=== PATIENT | male | born 1995 | race Caucasian/White ===

== ENCOUNTER 2021-03-24 17:14 | Inpatient (IN) | payer OTHER, SELFPAY ==
[2021-03-24 17:38] VITALS: PULSE 62; RESP 17; TEMP 36.8; O2SAT 95
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
--- NOTE | 2021-03-24 18:56 | PC.NURSE ---
PT declined flu vaccine at this time.
[2021-03-24 20:25] VITALS: BP 125/87; PULSE 109; TEMP 36.7; O2SAT 94
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
[2021-03-24] MEDS: Gabapentin 300 MG CAPSULE PO (22:31)
[2021-03-24] MEDS: hydrOXYzine HCL 50 MG TABLET 100 MG PO (22:31)
[2021-03-25 08:45] VITALS: BP 155/72; PULSE 87; RESP 16; TEMP 36.8; O2SAT 98
[2021-03-25] MEDS: Multivitamin TABLET 1 TAB PO (08:53)
[2021-03-25] MEDS: hydrOXYzine HCL 50 MG TABLET 100 MG PO ×3 (08:53→21:51)
[2021-03-25] MEDS: Gabapentin 300 MG CAPSULE PO ×2 (08:53→21:51)
[2021-03-25] MEDS: Sertraline HCL 100 MG TABLET 200 MG PO (08:53)
[2021-03-25] MEDS: ARIPiprazole 10 MG TABLET PO (13:01)
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
[2021-03-25 18:00] VITALS: BP 147/58; PULSE 77; RESP 18; TEMP 36.3; O2SAT 94
[2021-03-26 06:00] VITALS: TEMP 36.7
[2021-03-26] MEDS: hydrOXYzine HCL 50 MG TABLET 100 MG PO (08:35)
[2021-03-26] MEDS: Multivitamin TABLET 1 TAB PO (08:35)
[2021-03-26] MEDS: ARIPiprazole 10 MG TABLET PO (08:36)
[2021-03-26] MEDS: Sertraline HCL 100 MG TABLET 200 MG PO (08:36)
[2021-03-26] MEDS: Gabapentin 300 MG CAPSULE PO (08:37)
--- NOTE | 2021-03-26 10:55 | P.PNPSI_ITS ---
Subjective Subjective Date of Service: 03/27/21 Reason For Visit: Major depression Subjective Notes: Conditional Voluntary Interim History: Pt mostly in bed. He reports doing well. Although affect constricted. He reports he does not want to go back to as it was very toxic. Pt denies SI/HI. he also denies VH/AH. He reports sleeping well. He was encouraged to attend groups and be more visible in the unit. Somewhat disheveled. Mental Status Exam Mental Status Exam Narrative: obese, casually dressed, disheveled. no PMA/PMR. cooperative with interview. thoughts somewhat loose, spontaneously circumstantial. no delusions or paranoia evident. affect full range, flexible, normo-intense, non-labile. mood depressed and anxious. no AVH, denies SI/SIBI/HI, yet then when discharge is broached he reports feeling unsafe in a vague way due to his emotional agony. Diagnostics Vital Signs (24Hr): Vital Signs - 24 hr 03/26/21 21:18 Temperature 98.4 F Pulse Rate 72 Blood Pressure 172/81 H Pulse Oximetry 97 Medications Medications Current Medications Al Hydroxide/Mg Hydroxide (Magnesium Hydrox/Alum Hydrox 30 Ml Oral.Susp) 30 ml PO Q6H PRN PRN Reason: reflux Aripiprazole (Aripiprazole 10 Mg Tablet) 10 mg PO DAILY [facility] Last Admin: 03/27/21 09:12 Dose: 10 mg Documented by: Gabapentin (Gabapentin 300 Mg Capsule) 300 mg PO QID PRN PRN Reason: anxiety Last Admin: 03/25/21 21:51 Dose: 300 mg Documented by: Gabapentin (Gabapentin 300 Mg Capsule) 300 mg PO DAILY [facility] Last Admin: 03/27/21 09:12 Dose: 300 mg Documented by: Hydroxyzine HCl (Hydroxyzine Hcl 50 Mg Tablet) 100 mg PO BID PRN PRN Reason: Anxiety Last Admin: 03/25/21 21:51 Dose: 100 mg Documented by: Hydroxyzine HCl (Hydroxyzine Hcl 50 Mg Tablet) 100 mg PO BEDTIME PRN PRN Reason: insomnia Last Admin: 03/24/21 22:31 Dose: 100 mg Documented by: Hydroxyzine HCl (Hydroxyzine Hcl 50 Mg Tablet) 100 mg PO DAILY [facility] Last Admin: 03/27/21 09:12 Dose: 100 mg Documented by: Multivitamins/Vitamin C (Multivitamin Tablet) 1 tab PO DAILY [facility] Last Admin: 03/27/21 09:12 Dose: 1 tab Documented by: Omeprazole (Omeprazole 20 Mg Capsule.Dr) 20 mg PO DAILY@0630 [facility] Sertraline HCl (Sertraline Hcl 100 Mg Tablet) 200 mg PO DAILY [facility] Last Admin: 03/27/21 09:12 Dose: 200 mg Documented by: Allergies Allergies Allergy/AdvReac Type Severity Reaction Status Date / Time No Known Allergies Allergy Verified 03/24/21 17:28 Assessment & Plan Assessment & Plan (1) Depressive disorder: Status: Acute Code(s): F32.9 - Major depressive disorder, single episode, unspecified (2) Anxiety disorder: Status: Acute Code(s): F41.9 - Anxiety disorder, unspecified Assessment and Plan: DC guanfacine and vyvanse per pt request. start abilify 10 mg daily for mood, anxiety. pt does not appear to meet hospital criteria for LOC; discharge as soon as aftercare can be arranged. Greater than 50% of the session was spent on counseling and/or coordination of care Reason for contiued inpatient stay Substantial Risk for: inability to function
[2021-03-26 21:18] VITALS: BP 172/81; PULSE 72; TEMP 36.9; O2SAT 97
[2021-03-27 06:00] VITALS: BP 129/77; PULSE 72; RESP 20; TEMP 36.7; O2SAT 96
[2021-03-27] MEDS: Sertraline HCL 100 MG TABLET 200 MG PO (09:12)
[2021-03-27] MEDS: ARIPiprazole 10 MG TABLET PO (09:12)
[2021-03-27] MEDS: Gabapentin 300 MG CAPSULE PO ×2 (09:12→21:23)
[2021-03-27] MEDS: hydrOXYzine HCL 50 MG TABLET 100 MG PO ×2 (09:12→21:24)
[2021-03-27] MEDS: Multivitamin TABLET 1 TAB PO (09:12)
--- NOTE | 2021-03-27 19:05 | HO.PSYCHPN ---
Subjective Subjective Date of Service: 03/27/21 Reason For Visit: Major depression Interim History: Calm, cooperative, somewhat shy today. Reports sx of GERD. Maalox/Prilosec ordered which pt was in agreement with. Pt is guarded, observant in milieu and somewhat isolative. He denies other concerns, med SE, reports he is sleeping, eating and is feeling safe on the unit. Medication Compliance: Yes Review of Systems Acute medical concerns: No Medical Review of Systems: unchanged Review of Systems Reports behavioral changes Psychiatric: Reports anxiety, Reports behavioral changes, Reports depression and Reports paranoia Mental Status Exam Mental Status Exam Patient Appearance: Appropriate Patient Orientation: Person, Place and Situation Level of Consciousness: Alert Patient Behavior: Guarded, Talkative, Suspicious and Poor Eye Contact Mood Description: Constricted Affect Description: Constricted Patient Cognition Impaired: No Ability to Follow Directions: Good Speech Pattern: Spontaneous Speech Memory Description: Episodic Impaired Hallucinations: None Delusions: Paranoid Ideation Perceptual Disturbances: Depersonalization Thought Process: Distracted and Rumination Thought Content: positive for [place], positive for Circumstantial and positive for Suicidal Ideation (denies today) Depressive Symptoms: Increased Anxiety Judgement: Fair Diagnostics Vital Signs (24Hr): Vital Signs - 24 hr 03/26/21 21:18 03/27/21 06:00 Temperature 98.4 F 98.1 F Pulse Rate 72 72 Respiratory Rate 20 Blood Pressure 172/81 H 129/77 Pulse Oximetry 97 96 Medications Medications Current Medications Al Hydroxide/Mg Hydroxide (Magnesium Hydrox/Alum Hydrox 30 Ml Oral.Susp) 30 ml PO Q6H PRN PRN Reason: reflux Aripiprazole (Aripiprazole 10 Mg Tablet) 10 mg PO DAILY COUNTS [facility]CLUDE 234 BEDS AT THE [facility] Last Admin: 03/27/21 09:12 Dose: 10 mg Documented by: Gabapentin (Gabapentin 300 Mg Capsule) 300 mg PO QID PRN PRN Reason: anxiety Last Admin: 03/25/21 21:51 Dose: 300 mg Documented by: Gabapentin (Gabapentin 300 Mg Capsule) 300 mg PO DAILY COUNTS INCLUDE 234 BEDS AT THE [facility] Last Admin: 03/27/21 09:12 Dose: 300 mg Documented by: Hydroxyzine HCl (Hydroxyzine Hcl 50 Mg Tablet) 100 mg PO BID PRN PRN Reason: Anxiety Last Admin: 03/25/21 21:51 Dose: 100 mg Documented by: Hydroxyzine HCl (Hydroxyzine Hcl 50 Mg Tablet) 100 mg PO BEDTIME PRN PRN Reason: insomnia Last Admin: 03/24/21 22:31 Dose: 100 mg Documented by: Hydroxyzine HCl (Hydroxyzine Hcl 50 Mg Tablet) 100 mg PO DAILY COUNTS INCLUDE 234 BEDS AT THE [facility] Last Admin: 03/27/21 09:12 Dose: 100 mg Documented by: Multivitamins/Vitamin C (Multivitamin Tablet) 1 tab PO DAILY COUNTS INCLUDE 234 BEDS AT THE [facility] Last Admin: 03/27/21 09:12 Dose: 1 tab Documented by: Omeprazole (Omeprazole 20 Mg Capsule.Dr) 20 mg PO DAILY@0630 COUNTS INCLUDE 234 BEDS AT THE [facility] Sertraline HCl (Sertraline Hcl 100 Mg Tablet) 200 mg PO DAILY COUNTS INCLUDE 234 BEDS AT THE [facility] Last Admin: 03/27/21 09:12 Dose: 200 mg Documented by: Allergies Allergies Allergy/AdvReac Type Severity Reaction Status Date / Time No Known Allergies Allergy Verified 03/24/21 17:28 Assessment & Plan Assessment & Plan (1) Depressive disorder: Status: Acute Code(s): F32.9 - Major depressive disorder, single episode, unspecified (2) Anxiety disorder: Status: Acute Code(s): F41.9 - Anxiety disorder, unspecified Assessment and Plan: DC guanfacine and vyvanse per pt request. start abilify 10 mg daily for mood, anxiety. pt does not appear to meet hospital criteria for LOC; discharge as soon as aftercare can be arranged. 03/27/21: Continue plan of care Prilosec 20 mg daily Maalox prn for sx of GERD, Acid reflux Greater than 50% of the session was spent on counseling and/or coordination of care Patient educated on: medication risk/benefits and therapeutic strategies Informed Consent: further education needed Reason for contiued inpatient stay Substantial Risk for: harm to self, inability to function and rapid decompensation
[2021-03-27 21:48] VITALS: BP 139/80; PULSE 87; RESP 18; TEMP 36.3; O2SAT 96
[2021-03-28 06:00] VITALS: BP 134/87; PULSE 57; RESP 20; TEMP 36.8; O2SAT 96
[2021-03-28] MEDS: ARIPiprazole 10 MG TABLET PO (08:25)
[2021-03-28] MEDS: Sertraline HCL 100 MG TABLET 200 MG PO (08:25)
[2021-03-28] MEDS: Multivitamin TABLET 1 TAB PO (08:25)
[2021-03-28] MEDS: Omeprazole 20 MG CAPSULE.DR PO (08:25)
[2021-03-28] MEDS: Gabapentin 300 MG CAPSULE PO (08:25)
[2021-03-28] MEDS: hydrOXYzine HCL 50 MG TABLET 100 MG PO (08:25)
--- NOTE | 2021-03-28 10:42 | HO.PSYCHPN ---
Subjective Subjective Date of Service: 03/28/21 Reason For Visit: Major depression Interim History: Flavio is isolative in his room today. He denies concerns, med side effects. Team reports he appears to be more available in the evening when he will interact with peers and particpate in activities. Sleep at night is intact Team reports no behavioral issues. Medication Compliance: Yes Side effects from medications: No Attending Groups: Yes Review of Systems Medical Review of Systems: unchanged Review of Systems Reports behavioral changes Psychiatric: Reports anxiety, Reports behavioral changes, Reports depression and Reports paranoia Mental Status Exam Mental Status Exam Patient Appearance: Appropriate Patient Orientation: Person, Place and Situation Level of Consciousness: Alert Patient Behavior: Guarded, Talkative, Suspicious and Poor Eye Contact Mood Description: Constricted Affect Description: Constricted Patient Cognition Impaired: No Ability to Follow Directions: Good Speech Pattern: Spontaneous Speech Memory Description: Episodic Impaired Hallucinations: None Delusions: Paranoid Ideation Perceptual Disturbances: Depersonalization Thought Process: Distracted and Rumination Thought Content: positive for [place], positive for Circumstantial and positive for Suicidal Ideation (denies today) Depressive Symptoms: Increased Anxiety Judgement: Fair Diagnostics Vital Signs (24Hr): Vital Signs - 24 hr 03/27/21 21:48 03/28/21 06:00 Temperature 97.3 F 98.2 F Pulse Rate 87 57 Respiratory Rate 18 20 Blood Pressure 139/80 134/87 Pulse Oximetry 96 96 Medications Medications Current Medications Al Hydroxide/Mg Hydroxide (Magnesium Hydrox/Alum Hydrox 30 Ml Oral.Susp) 30 ml PO Q6H PRN PRN Reason: reflux Aripiprazole (Aripiprazole 10 Mg Tablet) 10 mg PO DAILY NGUYEN Last Admin: 03/28/21 08:25 Dose: 10 mg Documented by: Gabapentin (Gabapentin 300 Mg Capsule) 300 mg PO QID PRN PRN Reason: anxiety Last Admin: 03/27/21 21:23 Dose: 300 mg Documented by: Gabapentin (Gabapentin 300 Mg Capsule) 300 mg PO DAILY NGU[facility]EN Last Admin: 03/28/21 08:25 Dose: 300 mg Documented by: Hydroxyzine HCl (Hydroxyzine Hcl 50 Mg Tablet) 100 mg PO BID PRN PRN Reason: Anxiety Last Admin: 03/25/21 21:51 Dose: 100 mg Documented by: Hydroxyzine HCl (Hydroxyzine Hcl 50 Mg Tablet) 100 mg PO BEDTIME PRN PRN Reason: insomnia Last Admin: 03/27/21 21:24 Dose: 100 mg Documented by: Hydroxyzine HCl (Hydroxyzine Hcl 50 Mg Tablet) 100 mg PO DAILY [facility] Last Admin: 03/28/21 08:25 Dose: 100 mg Documented by: Multivitamins/Vitamin C (Multivitamin Tablet) 1 tab PO DAILY [facility] Last Admin: 03/28/21 08:25 Dose: 1 tab Documented by: Omeprazole (Omeprazole 20 Mg Capsule.Dr) 20 mg PO DAILY@0630 [facility] Last Admin: 03/28/21 08:25 Dose: 20 mg Documented by: Sertraline HCl (Sertraline Hcl 100 Mg Tablet) 200 mg PO DAILY [facility] Last Admin: 03/28/21 08:25 Dose: 200 mg Documented by: Allergies Allergies Allergy/AdvReac Type Severity Reaction Status Date / Time No Known Allergies Allergy Verified 03/24/21 17:28 Assessment & Plan Assessment & Plan (1) Depressive disorder: Status: Acute Code(s): F32.9 - Major depressive disorder, single episode, unspecified (2) Anxiety disorder: Status: Acute Code(s): F41.9 - Anxiety disorder, unspecified Assessment and Plan: DC guanfacine and vyvanse per pt request. start abilify 10 mg daily for mood, anxiety. pt does not appear to meet hospital criteria for LOC; discharge as soon as aftercare can be arranged. 03/27/21: Continue plan of care Prilosec 20 mg daily Maalox prn for sx of GERD, Acid reflux 03/28/21: Coverage-Continue plan of care. Greater than 50% of the session was spent on counseling and/or coordination of care Informed Consent: further education needed Reason for contiued inpatient stay Substantial Risk for: harm to self, inability to function and rapid decompensation
[2021-03-28 20:26] VITALS: BP 173/85; PULSE 104; TEMP 37; O2SAT 97
[2021-03-28] MEDS: Ibuprofen 400 MG TABLET PO (20:40)
--- NOTE | 2021-03-29 | ECG_ITS ---
Test Reason : obesity Blood Pressure : / mmHG Vent. Rate : 109 BPM Atrial Rate : 109 BPM P-R Int : 146 ms QRS Dur : 086 ms QT Int : 332 ms P-R-T Axes : 058 -32 038 degrees QTc Int : 447 ms Sinus tachycardia with occasional Premature ventricular complexes and Fusion complexes Left axis deviation Nonspecific ST abnormality Abnormal ECG No previous ECGs available Referred By: Sugar Draper Electronically Signed By:MIKAYLA ANDRADE MD
[2021-03-29] MEDS: hydrOXYzine HCL 50 MG TABLET 100 MG PO ×2 (00:04→08:35)
[2021-03-29] MEDS: Gabapentin 300 MG CAPSULE PO ×2 (00:04→08:35)
[2021-03-29] MEDS: Multivitamin TABLET 1 TAB PO (08:35)
[2021-03-29] MEDS: Sertraline HCL 100 MG TABLET 200 MG PO (08:35)
[2021-03-29] MEDS: ARIPiprazole 10 MG TABLET PO (08:35)
--- NOTE | 2021-03-29 10:49 | P.CONIM_ITS ---
History of Present Illness Data of Consult Service Date: 03/29/21 Requesting physician: Sugar Draper Primary Care Provider: Unknown Physician HPI Reason for consult: New patient 25 year old man admitted to for psychiatric care. His blood pressure is noted to be elevated as high as 173/85. He h His BP is noted to be elevated Review of Systems Review of Systems: Denies any recent fever chills or decrease in appetite respiratory denies any shortness of breath coverage production cardiovascular denies chest pain gastrointestinal denies any dysphagia abdominal pain nausea vomiting or diarrhea genitourinary denies any dysuria frequency or hematuria musculoskeletal denies any joint pain or swelling neuropsych denies any weakness or seizures all other systems reviewed are negative [facility] Medical History (Updated 03/29/21 @ 17:11 by Zuleika Pendleton NP) Anxiety disorder Depressive disorder GERD (gastroesophageal reflux disease) Pertinent family history: lung and brain cancer, denies cardiac disease Surgical History (Updated 03/29/21 @ 17:10 by Zuleika Pendleton NP) H/O heart surgery H/O wrist surgery Social History Household Members: Other Household Members Other:: care home Housing: Other Housing Other:: care home Do you presently have visiting nurse or other home services: No Patient Tobacco Use Status: Former Tobacco user Quit Date: 1 year ago Tobacco use type: Cigarette Smoked in Last 30 Days: No Patient Interested in Nicotine Replacement: No Patient Given Instructions on How to Stop Smoking: No Use of substances other than those prescribed or required for medical reasons: No Currently Displaying Signs/Symptoms of Drug Intoxication Withdrawal: No Have you been hit, kicked, punched, or otherwise hurt by someone within the past year? If so, by whom?: No Do you feel safe in your current relationship?: No Current Relationship Is there a partner from a previous relationship who is making you feel unsafe now?: No Are you made to feel afraid or neglected: No Spiritual Healthcare Practices: n/a Mandaeism Healthcare Practices: n/a Cultural Healthcare Practices: n/a Advance Directives: No Advance Directives Information Provided: No Do you have thoughts of harming others: None Do you have a plan to hurt others: No Plan Recently lost weight without trying: No Eating poorly because of decreased appetite: No Nutrition Risks: No Nutritional Risk Poor oral hygiene: No service: No Sexual orientation: Don't Know Meds Allergies Allergy/AdvReac Type Severity Reaction Status Date / Time No Known Allergies Allergy Verified 03/24/21 17:28 Active Medications: Current Medications Al Hydroxide/Mg Hydroxide (Magnesium Hydrox/Alum Hydrox 30 Ml Oral.Susp) 30 ml PO Q6H PRN PRN Reason: reflux Aripiprazole (Aripiprazole 10 Mg Tablet) 10 mg PO DAILY [facility] Last Admin: 03/29/21 08:35 Dose: 10 mg Documented by: Gabapentin (Gabapentin 300 Mg Capsule) 300 mg PO QID PRN PRN Reason: anxiety Last Admin: 03/29/21 00:04 Dose: 300 mg Documented by: Gabapentin (Gabapentin 300 Mg Capsule) 300 mg PO DAILY [facility] Last Admin: 03/29/21 08:35 Dose: 300 mg Documented by: Hydroxyzine HCl (Hydroxyzine Hcl 50 Mg Tablet) 100 mg PO BID PRN PRN Reason: Anxiety Last Admin: 03/25/21 21:51 Dose: 100 mg Documented by: Hydroxyzine HCl (Hydroxyzine Hcl 50 Mg Tablet) 100 mg PO BEDTIME PRN PRN Reason: insomnia Last Admin: 03/29/21 00:04 Dose: 100 mg Documented by: Hydroxyzine HCl (Hydroxyzine Hcl 50 Mg Tablet) 100 mg PO DAILY [facility] Last Admin: 03/29/21 08:35 Dose: 100 mg Documented by: Ibuprofen (Ibuprofen 400 Mg Tablet) 400 mg PO Q6H PRN PRN Reason: pain Last Admin: 03/28/21 20:40 Dose: 400 mg Documented by: Multivitamins/Vitamin C (Multivitamin Tablet) 1 tab PO DAILY [facility] Last Admin: 03/29/21 08:35 Dose: 1 tab Documented by: Omeprazole (Omeprazole 20 Mg Capsule.) 20 mg PO DAILY@0630 [facility] Last Admin: 03/29/21 10:28 Dose: Not Given Documented by: Sertraline HCl (Sertraline Hcl 100 Mg Tablet) 200 mg PO DAILY [facility] Last Admin: 03/29/21 08:35 Dose: 200 mg Documented by: Home Medications Medication Instructions Recorded Confirmed Last Taken Type gabapentin 300 mg capsule 300 mg PO DAILY 03/24/21 03/24/21 Unknown History gabapentin 300 mg capsule 300 mg PO QID PRN 03/24/21 03/24/21 Unknown History guanfacine 2 mg tablet 2 mg PO BID 03/24/21 03/24/21 Unknown History hydroxyzine HCl 100 mg tablet 100 mg PO BEDTIME PRN 03/24/21 03/24/21 Unknown History hydroxyzine HCl 100 mg tablet 100 mg PO BID PRN 03/24/21 03/24/21 Unknown History hydroxyzine HCl 100 mg tablet 100 mg PO DAILY 03/24/21 03/24/21 Unknown History lisdexamfetamine 40 mg capsule 40 mg PO DAILY 03/24/21 03/24/21 Unknown History (Vyvanse) multivitamin (Daily Multi-Vitamin) 1 tab 03/24/21 Unknown History sertraline 100 mg tablet 200 mg PO DAILY 03/24/21 03/24/21 Unknown History Physical Exam Vital Signs and Narrative: Vital Signs: Last Vital Signs Temp 98.6 F 03/28/21 20:26 Pulse 104 H 03/28/21 20:26 Resp 20 03/28/21 06:00 BP 173/85 H 03/28/21 20:26 Pulse Ox 97 03/28/21 20:26 Appearing in no acute distress head is normocephalic atraumatic eyes pupils are PERRLA sclera is anicteric mouth throat mucous membranes are intact and moist neck is supple no lymphadenopathy, no JVD noted lung sounds are clear to auscultation heart regular rate rhythm, clear S1, S2 positive bowel sounds, abdomen is soft, nontender neuro patient is alert x3, no focal deficits Assessment and Plan (1) GERD (gastroesophageal reflux disease): Status: Inactive (2) Anxiety disorder: Status: Inactive (3) Depressive disorder: Status: Inactive 25 year old man admitted to [facility] for psychiatric care. GERD continue PPI Elevated blood pressure readings no hx of HTN may be related to anxiety Has been up and down, monitor and consider adding antihypertensive agent if blood pressure remains elevated May consider lisinopril 5 mg daily, check BMP prior for renal function Follow and trend Mental health Management as per psychiatric team Obesity. Discussed the importance of weight management as this may be contributing to worsening of other comorbidities Patient interested in weight management consultation Nursing staff to get patient information about weight management clinic at [facility] Attending Dr. Contreras
[2021-03-29 11:42] VITALS: BP 129/79; PULSE 119; TEMP 36.3
--- NOTE | 2021-03-29 16:36 | P.PNPSI_ITS ---
Subjective Subjective Date of Service: 03/29/21 Reason For Visit: Major depression Interim History: Team report pt is telling them depression is 9/10. He is more engaged in the milieu later in the day. Today he is well engaged in discussion. He reports that the causes of his depression are poor health, obesity and not knowing where to begin to take improved care of himself. Discussed diagnostics, nutrition consult, (hospitalist consult is pending for admit from another facility) and pt agrees as he has discussed this earlier with his primary nurse. These interventions appear to motivate him and he expresses interest in participation. Medication Compliance: Yes Side effects from medications: No Attending Groups: Yes Review of Systems Acute medical concerns: No Medical Review of Systems: unchanged Review of Systems Psychiatric: Reports abnormal sleep pattern, Reports anxiety, Reports change in appetite, Reports depression, Reports difficulty concentrating, Reports hopelessness, Reports irritability, Reports anhedonia and Reports suicidal ideation Mental Status Exam Mental Status Exam Patient Appearance: Appropriate Patient Orientation: Person, Place and Situation Level of Consciousness: Alert Patient Behavior: Appropriate, Talkative, Cooperative, Anxious, Fatigued and Good Eye Contact Mood Description: Depressed and Anxious Affect Description: Flat Patient Cognition Impaired: No Ability to Follow Directions: Good Speech Pattern: Appropriate and Spontaneous Speech Memory Description: Intact Hallucinations: None Delusions: Not Present and Paranoid Ideation Perceptual Disturbances: Depersonalization and Derealization Thought Process: Rumination and Goal Oriented Thought Content: positive for [place], positive for Circumstantial, positive for Goal Oriented and positive for Suicidal Ideation (denies today) Depressive Symptoms: Increased Anxiety Judgement: Fair Diagnostics Vital Signs (24Hr): Vital Signs - 24 hr 03/28/21 20:26 03/29/21 11:42 Temperature 98.6 F 97.4 F Pulse Rate 104 H 119 H Blood Pressure 173/85 H 129/79 Pulse Oximetry 97 Medications Medications Current Medications Al Hydroxide/Mg Hydroxide (Magnesium Hydrox/Alum Hydrox 30 Ml Oral.Susp) 30 ml PO Q6H PRN PRN Reason: reflux Aripiprazole (Aripiprazole 10 Mg Tablet) 10 mg PO DAILY [facility] Last Admin: 03/29/21 08:35 Dose: 10 mg Documented by: Gabapentin (Gabapentin 300 Mg Capsule) 300 mg PO QID PRN PRN Reason: anxiety Last Admin: 03/29/21 00:04 Dose: 300 mg Documented by: Gabapentin (Gabapentin 300 Mg Capsule) 300 mg PO DAILY [facility] Last Admin: 03/29/21 08:35 Dose: 300 mg Documented by: Hydroxyzine HCl (Hydroxyzine Hcl 50 Mg Tablet) 100 mg PO BID PRN PRN Reason: Anxiety Last Admin: 03/25/21 21:51 Dose: 100 mg Documented by: Hydroxyzine HCl (Hydroxyzine Hcl 50 Mg Tablet) 100 mg PO BEDTIME PRN PRN Reason: insomnia Last Admin: 03/29/21 00:04 Dose: 100 mg Documented by: Hydroxyzine HCl (Hydroxyzine Hcl 50 Mg Tablet) 100 mg PO DAILY [facility] Last Admin: 03/29/21 08:35 Dose: 100 mg Documented by: Ibuprofen (Ibuprofen 400 Mg Tablet) 400 mg PO Q6H PRN PRN Reason: pain Last Admin: 03/28/21 20:40 Dose: 400 mg Documented by: Multivitamins/Vitamin C (Multivitamin Tablet) 1 tab PO DAILY [facility] Last Admin: 03/29/21 08:35 Dose: 1 tab Documented by: Omeprazole (Omeprazole 20 Mg Capsule.) 20 mg PO DAILY@0630 [facility] Last Admin: 03/29/21 10:28 Dose: Not Given Documented by: Sertraline HCl (Sertraline Hcl 100 Mg Tablet) 200 mg PO DAILY [facility] Last Admin: 03/29/21 08:35 Dose: 200 mg Documented by: Allergies Allergies Allergy/AdvReac Type Severity Reaction Status Date / Time No Known Allergies Allergy Verified 03/24/21 17:28 Assessment & Plan Assessment & Plan (1) GERD (gastroesophageal reflux disease): Status: Acute Code(s): K21.9 - Gastro-esophageal reflux disease without esophagitis (2) Anxiety disorder: Status: Acute Code(s): F41.9 - Anxiety disorder, unspecified (3) Depressive disorder: Status: Acute Code(s): F32.9 - Major depressive disorder, single episode, unspecified Assessment and Plan: 25 year old man admitted to for psychiatric care. GERD continue PPI Elevated blood pressure readings no hx of HTN may be related to anxiety Follow and trend Mental health Management as per psychiatric team Greater than 50% of the session was spent on counseling and/or coordination of care Patient educated on: therapeutic strategies Informed Consent: understands and further education needed Reason for contiued inpatient stay Substantial Risk for: harm to self, inability to function and rapid decompensation
[2021-03-29 18:00] VITALS: BP 142/85; PULSE 98; RESP 20; TEMP 36.8; O2SAT 97
[2021-03-30] MEDS: hydrOXYzine HCL 50 MG TABLET 100 MG PO ×2 (04:40→08:21)
[2021-03-30] MEDS: Magnesium Hydrox/Alum Hydrox 30 ML ORAL.SUSP PO (04:40)
[2021-03-30 06:00] VITALS: BP 144/76; PULSE 90; RESP 20; TEMP 36.7; O2SAT 97
[2021-03-30 07:21] LABS: Basophils Absolute Auto 0.1 X10*3/uL (0.0-0.2); Basophils Percent Auto 0.7 % (0-2); Eosinophils Absolute Auto 0.2 X10*3/uL (0.0-0.4); Eosinophils Percent Auto 1.8 % (0-4); Hematocrit 47.9 % (42-52); Hemoglobin 16.3 g/dl (14.0-18.0); Imm Gran Abs Auto 0.23 X10*3/uL (0.00-0.03); Imm Gran Pct Auto 1.7 % (0.0-0.4); Lymphocytes Absolute Auto 4.2 X10*3/uL (1.2-4.9); MANUAL DIFF FLAG SCAN; Mean Corpuscular Hemoglobin 28.7 pg (27.0-33.0); Mean Corpuscular Volume 84.5 fL (80-98); Mean Platelet Volume 9.1 fL (9.4-12.4); Monocytes Absolute Auto 1.6 X10*3/uL (0.1-1.2); Neutrophils Absolute Auto 7.2 X10*3/uL (2.0-8.3); Neutrophils Percent Auto 52.8 % (45-73); Platelet Count 300 X10*3/uL (160-400); Red Blood Count 5.67 X10*6/uL (4.60-5.80); Red Cell Distribution Width 13.2 % (11.0-16.0); SCAN SMEAR FLAG 1; White Blood Count 13.5 X10*3/uL (4.8-10.8)
[2021-03-30 07:40] LABS: Alanine Aminotransferase 47 U/L (0-40); Albumin Level 4.6 g/dL (3.5-5.0); Alkaline Phosphatase 90 U/L (39-117); Anion Gap 14 (12-20); Aspartate Amino Transferase 21 U/L (5-37); Bilirubin Total 0.5 mg/dL (0.0-1.0); Blood Urea Nitrogen 16 mg/dL (9-16); Calcium 9.4 mg/dL (8.4-10.2); Carbon Dioxide 26 mmol/L (22-29); Chloride 104 mmol/L (96-108); Cholesterol 174 mg/dL; Estimated Glomerular Filt Rate > 60; Glucose Random 106 mg/dL (60-115); HDL Cholesterol 35 mg/dL; LDL Cholesterol Calculated 104 mg/dl; Potassium 4.6 mmol/L (3.3-5.1); Sodium 139 mmol/L (135-145); Total Protein 7.4 g/dL (6.5-8.0); Triglycerides 176 mg/dL
[2021-03-30] MEDS: Omeprazole 20 MG CAPSULE.DR PO (07:42)
[2021-03-30 08:01] LABS: Thyroid Stimulating Hormone 1.54 uIU/mL (0.32-4.0); Vitamin D 25-OH Total 24.1 ng/mL (>30)
[2021-03-30] MEDS: Gabapentin 300 MG CAPSULE PO (08:20)
[2021-03-30 08:21] LABS: SLIDE REVIEW VERIFIED
[2021-03-30] MEDS: Multivitamin TABLET 1 TAB PO (08:21)
[2021-03-30] MEDS: Sertraline HCL 100 MG TABLET 200 MG PO (08:21)
[2021-03-30] MEDS: ARIPiprazole 10 MG TABLET PO (08:24)
[2021-03-30 08:26] LABS: Estimated Average Glucose 108 mg/dL; Hemoglobin A1c % 5.4 %
[2021-03-30 08:48] LABS: Folate 15.7 ng/mL (> or = 4.0); Vitamin B12 444 pg/mL (200-900)
[2021-03-30] MEDS: Amphetamine Mixed Salts 10 MG TABLET 5 MG PO ×2 (11:36→13:59)
--- NOTE | 2021-03-30 14:10 | PC.NURSE ---
PT was sitting in his room, stated that he feels sad about being discharged, states that he doesn't feel safe, he states he is afraid of himself and of other people. PT states he is hoping to get his own apartment. PT states he feels safe on the unit. PT has kill me written across his knuckles, when asked about it pt states he was feeling silly . PT encouraged to attend group, as this RN was leaving his room the sign for the shower was noted to be in his room, pt states the sign made him sad so he took it.
--- NOTE | 2021-03-30 15:17 | P.PNPSI_ITS ---
Subjective Subjective Date of Service: 03/30/21 Reason For Visit: Major depression Interim History: pt presents as tangential, but also fairly relatable. c/o depressed and anxious mood, difficulty concentrating. agrees to give adderall a try. will start with 10 mg qam and 10 mg at 1:30 pm. per report from nursing staff later in the day, pt was behaving oddly, apparently responding slowly, being very reluctant to come out of his room, making oblique references to someone's having been mean to him. the plan was to discharge him tomorrow but he expressed ambiguity about feeling safe and engaged in some property destruction on the unit out of anger (ripped a sign off the wall). Mental Status Exam Mental Status Exam Narrative: obese, casually dressed, disheveled. no PMA/PMR. cooperative with interview. thoughts tangential. no delusions or paranoia evident. affect full range, flexible, normo-intense, non-labile. mood depressed and anxious. no SI/HI/AVH expressed. Diagnostics Vital Signs (24Hr): Vital Signs - 24 hr 03/29/21 18:00 03/30/21 06:00 Temperature 98.2 F 98.0 F Pulse Rate 98 90 Respiratory Rate 20 20 Blood Pressure 142/85 H 144/76 H Pulse Oximetry 97 97 Labs Results: 03/30/21 07:07 03/30/21 07:07 Labs: Laboratory Results - last 48 hr 03/30/21 03/30/21 03/30/21 07:07 07:07 07:07 WBC 13.5 H RBC 5.67 Hgb 16.3 Hct 47.9 MCV 84.5 MCH 28.7 MCHC 34.0 RDW 13.2 Plt Count 300 MPV 9.1 L Immature Gran % (Auto) 1.7 H Neut % (Auto) 52.8 Lymph % (Auto) 31.0 [place] % (Auto) 12.0 H Eos % (Auto) 1.8 Baso % (Auto) 0.7 Lymph # (Auto) 4.2 [place] # (Auto) 1.6 H Eos # (Auto) 0.2 Baso # (Auto) 0.1 Abs Immat Gran (auto) 0.23 H Absolute Neuts (auto) 7.2 Absolute Nucleated RBC 0.000 Nucleated RBC % (auto) 0.0 Smear Tech's Comments VERIFIED Sodium 139 Potassium 4.6 Chloride 104 Carbon Dioxide 26 Anion Gap 14 BUN 16 Creatinine 0.96 Estim Creat Clear Calc TNP Estimated GFR > 60 Random Glucose 106 Estimat Average Glucose 108 Hemoglobin A1c % 5.4 Calcium 9.4 Total Bilirubin 0.5 AST 21 ALT 47 H Alkaline Phosphatase 90 Total Protein 7.4 Albumin 4.6 Triglycerides 176 Cholesterol 174 LDL Cholesterol, Calc 104 HDL Cholesterol 35 Vitamin B12 25-OH Vitamin D Total 24.1 Folate TSH 1.54 03/30/21 07:07 WBC RBC Hgb Hct MCV MCH MCHC RDW Plt Count MPV Immature Gran % (Auto) Neut % (Auto) Lymph % (Auto) [place] % (Auto) Eos % (Auto) Baso % (Auto) Lymph # (Auto) [place] # (Auto) Eos # (Auto) Baso # (Auto) Abs Immat Gran (auto) Absolute Neuts (auto) Absolute Nucleated RBC Nucleated RBC % (auto) Smear Tech's Comments Sodium Potassium Chloride Carbon Dioxide Anion Gap BUN Creatinine Estim Creat Clear Calc Estimated GFR Random Glucose Estimat Average Glucose Hemoglobin A1c % Calcium Total Bilirubin AST ALT Alkaline Phosphatase Total Protein Albumin Triglycerides Cholesterol LDL Cholesterol, Calc HDL Cholesterol Vitamin B12 444 25-OH Vitamin D Total Folate 15.7 TSH Medications Medications Current Medications Al Hydroxide/Mg Hydroxide (Magnesium Hydrox/Alum Hydrox 30 Ml Oral.Susp) 30 ml PO Q6H PRN PRN Reason: reflux Last Admin: 03/30/21 04:40 Dose: 30 ml Documented by: Amphetamine/Dextroamphetamine (Amphetamine Mixed Salts 10 Mg Tablet) 5 mg PO BID@0630,1330 [facility] Last Admin: 03/30/21 13:59 Dose: 5 mg Documented by: Aripiprazole (Aripiprazole 10 Mg Tablet) 10 mg PO DAILY [facility] Last Admin: 03/30/21 08:24 Dose: 10 mg Documented by: Gabapentin (Gabapentin 300 Mg Capsule) 300 mg PO QID PRN PRN Reason: anxiety Last Admin: 03/29/21 00:04 Dose: 300 mg Documented by: Gabapentin (Gabapentin 300 Mg Capsule) 300 mg PO DAILY [facility] Last Admin: 03/30/21 08:20 Dose: 300 mg Documented by: Hydroxyzine HCl (Hydroxyzine Hcl 50 Mg Tablet) 100 mg PO BID PRN PRN Reason: Anxiety Last Admin: 03/30/21 04:40 Dose: 100 mg Documented by: Hydroxyzine HCl (Hydroxyzine Hcl 50 Mg Tablet) 100 mg PO BEDTIME PRN PRN Reason: insomnia Last Admin: 03/29/21 00:04 Dose: 100 mg Documented by: Hydroxyzine HCl (Hydroxyzine Hcl 50 Mg Tablet) 100 mg PO DAILY [facility] Last Admin: 03/30/21 08:21 Dose: 100 mg Documented by: Ibuprofen (Ibuprofen 400 Mg Tablet) 400 mg PO Q6H PRN PRN Reason: pain Last Admin: 03/28/21 20:40 Dose: 400 mg Documented by: Multivitamins/Vitamin C (Multivitamin Tablet) 1 tab PO DAILY [facility] Last Admin: 03/30/21 08:21 Dose: 1 tab Documented by: Omeprazole (Omeprazole 20 Mg Capsule.Dr) 20 mg PO DAILY@0630 [facility] Last Admin: 03/30/21 07:42 Dose: 20 mg Documented by: Sertraline HCl (Sertraline Hcl 100 Mg Tablet) 200 mg PO DAILY [facility] Last Admin: 03/30/21 08:21 Dose: 200 mg Documented by: Allergies Allergies Allergy/AdvReac Type Severity Reaction Status Date / Time No Known Allergies Allergy Verified 03/24/21 17:28 Assessment & Plan Assessment & Plan (1) GERD (gastroesophageal reflux disease): Status: Inactive Code(s): K21.9 - Gastro-esophageal reflux disease without esophagitis (2) Anxiety disorder: Status: Inactive Code(s): F41.9 - Anxiety disorder, unspecified (3) Depressive disorder: Status: Inactive Code(s): F32.9 - Major depressive disorder, single episode, unspecified Assessment and Plan: DCed guanfacine and vyvanse per pt request. started abilify 10 mg daily for mood, anxiety. started adderall 10 BID 03/30/21 for ADHD Sx. pt was noted to be having behavior unusual for him later in the day. will hold for observation and to assure tolerability of adderall prior to discharge. Greater than 50% of the session was spent on counseling and/or coordination of care Reason for contiued inpatient stay Substantial Risk for: harm to self, inability to function and rapid decompensation
--- NOTE | 2021-03-30 15:42 | MHC.CLN ---
RE: CONSULT AWAITING HT AND WT TO FURTHER ASSESS NUTRITION STATUS PT APPEARS OBESE FOR HT PER ADMISSION ASSESSMENT REGULAR DIET APPROPRIATE
[2021-03-30 20:33] VITALS: PULSE 111; RESP 20; TEMP 36.7; O2SAT 94
[2021-03-31] MEDS: hydrOXYzine HCL 50 MG TABLET 100 MG PO ×3 (01:22→16:59)
[2021-03-31] MEDS: Gabapentin 300 MG CAPSULE PO ×2 (02:40→09:49)
[2021-03-31 06:00] VITALS: BP 159/99; PULSE 110; RESP 20; TEMP 36.8; O2SAT 94
[2021-03-31] MEDS: Omeprazole 20 MG CAPSULE.DR PO (07:47)
[2021-03-31] MEDS: Amphetamine Mixed Salts 10 MG TABLET 5 MG PO (07:48)
[2021-03-31] MEDS: ARIPiprazole 10 MG TABLET PO ×2 (08:08→12:18)
[2021-03-31] MEDS: Multivitamin TABLET 1 TAB PO (09:45)
[2021-03-31] MEDS: Sertraline HCL 100 MG TABLET 200 MG PO (09:45)
--- NOTE | 2021-03-31 12:22 | MHC.CLN ---
NUTRITION CONSULT CONSULT FOR WEIGHT LOSS STRATEGIES PER PATIENT INTEREST. PATIENT APPEARS OBESE, GREATER THAN OBESITY CLASS I. STATED THAT HAS BEEN INCREASING VEGETABLE INTAKE. STATED THAT EATS THREE MEALS PER DAY AND DOES NOT SNACK. DRINKS WATER, COFFEE, AND CRANBERRY DRINK. DISCUSSED HIGH FAT CONTENT OF SOME SNACKS AND HIGH SUGAR CONTENT OF SOME DRINKS. ADVISED TO WALK/MOVE WHEN ABLE, CONTINUE GOOD INTAKE OF VEGETABLES, MONITOR INTAKE OF SNACKS AND SUGARY DRINKS. DID NOT ANSWER WHERE HE GETS MEALS/WHO PREPARES MEALS. RECEPTIVE AND ACTIVE IN DISCUSSION.
[2021-03-31] MEDS: Amphetamine Mixed Salts 10 MG TABLET PO (14:08)
--- NOTE | 2021-03-31 14:13 | P.PNPSI_ITS ---
Subjective Subjective Date of Service: 03/31/21 Reason For Visit: Major depression Interim History: pt with increased latency of response. when asked about what is happening in his head during this time, he describes having thoughts, thinking about plans, things he wants to do, ways he plans to make money, projects he would like to do. he believes it is a symptom of ADHD. MD suggests that is possible but it seems more severe than most people with ADHD struggle with and it may be a thought disorder, or psychosis. we discuss increasing the abilifty, and he agrees to increase to 20 mg daily and then asks to increase to 30 mg daily. he has been on the medication in the past but cannot recall what dose he was on. stimulants also discussed; the intention was to start at 10 mg BID, so dosing increased to that figure as of today. states he did have difficulty sleeping but does not believe it had anything to do with starting stimulants yesterday. he asks about when MD thinks he will be discharged, and MD informs him the plan is to observe him a bit longer on the increased dose of abilify and stimulant. per staff, sad, depressed, anxious. angry in the morning yesterday, not feeling important. delayed responses to staff questions. got nervous about potentially being discharged, pulled shower sign out of the wall in frustration. was up until 0430 this morning. Mental Status Exam Mental Status Exam Narrative: obese, casually dressed, disheveled. no PMA/PMR. cooperative with interview. thoughts tangential, somewhat disorganized. no delusions or paranoia evident. affect constricted, normo-intense, non-labile. mood depressed and anxious. no SI/HI/AVH expressed. Diagnostics Vital Signs (24Hr): Vital Signs - 24 hr 03/30/21 20:33 03/31/21 06:00 Temperature 98.1 F 98.2 F Pulse Rate 111 H 110 H Respiratory Rate 20 20 Blood Pressure 159/99 H Pulse Oximetry 94 94 Labs Results: 03/30/21 07:07 03/30/21 07:07 Labs: Laboratory Results - last 48 hr 03/30/21 03/30/21 03/30/21 07:07 07:07 07:07 WBC 13.5 H RBC 5.67 Hgb 16.3 Hct 47.9 MCV 84.5 MCH 28.7 MCHC 34.0 RDW 13.2 Plt Count 300 MPV 9.1 L Immature Gran % (Auto) 1.7 H Neut % (Auto) 52.8 Lymph % (Auto) 31.0 [place] % (Auto) 12.0 H Eos % (Auto) 1.8 Baso % (Auto) 0.7 Lymph # (Auto) 4.2 [place] # (Auto) 1.6 H Eos # (Auto) 0.2 Baso # (Auto) 0.1 Abs Immat Gran (auto) 0.23 H Absolute Neuts (auto) 7.2 Absolute Nucleated RBC 0.000 Nucleated RBC % (auto) 0.0 Smear Tech's Comments VERIFIED Sodium 139 Potassium 4.6 Chloride 104 Carbon Dioxide 26 Anion Gap 14 BUN 16 Creatinine 0.96 Estim Creat Clear Calc TNP Estimated GFR > 60 Random Glucose 106 Estimat Average Glucose 108 Hemoglobin A1c % 5.4 Calcium 9.4 Total Bilirubin 0.5 AST 21 ALT 47 H Alkaline Phosphatase 90 Total Protein 7.4 Albumin 4.6 Triglycerides 176 Cholesterol 174 LDL Cholesterol, Calc 104 HDL Cholesterol 35 Vitamin B12 25-OH Vitamin D Total 24.1 Folate TSH 1.54 03/30/21 07:07 WBC RBC Hgb Hct MCV MCH MCHC RDW Plt Count MPV Immature Gran % (Auto) Neut % (Auto) Lymph % (Auto) [place] % (Auto) Eos % (Auto) Baso % (Auto) Lymph # (Auto) [place] # (Auto) Eos # (Auto) Baso # (Auto) Abs Immat Gran (auto) Absolute Neuts (auto) Absolute Nucleated RBC Nucleated RBC % (auto) Smear Tech's Comments Sodium Potassium Chloride Carbon Dioxide Anion Gap BUN Creatinine Estim Creat Clear Calc Estimated GFR Random Glucose Estimat Average Glucose Hemoglobin A1c % Calcium Total Bilirubin AST ALT Alkaline Phosphatase Total Protein Albumin Triglycerides Cholesterol LDL Cholesterol, Calc HDL Cholesterol Vitamin B12 444 25-OH Vitamin D Total Folate 15.7 TSH Medications Medications Current Medications Al Hydroxide/Mg Hydroxide (Magnesium Hydrox/Alum Hydrox 30 Ml Oral.Susp) 30 ml PO Q6H PRN PRN Reason: reflux Last Admin: 03/30/21 04:40 Dose: 30 ml Documented by: Amphetamine/Dextroamphetamine (Amphetamine Mixed Salts 20 Mg Tablet) 20 mg PO DAILY@1130 [facility] Aripiprazole (Aripiprazole 30 Mg Tablet) 30 mg PO DAILY [facility] Gabapentin (Gabapentin 300 Mg Capsule) 300 mg PO QID PRN PRN Reason: anxiety Last Admin: 03/31/21 02:40 Dose: 300 mg Documented by: Gabapentin (Gabapentin 300 Mg Capsule) 300 mg PO DAILY [facility] Last Admin: 03/31/21 08:08 Dose: 300 mg Documented by: Hydroxyzine HCl (Hydroxyzine Hcl 50 Mg Tablet) 100 mg PO BID PRN PRN Reason: Anxiety Last Admin: 03/30/21 04:40 Dose: 100 mg Documented by: Hydroxyzine HCl (Hydroxyzine Hcl 50 Mg Tablet) 100 mg PO BEDTIME PRN PRN Reason: insomnia Last Admin: 03/31/21 01:22 Dose: 100 mg Documented by: Hydroxyzine HCl (Hydroxyzine Hcl 50 Mg Tablet) 100 mg PO DAILY [facility] Last Admin: 03/31/21 08:07 Dose: 100 mg Documented by: Ibuprofen (Ibuprofen 400 Mg Tablet) 400 mg PO Q6H PRN PRN Reason: pain Last Admin: 03/28/21 20:40 Dose: 400 mg Documented by: Multivitamins/Vitamin C (Multivitamin Tablet) 1 tab PO DAILY [facility] Last Admin: 03/31/21 08:08 Dose: 1 tab Documented by: Omeprazole (Omeprazole 20 Mg Capsule.Dr) 20 mg PO DAILY@0630 [facility] Last Admin: 03/31/21 07:47 Dose: 20 mg Documented by: Sertraline HCl (Sertraline Hcl 100 Mg Tablet) 200 mg PO DAILY [facility] Last Admin: 03/31/21 08:08 Dose: 200 mg Documented by: Allergies Allergies Allergy/AdvReac Type Severity Reaction Status Date / Time No Known Allergies Allergy Verified 03/24/21 17:28 Assessment & Plan Assessment & Plan (1) GERD (gastroesophageal reflux disease): Status: Inactive Code(s): K21.9 - Gastro-esophageal reflux disease without esophagitis (2) Anxiety disorder: Status: Inactive Code(s): F41.9 - Anxiety disorder, unspecified (3) Depressive disorder: Status: Inactive Code(s): F32.9 - Major depressive disorder, single episode, unspecified Assessment and Plan: DCed guanfacine and vyvanse per pt request. started abilify 10 mg daily for mood, anxiety; increased to 20 mg daily as of 03/31 with plan to move to 30 mg daily as of 10/14. started adderall 5 BID 03/30/21 for ADHD Sx; dosing increased to 10 BID starting 03/31. will hold for observation and to assure tolerability of adderall and increased dosing of abilify prior to discharge. Greater than 50% of the session was spent on counseling and/or coordination of care Reason for contiued inpatient stay Substantial Risk for: harm to self, inability to function and rapid decompe nsation
[2021-03-31 18:00] VITALS: BP 134/98; PULSE 98; TEMP 36.3; O2SAT 97
[2021-04-01] MEDS: Magnesium Hydrox/Alum Hydrox 30 ML ORAL.SUSP PO ×2 (02:21→23:00)
--- NOTE | 2021-04-01 04:14 | PC.NURSE ---
At 0315 patient requested to take a shower. At 0330 nurse and MHA saw water beginning to pool on the shower room hallway. Asked patient if he had blocked the drain, no response. Patient was asked to turn off the water and exit the shower. Patient complied. Patient had placed a towel on the drain and purposely blocked the water from draining, thus flooding the shower-room. Patient stated I'm bored .
[2021-04-01] MEDS: Omeprazole 20 MG CAPSULE.DR PO (05:06)
[2021-04-01] MEDS: hydrOXYzine HCL 50 MG TABLET 100 MG PO ×2 (05:06→16:56)
[2021-04-01 06:00] VITALS: BP 141/76; PULSE 80; RESP 16; TEMP 36.7; O2SAT 98
--- NOTE | 2021-04-01 08:40 | PC.NURSE ---
Patient refused AM medication stating he did not need artificial meds to help him feel better, I rather be depressed . Patient c/o abdominal pain I think its a blockage . I have Aspergers I try not to pretend I am something I'm not . My pain went away now. It was in my knees, lower quads, a / but now it went away . Patient presents with paper towels in his ears stating he was trying to block out sound.
--- NOTE | 2021-04-01 14:00 | P.PNPSI_ITS ---
Subjective Subjective Date of Service: 04/01/21 Reason For Visit: Major depression Interim History: pt seen with [facility]. pt presents as more disorganized and tangential than yesterday. agreeable to stop the stimulants as his mental status has clearly worsened after starting them and further after increasing the dose. no complaints of side effects of abilify. somatically preoccupied, c/o throat pain, worried he has lyme Dz, believes he can feel a spirochete under the skin in his periorbital area, asking for xray to locate the lyme disease in his neck region. pt agrees to have hospitalist examine his throat and to be prescribed lozenges PRN sore throat. per staff, anxious and depressed. isolative in the morning and visible in the milieu in the afternoon. played chess with peer. pulled on electrical sign but was able to be redirected. c/o bugs crawling in his throat. during crafts time painted himself, his arms, to look like a football player. stopped up the shower drain with his towel. refused morning medications today. Mental Status Exam Mental Status Exam Narrative: obese, casually dressed, disheveled. no PMA/PMR. cooperative with interview. thoughts tangential, disorganized, somatically preoccupied. seems delusional regarding his state of infection. affect constricted, normo-intense, non-labile. mood depressed and anxious. no SI/HI/AVH expressed. Diagnostics Vital Signs (24Hr): Vital Signs - 24 hr 03/31/21 18:00 04/01/21 06:00 Temperature 97.4 F 98.0 F Pulse Rate 98 80 Respiratory Rate 16 Blood Pressure 134/98 H 141/76 H Pulse Oximetry 97 98 Labs Results: 03/30/21 07:07 03/30/21 07:07 Medications Medications Current Medications Al Hydroxide/Mg Hydroxide (Magnesium Hydrox/Alum Hydrox 30 Ml Oral.Susp) 30 ml PO Q6H PRN PRN Reason: reflux Last Admin: 04/01/21 02:21 Dose: 30 ml Documented by: Aripiprazole (Aripiprazole 30 Mg Tablet) 30 mg PO DAILY [facility] Last Admin: 04/01/21 11:59 Dose: Not Given Documented by: Benzocaine (Throat Lozenge, Medicated Lozenge) 1 lozenge MUCOUS MEM Q1H PRN PRN Reason: Sore Throat Gabapentin (Gabapentin 300 Mg Capsule) 300 mg PO QID PRN PRN Reason: anxiety Last Admin: 03/31/21 02:40 Dose: 300 mg Documented by: Gabapentin (Gabapentin 300 Mg Capsule) 300 mg PO DAILY [facility] Last Admin: 04/01/21 11:58 Dose: Not Given Documented by: Hydroxyzine HCl (Hydroxyzine Hcl 50 Mg Tablet) 100 mg PO BID PRN PRN Reason: Anxiety Last Admin: 03/31/21 16:59 Dose: 100 mg Documented by: Hydroxyzine HCl (Hydroxyzine Hcl 50 Mg Tablet) 100 mg PO BEDTIME PRN PRN Reason: insomnia Last Admin: 04/01/21 05:06 Dose: 100 mg Documented by: Hydroxyzine HCl (Hydroxyzine Hcl 50 Mg Tablet) 100 mg PO DAILY [facility] Last Admin: 04/01/21 11:58 Dose: Not Given Documented by: Ibuprofen (Ibuprofen 400 Mg Tablet) 400 mg PO Q6H PRN PRN Reason: pain Last Admin: 03/28/21 20:40 Dose: 400 mg Documented by: Multivitamins/Vitamin C (Multivitamin Tablet) 1 tab PO DAILY [facility] Last Admin: 04/01/21 11:59 Dose: Not Given Documented by: Omeprazole (Omeprazole 20 Mg Capsule.Dr) 20 mg PO DAILY@0630 [facility] Last Admin: 04/01/21 05:06 Dose: 20 mg Documented by: Sertraline HCl (Sertraline Hcl 100 Mg Tablet) 200 mg PO DAILY [facility] Last Admin: 04/01/21 11:59 Dose: Not Given Documented by: Allergies Allergies Allergy/AdvReac Type Severity Reaction Status Date / Time No Known Allergies Allergy Verified 03/24/21 17:28 Assessment & Plan Assessment & Plan (1) GERD (gastroesophageal reflux disease): Status: Inactive Code(s): K21.9 - Gastro-esophageal reflux disease without esophagitis (2) Anxiety disorder: Status: Inactive Code(s): F41.9 - Anxiety disorder, unspecified (3) Depressive disorder: Status: Inactive Code(s): F32.9 - Major depressive disorder, single episode, unspecified Assessment and Plan: DCed guanfacine and vyvanse per pt request. started abilify 10 mg daily for mood, anxiety; increased to 20 mg daily as of 10/13 with plan to move to 30 mg daily as of 04/01. started adderall 5 BID 03/30/21 for ADHD Sx; dosing increased to 10 BID starting 03/31. DCed 04/01 due to worsened psychotic Sx since the addition of stimulant. will hold for observation and to assure tolerability of increased dosing of abilify prior to discharge. Greater than 50% of the session was spent on counseling and/or coordination of care Reason for contiued inpatient stay Substantial Risk for: inability to function and rapid decompensation
[2021-04-01] MEDS: Gabapentin 300 MG CAPSULE PO ×2 (16:48→22:19)
--- NOTE | 2021-04-01 16:56 | PC.NURSE ---
Patient c/o chest discomfort, BP 144/100, P89. Administered Gabapentin 300mg PRN, Atarax 100mg PRN with pending effects. Continue to monitor BP. Patient observed to run up and down hallway x1.
--- NOTE | 2021-04-01 17:26 | PC.NURSE ---
Patient putting things in toliet, paper bag, cards, socks in addition to large BM.
--- NOTE | 2021-04-01 17:34 | PC.NURSE ---
Patient placed on 5 minute checks for unpredictability, impulsive behavior. .
[2021-04-01 18:00] VITALS: BP 146/96; PULSE 95; RESP 16; TEMP 36.6; O2SAT 98
[2021-04-01] MEDS: Throat Lozenge, Medicated LOZENGE 1 LOZENGE MUCOUS MEM (22:19)
[2021-04-02] MEDS: hydrOXYzine HCL 50 MG TABLET 100 MG PO ×3 (00:46→11:50)
[2021-04-02 05:32] VITALS: BP 142/86; PULSE 99; RESP 18; TEMP 36.7; O2SAT 96
[2021-04-02] MEDS: Omeprazole 20 MG CAPSULE.DR PO (05:44)
--- NOTE | 2021-04-02 06:05 | PC.NURSE ---
PT having increased impulsivety, appears to be responding to internal stimuli, PT vomited x1, T 98, BP 142/86, P 99, O2 97, PT had no complaints said That happens all the time. Meaning throwing up randomly. PT on 5 minute checks trying to pull signs off the wall, took mattress off bed, laughing to self, attempting to exit. PT did not sleep at all this shift.PT signed a 3 day this am at 5:55. PT showered, at one point PT was sitting on floor in shower, redirected to sit on bench. PT also has playing cards on floor of room. Nurse will continue to monitor.
[2021-04-02] MEDS: Sertraline HCL 100 MG TABLET 200 MG PO (09:54)
[2021-04-02] MEDS: ARIPiprazole 30 MG TABLET PO (09:54)
[2021-04-02] MEDS: Gabapentin 300 MG CAPSULE PO ×2 (09:55→11:50)
[2021-04-02] MEDS: Multivitamin TABLET 1 TAB PO (09:55)
[2021-04-02] MEDS: OLANZapine 5 MG TABLET PO (12:04)
[2021-04-02] MEDS: OLANZapine 10 MG TABLET 20 MG PO ×2 (12:51→20:35)
--- NOTE | 2021-04-02 16:14 | HO.PSYCHPN ---
Subjective Subjective Date of Service: 04/02/21 Reason For Visit: Major depression Interim History: pt c/o the voices being irritating. he likes being alone but cannot feel alone in his room due to the voices. he states his mood is good. but moments later c/o severe psychic pain. torment. denies SI/HI/VH. endorses AH of stack stuff which he declines to describe. talking about [employer] and [employer]. pt had received olanzapine earlier in the day for agitation. MD informed pt he would Rx the same medication at bedtime to help with his thoughts and to help him sleep. pt requesting ativan for anxiety/agitation, MD agrees to Rx. per staff, numerous bizarre and destructive behaviors in the past 24H. up all night (no sleep since stimulant trial started - stimulants now DCed). Mental Status Exam Mental Status Exam Narrative: obese, casually dressed, disheveled. no PMA/PMR. cooperative with interview. thoughts tangential, disorganized. affect constricted, normo-intense, non-labile. mood described as good, then pt states he is experiencing a lot of psychic pain. torment. no SI/HI/VH. endorsing AH of stack stuff. Diagnostics Vital Signs (24Hr): Vital Signs - 24 hr 04/01/21 18:00 04/02/21 05:32 Temperature 97.9 F 98.0 F Pulse Rate 95 99 Respiratory Rate 16 18 Blood Pressure 146/96 H 142/86 H Pulse Oximetry 98 96 Labs Results: 03/30/21 07:07 03/30/21 07:07 Medications Medications Current Medications Al Hydroxide/Mg Hydroxide (Magnesium Hydrox/Alum Hydrox 30 Ml Oral.Susp) 30 ml PO Q6H PRN PRN Reason: reflux Last Admin: 04/01/21 23:00 Dose: 30 ml Documented by: Benzocaine (Throat Lozenge, Medicated Lozenge) 1 lozenge MUCOUS MEM Q1H PRN PRN Reason: Sore Throat Last Admin: 04/01/21 22:19 Dose: 1 lozenge Documented by: Gabapentin (Gabapentin 300 Mg Capsule) 300 mg PO QID PRN PRN Reason: anxiety Last Admin: 04/01/21 22:19 Dose: 300 mg Documented by: Gabapentin (Gabapentin 300 Mg Capsule) 300 mg PO DAILY [facility] Last Admin: 04/02/21 11:50 Dose: 300 mg Documented by: Hydroxyzine HCl (Hydroxyzine Hcl 50 Mg Tablet) 100 mg PO BID PRN PRN Reason: Anxiety Last Admin: 04/01/21 16:56 Dose: 100 mg Documented by: Hydroxyzine HCl (Hydroxyzine Hcl 50 Mg Tablet) 100 mg PO BEDTIME PRN PRN Reason: insomnia Last Admin: 04/02/21 00:46 Dose: 100 mg Documented by: Hydroxyzine HCl (Hydroxyzine Hcl 50 Mg Tablet) 100 mg PO DAILY [facility] Last Admin: 04/02/21 11:50 Dose: 100 mg Documented by: Ibuprofen (Ibuprofen 400 Mg Tablet) 400 mg PO Q6H PRN PRN Reason: pain Last Admin: 03/28/21 20:40 Dose: 400 mg Documented by: Lorazepam (Lorazepam 1 Mg Tablet) 1 mg PO Q4H PRN PRN Reason: severe anxiety Multivitamins/Vitamin C (Multivitamin Tablet) 1 tab PO DAILY [facility] Last Admin: 04/02/21 09:55 Dose: 1 tab Documented by: Olanzapine (Olanzapine 10 Mg Tablet) 20 mg PO BEDTIME [facility] Omeprazole (Omeprazole 20 Mg Capsule.Dr) 20 mg PO DAILY@0630 [facility] Last Admin: 04/02/21 05:44 Dose: 20 mg Documented by: Sertraline HCl (Sertraline Hcl 100 Mg Tablet) 200 mg PO DAILY [facility] Last Admin: 04/02/21 09:54 Dose: 200 mg Documented by: Allergies Allergies Allergy/AdvReac Type Severity Reaction Status Date / Time No Known Allergies Allergy Verified 03/24/21 17:28 Assessment & Plan Assessment & Plan (1) GERD (gastroesophageal reflux disease): Status: Inactive Code(s): K21.9 - Gastro-esophageal reflux disease without esophagitis (2) Anxiety disorder: Status: Inactive Code(s): F41.9 - Anxiety disorder, unspecified (3) Depressive disorder: Status: Inactive Code(s): F32.9 - Major depressive disorder, single episode, unspecified Assessment and Plan: DCed guanfacine and vyvanse per pt request. started abilify 10 mg daily for mood, anxiety; increased to 20 mg daily as of 03/31, 30 mg daily as of 04/01. DCed 04/02 in favor of zyprexa as pt has rapidly become quite disorganized and insomniac. started adderall 5 BID 03/30/21 for ADHD Sx; dosing increased to 10 BID starting 03/31. DCed 04/01 due to worsened psychotic Sx since the addition of stimulant. dispo - pending resolution of apparently iatrogenic psychosis. Greater than 50% of the session was spent on counseling and/or coordination of care Reason for contiued inpatient stay Substantial Risk for: inability to function and rapid decompensation
[2021-04-02 18:00] VITALS: BP 165/90
[2021-04-02] MEDS: Magnesium Hydrox/Alum Hydrox 30 ML ORAL.SUSP PO (20:39)
[2021-04-03 06:00] VITALS: BP 175/86; PULSE 97; RESP 16; TEMP 36.7; O2SAT 97
[2021-04-03] MEDS: hydrOXYzine HCL 50 MG TABLET 100 MG PO ×4 (06:47→22:30)
[2021-04-03] MEDS: LORazepam 1 MG TABLET PO ×3 (06:47→20:02)
[2021-04-03] MEDS: Gabapentin 300 MG CAPSULE PO ×4 (06:47→18:12)
[2021-04-03] MEDS: Throat Lozenge, Medicated LOZENGE 1 LOZENGE MUCOUS MEM ×6 (08:22→21:31)
[2021-04-03] MEDS: Omeprazole 20 MG CAPSULE.DR PO (08:50)
[2021-04-03] MEDS: OLANZapine 10 MG TABLET PO (08:50)
[2021-04-03] MEDS: Multivitamin TABLET 1 TAB PO (08:50)
[2021-04-03] MEDS: Sertraline HCL 100 MG TABLET 200 MG PO (08:50)
[2021-04-03] MEDS: Magnesium Hydrox/Alum Hydrox 30 ML ORAL.SUSP PO ×2 (12:59→20:02)
[2021-04-03] MEDS: OLANZapine 5 MG TABLET PO ×2 (13:00→22:30)
--- NOTE | 2021-04-03 17:03 | HO.PSYCHPN ---
Subjective Subjective Date of Service: 04/05/21 Reason For Visit: Major depression Interim History: Patient seen and discussed with team. Patient evaluated this morning and upon interview presents as internally preoccupied and disorganized. Says I would like to have a musical instrument and read about Eve Frecatarino. Says Also im just what happened at the last place i was at? Says his mood is better now but i'm angry at myself for the way amngo been in the past. Says he misses his family and friends. He is quite tangential during interview, jumping from topic to topic, states I really like celtic history and paganism and that I have a special relationship with the [facility]. Asks, Is it possible to get a prescription for ritalin, cause i have adhd. Endorses AH but says the voices are pretty awesome and denies command hallucinations but says I'd rather not hear voices at all. Has been asking for olanzapine as a PRN and took 10 mg this morning, however now says I dont really like it that much. Says sleep has been great, per staff submarine warfare officer, last night was the first night he had slept for consecutive hours. He is malodorous and has not been attending to self care on the unit, however says That?s all been great when asked if he is showering. Reports he wants to buy math text books from [employer] and wants to solve some math problems today. Denies paranoia. Denies SI/SIB/HI upon inquiry. Says he feels safe.? In the milieu, patient has reportedly engaged in property destructio and room is unkempt/ disheveled, difficult to redirect. Mental Status Exam Mental Status Exam Narrative: obese, casually dressed, disheveled, malodorous, arms crossed, poor eye contact.? no PMA/PMR.? cooperative with interview.? thoughts tangential, disorganized. ? affect constricted, normo-intense, non-labile.? mood described as better, but then states he is angry, affect is constricted, incongruent.? no SI/HI/VH.? endorsing AH but says the voices are positive in content. Diagnostics Vital Signs (24Hr): Vital Signs - 24 hr 04/02/21 18:00 04/03/21 06:00 Temperature 98.1 F Pulse Rate 97 Respiratory Rate 16 Blood Pressure 165/90 H 175/86 H Pulse Oximetry 97 Labs Results: 03/30/21 07:07 03/30/21 07:07 Medications Medications Current Medications Al Hydroxide/Mg Hydroxide (Magnesium Hydrox/Alum Hydrox 30 Ml Oral.Susp) 30 ml PO Q6H PRN PRN Reason: reflux Last Admin: 04/03/21 12:59 Dose: 30 ml Documented by: Benzocaine (Throat Lozenge, Medicated Lozenge) 1 lozenge MUCOUS MEM Q1H PRN PRN Reason: Sore Throat Last Admin: 04/03/21 14:52 Dose: 1 lozenge Documented by: Gabapentin (Gabapentin 300 Mg Capsule) 300 mg PO QID PRN PRN Reason: anxiety Last Admin: 04/03/21 14:55 Dose: 300 mg Documented by: Gabapentin (Gabapentin 300 Mg Capsule) 300 mg PO DAILY [facility] Last Admin: 04/03/21 08:51 Dose: 300 mg Documented by: Hydroxyzine HCl (Hydroxyzine Hcl 50 Mg Tablet) 100 mg PO BID PRN PRN Reason: Anxiety Last Admin: 04/03/21 13:00 Dose: 100 mg Documented by: Hydroxyzine HCl (Hydroxyzine Hcl 50 Mg Tablet) 100 mg PO BEDTIME PRN PRN Reason: insomnia Last Admin: 04/02/21 00:46 Dose: 100 mg Documented by: Hydroxyzine HCl (Hydroxyzine Hcl 50 Mg Tablet) 100 mg PO DAILY [facility] Last Admin: 04/03/21 08:51 Dose: 100 mg Documented by: Ibuprofen (Ibuprofen 400 Mg Tablet) 400 mg PO Q6H PRN PRN Reason: pain Last Admin: 03/28/21 20:40 Dose: 400 mg Documented by: Lorazepam (Lorazepam 1 Mg Tablet) 1 mg PO Q4H PRN PRN Reason: severe anxiety Last Admin: 04/03/21 14:55 Dose: 1 mg Documented by: Multivitamins/Vitamin C (Multivitamin Tablet) 1 tab PO DAILY [facility] Last Admin: 04/03/21 08:50 Dose: 1 tab Documented by: Olanzapine (Olanzapine 10 Mg Tablet) 20 mg PO BEDTIME [facility] Last Admin: 04/02/21 20:35 Dose: 20 mg Documented by: Olanzapine (Olanzapine 10 Mg Tablet) 10 mg PO DAILY [facility] Olanzapine (Olanzapine 5 Mg Tablet) 5 mg PO Q8H PRN PRN Reason: agitation, psychosis Omeprazole (Omeprazole 20 Mg Capsule.) 20 mg PO DAILY@0630 [facility] Last Admin: 04/03/21 08:50 Dose: 20 mg Documented by: Sertraline HCl (Sertraline Hcl 100 Mg Tablet) 200 mg PO DAILY [facility] Last Admin: 04/03/21 08:50 Dose: 200 mg Documented by: Allergies Allergies Allergy/AdvReac Type Severity Reaction Status Date / Time No Known Allergies Allergy Verified 03/24/21 17:28 Assessment & Plan Assessment & Plan (1) Schizoaffective disorder, bipolar type: Status: Acute Code(s): F25.0 - Schizoaffective disorder, bipolar type Assessment and Plan: DCed guanfacine and vyvanse per pt request. started abilify 10 mg daily for mood, anxiety; increased to 20 mg daily as of 03/31, 30 mg daily as of 04/01. DCed 04/02 in favor of zyprexa as pt has rapidly become quite disorganized and insomniac. started adderall 5 BID 03/30/21 for ADHD Sx; dosing increased to 10 BID starting 03/31. DCed 04/01 due to worsened psychotic Sx since the addition of stimulant. dispo - pending resolution of apparently iatrogenic psychosis. Weekend coverage: Pt has been requesting PRN olanzapine and per staff submarine warfare officer, this has been helping with sleep and disorganized behavior, will schedule 10 mg QAM in addition to bedtime dose of 20 mg QHS to total 30 mg QD. Has PRN dose of 5 mg Q8H as needed for psychosis, agitation. Greater than 50% of the session was spent on counseling and/or coordination of care Reason for contiued inpatient stay Substantial Risk for: inability to function, rapid decompensation and med/psych decompensation
[2021-04-03 18:00] VITALS: BP 157/85; PULSE 113; RESP 18; TEMP 36.1; O2SAT 98
[2021-04-03] MEDS: OLANZapine 10 MG TABLET 20 MG PO (20:02)
[2021-04-04] MEDS: OLANZapine 5 MG TABLET PO ×2 (06:53→15:29)
[2021-04-04] MEDS: Throat Lozenge, Medicated LOZENGE 1 LOZENGE MUCOUS MEM ×5 (06:53→20:33)
[2021-04-04] MEDS: Omeprazole 20 MG CAPSULE.DR PO (06:53)
[2021-04-04 08:15] VITALS: BP 172/119; PULSE 71; RESP 16; TEMP 36.7; O2SAT 97
[2021-04-04] MEDS: Sertraline HCL 100 MG TABLET 200 MG PO (08:37)
[2021-04-04] MEDS: Multivitamin TABLET 1 TAB PO (08:38)
[2021-04-04] MEDS: OLANZapine 10 MG TABLET PO (08:38)
[2021-04-04] MEDS: Gabapentin 300 MG CAPSULE PO ×3 (09:15→20:33)
[2021-04-04] MEDS: hydrOXYzine HCL 50 MG TABLET 100 MG PO ×3 (09:15→20:32)
[2021-04-04] MEDS: LORazepam 1 MG TABLET PO ×3 (12:04→22:35)
--- NOTE | 2021-04-04 14:44 | P.PNPSI_ITS ---
Subjective Subjective Date of Service: 04/04/21 Reason For Visit: Major depression Interim History: Patient seen and discussed with team. Patient evaluated this morning and upon interview he reports he has been feeling amazing and the only problems in life are my relationship with family. Says things are going awesome, I want to continue to build good habits. Has ordered multiple textbooks from [employer], ordered one by Eve Love, the [employer], and five math textbooks. Wants to study with peer on the milieu. Says his meds are pretty good, but complains of nausea. Asks for nicotine gum but then says honestly, I probably dont need it. Continues to perseverate on pre vious hospitalization at [facility], says there was a human rights officer who he does not like, he's despicable, pt says he wants to try to find his name online or file a complaint, I just dont like the leanna. Also says Dr. Womack is so fucking stupid, referring to Dr. Palmer. Says he has himself studied well over 8,000 hours on my own and did an IQ test, scored a 142 for verbal and 137 for Jyoti's Progression, also says he took mensa test in adolescence and scored a 127. He then asks T/W if I know a psychiatrist named Addis Bonniekasey and says he had a previous relationship with her, that she asked him to live with her and he wants to get an apartment to see her more. In the milieu, patient is safe and somewhat more visible, per staff report he continues to put non-flushable items in his toilet and his room is unkempt. Appears internally preoccupied, unreliable historian. Denies SI/SIB/HI upon inquiry. Denies irritability or assaultive ideation. Says he feels safe. Mental Status Exam Mental Status Exam Narrative: obese, casually dressed, disheveled, malodorous, arms crossed, poor eye contact.? no PMA/PMR.? cooperative with interview.? thoughts tangential, disorganized. ? affect constricted, normo-intense, non-labile.? mood described as amazing, affect is constricted, incongruent.? no SI/HI/VH.? endorsing AH but says the voices are positive in content. Diagnostics Vital Signs (24Hr): Vital Signs - 24 hr 04/03/21 18:00 04/04/21 08:15 Temperature 97.0 F 98.0 F Pulse Rate 113 H 71 Respiratory Rate 18 16 Blood Pressure 157/85 H 172/119 H Pulse Oximetry 98 97 Labs Results: 03/30/21 07:07 03/30/21 07:07 Medications Medications Current Medications Al Hydroxide/Mg Hydroxide (Magnesium Hydrox/Alum Hydrox 30 Ml Oral.Susp) 30 ml PO Q6H PRN PRN Reason: reflux Last Admin: 04/03/21 20:02 Dose: 30 ml Documented by: Benzocaine (Throat Lozenge, Medicated Lozenge) 1 lozenge MUCOUS MEM Q1H PRN PRN Reason: Sore Throat Last Admin: 04/04/21 14:06 Dose: 1 lozenge Documented by: Calcium Carbonate (Calcium Carbonate 500 Mg Tablet) 500 mg PO TID PRN PRN Reason: indigestion Gabapentin (Gabapentin 300 Mg Capsule) 300 mg PO QID PRN PRN Reason: anxiety Last Admin: 04/04/21 14:06 Dose: 300 mg Documented by: Gabapentin (Gabapentin 300 Mg Capsule) 300 mg PO DAILY REPLACED BY [facility] Last Admin: 04/04/21 09:15 Dose: 300 mg Documented by: Hydroxyzine HCl (Hydroxyzine Hcl 50 Mg Tablet) 100 mg PO BID PRN PRN Reason: Anxiety Last Admin: 04/04/21 12:06 Dose: 100 mg Documented by: Hydroxyzine HCl (Hydroxyzine Hcl 50 Mg Tablet) 100 mg PO BEDTIME PRN PRN Reason: insomnia Last Admin: 04/03/21 22:30 Dose: 100 mg Documented by: Hydroxyzine HCl (Hydroxyzine Hcl 50 Mg Tablet) 100 mg PO DAILY REPLACED BY [facility] Last Admin: 04/04/21 09:15 Dose: 100 mg Documented by: Ibuprofen (Ibuprofen 400 Mg Tablet) 400 mg PO Q6H PRN PRN Reason: pain Last Admin: 03/28/21 20:40 Dose: 400 mg Documented by: Lorazepam (Lorazepam 1 Mg Tablet) 1 mg PO Q4H PRN PRN Reason: severe anxiety Last Admin: 04/04/21 12:04 Dose: 1 mg Documented by: Multivitamins/Vitamin C (Multivitamin Tablet) 1 tab PO DAILY REPLACED BY [facility] Last Admin: 04/04/21 08:38 Dose: 1 tab Documented by: Olanzapine (Olanzapine 10 Mg Tablet) 20 mg PO BEDTIME REPLACED BY [facility] Last Admin: 04/03/21 20:02 Dose: 20 mg Documented by: Olanzapine (Olanzapine 10 Mg Tablet) 10 mg PO DAILY REPLACED BY [facility] Last Admin: 04/04/21 08:38 Dose: 10 mg Documented by: Olanzapine (Olanzapine 5 Mg Tablet) 5 mg PO Q8H PRN PRN Reason: agitation, psychosis Last Admin: 04/04/21 06:53 Dose: 5 mg Documented by: Omeprazole (Omeprazole 20 Mg Capsule.) 20 mg PO DAILY@0630 REPLACED BY [facility] Last Admin: 04/04/21 06:53 Dose: 20 mg Documented by: Sertraline HCl (Sertraline Hcl 100 Mg Tablet) 200 mg PO DAILY REPLACED BY [facility] Last Admin: 04/04/21 08:37 Dose: 200 mg Documented by: Allergies Allergies Allergy/AdvReac Type Severity Reaction Status Date / Time No Known Allergies Allergy Verified 03/24/21 17:28 Assessment & Plan Assessment & Plan (1) Schizoaffective disorder, bipolar type: Status: Acute Code(s): F25.0 - Schizoaffective disorder, bipolar type Assessment and Plan: DCed guanfacine and vyvanse per pt request. started abilify 10 mg daily for mood, anxiety; increased to 20 mg daily as of 03/31, 30 mg daily as of 04/01. DCed 04/02 in favor of zyprexa as pt has rapidly become quite disorganized and insomniac. started adderall 5 BID 03/30/21 for ADHD Sx; dosing increased to 10 BID starting 03/31. DCed 04/01 due to worsened psychotic Sx since the addition of stimulant. dispo - pending resolution of apparently iatrogenic psychosis. Weekend coverage: Pt has been requesting PRN olanzapine and per balance staff staker, this has been helping with sleep and disorganized behavior, will schedule 10 mg QAM in addition to bedtime dose of 20 mg QHS to total 30 mg QD. Has PRN dose of 5 mg Q8H as needed for psychosis, agitation. No further med changes. Pt continues to present with grandiose delusions and appears internally preoccupied. Somewhat less disorganized in thought content on olanzapine, sleep is improved. Staff report he is somewhat less provocative. Appears to have features of borderline personality disorder. Greater than 50% of the session was spent on counseling and/or coordination of care Reason for contiued inpatient stay Substantial Risk for: inability to function, rapid decompensation and med/psych decompensation
[2021-04-04 20:27] VITALS: BP 142/93; PULSE 100; RESP 18; TEMP 36.6; O2SAT 97
[2021-04-04] MEDS: OLANZapine 10 MG TABLET 20 MG PO (20:29)
[2021-04-05] MEDS: Throat Lozenge, Medicated LOZENGE 1 LOZENGE MUCOUS MEM ×4 (00:39→22:06)
[2021-04-05] MEDS: OLANZapine 5 MG TABLET PO ×2 (00:39→16:20)
[2021-04-05] MEDS: hydrOXYzine HCL 50 MG TABLET 100 MG PO ×4 (02:32→20:07)
[2021-04-05] MEDS: Gabapentin 300 MG CAPSULE PO ×4 (02:32→21:11)
[2021-04-05] MEDS: Magnesium Hydrox/Alum Hydrox 30 ML ORAL.SUSP PO ×3 (02:34→21:11)
[2021-04-05] MEDS: Omeprazole 20 MG CAPSULE.DR PO (05:28)
[2021-04-05] MEDS: Multivitamin TABLET 1 TAB PO (08:26)
[2021-04-05] MEDS: OLANZapine 10 MG TABLET PO (08:26)
[2021-04-05] MEDS: Sertraline HCL 100 MG TABLET 200 MG PO (08:27)
--- NOTE | 2021-04-05 12:29 | HO.PSYCHPN ---
Subjective Subjective Date of Service: 04/05/21 Reason For Visit: Major depression Interim History: pt found sleeping in his room, snoring loudly. MD did not awaken pt, feeling his need for sleep was greater than any benefit he might get from discussion with MD. per staff, pt has submitted a 3-day notice which matures 04/07. remained non-sensical, bizarre, paranoid over weekend. eating well, denies anxiety. endorses depression. slept only 2 hours last evening and none overnight. taking all PRNs, med-compliant. Mental Status Exam Mental Status Exam Narrative: sleeping soundly in bed, snoring loudly. Diagnostics Vital Signs (24Hr): Vital Signs - 24 hr 04/04/21 20:27 Temperature 97.8 F Pulse Rate 100 Respiratory Rate 18 Blood Pressure 142/93 H Pulse Oximetry 97 Labs Results: 03/30/21 07:07 03/30/21 07:07 Medications Medications Current Medications Al Hydroxide/Mg Hydroxide (Magnesium Hydrox/Alum Hydrox 30 Ml Oral.Susp) 30 ml PO Q6H PRN PRN Reason: reflux Last Admin: 04/05/21 02:34 Dose: 30 ml Documented by: Benzocaine (Throat Lozenge, Medicated Lozenge) 1 lozenge MUCOUS MEM Q1H PRN PRN Reason: Sore Throat Last Admin: 04/05/21 08:26 Dose: 1 lozenge Documented by: Calcium Carbonate (Calcium Carbonate 500 Mg Tablet) 500 mg PO TID PRN PRN Reason: indigestion Gabapentin (Gabapentin 300 Mg Capsule) 300 mg PO QID PRN PRN Reason: anxiety Last Admin: 04/05/21 08:26 Dose: 300 mg Documented by: Gabapentin (Gabapentin 300 Mg Capsule) 300 mg PO DAILY [facility] Last Admin: 04/05/21 08:26 Dose: 300 mg Documented by: Hydroxyzine HCl (Hydroxyzine Hcl 50 Mg Tablet) 100 mg PO BID PRN PRN Reason: Anxiety Last Admin: 04/05/21 02:32 Dose: 100 mg Documented by: Hydroxyzine HCl (Hydroxyzine Hcl 50 Mg Tablet) 100 mg PO BEDTIME PRN PRN Reason: insomnia Last Admin: 04/04/21 20:32 Dose: 100 mg Documented by: Hydroxyzine HCl (Hydroxyzine Hcl 50 Mg Tablet) 100 mg PO DAILY [facility] Last Admin: 04/05/21 08:26 Dose: 100 mg Documented by: Ibuprofen (Ibuprofen 400 Mg Tablet) 400 mg PO Q6H PRN PRN Reason: pain Last Admin: 03/28/21 20:40 Dose: 400 mg Documented by: Lorazepam (Lorazepam 1 Mg Tablet) 1 mg PO Q4H PRN PRN Reason: severe anxiety Last Admin: 04/04/21 22:35 Dose: 1 mg Documented by: Multivitamins/Vitamin C (Multivitamin Tablet) 1 tab PO DAILY [facility] Last Admin: 04/05/21 08:26 Dose: 1 tab Documented by: Olanzapine (Olanzapine 5 Mg Tablet) 5 mg PO Q8H PRN PRN Reason: agitation, psychosis Last Admin: 04/05/21 00:39 Dose: 5 mg Documented by: Olanzapine (Olanzapine Odt 10 Mg Tab.Rapdis) 30 mg TRANSLINGU BEDTIME [facility] Sertraline HCl (Sertraline Hcl 100 Mg Tablet) 200 mg PO DAILY [facility] Last Admin: 04/05/21 08:27 Dose: 200 mg Documented by: Allergies Allergies Allergy/AdvReac Type Severity Reaction Status Date / Time No Known Allergies Allergy Verified 03/24/21 17:28 Assessment & Plan Assessment & Plan (1) Schizoaffective disorder, bipolar type: Status: Acute Code(s): F25.0 - Schizoaffective disorder, bipolar type Assessment and Plan: DCed guanfacine and vyvanse per pt request. started abilify 10 mg daily for mood, anxiety; increased to 20 mg daily as of 03/31, 30 mg daily as of 04/01. DCed 04/02 in favor of zyprexa as pt has rapidly become quite disorganized and insomniac. zyprexa increased to 30 mg at bedtime by 04/05. will add ativan 2 mg at bedtime as well to encourage sleep. started adderall 5 BID 03/30/21 for ADHD Sx; dosing increased to 10 BID starting 03/31. DCed 04/01 due to worsened psychotic Sx since the addition of stimulant. dispo - pending resolution of apparently iatrogenic psychosis. Greater than 50% of the session was spent on counseling and/or coordination of care Reason for contiued inpatient stay Substantial Risk for: inability to function
[2021-04-05] MEDS: Ibuprofen 400 MG TABLET PO (16:21)
[2021-04-05 18:00] VITALS: BP 131/70; PULSE 93; RESP 18; TEMP 36.8; O2SAT 97
[2021-04-05] MEDS: OLANZapine ODT 10 MG TAB.RAPDIS 30 MG TRANSLINGU (20:07)
[2021-04-05] MEDS: LORazepam 1 MG TABLET 2 MG PO (20:07)
[2021-04-06] MEDS: hydrOXYzine HCL 50 MG TABLET 100 MG PO ×4 (05:45→21:26)
[2021-04-06 06:00] VITALS: RESP 18
[2021-04-06] MEDS: Multivitamin TABLET 1 TAB PO (08:26)
[2021-04-06] MEDS: Sertraline HCL 100 MG TABLET 200 MG PO (08:26)
[2021-04-06] MEDS: LORazepam 1 MG TABLET PO ×3 (08:27→22:12)
[2021-04-06] MEDS: Gabapentin 300 MG CAPSULE PO ×4 (08:27→17:08)
[2021-04-06 08:40] VITALS: BP 160/102; PULSE 97; RESP 20
[2021-04-06] MEDS: Throat Lozenge, Medicated LOZENGE 1 LOZENGE MUCOUS MEM ×2 (09:24→13:14)
[2021-04-06] MEDS: OLANZapine 5 MG TABLET PO ×2 (09:25→17:08)
[2021-04-06] MEDS: Ibuprofen 400 MG TABLET PO (09:25)
--- NOTE | 2021-04-06 14:05 | HO.PSYCHPN ---
Subjective Subjective Date of Service: 04/06/21 Reason For Visit: Major depression Interim History: pt reports he is feeling somewhat better and slept fairly well last night. he states he would like to go to the [employer] for about a month and write about 500 pages. requests HS dosing of zyprexa be increased to 40 mg after being told it is meant to help organize his thoughts. he asked for stimulants and MD declined, citing his recent worsening of mental status after initiation of stimulants. MD suggests he consider retracting his 3-day notice, as it is MD's opinion he could benefit from continued stay after tomorrow. he agrees. per staff, social, took a nap yesterday 10:30 am to 1:30 pm. low anxiety, low depression. tearful 2/2 family issues. good appetite. denied SI. stated, i'm homicidal toward some people. many PRNs, including 300 mg of hydroxyzine. Mental Status Exam Mental Status Exam Narrative: obese, casually dressed, disheveled. no PMA/PMR. cooperative with interview. thoughts tangential, disorganized, although more organized than when see last monday. affect constricted, normo-intense, non-labile. no SI/HI/AVH expressed. Diagnostics Vital Signs (24Hr): Vital Signs - 24 hr 04/05/21 18:00 04/06/21 06:00 04/06/21 08:40 Temperature 98.2 F Pulse Rate 93 97 Respiratory Rate 18 18 20 Blood Pressure 131/70 160/102 H Pulse Oximetry 97 Labs Results: 03/30/21 07:07 03/30/21 07:07 Medications Medications Current Medications Al Hydroxide/Mg Hydroxide (Magnesium Hydrox/Alum Hydrox 30 Ml Oral.Susp) 30 ml PO Q6H PRN PRN Reason: reflux Last Admin: 04/05/21 21:11 Dose: 30 ml Documented by: Benzocaine (Throat Lozenge, Medicated Lozenge) 1 lozenge MUCOUS MEM Q1H PRN PRN Reason: Sore Throat Last Admin: 04/06/21 13:14 Dose: 1 lozenge Documented by: Calcium Carbonate (Calcium Carbonate 500 Mg Tablet) 500 mg PO TID PRN PRN Reason: indigestion Last Admin: 04/06/21 05:45 Dose: 500 mg Documented by: Gabapentin (Gabapentin 300 Mg Capsule) 300 mg PO QID PRN PRN Reason: anxiety Last Admin: 04/06/21 13:14 Dose: 300 mg Documented by: Gabapentin (Gabapentin 300 Mg Capsule) 300 mg PO DAILY [facility] Last Admin: 04/06/21 08:27 Dose: 300 mg Documented by: Hydroxyzine HCl (Hydroxyzine Hcl 50 Mg Tablet) 100 mg PO BID PRN PRN Reason: Anxiety Last Admin: 04/06/21 05:45 Dose: 100 mg Documented by: Hydroxyzine HCl (Hydroxyzine Hcl 50 Mg Tablet) 100 mg PO BEDTIME PRN PRN Reason: insomnia Last Admin: 04/05/21 20:07 Dose: 100 mg Documented by: Hydroxyzine HCl (Hydroxyzine Hcl 50 Mg Tablet) 100 mg PO DAILY [facility] Last Admin: 04/06/21 08:27 Dose: 100 mg Documented by: Ibuprofen (Ibuprofen 400 Mg Tablet) 400 mg PO Q6H PRN PRN Reason: pain Last Admin: 04/06/21 09:25 Dose: 400 mg Documented by: Lorazepam (Lorazepam 1 Mg Tablet) 1 mg PO Q4H PRN PRN Reason: severe anxiety Last Admin: 04/06/21 13:14 Dose: 1 mg Documented by: Lorazepam (Lorazepam 1 Mg Tablet) 2 mg PO BEDTIME [facility] Last Admin: 04/05/21 20:07 Dose: 2 mg Documented by: Multivitamins/Vitamin C (Multivitamin Tablet) 1 tab PO DAILY [facility] Last Admin: 04/06/21 08:26 Dose: 1 tab Documented by: Olanzapine (Olanzapine 5 Mg Tablet) 5 mg PO Q8H PRN PRN Reason: agitation, psychosis Last Admin: 04/06/21 09:25 Dose: 5 mg Documented by: Olanzapine (Olanzapine Odt 10 Mg Tab.Rapdis) 40 mg TRANSLINGU BEDTIME [facility] Sertraline HCl (Sertraline Hcl 100 Mg Tablet) 200 mg PO DAILY [facility] Last Admin: 04/06/21 08:26 Dose: 200 mg Documented by: Allergies Allergies Allergy/AdvReac Type Severity Reaction Status Date / Time No Known Allergies Allergy Verified 03/24/21 17:28 Assessment & Plan Assessment & Plan (1) Schizoaffective disorder, bipolar type: Status: Acute Code(s): F25.0 - Schizoaffective disorder, bipolar type Assessment and Plan: DCed guanfacine and vyvanse per pt request. started abilify 10 mg daily for mood, anxiety; increased to 20 mg daily as of 03/31, 30 mg daily as of 04/01. DCed 04/02 in favor of zyprexa as pt has rapidly become quite disorganized and insomniac. zyprexa increased to 30 mg at bedtime by 04/05. added ativan 2 mg at bedtime 04/02 as well to encourage sleep. zyprexa increased to 40 mg daily as of 04/06 per pt request. started adderall 5 BID 03/30/21 for ADHD Sx; dosing increased to 10 BID starting 03/31. DCed 04/01 due to worsened psychotic Sx since the addition of stimulant. dispo - pending resolution of apparently iatrogenic psychosis. I spent minutes with the patient and/or on the patient floor today, greater than?50% of which was spent counseling/coordinating care. Reason for contiued inpatient stay Substantial Risk for: harm to self, harm to others, inability to function and rapid decompensation
[2021-04-06] MEDS: Magnesium Hydrox/Alum Hydrox 30 ML ORAL.SUSP PO (17:07)
[2021-04-06] MEDS: OLANZapine ODT 10 MG TAB.RAPDIS 40 MG TRANSLINGU (21:26)
[2021-04-06] MEDS: LORazepam 1 MG TABLET 2 MG PO (21:26)
[2021-04-07] MEDS: Multivitamin TABLET 1 TAB PO (08:21)
[2021-04-07] MEDS: hydrOXYzine HCL 50 MG TABLET 100 MG PO ×5 (08:21→20:55)
[2021-04-07] MEDS: Gabapentin 300 MG CAPSULE PO ×2 (08:21→18:53)
[2021-04-07] MEDS: Sertraline HCL 100 MG TABLET 200 MG PO (08:22)
[2021-04-07 08:37] VITALS: BP 170/96; PULSE 80; TEMP 36.5; O2SAT 99
[2021-04-07] MEDS: Magnesium Hydrox/Alum Hydrox 30 ML ORAL.SUSP PO (10:46)
[2021-04-07] MEDS: Bismuth Subsalicylate 262 MG TABLET 524 MG PO (13:37)
--- NOTE | 2021-04-07 14:14 | HO.PSYCHPN ---
Subjective Subjective Date of Service: 04/07/21 Reason For Visit: Major depression Interim History: MD suggests pt may have bipolar diathesis and that a mood stabilizer may be indicated. pt states he does not agree and declines further discussion on the topic. reports he slept well last night. asks MD if he attended [facility] for psychiatric training. generally disorganized and tangential, offering his opinions on topics and asking for MD's opinions or advice. interested in weight loss. per staff, anx/dep/sad. communicating with the birds and squirrels. informed staff at one point he would like to slash someone. self-dialoguing. eating well, slept from 1130 pm on. has had 3 mg ativan in the past 24H. Mental Status Exam Mental Status Exam Narrative: obese, casually dressed, disheveled. no PMA/PMR. cooperative with interview. thoughts tangential, disorganized, although more organized than when see last monday. affect constricted, normo-intense, non-labile. no SI/HI/AVH expressed. Diagnostics Vital Signs (24Hr): Vital Signs - 24 hr 04/07/21 08:37 Temperature 97.7 F Pulse Rate 80 Blood Pressure 170/96 H Pulse Oximetry 99 Labs Results: 03/30/21 07:07 03/30/21 07:07 Medications Medications Current Medications Al Hydroxide/Mg Hydroxide (Magnesium Hydrox/Alum Hydrox 30 Ml Oral.Susp) 30 ml PO Q6H PRN PRN Reason: reflux Last Admin: 04/07/21 10:46 Dose: 30 ml Documented by: Benzocaine (Throat Lozenge, Medicated Lozenge) 1 lozenge MUCOUS MEM Q1H PRN PRN Reason: Sore Throat Last Admin: 04/06/21 13:14 Dose: 1 lozenge Documented by: Bismuth Subsalicylate (Bismuth Subsalicylate 262 Mg Tablet) 524 mg PO QID PRN PRN Reason: Dyspepsia Last Admin: 04/07/21 13:37 Dose: 524 mg Documented by: Calcium Carbonate (Calcium Carbonate 500 Mg Tablet) 500 mg PO TID PRN PRN Reason: indigestion Last Admin: 04/06/21 05:45 Dose: 500 mg Documented by: Gabapentin (Gabapentin 300 Mg Capsule) 300 mg PO QID PRN PRN Reason: anxiety Last Admin: 04/06/21 17:08 Dose: 300 mg Documented by: Gabapentin (Gabapentin 300 Mg Capsule) 300 mg PO DAILY [facility] Last Admin: 04/07/21 08:21 Dose: 300 mg Documented by: Hydroxyzine HCl (Hydroxyzine Hcl 50 Mg Tablet) 100 mg PO BID PRN PRN Reason: Anxiety Last Admin: 04/07/21 13:35 Dose: 100 mg Documented by: Hydroxyzine HCl (Hydroxyzine Hcl 50 Mg Tablet) 100 mg PO BEDTIME PRN PRN Reason: insomnia Last Admin: 04/06/21 21:26 Dose: 100 mg Documented by: Hydroxyzine HCl (Hydroxyzine Hcl 50 Mg Tablet) 100 mg PO DAILY [facility] Last Admin: 04/07/21 08:21 Dose: 100 mg Documented by: Ibuprofen (Ibuprofen 400 Mg Tablet) 400 mg PO Q6H PRN PRN Reason: pain Last Admin: 04/06/21 09:25 Dose: 400 mg Documented by: Lorazepam (Lorazepam 1 Mg Tablet) 2 mg PO BEDTIME [facility] Last Admin: 04/06/21 21:26 Dose: 2 mg Documented by: Multivitamins/Vitamin C (Multivitamin Tablet) 1 tab PO DAILY [facility] Last Admin: 04/07/21 08:21 Dose: 1 tab Documented by: Olanzapine (Olanzapine 5 Mg Tablet) 5 mg PO Q8H PRN PRN Reason: agitation, psychosis Last Admin: 04/06/21 17:08 Dose: 5 mg Documented by: Olanzapine (Olanzapine Odt 10 Mg Tab.Rapdis) 40 mg TRANSLINGU BEDTIME [facility] Last Admin: 04/06/21 21:26 Dose: 40 mg Documented by: Sertraline HCl (Sertraline Hcl 100 Mg Tablet) 200 mg PO DAILY [facility] Last Admin: 04/07/21 08:22 Dose: 200 mg Documented by: Allergies Allergies Allergy/AdvReac Type Severity Reaction Status Date / Time No Known Allergies Allergy Verified 03/24/21 17:28 Assessment & Plan Assessment & Plan (1) Schizoaffective disorder, bipolar type: Status: Acute Code(s): F25.0 - Schizoaffective disorder, bipolar type Assessment and Plan: DCed guanfacine and vyvanse per pt request. started abilify 10 mg daily for mood, anxiety; increased to 20 mg daily as of 03/31, 30 mg daily as of 04/01. DCed 04/02 in favor of zyprexa as pt has rapidly become quite disorganized and insomniac. zyprexa increased to 30 mg at bedtime by 04/05. added ativan 2 mg at bedtime 04/02 as well to encourage sleep. zyprexa increased to 40 mg daily as of 04/06 per pt request. started adderall 5 BID 03/30/21 for ADHD Sx; dosing increased to 10 BID starting 03/31. DCed 04/01 due to worsened psychotic Sx since the addition of stimulant. dispo - pending resolution of apparently iatrogenic psychosis. I spent minutes with the patient and/or on the patient floor today, greater than?50% of which was spent counseling/coordinating care. Reason for contiued inpatient stay Substantial Risk for: inability to function and rapid decompensation
[2021-04-07] MEDS: Ibuprofen 400 MG TABLET PO (14:34)
[2021-04-07] MEDS: OLANZapine ODT 10 MG TAB.RAPDIS 40 MG TRANSLINGU (20:55)
[2021-04-07] MEDS: LORazepam 1 MG TABLET 2 MG PO (20:56)
[2021-04-07 20:58] VITALS: BP 170/90; PULSE 77; TEMP 36.9; O2SAT 96
[2021-04-08] MEDS: Gabapentin 300 MG CAPSULE PO ×3 (02:13→18:07)
[2021-04-08] MEDS: OLANZapine 5 MG TABLET PO (02:13)
[2021-04-08] MEDS: Ibuprofen 400 MG TABLET PO (02:19)
[2021-04-08 06:28] VITALS: BP 177/82; PULSE 77; O2SAT 98
[2021-04-08] MEDS: Sertraline HCL 100 MG TABLET 200 MG PO (09:23)
[2021-04-08] MEDS: Multivitamin TABLET 1 TAB PO (09:23)
[2021-04-08] MEDS: Bismuth Subsalicylate 262 MG TABLET 524 MG PO (09:23)
[2021-04-08] MEDS: hydrOXYzine HCL 50 MG TABLET 100 MG PO ×2 (09:24→18:06)
[2021-04-08] MEDS: Throat Lozenge, Medicated LOZENGE 1 LOZENGE MUCOUS MEM (09:44)
[2021-04-08 11:33] VITALS: BP 177/82; PULSE 77; O2SAT 98
--- NOTE | 2021-04-08 14:21 | P.PNPSI_ITS ---
Subjective Subjective Date of Service: 04/08/21 Reason For Visit: Major depression Interim History: pt remains disorganized but engageable. agrees to trial of lithium after having slept only a couple of hours last night. tangential. asking for PT referral to work on lower back soreness. per staff, brief verbal altercation with peer. 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 painted face and arms from crafts. slept 12-1 and 4:15-5:30. Mental Status Exam Mental Status Exam Narrative: obese, casually dressed, disheveled. no PMA/PMR. cooperative with interview. thoughts tangential, disorganized, although more organized than when seen last week. affect constricted, normo-intense, non-labile. no SI/HI/AVH expressed. Diagnostics Vital Signs (24Hr): Vital Signs - 24 hr 04/07/21 20:58 04/08/21 06:28 04/08/21 11:33 Temperature 98.4 F Pulse Rate 77 77 77 Blood Pressure 170/90 H 177/82 H 177/82 H Pulse Oximetry 96 98 98 Labs Results: 03/30/21 07:07 03/30/21 07:07 Medications Medications Current Medications Acetaminophen (Acetaminophen 325 Mg Tablet) 975 mg PO Q6H PRN PRN Reason: pain/fever Al Hydroxide/Mg Hydroxide (Magnesium Hydrox/Alum Hydrox 30 Ml Oral.Susp) 30 ml PO Q6H PRN PRN Reason: reflux Last Admin: 04/07/21 10:46 Dose: 30 ml Documented by: Benzocaine (Throat Lozenge, Medicated Lozenge) 1 lozenge MUCOUS MEM Q1H PRN PRN Reason: Sore Throat Last Admin: 04/08/21 09:44 Dose: 1 lozenge Documented by: Bismuth Subsalicylate (Bismuth Subsalicylate 262 Mg Tablet) 524 mg PO QID PRN PRN Reason: Dyspepsia Last Admin: 04/08/21 09:23 Dose: 524 mg Documented by: Calcium Carbonate (Calcium Carbonate 500 Mg Tablet) 500 mg PO TID PRN PRN Reason: indigestion Last Admin: 04/06/21 05:45 Dose: 500 mg Documented by: Gabapentin (Gabapentin 300 Mg Capsule) 300 mg PO QID PRN PRN Reason: anxiety Last Admin: 04/08/21 02:13 Dose: 300 mg Documented by: Gabapentin (Gabapentin 300 Mg Capsule) 300 mg PO DAILY [facility] Last Admin: 04/08/21 09:23 Dose: 300 mg Documented by: Hydroxyzine HCl (Hydroxyzine Hcl 50 Mg Tablet) 100 mg PO BID PRN PRN Reason: Anxiety Last Admin: 04/07/21 18:53 Dose: 100 mg Documented by: Hydroxyzine HCl (Hydroxyzine Hcl 50 Mg Tablet) 100 mg PO BEDTIME PRN PRN Reason: insomnia Last Admin: 04/07/21 20:55 Dose: 100 mg Documented by: Hydroxyzine HCl (Hydroxyzine Hcl 50 Mg Tablet) 100 mg PO DAILY [facility] Last Admin: 04/08/21 09:24 Dose: 100 mg Documented by: [place] Carbonate ([place] Carbonate Er 300 Mg Tablet.Er) 600 mg PO BID NGUYEN Lorazepam (Lorazepam 1 Mg Tablet) 2 mg PO BEDTIME NGUYEN Last Admin: 04/07/21 20:56 Dose: 2 mg Documented by: Multivitamins/Vitamin C (Multivitamin Tablet) 1 tab PO DAILY [facility] Last Admin: 04/08/21 09:23 Dose: 1 tab Documented by: Olanzapine (Olanzapine 5 Mg Tablet) 5 mg PO Q8H PRN PRN Reason: agitation, psychosis Last Admin: 04/08/21 02:13 Dose: 5 mg Documented by: Olanzapine (Olanzapine Odt 10 Mg Tab.Rapdis) 40 mg TRANSLINGU BEDTIME [facility] Last Admin: 04/07/21 20:55 Dose: 40 mg Documented by: Sertraline HCl (Sertraline Hcl 100 Mg Tablet) 200 mg PO DAILY [facility] Last Admin: 04/08/21 09:23 Dose: 200 mg Documented by: Allergies Allergies Allergy/AdvReac Type Severity Reaction Status Date / Time No Known Allergies Allergy Verified 03/24/21 17:28 Assessment & Plan Assessment & Plan (1) Schizoaffective disorder, bipolar type: Status: Acute Code(s): F25.0 - Schizoaffective disorder, bipolar type Assessment and Plan: DCed guanfacine and vyvanse per pt request. started abilify 10 mg daily for mood, anxiety; increased to 20 mg daily as of 03/31, 30 mg daily as of 04/01. DCed 04/02 in favor of zyprexa as pt has rapidly become quite disorganized and insomniac. zyprexa increased to 30 mg at bedtime by 04/05. added ativan 2 mg at bedtime 04/02 as well to encourage sleep. zyprexa increased to 40 mg daily as of 04/06 per pt request. started adderall 5 BID 03/30/21 for ADHD Sx; dosing increased to 10 BID starting 03/31. DCed 04/01 due to worsened psychotic Sx since the addition of stimulant. lithium 600 BID started 04/08 in the event this pt is experiencing a gildardo. dispo - pending resolution of apparently iatrogenic psychosis. I spent minutes with the patient and/or on the patient floor today, greater than?50% of which was spent counseling/coordinating care. Reason for contiued inpatient stay Substantial Risk for: inability to function and rapid decompensation
[2021-04-08 18:00] VITALS: BP 154/72; PULSE 115; RESP 18; TEMP 36.8; O2SAT 95
[2021-04-08] MEDS: Magnesium Hydrox/Alum Hydrox 30 ML ORAL.SUSP PO (18:06)
[2021-04-08] MEDS: LORazepam 1 MG TABLET 2 MG PO (20:55)
[2021-04-08] MEDS: Lithium Carbonate ER 300 MG TABLET.ER 600 MG PO (20:56)
[2021-04-08] MEDS: OLANZapine ODT 10 MG TAB.RAPDIS 40 MG TRANSLINGU (20:56)
[2021-04-09] MEDS: Magnesium Hydrox/Alum Hydrox 30 ML ORAL.SUSP PO ×2 (01:53→11:05)
[2021-04-09] MEDS: hydrOXYzine HCL 50 MG TABLET 100 MG PO ×3 (01:54→20:18)
[2021-04-09] MEDS: OLANZapine 5 MG TABLET PO (01:54)
[2021-04-09] MEDS: Gabapentin 300 MG CAPSULE PO ×3 (04:24→20:17)
[2021-04-09 09:29] VITALS: BP 150/72; PULSE 110; RESP 17; TEMP 36.7; O2SAT 98
[2021-04-09] MEDS: Lithium Carbonate ER 300 MG TABLET.ER 600 MG PO ×2 (09:32→20:18)
[2021-04-09] MEDS: Multivitamin TABLET 1 TAB PO (09:32)
[2021-04-09] MEDS: Throat Lozenge, Medicated LOZENGE 1 LOZENGE MUCOUS MEM (11:05)
--- NOTE | 2021-04-09 13:16 | HO.PSYCHPN ---
Subjective Subjective Date of Service: 04/09/21 Reason For Visit: Major depression Interim History: Pt reports that he is doing fine. Pt reports feeling very anxious during the day and prn meds not as helpful. Noted he has olanzapine prn but at night taking 40mg. Discussed adding haldol 5mg po prn as suspect anxiety may be triggered by psychotic symptoms. Pt pacing in halls, social with select peers. He reports passive SI but denies no plan or intent. No HI. Denies VH/AH but appears internally preoccupied. Medication Compliance: Yes Review of Systems Review of Systems Denies any recent fever chills or decrease in appetite respiratory denies any shortness of breath coverage production cardiovascular denies chest pain gastrointestinal denies any dysphagia abdominal pain nausea vomiting or diarrhea genitourinary denies any dysuria frequency or hematuria musculoskeletal denies any joint pain or swelling neuropsych denies any weakness or seizures all other systems reviewed are negative Reports behavioral changes Psychiatric: Reports abnormal sleep pattern, Reports anxiety, Reports behavioral changes, Reports change in appetite, Reports depression, Reports difficulty concentrating, Reports hopelessness, Reports irritability, Reports anhedonia, Reports paranoia and Reports suicidal ideation Mental Status Exam Mental Status Exam Narrative: obese, casually dressed, disheveled. no PMA/PMR. cooperative with interview. thoughts tangential, disorganized, although more organized than when seen last week. affect constricted, normo-intense, non-labile. no SI/HI/AVH expressed. Diagnostics Vital Signs (24Hr): Vital Signs - 24 hr 04/08/21 18:00 04/09/21 09:29 Temperature 98.3 F 98.0 F Pulse Rate 115 H 110 H Respiratory Rate 18 17 Blood Pressure 154/72 H 150/72 H Pulse Oximetry 95 98 Labs Results: 03/30/21 07:07 03/30/21 07:07 Medications Medications Current Medications Acetaminophen (Acetaminophen 325 Mg Tablet) 975 mg PO Q6H PRN PRN Reason: pain/fever Al Hydroxide/Mg Hydroxide (Magnesium Hydrox/Alum Hydrox 30 Ml Oral.Susp) 30 ml PO Q6H PRN PRN Reason: reflux Last Admin: 04/09/21 11:05 Dose: 30 ml Documented by: Benzocaine (Throat Lozenge, Medicated Lozenge) 1 lozenge MUCOUS MEM Q1H PRN PRN Reason: Sore Throat Last Admin: 04/09/21 11:05 Dose: 1 lozenge Documented by: Bismuth Subsalicylate (Bismuth Subsalicylate 262 Mg Tablet) 524 mg PO QID PRN PRN Reason: Dyspepsia Last Admin: 04/08/21 09:23 Dose: 524 mg Documented by: Calcium Carbonate (Calcium Carbonate 500 Mg Tablet) 500 mg PO TID PRN PRN Reason: indigestion Last Admin: 04/06/21 05:45 Dose: 500 mg Documented by: Gabapentin (Gabapentin 300 Mg Capsule) 300 mg PO QID PRN PRN Reason: anxiety Last Admin: 04/09/21 04:24 Dose: 300 mg Documented by: Gabapentin (Gabapentin 300 Mg Capsule) 300 mg PO DAILY [facility] Last Admin: 04/09/21 09:32 Dose: 300 mg Documented by: Hydroxyzine HCl (Hydroxyzine Hcl 50 Mg Tablet) 100 mg PO BID PRN PRN Reason: Anxiety Last Admin: 04/08/21 18:06 Dose: 100 mg Documented by: Hydroxyzine HCl (Hydroxyzine Hcl 50 Mg Tablet) 100 mg PO BEDTIME PRN PRN Reason: insomnia Last Admin: 04/09/21 01:54 Dose: 100 mg Documented by: Hydroxyzine HCl (Hydroxyzine Hcl 50 Mg Tablet) 100 mg PO DAILY [facility] Last Admin: 04/09/21 09:32 Dose: 100 mg Documented by: [place] Carbonate ([place] Carbonate Er 300 Mg Tablet.Er) 600 mg PO BID [facility] Last Admin: 04/09/21 09:32 Dose: 600 mg Documented by: Lorazepam (Lorazepam 1 Mg Tablet) 2 mg PO BEDTIME [facility] Last Admin: 04/08/21 20:55 Dose: 2 mg Documented by: Multivitamins/Vitamin C (Multivitamin Tablet) 1 tab PO DAILY [facility] Last Admin: 04/09/21 09:32 Dose: 1 tab Documented by: Olanzapine (Olanzapine Odt 10 Mg Tab.Rapdis) 40 mg TRANSLINGU BEDTIME [facility] Last Admin: 04/08/21 20:56 Dose: 40 mg Documented by: Sertraline HCl (Sertraline Hcl 100 Mg Tablet) 200 mg PO DAILY [facility] Last Admin: 04/08/21 09:23 Dose: 200 mg Documented by: Allergies Allergies Allergy/AdvReac Type Severity Reaction Status Date / Time No Known Allergies Allergy Verified 03/24/21 17:28 Assessment & Plan Assessment & Plan (1) Schizoaffective disorder, bipolar type: Status: Acute Code(s): F25.0 - Schizoaffective disorder, bipolar type Assessment and Plan: DCed guanfacine and vyvanse per pt request. started abilify 10 mg daily for mood, anxiety; increased to 20 mg daily as of 03/31, 30 mg daily as of 04/01. DCed 04/02 in favor of zyprexa as pt has rapidly become quite disorganized and insomniac. zyprexa increased to 30 mg at bedtime by 04/05. added ativan 2 mg at bedtime 04/02 as well to encourage sleep. zyprexa increased to 40 mg daily as of 04/06 per pt request. started adderall 5 BID 03/30/21 for ADHD Sx; dosing increased to 10 BID starting 03/31. DCed 04/01 due to worsened psychotic Sx since the addition of stimulant. lithium 600 BID started 04/08 in the event this pt is experiencing a gildardo. dispo - pending resolution of apparently iatrogenic psychosis. 04/09/21- haldol prn added, pt reports moderate degree of anxiety that appears related to underlying psychosis, continue all other medications. I spent minutes with the patient and/or on the patient floor today, greater than?50% of which was spent counseling/coordinating care. Reason for contiued inpatient stay Substantial Risk for: inability to function
[2021-04-09 17:11] VITALS: BMI 61.4
[2021-04-09] MEDS: LORazepam 1 MG TABLET 2 MG PO (20:17)
[2021-04-09] MEDS: OLANZapine ODT 10 MG TAB.RAPDIS 40 MG TRANSLINGU (20:17)
[2021-04-09 20:20] VITALS: BP 126/94; PULSE 93; TEMP 36.8; O2SAT 97
[2021-04-10] MEDS: Magnesium Hydrox/Alum Hydrox 30 ML ORAL.SUSP PO ×2 (03:55→14:04)
[2021-04-10] MEDS: Gabapentin 300 MG CAPSULE PO ×4 (03:55→17:23)
[2021-04-10] MEDS: hydrOXYzine HCL 50 MG TABLET 100 MG PO ×4 (03:55→17:23)
[2021-04-10] MEDS: Throat Lozenge, Medicated LOZENGE 1 LOZENGE MUCOUS MEM ×3 (04:27→17:22)
[2021-04-10 06:00] VITALS: BP 153/77; PULSE 98; RESP 20; TEMP 36.3; O2SAT 98
[2021-04-10] MEDS: Acetaminophen 325 MG TABLET 975 MG PO (08:23)
[2021-04-10] MEDS: Multivitamin TABLET 1 TAB PO (08:24)
[2021-04-10] MEDS: Lithium Carbonate ER 300 MG TABLET.ER 600 MG PO ×2 (08:24→21:27)
--- NOTE | 2021-04-10 14:30 | HO.PSYCHPN ---
Subjective Subjective Date of Service: 04/10/21 Reason For Visit: Major depression Interim History: Patient seen and DW team. He reported to RN that he wants to eat [employer] blocks. They would help clean him out. He is complaining of anxiety. Pt pacing in halls, social with select peers. He reports no SI. No HI. Denies VH/AH but appears internally preoccupied. Review of Systems Review of Systems Denies any recent fever chills or decrease in appetite respiratory denies any shortness of breath coverage production cardiovascular denies chest pain gastrointestinal denies any dysphagia abdominal pain nausea vomiting or diarrhea genitourinary denies any dysuria frequency or hematuria musculoskeletal denies any joint pain or swelling neuropsych denies any weakness or seizures all other systems reviewed are negative Reports behavioral changes Psychiatric: Reports abnormal sleep pattern, Reports anxiety, Reports behavioral changes, Reports change in appetite, Reports depression, Reports difficulty concentrating, Reports hopelessness, Reports irritability, Reports anhedonia, Reports paranoia and Reports suicidal ideation Mental Status Exam Mental Status Exam Narrative: obese, casually dressed, disheveled. no PMA/PMR. cooperative with interview. thoughts tangential, disorganized, although more organized than when seen last week. affect constricted, normo-intense, non-labile. no SI/HI/AVH expressed. Patient Appearance: Appropriate Patient Orientation: Person, Place and Situation Level of Consciousness: Alert Patient Behavior: Appropriate, Talkative, Cooperative, Anxious, Fatigued and Good Eye Contact Mood Description: Depressed and Anxious Affect Description: Flat Patient Cognition Impaired: No Ability to Follow Directions: Good Speech Pattern: Appropriate and Spontaneous Speech Memory Description: Intact Diagnostics Vital Signs (24Hr): Vital Signs - 24 hr 04/10/21 06:00 04/10/21 21:29 Temperature 97.4 F 98.9 F Pulse Rate 98 100 Respiratory Rate 20 Blood Pressure 153/77 H 134/83 Pulse Oximetry 98 95 Body Mass Index 61.4 Labs Results: 03/30/21 07:07 03/30/21 07:07 Medications Medications Current Medications Acetaminophen (Acetaminophen 325 Mg Tablet) 975 mg PO Q6H PRN PRN Reason: pain/fever Last Admin: 04/10/21 08:23 Dose: 975 mg Documented by: Al Hydroxide/Mg Hydroxide (Magnesium Hydrox/Alum Hydrox 30 Ml Oral.Susp) 30 ml PO Q6H PRN PRN Reason: reflux Last Admin: 04/10/21 14:04 Dose: 30 ml Documented by: Benzocaine (Throat Lozenge, Medicated Lozenge) 1 lozenge MUCOUS MEM Q1H PRN PRN Reason: Sore Throat Last Admin: 04/10/21 17:22 Dose: 1 lozenge Documented by: Bismuth Subsalicylate (Bismuth Subsalicylate 262 Mg Tablet) 524 mg PO QID PRN PRN Reason: Dyspepsia Last Admin: 04/08/21 09:23 Dose: 524 mg Documented by: Calcium Carbonate (Calcium Carbonate 500 Mg Tablet) 500 mg PO TID PRN PRN Reason: indigestion Last Admin: 04/06/21 05:45 Dose: 500 mg Documented by: Gabapentin (Gabapentin 300 Mg Capsule) 300 mg PO QID PRN PRN Reason: anxiety Last Admin: 04/10/21 17:23 Dose: 300 mg Documented by: Gabapentin (Gabapentin 300 Mg Capsule) 300 mg PO DAILY [facility]GUYEN Last Admin: 04/10/21 08:24 Dose: 300 mg Documented by: Haloperidol (Haloperidol 5 Mg Tablet) 5 mg PO Q6H PRN PRN Reason: agitation/psychosis/anxiety Hydroxyzine HCl (Hydroxyzine Hcl 50 Mg Tablet) 100 mg PO BID PRN PRN Reason: Anxiety Last Admin: 04/10/21 17:23 Dose: 100 mg Documented by: Hydroxyzine HCl (Hydroxyzine Hcl 50 Mg Tablet) 100 mg PO BEDTIME PRN PRN Reason: insomnia Last Admin: 04/10/21 03:55 Dose: 100 mg Documented by: Hydroxyzine HCl (Hydroxyzine Hcl 50 Mg Tablet) 100 mg PO DAILY [facility]GU[facility]EN Last Admin: 04/10/21 08:24 Dose: 100 mg Documented by: [place] Carbonate ([place] Carbonate Er 300 Mg Tablet.Er) 600 mg PO BID NGUYEN Last Admin: 04/10/21 21:27 Dose: 600 mg Documented by: Multivitamins/Vitamin C (Multivitamin Tablet) 1 tab PO DAILY [facility] Last Admin: 04/10/21 08:24 Dose: 1 tab Documented by: Olanzapine (Olanzapine Odt 10 Mg Tab.Rapdis) 40 mg TRANSLINGU BEDTIME NGUYEN Last Admin: 04/10/21 21:27 Dose: 40 mg Documented by: Sertraline HCl (Sertraline Hcl 100 Mg Tablet) 200 mg PO DAILY [facility] Last Admin: 04/08/21 09:23 Dose: 200 mg Documented by: Allergies Allergies Allergy/AdvReac Type Severity Reaction Status Date / Time No Known Allergies Allergy Verified 03/24/21 17:28 Assessment & Plan Assessment & Plan (1) Schizoaffective disorder, bipolar type: Status: Acute Code(s): F25.0 - Schizoaffective disorder, bipolar type Assessment and Plan: started abilify 10 mg daily for mood, anxiety; increased to 20 mg daily as of 03/31, 30 mg daily as of 04/01. DCed 04/02 in favor of zyprexa as pt has rapidly become quite disorganized and insomniac. zyprexa increased to 30 mg at bedtime by 04/05. added ativan 2 mg at bedtime 04/02 as well to encourage sleep. zyprexa increased to 40 mg daily as of 04/06 per pt request. started adderall 5 BID 03/30/21 for ADHD Sx; dosing increased to 10 BID starting 03/31. DCed 04/01 due to worsened psychotic Sx since the addition of stimulant. lithium 600 BID started 04/08 in the event this pt is experiencing a gildardo. dispo - pending resolution of apparently iatrogenic psychosis. 04/09/21- haldol prn added, pt reports moderate degree of anxiety that appears related to underlying psychosis, continue all other medications. I spent minutes with the patient and/or on the patient floor today, greater than?50% of which was spent counseling/coordinating care. Reason for contiued inpatient stay Substantial Risk for: inability to function
[2021-04-10] MEDS: OLANZapine ODT 10 MG TAB.RAPDIS 40 MG TRANSLINGU (21:27)
[2021-04-10 21:29] VITALS: BP 134/83; PULSE 100; TEMP 37.2; O2SAT 95
[2021-04-11] MEDS: hydrOXYzine HCL 50 MG TABLET 100 MG PO ×3 (00:26→20:24)
[2021-04-11 06:00] VITALS: BP 155/101; PULSE 78; RESP 20; TEMP 36.3; O2SAT 97
[2021-04-11] MEDS: Acetaminophen 325 MG TABLET 975 MG PO (08:06)
[2021-04-11] MEDS: Gabapentin 300 MG CAPSULE PO ×2 (08:06→20:24)
[2021-04-11] MEDS: Lithium Carbonate ER 300 MG TABLET.ER 600 MG PO ×2 (08:06→20:20)
[2021-04-11] MEDS: Multivitamin TABLET 1 TAB PO (08:07)
[2021-04-11 20:14] VITALS: BP 158/82; PULSE 85; RESP 20; TEMP 36.1; O2SAT 98
[2021-04-11] MEDS: OLANZapine ODT 10 MG TAB.RAPDIS 40 MG TRANSLINGU (20:20)
--- NOTE | 2021-04-11 21:24 | P.PNPSI_ITS ---
Subjective Subjective Date of Service: 04/11/21 Reason For Visit: Major depression Interim History: Patient seen and DW team. Patient continues to be oddly related. He loses train of his thoughts and answers randomly. He appears anxious.Pt pacing in halls, social with select peers. He reports no SI. No HI. Denies VH/AH but appears internally preoccupied. Review of Systems Reports behavioral changes Psychiatric: Reports abnormal sleep pattern, Reports anxiety, Reports behavioral changes, Reports change in appetite, Reports depression, Reports difficulty concentrating, Reports hopelessness, Reports irritability, Reports anhedonia, Reports paranoia and Reports suicidal ideation Mental Status Exam Mental Status Exam Narrative: obese, casually dressed, disheveled. no PMA/PMR. cooperative with interview. thoughts tangential, disorganized, although more organized than when seen last week. affect constricted, normo-intense, non-labile. no SI/HI/AVH expressed. Patient Appearance: Appropriate Patient Orientation: Person, Place and Situation Level of Consciousness: Alert Patient Behavior: Appropriate, Talkative, Cooperative, Anxious, Fatigued and Good Eye Contact Mood Description: Depressed and Anxious Affect Description: Flat Patient Cognition Impaired: No Ability to Follow Directions: Good Speech Pattern: Appropriate and Spontaneous Speech Memory Description: Intact Diagnostics Vital Signs (24Hr): Vital Signs - 24 hr 04/10/21 21:29 04/11/21 06:00 04/11/21 20:14 Temperature 98.9 F 97.4 F 96.9 F Pulse Rate 100 78 85 Respiratory Rate 20 20 Blood Pressure 134/83 155/101 H 158/82 H Pulse Oximetry 95 97 98 Body Mass Index 61.4 Labs Results: 03/30/21 07:07 03/30/21 07:07 Medications Medications Current Medications Acetaminophen (Acetaminophen 325 Mg Tablet) 975 mg PO Q6H PRN PRN Reason: pain/fever Last Admin: 04/11/21 08:06 Dose: 975 mg Documented by: [place] Hydroxide/Mg Hydroxide (Magnesium Hydrox/Alum Hydrox 30 Ml Oral.Susp) 30 ml PO Q6H PRN PRN Reason: reflux Last Admin: 04/10/21 14:04 Dose: 30 ml Documented by: Benzocaine (Throat Lozenge, Medicated Lozenge) 1 lozenge MUCOUS MEM Q1H PRN PRN Reason: Sore Throat Last Admin: 04/10/21 17:22 Dose: 1 lozenge Documented by: [place]ism[place] Subsalicylate ([place]ism[place] Subsalicylate 262 Mg Tablet) 524 mg PO QID PRN PRN Reason: Dyspepsia Last Admin: 04/08/21 09:23 Dose: 524 mg Documented by: [place] Carbonate ([place]cium Carbonate 500 Mg Tablet) 500 mg PO TID PRN PRN Reason: indigestion Last Admin: 04/06/21 05:45 Dose: 500 mg Documented by: Gabapentin (Gabapentin 300 Mg Capsule) 300 mg PO QID PRN PRN Reason: anxiety Last Admin: 04/11/21 20:24 Dose: 300 mg Documented by: Gabapentin (Gabapentin 300 Mg Capsule) 300 mg PO DAILY [facility] Last Admin: 04/11/21 08:06 Dose: 300 mg Documented by: Haloperidol (Haloperidol 5 Mg Tablet) 5 mg PO Q6H PRN PRN Reason: agitation/psychosis/anxiety Hydroxyzine HCl (Hydroxyzine Hcl 50 Mg Tablet) 100 mg PO BID PRN PRN Reason: Anxiety Last Admin: 04/10/21 17:23 Dose: 100 mg Documented by: Hydroxyzine HCl (Hydroxyzine Hcl 50 Mg Tablet) 100 mg PO BEDTIME PRN PRN Reason: insomnia Last Admin: 04/11/21 20:24 Dose: 100 mg Documented by: Hydroxyzine HCl (Hydroxyzine Hcl 50 Mg Tablet) 100 mg PO DAILY [facility] Last Admin: 04/11/21 08:07 Dose: 100 mg Documented by: [place] Carbonate ([place] Carbonate Er 300 Mg Tablet.Er) 600 mg PO BID [facility] Last Admin: 04/11/21 20:20 Dose: 600 mg Documented by: Multivitamins/Vitamin C (Multivitamin Tablet) 1 tab PO DAILY [facility] Last Admin: 04/11/21 08:07 Dose: 1 tab Documented by: Olanzapine (Olanzapine Odt 10 Mg Tab.Rapdis) 40 mg TRANSLINGU BEDTIME [facility] Last Admin: 04/11/21 20:20 Dose: 40 mg Documented by: Sertraline HCl (Sertraline Hcl 100 Mg Tablet) 200 mg PO DAILY [facility] Last Admin: 04/08/21 09:23 Dose: 200 mg Documented by: Allergies Allergies Allergy/AdvReac Type Severity Reaction Status Date / Time No Known Allergies Allergy Verified 03/24/21 17:28 Assessment & Plan Assessment & Plan (1) Schizoaffective disorder, bipolar type: Status: Acute Code(s): F25.0 - Schizoaffective disorder, bipolar type Assessment and Plan: started abilify 10 mg daily for mood, anxiety; increased to 20 mg daily as of 03/31, 30 mg daily as of 04/01. DCed 04/02 in favor of zyprexa as pt has rapidly become quite disorganized and insomniac. zyprexa increased to 30 mg at bedtime by 04/05. added ativan 2 mg at bedtime 04/02 as well to encourage sleep. zyprexa increased to 40 mg daily as of 04/06 per pt request. started adderall 5 BID 03/30/21 for ADHD Sx; dosing increased to 10 BID starting 03/31. DCed 04/01 due to worsened psychotic Sx since the addition of stimulant. lithium 600 BID started 04/08 in the event this pt is experiencing a gildardo. dispo - pending resolution of apparently iatrogenic psychosis. 04/09/21- haldol prn added, pt reports moderate degree of anxiety that appears related to underlying psychosis, continue all other medications. 04/10/21 and 04/11/21: No changes in medications. I spent minutes with the patient and/or on the patient floor today, grea ter than?50% of which was spent counseling/coordinating care. Reason for contiued inpatient stay Substantial Risk for: harm to self and inability to function
[2021-04-12] MEDS: hydrOXYzine HCL 50 MG TABLET 100 MG PO ×3 (02:38→18:27)
[2021-04-12] MEDS: Gabapentin 300 MG CAPSULE PO ×3 (02:38→18:27)
[2021-04-12] MEDS: Magnesium Hydrox/Alum Hydrox 30 ML ORAL.SUSP PO ×2 (06:27→18:34)
[2021-04-12 11:21] VITALS: BP 166/88; PULSE 80; RESP 16; TEMP 36.8; O2SAT 96
[2021-04-12] MEDS: Multivitamin TABLET 1 TAB PO (11:24)
[2021-04-12] MEDS: Lithium Carbonate ER 300 MG TABLET.ER 600 MG PO ×2 (11:24→20:42)
--- NOTE | 2021-04-12 12:36 | P.PNPSI_ITS ---
Subjective Subjective Date of Service: 04/12/21 Reason For Visit: Major depression Interim History: pt found sleeping soundly in bed late morning, easily rousable. reports his anxiety is improving, his ADHD is improving, and he is feeling more himself. amenable to continue current regimen, as he agrees he is trending better. informed we will be drawing labs tomorrow or weds. per staff, slept all morning. did not attend groups in the morning. in milieu later in the day. BP 155/101 yesterday. getting lots of PRNs. up a couple of times in the night. spent most of the w/e sleeping in the day, not so well through the night. Mental Status Exam Mental Status Exam Narrative: obese, casually dressed, disheveled. no PMA/PMR. cooperative with interview. thoughts more organized and topical. affect constricted, normo- intense, non-labile. no SI/HI/AVH expressed. Diagnostics Vital Signs (24Hr): Vital Signs - 24 hr 04/11/21 20:14 04/12/21 11:21 Temperature 96.9 F 98.2 F Pulse Rate 85 80 Respiratory Rate 20 16 Blood Pressure 158/82 H 166/88 H Pulse Oximetry 98 96 Body Mass Index 61.4 Labs Results: 03/30/21 07:07 03/30/21 07:07 Medications Medications Current Medications Acetaminophen (Acetaminophen 325 Mg Tablet) 975 mg PO Q6H PRN PRN Reason: pain/fever Last Admin: 04/11/21 08:06 Dose: 975 mg Documented by: Al Hydroxide/Mg Hydroxide (Magnesium Hydrox/Alum Hydrox 30 Ml Oral.Susp) 30 ml PO Q6H PRN PRN Reason: reflux Last Admin: 04/12/21 06:27 Dose: 30 ml Documented by: Benzocaine (Throat Lozenge, Medicated Lozenge) 1 lozenge MUCOUS MEM Q1H PRN PRN Reason: Sore Throat Last Admin: 04/10/21 17:22 Dose: 1 lozenge Documented by: Bismuth Subsalicylate (Bismuth Subsalicylate 262 Mg Tablet) 524 mg PO QID PRN PRN Reason: Dyspepsia Last Admin: 04/08/21 09:23 Dose: 524 mg Documented by: Calcium Carbonate (Calcium Carbonate 500 Mg Tablet) 500 mg PO TID PRN PRN Reason: indigestion Last Admin: 04/06/21 05:45 Dose: 500 mg Documented by: Gabapentin (Gabapentin 300 Mg Capsule) 300 mg PO QID PRN PRN Reason: anxiety Last Admin: 04/12/21 02:38 Dose: 300 mg Documented by: Gabapentin (Gabapentin 300 Mg Capsule) 300 mg PO DAILY [facility] Last Admin: 04/12/21 11:24 Dose: 300 mg Documented by: Haloperidol (Haloperidol 5 Mg Tablet) 5 mg PO Q6H PRN PRN Reason: agitation/psychosis/anxiety Hydroxyzine HCl (Hydroxyzine Hcl 50 Mg Tablet) 100 mg PO BID PRN PRN Reason: Anxiety Last Admin: 04/12/21 02:38 Dose: 100 mg Documented by: Hydroxyzine HCl (Hydroxyzine Hcl 50 Mg Tablet) 100 mg PO BEDTIME PRN PRN Reason: insomnia Last Admin: 04/11/21 20:24 Dose: 100 mg Documented by: Hydroxyzine HCl (Hydroxyzine Hcl 50 Mg Tablet) 100 mg PO DAILY [facility] Last Admin: 04/12/21 11:24 Dose: 100 mg Documented by: [place] Carbonate ([place] Carbonate Er 300 Mg Tablet.Er) 600 mg PO BID [facility] Last Admin: 04/12/21 11:24 Dose: 600 mg Documented by: Multivitamins/Vitamin C (Multivitamin Tablet) 1 tab PO DAILY [facility] Last Admin: 04/12/21 11:24 Dose: 1 tab Documented by: Olanzapine (Olanzapine Odt 10 Mg Tab.Rapdis) 40 mg TRANSLINGU BEDTIME [facility] Last Admin: 04/11/21 20:20 Dose: 40 mg Documented by: Sertraline HCl (Sertraline Hcl 100 Mg Tablet) 200 mg PO DAILY [facility] Last Admin: 04/08/21 09:23 Dose: 200 mg Documented by: Allergies Allergies Allergy/AdvReac Type Severity Reaction Status Date / Time No Known Allergies Allergy Verified 03/24/21 17:28 Assessment & Plan Assessment & Plan (1) Schizoaffective disorder, bipolar type: Status: Acute Code(s): F25.0 - Schizoaffective disorder, bipolar type Assessment and Plan: started abilify 10 mg daily for mood, anxiety; increased to 20 mg daily as of 03/31, 30 mg daily as of 04/01. DCed 04/02 in favor of zyprexa as pt has rapidly become quite disorganized and insomniac. zyprexa increased to 30 mg at bedtime by 04/05. added ativan 2 mg at bedtime 04/02 as well to encourage sleep. zyprexa increased to 40 mg daily as of 04/06 per pt request. started adderall 5 BID 03/30/21 for ADHD Sx; dosing increased to 10 BID starting 03/31. DCed 04/01 due to worsened psychotic Sx since the addition of stimulant. lithium 600 BID started 04/08 in the event this pt is experiencing a gildardo. dispo - pending resolution of apparently iatrogenic psychosis. T/C starting antihypertensive. labs 04/13. I spent minutes with the patient and/or on the patient floor today, greater than?50% of which was spent counseling/coordinating care. Reason for contiued inpatient stay Substantial Risk for: inability to function and rapid decompensation
[2021-04-12 20:30] VITALS: BP 134/64; PULSE 80; RESP 19; TEMP 36.2; O2SAT 97
[2021-04-12] MEDS: Acetaminophen 325 MG TABLET 975 MG PO (20:41)
[2021-04-12] MEDS: OLANZapine ODT 10 MG TAB.RAPDIS 40 MG TRANSLINGU (20:42)
[2021-04-13 07:29] LABS: MANUAL DIFF FLAG NO
[2021-04-13 07:34] LABS: Basophils Absolute Auto 0.1 X10*3/uL (0.0-0.2); Basophils Percent Auto 0.9 % (0-2); Eosinophils Absolute Auto 0.5 X10*3/uL (0.0-0.4); Eosinophils Percent Auto 4.3 % (0-4); Hematocrit 44.6 % (42-52); Hemoglobin 15.1 g/dl (14.0-18.0); Imm Gran Abs Auto 0.18 X10*3/uL (0.00-0.03); Imm Gran Pct Auto 1.6 % (0.0-0.4); Lymphocytes Absolute Auto 3.4 X10*3/uL (1.2-4.9); Lymphocytes Percent Auto 29.8 % (20-40); Mean Corpuscular HGB Conc 33.9 g/dl (31.0-36.0); Mean Corpuscular Hemoglobin 29.2 pg (27.0-33.0); Mean Corpuscular Volume 86.3 fL (80-98); Monocytes Absolute Auto 1.3 X10*3/uL (0.1-1.2); Monocytes Percent Auto 11.3 % (2-11); Neutrophils Percent Auto 52.1 % (45-73); Platelet Count 295 X10*3/uL (160-400); Red Blood Count 5.17 X10*6/uL (4.60-5.80); White Blood Count 11.5 X10*3/uL (4.8-10.8)
[2021-04-13 07:45] VITALS: BP 128/78; PULSE 72; RESP 18; TEMP 36.6; O2SAT 94
[2021-04-13 07:46] LABS: Lithium 0.42 mmol/L (0.60-1.20)
[2021-04-13 07:51] LABS: Anion Gap 11 (12-20); Blood Urea Nitrogen 22 mg/dL (9-16); Calcium 9.1 mg/dL (8.4-10.2); Carbon Dioxide 27 mmol/L (22-29); Chloride 105 mmol/L (96-108); Creatinine Clr Calc Pharmacy 182.6; Estimated Glomerular Filt Rate > 60; Glucose Random 74 mg/dL (60-115); Potassium 4.4 mmol/L (3.3-5.1); Sodium 139 mmol/L (135-145)
[2021-04-13] MEDS: Lithium Carbonate ER 300 MG TABLET.ER 600 MG PO (08:22)
[2021-04-13] MEDS: Multivitamin TABLET 1 TAB PO (08:22)
[2021-04-13] MEDS: hydrOXYzine HCL 50 MG TABLET 100 MG PO ×2 (08:22→20:40)
[2021-04-13] MEDS: Gabapentin 300 MG CAPSULE PO ×2 (08:22→20:40)
--- NOTE | 2021-04-13 16:33 | HO.PSYCHPN ---
Subjective Subjective Date of Service: 04/13/21 Reason For Visit: Major depression Interim History: pt reports he continues to feel better every day; in fact, he continues to be more organized in thought and more topical by the day. agreeable to increase lithium to 750 mg BID as today's lithium level was 0.42. per staff, clept about 5 hours overnight. using PRNs (hydroxyzine and gabapentin). no other notable events or behaviors. Mental Status Exam Mental Status Exam Narrative: obese, casually dressed, disheveled. no PMA/PMR. cooperative with interview. thoughts continue to trend more organized and topical. affect more flexible, normo-intense, non-labile. no SI/HI/AVH expressed. Diagnostics Vital Signs (24Hr): Vital Signs - 24 hr 04/12/21 20:30 04/13/21 07:45 Temperature 97.1 F 97.8 F Pulse Rate 80 72 Respiratory Rate 19 18 Blood Pressure 134/64 128/78 Pulse Oximetry 97 94 Body Mass Index 61.4 Labs Results: 04/13/21 07:12 04/13/21 07:12 Labs: Laboratory Results - last 48 hr 04/13/21 04/13/21 04/13/21 07:12 07:12 07:12 WBC 11.5 H RBC 5.17 Hgb 15.1 Hct 44.6 MCV 86.3 MCH 29.2 MCHC 33.9 RDW 13.0 Plt Count 295 MPV 9.0 L Immature Gran % (Auto) 1.6 H Neut % (Auto) 52.1 Lymph % (Auto) 29.8 [place] % (Auto) 11.3 H Eos % (Auto) 4.3 H Baso % (Auto) 0.9 Lymph # (Auto) 3.4 [place] # (Auto) 1.3 H Eos # (Auto) 0.5 H Baso # (Auto) 0.1 Abs Immat Gran (auto) 0.18 H Absolute Neuts (auto) 6.0 Absolute Nucleated RBC 0.000 Nucleated RBC % (auto) 0.0 Sodium 139 Potassium 4.4 Chloride 105 Carbon Dioxide 27 Anion Gap 11 L BUN 22 H Creatinine 1.04 Estim Creat Clear Calc 182.6 Estimated GFR > 60 Random Glucose 74 Calcium 9.1 [place] 0.42 L Medications Medications Current Medications Acetaminophen (Acetaminophen 325 Mg Tablet) 975 mg PO Q6H PRN PRN Reason: pain/fever Last Admin: 04/12/21 20:41 Dose: 975 mg Documented by: Al Hydroxide/Mg Hydroxide (Magnesium Hydrox/Alum Hydrox 30 Ml Oral.Susp) 30 ml PO Q6H PRN PRN Reason: reflux Last Admin: 04/12/21 18:34 Dose: 30 ml Documented by: Benzocaine (Throat Lozenge, Medicated Lozenge) 1 lozenge MUCOUS MEM Q1H PRN PRN Reason: Sore Throat Last Admin: 04/10/21 17:22 Dose: 1 lozenge Documented by: Bismuth Subsalicylate (Bismuth Subsalicylate 262 Mg Tablet) 524 mg PO QID PRN PRN Reason: Dyspepsia Last Admin: 04/08/21 09:23 Dose: 524 mg Documented by: Calcium Carbonate (Calcium Carbonate 500 Mg Tablet) 500 mg PO TID PRN PRN Reason: indigestion Last Admin: 04/06/21 05:45 Dose: 500 mg Documented by: Gabapentin (Gabapentin 300 Mg Capsule) 300 mg PO QID PRN PRN Reason: anxiety Last Admin: 04/12/21 18:27 Dose: 300 mg Documented by: Gabapentin (Gabapentin 300 Mg Capsule) 300 mg PO DAILY [facility] Last Admin: 04/13/21 08:22 Dose: 300 mg Documented by: Hydroxyzine HCl (Hydroxyzine Hcl 50 Mg Tablet) 100 mg PO BID PRN PRN Reason: Anxiety Last Admin: 04/12/21 18:27 Dose: 100 mg Documented by: Hydroxyzine HCl (Hydroxyzine Hcl 50 Mg Tablet) 100 mg PO BEDTIME PRN PRN Reason: insomnia Last Admin: 04/11/21 20:24 Dose: 100 mg Documented by: Hydroxyzine HCl (Hydroxyzine Hcl 50 Mg Tablet) 100 mg PO DAILY [facility] Last Admin: 04/13/21 08:22 Dose: 100 mg Documented by: [place] Carbonate ([place] Carbonate Er 300 Mg Tablet.Er) 300 mg PO BID [facility] [place] Carbonate ([place] Carbonate Er 450 Mg Tablet.Er) 450 mg PO BID [facility] Multivitamins/Vitamin C (Multivitamin Tablet) 1 tab PO DAILY [facility] Last Admin: 04/13/21 08:22 Dose: 1 tab Documented by: Olanzapine (Olanzapine Odt 10 Mg Tab.Rapdis) 40 mg TRANSLINGU BEDTIME [facility] Last Admin: 04/12/21 20:42 Dose: 40 mg Documented by: Olanzapine (Olanzapine Odt 10 Mg Tab.Rapdis) 5 mg TRANSLINGU BID PRN PRN Reason: agitation Allergies Allergies Allergy/AdvReac Type Severity Reaction Status Date / Time No Known Allergies Allergy Verified 03/24/21 17:28 Assessment & Plan Assessment & Plan (1) Schizoaffective disorder, bipolar type: Status: Acute Code(s): F25.0 - Schizoaffective disorder, bipolar type Assessment and Plan: started abilify 10 mg daily for mood, anxiety; increased to 20 mg daily as of 03/31, 30 mg daily as of 04/01. DCed 04/02 in favor of zyprexa as pt has rapidly become quite disorganized and insomniac. zyprexa increased to 30 mg at bedtime by 04/05. added ativan 2 mg at bedtime 04/02 as well to encourage sleep. zyprexa increased to 40 mg daily as of 04/06 per pt request. started adderall 5 BID 03/30/21 for ADHD Sx; dosing increased to 10 BID starting 03/31. DCed 04/01 due to worsened psychotic Sx since the addition of stimulant. lithium 600 BID started 04/08 in the event this pt is experiencing a gildardo. much improvement since lithium start, dosing increased to 750 BID 04/13 as level on 600 BID was 0.42. dispo - pending resolution of apparently iatrogenic psychosis. T/C starting antihypertensive - BP improved in the past 24H. lithium 04/13 0.42 on 600 mg BID. I spent minutes with the patient and/or on the patient floor today, greater than?50% of which was spent counseling/coordinating care. Reason for contiued inpatient stay Substantial Risk for: inability to function and rapid decompensation
[2021-04-13 18:00] VITALS: BP 132/70; PULSE 64; RESP 18; TEMP 36.3; O2SAT 93
[2021-04-13] MEDS: Lithium Carbonate ER 300 MG TABLET.ER PO (20:31)
[2021-04-13] MEDS: OLANZapine ODT 10 MG TAB.RAPDIS 40 MG TRANSLINGU (20:32)
[2021-04-13] MEDS: Lithium Carbonate ER 450 MG TABLET.ER PO (20:32)
[2021-04-14] MEDS: hydrOXYzine HCL 50 MG TABLET 100 MG PO ×2 (08:16→18:36)
[2021-04-14] MEDS: Gabapentin 300 MG CAPSULE PO ×2 (08:16→18:36)
[2021-04-14] MEDS: Multivitamin TABLET 1 TAB PO (08:17)
[2021-04-14] MEDS: Throat Lozenge, Medicated LOZENGE 1 LOZENGE MUCOUS MEM ×2 (08:17→18:36)
[2021-04-14] MEDS: Acetaminophen 325 MG TABLET 975 MG PO (08:17)
[2021-04-14] MEDS: Lithium Carbonate ER 450 MG TABLET.ER PO ×2 (08:17→20:57)
[2021-04-14] MEDS: Lithium Carbonate ER 300 MG TABLET.ER PO ×2 (08:27→20:57)
[2021-04-14 08:35] VITALS: BP 112/80; PULSE 68; RESP 20; TEMP 36.3; O2SAT 98
--- NOTE | 2021-04-14 11:54 | HO.PSYCHPN ---
Subjective Subjective Date of Service: 04/14/21 Reason For Visit: Major depression Interim History: pt found resting in his room. uncharacteristically declines interview with MD, agrees to meet tomorrow. no other complaints or requests. per staff, redirected multiple times yesterday regarding inappropriate behavior, namely sexualized talk with peer (talking about exchanging blowjobs with peer). social on eves. slept about 7 hours. ate 100% of 2 meals, skipped the third. Mental Status Exam Mental Status Exam Narrative: obese, casually dressed, disheveled. no PMA/PMR. not cooperative with interview. thoughts continue to trend more organized and topical. no SI/HI/AVH expressed. Diagnostics Vital Signs (24Hr): Vital Signs - 24 hr 04/13/21 18:00 04/14/21 08:35 Temperature 97.3 F 97.4 F Pulse Rate 64 68 Respiratory Rate 18 20 Blood Pressure 132/70 112/80 Pulse Oximetry 93 98 Body Mass Index 61.4 Labs Results: 04/13/21 07:12 04/13/21 07:12 Labs: Laboratory Results - last 48 hr 04/13/21 04/13/21 04/13/21 07:12 07:12 07:12 WBC 11.5 H RBC 5.17 Hgb 15.1 Hct 44.6 MCV 86.3 MCH 29.2 MCHC 33.9 RDW 13.0 Plt Count 295 MPV 9.0 L Immature Gran % (Auto) 1.6 H Neut % (Auto) 52.1 Lymph % (Auto) 29.8 [place] % (Auto) 11.3 H Eos % (Auto) 4.3 H Baso % (Auto) 0.9 Lymph # (Auto) 3.4 [place] # (Auto) 1.3 H Eos # (Auto) 0.5 H Baso # (Auto) 0.1 Abs Immat Gran (auto) 0.18 H Absolute Neuts (auto) 6.0 Absolute Nucleated RBC 0.000 Nucleated RBC % (auto) 0.0 Sodium 139 Potassium 4.4 Chloride 105 Carbon Dioxide 27 Anion Gap 11 L BUN 22 H Creatinine 1.04 Estim Creat Clear Calc 182.6 Estimated GFR > 60 Random Glucose 74 Calcium 9.1 [place] 0.42 L Medications Medications Current Medications Acetaminophen (Acetaminophen 325 Mg Tablet) 975 mg PO Q6H PRN PRN Reason: pain/fever Last Admin: 04/14/21 08:17 Dose: 975 mg Documented by: Al Hydroxide/Mg Hydroxide (Magnesium Hydrox/Alum Hydrox 30 Ml Oral.Susp) 30 ml PO Q6H PRN PRN Reason: reflux Last Admin: 04/12/21 18:34 Dose: 30 ml Documented by: Benzocaine (Throat Lozenge, Medicated Lozenge) 1 lozenge MUCOUS MEM Q1H PRN PRN Reason: Sore Throat Last Admin: 04/14/21 08:17 Dose: 1 lozenge Documented by: Bismuth Subsalicylate (Bismuth Subsalicylate 262 Mg Tablet) 524 mg PO QID PRN PRN Reason: Dyspepsia Last Admin: 04/08/21 09:23 Dose: 524 mg Documented by: Calcium Carbonate (Calcium Carbonate 500 Mg Tablet) 500 mg PO TID PRN PRN Reason: indigestion Last Admin: 04/06/21 05:45 Dose: 500 mg Documented by: Gabapentin (Gabapentin 300 Mg Capsule) 300 mg PO QID PRN PRN Reason: anxiety Last Admin: 04/13/21 20:40 Dose: 300 mg Documented by: Gabapentin (Gabapentin 300 Mg Capsule) 300 mg PO DAILY [facility] Last Admin: 04/14/21 08:16 Dose: 300 mg Documented by: Hydroxyzine HCl (Hydroxyzine Hcl 50 Mg Tablet) 100 mg PO BID PRN PRN Reason: Anxiety Last Admin: 04/12/21 18:27 Dose: 100 mg Documented by: Hydroxyzine HCl (Hydroxyzine Hcl 50 Mg Tablet) 100 mg PO BEDTIME PRN PRN Reason: insomnia Last Admin: 04/13/21 20:40 Dose: 100 mg Documented by: Hydroxyzine HCl (Hydroxyzine Hcl 50 Mg Tablet) 100 mg PO DAILY [facility] Last Admin: 04/14/21 08:16 Dose: 100 mg Documented by: [place] Carbonate ([place] Carbonate Er 300 Mg Tablet.Er) 300 mg PO BID [facility] Last Admin: 04/14/21 08:27 Dose: 300 mg Documented by: [place] Carbonate ([place] Carbonate Er 450 Mg Tablet.Er) 450 mg PO BID [facility] Last Admin: 04/14/21 08:17 Dose: 450 mg Documented by: Multivitamins/Vitamin C (Multivitamin Tablet) 1 tab PO DAILY [facility] Last Admin: 04/14/21 08:17 Dose: 1 tab Documented by: Olanzapine (Olanzapine Odt 10 Mg Tab.Rapdis) 40 mg TRANSLINGU BEDTIME [facility] Last Admin: 04/13/21 20:32 Dose: 40 mg Documented by: Olanzapine (Olanzapine Odt 10 Mg Tab.Rapdis) 5 mg TRANSLINGU BID PRN PRN Reason: agitation Allergies Allergies Allergy/AdvReac Type Severity Reaction Status Date / Time No Known Allergies Allergy Verified 03/24/21 17:28 Assessment & Plan Assessment & Plan (1) Schizoaffective disorder, bipolar type: Status: Acute Code(s): F25.0 - Schizoaffective disorder, bipolar type Assessment and Plan: started abilify 10 mg daily for mood, anxiety; increased to 20 mg daily as of 03/31, 30 mg daily as of 04/01. DCed 04/02 in favor of zyprexa as pt has rapidly become quite disorganized and insomniac. zyprexa increased to 30 mg at bedtime by 04/05. added ativan 2 mg at bedtime 04/02 as well to encourage sleep. zyprexa increased to 40 mg daily as of 04/06 per pt request. started adderall 5 BID 03/30/21 for ADHD Sx; dosing increased to 10 BID starting 03/31. DCed 04/01 due to worsened psychotic Sx since the addition of stimulant. lithium 600 BID started 04/08 in the event this pt is experiencing a gildardo. much improvement since lithium start, dosing increased to 750 BID 04/13 as level on 600 BID was 0.42. dispo - pending resolution of apparently iatrogenic psychosis. T/C starting antihypertensive - BP improved in the past 48H. lithium 04/13 0.42 on 600 mg BID. I spent minutes with the patient and/or on the patient floor today, greater than?50% of which was spent counseling/coordinating care. Reason for contiued inpatient stay Substantial Risk for: inability to function and rapid decompensation
[2021-04-14 20:51] VITALS: BP 135/79; PULSE 84; RESP 18; TEMP 36.8; O2SAT 97
[2021-04-14] MEDS: OLANZapine ODT 10 MG TAB.RAPDIS 40 MG TRANSLINGU (20:57)
[2021-04-15 10:00] VITALS: BP 125/70; PULSE 68; RESP 20; TEMP 36.6; O2SAT 98
[2021-04-15] MEDS: Lithium Carbonate ER 300 MG TABLET.ER PO ×2 (10:01→22:24)
[2021-04-15] MEDS: hydrOXYzine HCL 50 MG TABLET 100 MG PO (10:01)
[2021-04-15] MEDS: Lithium Carbonate ER 450 MG TABLET.ER PO ×2 (10:03→22:23)
[2021-04-15] MEDS: Gabapentin 300 MG CAPSULE PO (10:03)
[2021-04-15] MEDS: Multivitamin TABLET 1 TAB PO (10:03)
--- NOTE | 2021-04-15 12:01 | P.PNPSI_ITS ---
Subjective Subjective Date of Service: 04/15/21 Reason For Visit: Major depression Interim History: pt was visited twice, both mid and late morning. both times he was observed to be sleeping soundly, snoring audibly. he did not respond to voice greetings and it was felt allowing him to sleep was more therapeutic than awakening him today. per staff, anx/dep. visible, social. med-compliant. was in sensory room with door shut and light out with peer with whom he had been engaging in sexualized talk yesterday. observed to be miming sniffing or smoking crayons. Mental Status Exam Mental Status Exam Narrative: obese, lying in bed under sheet. no PMA/PMR. not roused for interview. Diagnostics Vital Signs (24Hr): Vital Signs - 24 hr 04/14/21 20:51 Temperature 98.2 F Pulse Rate 84 Respiratory Rate 18 Blood Pressure 135/79 Pulse Oximetry 97 Body Mass Index 61.4 Labs Results: 04/13/21 07:12 04/13/21 07:12 Medications Medications Current Medications Acetaminophen (Acetaminophen 325 Mg Tablet) 975 mg PO Q6H PRN PRN Reason: pain/fever Last Admin: 04/14/21 08:17 Dose: 975 mg Documented by: Al Hydroxide/Mg Hydroxide (Magnesium Hydrox/Alum Hydrox 30 Ml Oral.Susp) 30 ml PO Q6H PRN PRN Reason: reflux Last Admin: 04/12/21 18:34 Dose: 30 ml Documented by: Benzocaine (Throat Lozenge, Medicated Lozenge) 1 lozenge MUCOUS MEM Q1H PRN PRN Reason: Sore Throat Last Admin: 04/14/21 18:36 Dose: 1 lozenge Documented by: Bismuth Subsalicylate (Bismuth Subsalicylate 262 Mg Tablet) 524 mg PO QID PRN PRN Reason: Dyspepsia Last Admin: 04/08/21 09:23 Dose: 524 mg Documented by: Calcium Carbonate (Calcium Carbonate 500 Mg Tablet) 500 mg PO TID PRN PRN Reason: indigestion Last Admin: 04/06/21 05:45 Dose: 500 mg Documented by: Gabapentin (Gabapentin 300 Mg Capsule) 300 mg PO QID PRN PRN Reason: anxiety Last Admin: 04/14/21 18:36 Dose: 300 mg Documented by: Gabapentin (Gabapentin 300 Mg Capsule) 300 mg PO DAILY [facility] Last Admin: 04/15/21 10:03 Dose: 300 mg Documented by: Hydroxyzine HCl (Hydroxyzine Hcl 50 Mg Tablet) 100 mg PO BID PRN PRN Reason: Anxiety Last Admin: 04/14/21 18:36 Dose: 100 mg Documented by: Hydroxyzine HCl (Hydroxyzine Hcl 50 Mg Tablet) 100 mg PO BEDTIME PRN PRN Reason: insomnia Last Admin: 04/13/21 20:40 Dose: 100 mg Documented by: Hydroxyzine HCl (Hydroxyzine Hcl 50 Mg Tablet) 100 mg PO DAILY [facility] Last Admin: 04/15/21 10:01 Dose: 100 mg Documented by: [place] Carbonate ([place] Carbonate Er 300 Mg Tablet.Er) 300 mg PO BID [facility] Last Admin: 04/15/21 10:01 Dose: 300 mg Documented by: [place] Carbonate ([place] Carbonate Er 450 Mg Tablet.Er) 450 mg PO BID [facility] Last Admin: 04/15/21 10:03 Dose: 450 mg Documented by: Multivitamins/Vitamin C (Multivitamin Tablet) 1 tab PO DAILY [facility] Last Admin: 04/15/21 10:03 Dose: 1 tab Documented by: Olanzapine (Olanzapine Odt 10 Mg Tab.Rapdis) 40 mg TRANSLINGU BEDTIME [facility] Last Admin: 04/14/21 20:57 Dose: 40 mg Documented by: Olanzapine (Olanzapine Odt 10 Mg Tab.Rapdis) 5 mg TRANSLINGU BID PRN PRN Reason: agitation Allergies Allergies Allergy/AdvReac Type Severity Reaction Status Date / Time No Known Allergies Allergy Verified 03/24/21 17:28 Assessment & Plan Assessment & Plan (1) Schizoaffective disorder, bipolar type: Status: Acute Code(s): F25.0 - Schizoaffective disorder, bipolar type Assessment and Plan: started abilify 10 mg daily for mood, anxiety; increased to 20 mg daily as of 03/31, 30 mg daily as of 04/01. DCed 04/02 in favor of zyprexa as pt has rapidly become quite disorganized and insomniac. zyprexa increased to 30 mg at bedtime by 04/05. added ativan 2 mg at bedtime 04/02 as well to encourage sleep. zyprexa increased to 40 mg daily as of 04/06 per pt request. started adderall 5 BID 03/30/21 for ADHD Sx; dosing increased to 10 BID starting 03/31. DCed 04/01 due to worsened psychotic Sx since the addition of stimulant. lithium 600 BID started 04/08 in the event this pt is experiencing a gildardo. much improvement since lithium start, dosing increased to 750 BID 04/13 as level on 600 BID was 0.42. dispo - pending resolution of gildardo. T/C starting antihypertensive - BP improved in the past 72H. I spent minutes with the patient and/or on the patient floor today, greater than?50% of which was spent counseling/coordinating care. Reason for contiued inpatient stay Substantial Risk for: inability to function
[2021-04-15 14:46] VITALS: BMI 60.8
[2021-04-15 18:00] VITALS: BP 130/60; PULSE 66; RESP 16; TEMP 36.8; O2SAT 97
[2021-04-15] MEDS: OLANZapine ODT 10 MG TAB.RAPDIS 40 MG TRANSLINGU (22:22)
[2021-04-16 06:00] VITALS: RESP 18
--- NOTE | 2021-04-16 13:16 | HO.PSYCHPN ---
Subjective Subjective Date of Service: 04/16/21 Reason For Visit: Major depression Interim History: pt was found sleeping in bed. he was rousable to voice and preferred to remain in bed for the interview. he reports he was feeling fine and had no requests or complaints. he was amenable to continuing the current regimen for now and rechecking a lithium level when due. per staff, slept most of the day yesterday. feels he's doing OK. yesterday afternoon was pleasant and engaged in the milieu. reported dep and anx 03/28. taking fewer PRNs than he had in the past. visible in the milieu. slept through the night. Mental Status Exam Mental Status Exam Narrative: obese, in bed under covers. no PMA/PMR. cooperative with interview. thoughts continue to trend more organized and topical. affect constricted, normo-intense, non-labile. mood euthymic. no SI/HI/AVH expressed. Diagnostics Vital Signs (24Hr): Vital Signs - 24 hr 04/15/21 18:00 04/16/21 06:00 Temperature 98.2 F Pulse Rate 66 Respiratory Rate 16 18 Blood Pressure 130/60 Pulse Oximetry 97 Body Mass Index 60.8 Labs Results: 04/13/21 07:12 04/13/21 07:12 Medications Medications Current Medications Acetaminophen (Acetaminophen 325 Mg Tablet) 975 mg PO Q6H PRN PRN Reason: pain/fever Last Admin: 04/14/21 08:17 Dose: 975 mg Documented by: Al Hydroxide/Mg Hydroxide (Magnesium Hydrox/Alum Hydrox 30 Ml Oral.Susp) 30 ml PO Q6H PRN PRN Reason: reflux Last Admin: 04/12/21 18:34 Dose: 30 ml Documented by: Benzocaine (Throat Lozenge, Medicated Lozenge) 1 lozenge MUCOUS MEM Q1H PRN PRN Reason: Sore Throat Last Admin: 04/14/21 18:36 Dose: 1 lozenge Documented by: Bismuth Subsalicylate (Bismuth Subsalicylate 262 Mg Tablet) 524 mg PO QID PRN PRN Reason: Dyspepsia Last Admin: 04/08/21 09:23 Dose: 524 mg Documented by: Calcium Carbonate (Calcium Carbonate 500 Mg Tablet) 500 mg PO TID PRN PRN Reason: indigestion Last Admin: 04/06/21 05:45 Dose: 500 mg Documented by: Gabapentin (Gabapentin 300 Mg Capsule) 300 mg PO QID PRN PRN Reason: anxiety Last Admin: 04/14/21 18:36 Dose: 300 mg Documented by: Gabapentin (Gabapentin 300 Mg Capsule) 300 mg PO DAILY [facility] Last Admin: 04/16/21 12:26 Dose: Not Given Documented by: Hydroxyzine HCl (Hydroxyzine Hcl 50 Mg Tablet) 100 mg PO BID PRN PRN Reason: Anxiety Last Admin: 04/14/21 18:36 Dose: 100 mg Documented by: Hydroxyzine HCl (Hydroxyzine Hcl 50 Mg Tablet) 100 mg PO BEDTIME PRN PRN Reason: insomnia Last Admin: 04/13/21 20:40 Dose: 100 mg Documented by: Hydroxyzine HCl (Hydroxyzine Hcl 50 Mg Tablet) 100 mg PO DAILY [facility] Last Admin: 04/16/21 12:26 Dose: Not Given Documented by: [place] Carbonate ([place] Carbonate Er 300 Mg Tablet.Er) 300 mg PO BID [facility] Last Admin: 04/15/21 22:24 Dose: 300 mg Documented by: [place] Carbonate ([place] Carbonate Er 450 Mg Tablet.Er) 450 mg PO BID [facility] Last Admin: 04/15/21 22:23 Dose: 450 mg Documented by: Multivitamins/Vitamin C (Multivitamin Tablet) 1 tab PO DAILY [facility] Last Admin: 04/16/21 12:26 Dose: Not Given Documented by: Olanzapine (Olanzapine Odt 10 Mg Tab.Rapdis) 40 mg TRANSLINGU BEDTIME [facility] Last Admin: 04/15/21 22:22 Dose: 40 mg Documented by: Olanzapine (Olanzapine Odt 10 Mg Tab.Rapdis) 5 mg TRANSLINGU BID PRN PRN Reason: agitation Allergies Allergies Allergy/AdvReac Type Severity Reaction Status Date / Time No Known Allergies Allergy Verified 03/24/21 17:28 Assessment & Plan Assessment & Plan (1) Schizoaffective disorder, bipolar type: Status: Acute Code(s): F25.0 - Schizoaffective disorder, bipolar type Assessment and Plan: started abilify 10 mg daily for mood, anxiety; increased to 20 mg daily as of 03/31, 30 mg daily as of 04/01. DCed 04/02 in favor of zyprexa as pt has rapidly become quite disorganized and insomniac. zyprexa increased to 30 mg at bedtime by 04/05. added ativan 2 mg at bedtime 04/02 as well to encourage sleep. zyprexa increased to 40 mg daily as of 04/06 per pt request. started adderall 5 BID 03/30/21 for ADHD Sx; dosing increased to 10 BID starting 03/31. DCed 04/01 due to worsened psychotic Sx since the addition of stimulant. lithium 600 BID started 04/08 in the event this pt is experiencing a gildardo. much improvement since lithium start, dosing increased to 750 BID 04/13 as level on 600 BID was 0.42. recheck labs 04/19. dispo - pending resolution of gildardo. T/C starting antihypertensive - BP remains improved. I spent minutes with the patient and/or on the patient floor today, greater than?50% of which was spent counseling/coordinating care. Reason for contiued inpatient stay Substantial Risk for: inability to function and rapid decompensation
[2021-04-16 18:00] VITALS: BP 120/66; PULSE 70; RESP 18; TEMP 36.5; O2SAT 96
[2021-04-16] MEDS: Lithium Carbonate ER 300 MG TABLET.ER PO (20:37)
[2021-04-16] MEDS: Lithium Carbonate ER 450 MG TABLET.ER PO (20:38)
[2021-04-16] MEDS: OLANZapine ODT 10 MG TAB.RAPDIS 40 MG TRANSLINGU (20:38)
[2021-04-17] MEDS: hydrOXYzine HCL 50 MG TABLET 100 MG PO (10:33)
[2021-04-17] MEDS: Multivitamin TABLET 1 TAB PO (10:33)
[2021-04-17] MEDS: Gabapentin 300 MG CAPSULE PO (10:33)
[2021-04-17] MEDS: Lithium Carbonate ER 450 MG TABLET.ER PO ×2 (10:33→20:21)
[2021-04-17] MEDS: Lithium Carbonate ER 300 MG TABLET.ER PO ×2 (10:33→20:21)
[2021-04-17 12:10] VITALS: RESP 18
--- NOTE | 2021-04-17 15:56 | P.PNPSI_ITS ---
Subjective Subjective Date of Service: 04/17/21 Reason For Visit: Major depression Interim History: pt found sleeping in his bed late morning. rousable to voice. reports his mood is fine and he is not bothered by sleeping so much. agreeable to decrease HS zyprexa dose in attempt to curb daytime sleepiness. per staff, slept all day yesterday. slept evening shift. was up for one group and to receive two visitors. then slept all night. Mental Status Exam Mental Status Exam Narrative: obese, in bed. no PMA/PMR. cooperative with interview. thoughts continue to trend more organized and topical. affect constricted, hypo- intense, non-labile. mood euthymic. no SI/HI/AVH expressed. Diagnostics Vital Signs (24Hr): Vital Signs - 24 hr 04/16/21 18:00 04/17/21 12:10 Temperature 97.7 F Pulse Rate 70 Respiratory Rate 18 18 Blood Pressure 120/66 Pulse Oximetry 96 Body Mass Index 60.8 Labs Results: 04/13/21 07:12 04/13/21 07:12 Medications Medications Current Medications Acetaminophen (Acetaminophen 325 Mg Tablet) 975 mg PO Q6H PRN PRN Reason: pain/fever Last Admin: 04/14/21 08:17 Dose: 975 mg Documented by: Al Hydroxide/Mg Hydroxide (Magnesium Hydrox/Alum Hydrox 30 Ml Oral.Susp) 30 ml PO Q6H PRN PRN Reason: reflux Last Admin: 04/12/21 18:34 Dose: 30 ml Documented by: Benzocaine (Throat Lozenge, Medicated Lozenge) 1 lozenge MUCOUS MEM Q1H PRN PRN Reason: Sore Throat Last Admin: 04/14/21 18:36 Dose: 1 lozenge Documented by: Bismuth Subsalicylate (Bismuth Subsalicylate 262 Mg Tablet) 524 mg PO QID PRN PRN Reason: Dyspepsia Last Admin: 04/08/21 09:23 Dose: 524 mg Documented by: Calcium Carbonate (Calcium Carbonate 500 Mg Tablet) 500 mg PO TID PRN PRN Reason: indigestion Last Admin: 04/06/21 05:45 Dose: 500 mg Documented by: Gabapentin (Gabapentin 300 Mg Capsule) 300 mg PO QID PRN PRN Reason: anxiety Last Admin: 04/14/21 18:36 Dose: 300 mg Documented by: Gabapentin (Gabapentin 300 Mg Capsule) 300 mg PO DAILY [facility] Last Admin: 04/17/21 10:33 Dose: 300 mg Documented by: Hydroxyzine HCl (Hydroxyzine Hcl 50 Mg Tablet) 100 mg PO BID PRN PRN Reason: Anxiety Last Admin: 04/14/21 18:36 Dose: 100 mg Documented by: Hydroxyzine HCl (Hydroxyzine Hcl 50 Mg Tablet) 100 mg PO BEDTIME PRN PRN Reason: insomnia Last Admin: 04/13/21 20:40 Dose: 100 mg Documented by: Hydroxyzine HCl (Hydroxyzine Hcl 50 Mg Tablet) 100 mg PO DAILY [facility] Last Admin: 04/17/21 10:33 Dose: 100 mg Documented by: [place] Carbonate ([place] Carbonate Er 300 Mg Tablet.Er) 300 mg PO BID [facility] Last Admin: 04/17/21 10:33 Dose: 300 mg Documented by: [place] Carbonate ([place] Carbonate Er 450 Mg Tablet.Er) 450 mg PO BID [facility] Last Admin: 04/17/21 10:33 Dose: 450 mg Documented by: Multivitamins/Vitamin C (Multivitamin Tablet) 1 tab PO DAILY [facility] Last Admin: 04/17/21 10:33 Dose: 1 tab Documented by: Olanzapine (Olanzapine Odt 10 Mg Tab.Rapdis) 5 mg TRANSLINGU BID PRN PRN Reason: agitation Olanzapine (Olanzapine Odt 10 Mg Tab.Rapdis) 30 mg TRANSLINGU BEDTIME [facility] Allergies Allergies Allergy/AdvReac Type Severity Reaction Status Date / Time No Known Allergies Allergy Verified 03/24/21 17:28 Assessment & Plan Assessment & Plan (1) Schizoaffective disorder, bipolar type: Status: Acute Code(s): F25.0 - Schizoaffective disorder, bipolar type Assessment and Plan: started abilify 10 mg daily for mood, anxiety; increased to 20 mg daily as of 03/31, 30 mg daily as of 04/01. DCed 04/02 in favor of zyprexa as pt has rapidly become quite disorganized and insomniac. zyprexa increased to 30 mg at bedtime by 04/05. added ativan 2 mg at bedtime 04/02 as well to encourage sleep. zyprexa increased to 40 mg daily as of 04/06 per pt request. zyprexa decreased to 30 mg QHS 04/17 due to oversedation. started adderall 5 BID 03/30/21 for ADHD Sx; dosing increased to 10 BID starting 03/31. DCed 04/01 due to worsened psychotic Sx since the addition of stimulant. lithium 600 BID started 04/08 in the event this pt is experiencing a gildardo. much improvement since lithium start, dosing increased to 750 BID 04/13 as level on 600 BID was 0.42. recheck labs 04/19. dispo - pending resolution of gildardo. I spent minutes with the patient and/or on the patient floor today, greater than?50% of which was spent counseling/coordinating care. Reason for contiued inpatient stay Substantial Risk for: inability to function and rapid decompensation
[2021-04-17 18:00] VITALS: BP 137/89; PULSE 104; RESP 18; TEMP 36.7; O2SAT 96
[2021-04-17] MEDS: OLANZapine ODT 10 MG TAB.RAPDIS 30 MG TRANSLINGU (20:21)
[2021-04-18 06:00] VITALS: BP 142/64; PULSE 95; RESP 18; TEMP 36.8; O2SAT 96
[2021-04-18] MEDS: Gabapentin 300 MG CAPSULE PO (13:34)
[2021-04-18] MEDS: Multivitamin TABLET 1 TAB PO (13:35)
[2021-04-18] MEDS: Lithium Carbonate ER 450 MG TABLET.ER PO ×2 (13:35→21:11)
[2021-04-18] MEDS: Lithium Carbonate ER 300 MG TABLET.ER PO ×2 (13:35→21:48)
[2021-04-18] MEDS: hydrOXYzine HCL 50 MG TABLET 100 MG PO (13:35)
--- NOTE | 2021-04-18 13:40 | PC.NURSE ---
AM medication given late. OK'ed per .
--- NOTE | 2021-04-18 19:01 | P.PNPSI_ITS ---
Subjective Subjective Date of Service: 04/18/21 Reason For Visit: Major depression Interim History: pt found sleeping in his bed late morning.? rousable to voice.? reports his mood is fine and he is not bothered by sleeping so much.? no requests or complaints. per staff, slept all day yesterday, up for some snacks. gregorio was up for a bit, social, on phone.? writing furiously with crayons. slept through the night. Mental Status Exam Mental Status Exam Narrative: obese, in bed. no PMA/PMR. cooperative with interview. thoughts continue to trend more organized and topical. affect constricted, hypo- intense, non-labile. mood euthymic. no SI/HI/AVH expressed. Diagnostics Vital Signs (24Hr): Vital Signs - 24 hr 04/18/21 06:00 Temperature 98.2 F Pulse Rate 95 Respiratory Rate 18 Blood Pressure 142/64 H Pulse Oximetry 96 Body Mass Index 60.8 Labs Results: 04/13/21 07:12 04/13/21 07:12 Medications Medications Current Medications Acetaminophen (Acetaminophen 325 Mg Tablet) 975 mg PO Q6H PRN PRN Reason: pain/fever Last Admin: 04/14/21 08:17 Dose: 975 mg Documented by: Al Hydroxide/Mg Hydroxide (Magnesium Hydrox/Alum Hydrox 30 Ml Oral.Susp) 30 ml PO Q6H PRN PRN Reason: reflux Last Admin: 04/12/21 18:34 Dose: 30 ml Documented by: Benzocaine (Throat Lozenge, Medicated Lozenge) 1 lozenge MUCOUS MEM Q1H PRN PRN Reason: Sore Throat Last Admin: 04/14/21 18:36 Dose: 1 lozenge Documented by: Bismuth Subsalicylate (Bismuth Subsalicylate 262 Mg Tablet) 524 mg PO QID PRN PRN Reason: Dyspepsia Last Admin: 04/08/21 09:23 Dose: 524 mg Documented by: Calcium Carbonate (Calcium Carbonate 500 Mg Tablet) 500 mg PO TID PRN PRN Reason: indigestion Last Admin: 04/06/21 05:45 Dose: 500 mg Documented by: Gabapentin (Gabapentin 300 Mg Capsule) 300 mg PO QID PRN PRN Reason: anxiety Last Admin: 04/14/21 18:36 Dose: 300 mg Documented by: Gabapentin (Gabapentin 300 Mg Capsule) 300 mg PO DAILY [facility] Last Admin: 04/18/21 13:34 Dose: 300 mg Documented by: Hydroxyzine HCl (Hydroxyzine Hcl 50 Mg Tablet) 100 mg PO BID PRN PRN Reason: Anxiety Last Admin: 04/14/21 18:36 Dose: 100 mg Documented by: Hydroxyzine HCl (Hydroxyzine Hcl 50 Mg Tablet) 100 mg PO BEDTIME PRN PRN Reason: insomnia Last Admin: 04/13/21 20:40 Dose: 100 mg Documented by: Hydroxyzine HCl (Hydroxyzine Hcl 50 Mg Tablet) 100 mg PO DAILY [facility] Last Admin: 04/18/21 13:35 Dose: 100 mg Documented by: [place] Carbonate ([place] Carbonate Er 300 Mg Tablet.Er) 300 mg PO BID [facility] Last Admin: 04/18/21 13:35 Dose: 300 mg Documented by: [place] Carbonate ([place] Carbonate Er 450 Mg Tablet.Er) 450 mg PO BID [facility] Last Admin: 04/18/21 13:35 Dose: 450 mg Documented by: Multivitamins/Vitamin C (Multivitamin Tablet) 1 tab PO DAILY [facility] Last Admin: 04/18/21 13:35 Dose: 1 tab Documented by: Olanzapine (Olanzapine Odt 10 Mg Tab.Rapdis) 5 mg TRANSLINGU BID PRN PRN Reason: agitation Olanzapine (Olanzapine Odt 10 Mg Tab.Rapdis) 30 mg TRANSLINGU BEDTIME [facility] Last Admin: 04/17/21 20:21 Dose: 30 mg Documented by: Allergies Allergies Allergy/AdvReac Type Severity Reaction Status Date / Time No Known Allergies Allergy Verified 03/24/21 17:28 Assessment & Plan Assessment & Plan (1) Schizoaffective disorder, bipolar type: Status: Acute Code(s): F25.0 - Schizoaffective disorder, bipolar type Assessment and Plan: started abilify 10 mg daily for mood, anxiety; increased to 20 mg daily as of 03/31, 30 mg daily as of 04/01. DCed 04/02 in favor of zyprexa as pt has ra pidly become quite disorganized and insomniac. zyprexa increased to 30 mg at bedtime by 04/05. added ativan 2 mg at bedtime 04/02 as well to encourage sleep. zyprexa increased to 40 mg daily as of 04/06 per pt request. zyprexa decreased to 30 mg QHS 04/17 due to oversedation. started adderall 5 BID 03/30/21 for ADHD Sx; dosing increased to 10 BID starting 03/31. DCed 04/01 due to worsened psychotic Sx since the addition of stimulant. lithium 600 BID started 04/08 in the event this pt is experiencing a gildardo. much improvement since lithium start, dosing increased to 750 BID 04/13 as level on 600 BID was 0.42. recheck labs 04/19. dispo - pending resolution of gildardo. I spent minutes with the patient and/or on the patient floor today, greater than?50% of which was spent counseling/coordinating care. Reason for contiued inpatient stay Substantial Risk for: inability to function and rapid decompensation
[2021-04-18] MEDS: OLANZapine ODT 10 MG TAB.RAPDIS 30 MG TRANSLINGU (21:11)
[2021-04-19 07:18] LABS: MANUAL DIFF FLAG NO
[2021-04-19 07:24] LABS: Basophils Absolute Auto 0.1 X10*3/uL (0.0-0.2); Basophils Percent Auto 0.9 % (0-2); Eosinophils Absolute Auto 0.5 X10*3/uL (0.0-0.4); Eosinophils Percent Auto 4.2 % (0-4); Hematocrit 46.3 % (42.0-52.0); Hemoglobin 15.5 g/dl (14.0-18.0); Imm Gran Abs Auto 0.22 X10*3/uL (0.00-0.03); Imm Gran Pct Auto 1.8 % (0.0-0.4); Lymphocytes Absolute Auto 3.5 X10*3/uL (1.2-4.9); Lymphocytes Percent Auto 27.9 % (20-40); Mean Corpuscular HGB Conc 33.5 g/dl (31.0-36.0); Mean Corpuscular Volume 86.7 fL (80.0-98.0); Mean Platelet Volume 8.6 fL (9.4-12.4); Monocytes Absolute Auto 1.2 X10*3/uL (0.1-1.2); Monocytes Percent Auto 9.5 % (2-11); Neutrophils Absolute Auto 6.92 x10*3/uL (2.0-8.3); Neutrophils Percent Auto 55.7 % (45-73); Platelet Count 273 X10*3/uL (160-400); Red Blood Count 5.34 X10*6/uL (4.60-5.80); White Blood Count 12.4 X10*3/uL (4.8-10.8)
[2021-04-19 07:35] LABS: Lithium 0.68 mmol/L (0.60-1.20)
[2021-04-19 07:43] LABS: Anion Gap 10 (12-20); Blood Urea Nitrogen 23 mg/dL (9-16); Carbon Dioxide 29 mmol/L (22-29); Chloride 104 mmol/L (96-108); Creatinine Clr Calc Pharmacy 168.5; Estimated Glomerular Filt Rate > 60; Glucose Random 101 mg/dL (60-115); Potassium 4.5 mmol/L (3.3-5.1); Sodium 138 mmol/L (135-145)
[2021-04-19 07:46] LABS: Alanine Aminotransferase 34 U/L (0-40); Albumin Level 4.1 g/dL (3.5-5.0); Alkaline Phosphatase 73 U/L (39-117); Aspartate Amino Transferase 16 U/L (5-37); Bilirubin Direct < 0.2 mg/dL (0.0-0.5); Bilirubin Total 0.4 mg/dL (0.0-1.0); Total Protein 6.4 g/dL (6.5-8.0)
[2021-04-19 08:00] VITALS: BP 130/96; PULSE 78; TEMP 36.5
[2021-04-19] MEDS: Multivitamin TABLET 1 TAB PO (08:21)
[2021-04-19] MEDS: Gabapentin 300 MG CAPSULE PO (08:21)
[2021-04-19] MEDS: Lithium Carbonate ER 300 MG TABLET.ER PO ×2 (08:21→21:41)
[2021-04-19] MEDS: hydrOXYzine HCL 50 MG TABLET 100 MG PO (08:21)
[2021-04-19] MEDS: Lithium Carbonate ER 450 MG TABLET.ER PO ×2 (08:21→21:41)
--- NOTE | 2021-04-19 16:16 | HO.PSYCHPN ---
Subjective Subjective Date of Service: 04/19/21 Reason For Visit: Major depression Interim History: pt seen in his room, lying in bed. he was responsive to voice from across the room and declined interview for today. per staff, pt slept until 2 pm yesterday. ate lunch, made some calls, showered. denied SI/HI/AVH. pleasant. slept all through the night last night. lithium level 0.68. Mental Status Exam Mental Status Exam Narrative: obese, casually dressed, disheveled, lying in bed. no PMA/PMR. not cooperative with interview. no SI/HI/AVH expressed. Diagnostics Vital Signs (24Hr): Vital Signs - 24 hr 04/19/21 08:00 Temperature 97.7 F Pulse Rate 78 Blood Pressure 130/96 H Body Mass Index 60.8 Labs Results: 04/19/21 07:09 04/19/21 07:09 Labs: Laboratory Results - last 48 hr 04/19/21 04/19/21 04/19/21 07:09 07:09 07:09 WBC 12.4 H RBC 5.34 Hgb 15.5 Hct 46.3 MCV 86.7 MCH 29.0 MCHC 33.5 RDW 13.0 Plt Count 273 MPV 8.6 L Immature Gran % (Auto) 1.8 H Neut % (Auto) 55.7 Lymph % (Auto) 27.9 [place] % (Auto) 9.5 Eos % (Auto) 4.2 H Baso % (Auto) 0.9 Lymph # (Auto) 3.5 [place] # (Auto) 1.2 Eos # (Auto) 0.5 H Baso # (Auto) 0.1 Abs Immat Gran (auto) 0.22 H Absolute Neuts (auto) 6.92 Absolute Nucleated RBC 0.000 Nucleated RBC % (auto) 0.0 Sodium 138 Potassium 4.5 Chloride 104 Carbon Dioxide 29 Anion Gap 10 L BUN 23 H Creatinine 1.12 Estim Creat Clear Calc 168.5 Estimated GFR > 60 Random Glucose 101 D Calcium 9.0 Total Bilirubin Direct Bilirubin AST ALT Alkaline Phosphatase Total Protein Albumin [place] 0.68 04/19/21 07:09 WBC RBC Hgb Hct MCV MCH MCHC RDW Plt Count MPV Immature Gran % (Auto) Neut % (Auto) Lymph % (Auto) [place] % (Auto) Eos % (Auto) Baso % (Auto) Lymph # (Auto) [place] # (Auto) Eos # (Auto) Baso # (Auto) Abs Immat Gran (auto) Absolute Neuts (auto) Absolute Nucleated RBC Nucleated RBC % (auto) Sodium Potassium Chloride Carbon Dioxide Anion Gap BUN Creatinine Estim Creat Clear Calc Estimated GFR Random Glucose Calcium Total Bilirubin 0.4 Direct Bilirubin < 0.2 AST 16 ALT 34 Alkaline Phosphatase 73 Total Protein 6.4 L Albumin 4.1 [place] Medications Medications Current Medications Acetaminophen (Acetaminophen 325 Mg Tablet) 975 mg PO Q6H PRN PRN Reason: pain/fever Last Admin: 04/14/21 08:17 Dose: 975 mg Documented by: Al Hydroxide/Mg Hydroxide (Magnesium Hydrox/Alum Hydrox 30 Ml Oral.Susp) 30 ml PO Q6H PRN PRN Reason: reflux Last Admin: 04/12/21 18:34 Dose: 30 ml Documented by: Benzocaine (Throat Lozenge, Medicated Lozenge) 1 lozenge MUCOUS MEM Q1H PRN PRN Reason: Sore Throat Last Admin: 04/14/21 18:36 Dose: 1 lozenge Documented by: Bismuth Subsalicylate (Bismuth Subsalicylate 262 Mg Tablet) 524 mg PO QID PRN PRN Reason: Dyspepsia Last Admin: 04/08/21 09:23 Dose: 524 mg Documented by: Calcium Carbonate (Calcium Carbonate 500 Mg Tablet) 500 mg PO TID PRN PRN Reason: indigestion Last Admin: 04/06/21 05:45 Dose: 500 mg Documented by: Gabapentin (Gabapentin 300 Mg Capsule) 300 mg PO QID PRN PRN Reason: anxiety Last Admin: 04/14/21 18:36 Dose: 300 mg Documented by: Gabapentin (Gabapentin 300 Mg Capsule) 300 mg PO DAILY [facility] Last Admin: 04/19/21 08:21 Dose: 300 mg Documented by: Hydroxyzine HCl (Hydroxyzine Hcl 50 Mg Tablet) 100 mg PO BID PRN PRN Reason: Anxiety Last Admin: 04/14/21 18:36 Dose: 100 mg Documented by: Hydroxyzine HCl (Hydroxyzine Hcl 50 Mg Tablet) 100 mg PO BEDTIME PRN PRN Reason: insomnia Last Admin: 04/13/21 20:40 Dose: 100 mg Documented by: Hydroxyzine HCl (Hydroxyzine Hcl 50 Mg Tablet) 100 mg PO DAILY [facility] Last Admin: 04/19/21 08:21 Dose: 100 mg Documented by: [place] Carbonate ([place] Carbonate Er 300 Mg Tablet.Er) 300 mg PO BID [facility] Last Admin: 04/19/21 08:21 Dose: 300 mg Documented by: [place] Carbonate ([place] Carbonate Er 450 Mg Tablet.Er) 450 mg PO BID [facility] Last Admin: 04/19/21 08:21 Dose: 450 mg Documented by: Multivitamins/Vitamin C (Multivitamin Tablet) 1 tab PO DAILY [facility] Last Admin: 04/19/21 08:21 Dose: 1 tab Documented by: Olanzapine (Olanzapine Odt 10 Mg Tab.Rapdis) 5 mg TRANSLINGU BID PRN PRN Reason: agitation Olanzapine (Olanzapine Odt 10 Mg Tab.Rapdis) 30 mg TRANSLINGU BEDTIME [facility] Last Admin: 04/18/21 21:11 Dose: 30 mg Documented by: Allergies Allergies Allergy/AdvReac Type Severity Reaction Status Date / Time No Known Allergies Allergy Verified 03/24/21 17:28 Assessment & Plan Assessment & Plan (1) Schizoaffective disorder, bipolar type: Status: Acute Code(s): F25.0 - Schizoaffective disorder, bipolar type Assessment and Plan: started abilify 10 mg daily for mood, anxiety; increased to 20 mg daily as of 03/31, 30 mg daily as of 04/01. DCed 04/02 in favor of zyprexa as pt has rapidly become quite disorganized and insomniac. zyprexa increased to 30 mg at bedtime by 04/05. added ativan 2 mg at bedtime 04/02 as well to encourage sleep. zyprexa increased to 40 mg daily as of 04/06 per pt request. zyprexa decreased to 30 mg QHS 04/17 due to oversedation, and again to 20 mg QHS for oversedation as of 04/19. started adderall 5 BID 03/30/21 for ADHD Sx; dosing increased to 10 BID starting 03/31. DCed 04/01 due to worsened psychotic Sx since the addition of stimulant. lithium 600 BID started 04/08 in the event this pt is experiencing a gildardo. much improvement since lithium start, dosing increased to 750 BID 04/13 as level on 600 BID was 0.42. lithium level 0.68 on 750 BID. dispo - pending resolution of gildardo. I spent minutes with the patient and/or on the patient floor today, greater than?50% of which was spent counseling/coordinating care. Reason for contiued inpatient stay Substantial Risk for: harm to self, inability to function and rapid decompensation
[2021-04-19 18:00] VITALS: RESP 18; TEMP 36.7
[2021-04-19] MEDS: OLANZapine ODT 10 MG TAB.RAPDIS 20 MG TRANSLINGU (21:41)
[2021-04-20 06:00] VITALS: BP 136/75; PULSE 73; RESP 20; TEMP 36.8; O2SAT 96
[2021-04-20] MEDS: hydrOXYzine HCL 50 MG TABLET 100 MG PO (10:01)
[2021-04-20] MEDS: Gabapentin 300 MG CAPSULE PO (10:01)
[2021-04-20] MEDS: Multivitamin TABLET 1 TAB PO (10:01)
[2021-04-20] MEDS: Lithium Carbonate ER 300 MG TABLET.ER PO ×2 (10:01→22:02)
[2021-04-20] MEDS: Lithium Carbonate ER 450 MG TABLET.ER PO ×2 (10:02→22:03)
--- NOTE | 2021-04-20 14:09 | P.PNPSI_ITS ---
Subjective Subjective Date of Service: 04/20/21 Reason For Visit: Major depression Interim History: pt found sleeping in his bed late morning.? rousable to voice.? reports his mood is fine and he is not bothered by sleeping so much.? no requests or complaints. informed pt of his recent lithium results and that they are within the therapeutic range and that MD would recommend continuing at current lithium dosing for now. MD noted pt's hypersomnia and informed pt of tapering of zyprexa in the interest of having him be more awake during the day. pt expressed understanding of the plan and agreement with it. per staff, isolative, withdrawn. feeling stressed. med-compliant. lots fo writing. mild anx/dep. no SI/HI. pleasant. Mental Status Exam Mental Status Exam Narrative: obese, in bed. no PMA/PMR. cooperative with interview. thoughts continue to trend more organized and topical. affect constricted, hypo- intense, non-labile. mood euthymic. no SI/HI/AVH expressed. Diagnostics Vital Signs (24Hr): Vital Signs - 24 hr 04/19/21 18:00 04/20/21 06:00 Temperature 98.0 F 98.2 F Pulse Rate 73 Respiratory Rate 18 20 Blood Pressure 136/75 Pulse Oximetry 96 Body Mass Index 60.8 Labs Results: 04/19/21 07:09 04/19/21 07:09 Labs: Laboratory Results - last 48 hr 04/19/21 04/19/21 04/19/21 07:09 07:09 07:09 WBC 12.4 H RBC 5.34 Hgb 15.5 Hct 46.3 MCV 86.7 MCH 29.0 MCHC 33.5 RDW 13.0 Plt Count 273 MPV 8.6 L Immature Gran % (Auto) 1.8 H Neut % (Auto) 55.7 Lymph % (Auto) 27.9 [place] % (Auto) 9.5 Eos % (Auto) 4.2 H Baso % (Auto) 0.9 Lymph # (Auto) 3.5 [place] # (Auto) 1.2 Eos # (Auto) 0.5 H Baso # (Auto) 0.1 Abs Immat Gran (auto) 0.22 H Absolute Neuts (auto) 6.92 Absolute Nucleated RBC 0.000 Nucleated RBC % (auto) 0.0 Sodium 138 Potassium 4.5 Chloride 104 Carbon Dioxide 29 Anion Gap 10 L BUN 23 H Creatinine 1.12 Estim Creat Clear Calc 168.5 Estimated GFR > 60 Random Glucose 101 D Calcium 9.0 Total Bilirubin Direct Bilirubin AST ALT Alkaline Phosphatase Total Protein Albumin [place] 0.68 04/19/21 07:09 WBC RBC Hgb Hct MCV MCH MCHC RDW Plt Count MPV Immature Gran % (Auto) Neut % (Auto) Lymph % (Auto) [place] % (Auto) Eos % (Auto) Baso % (Auto) Lymph # (Auto) [place] # (Auto) Eos # (Auto) Baso # (Auto) Abs Immat Gran (auto) Absolute Neuts (auto) Absolute Nucleated RBC Nucleated RBC % (auto) Sodium Potassium Chloride Carbon Dioxide Anion Gap BUN Creatinine Estim Creat Clear Calc Estimated GFR Random Glucose Calcium Total Bilirubin 0.4 Direct Bilirubin < 0.2 AST 16 ALT 34 Alkaline Phosphatase 73 Total Protein 6.4 L Albumin 4.1 [place] Medications Medications Current Medications Acetaminophen (Acetaminophen 325 Mg Tablet) 975 mg PO Q6H PRN PRN Reason: pain/fever Last Admin: 04/14/21 08:17 Dose: 975 mg Documented by: Al Hydroxide/Mg Hydroxide (Magnesium Hydrox/Alum Hydrox 30 Ml Oral.Susp) 30 ml PO Q6H PRN PRN Reason: reflux Last Admin: 04/12/21 18:34 Dose: 30 ml Documented by: Benzocaine (Throat Lozenge, Medicated Lozenge) 1 lozenge MUCOUS MEM Q1H PRN PRN Reason: Sore Throat Last Admin: 04/14/21 18:36 Dose: 1 lozenge Documented by: Bismuth Subsalicylate (Bismuth Subsalicylate 262 Mg Tablet) 524 mg PO QID PRN PRN Reason: Dyspepsia Last Admin: 04/08/21 09:23 Dose: 524 mg Documented by: Calcium Carbonate (Calcium Carbonate 500 Mg Tablet) 500 mg PO TID PRN PRN Reason: indigestion Last Admin: 04/06/21 05:45 Dose: 500 mg Documented by: Gabapentin (Gabapentin 300 Mg Capsule) 300 mg PO QID PRN PRN Reason: anxiety Last Admin: 04/14/21 18:36 Dose: 300 mg Documented by: Gabapentin (Gabapentin 300 Mg Capsule) 300 mg PO DAILY [facility] Last Admin: 04/20/21 10:01 Dose: 300 mg Documented by: Hydroxyzine HCl (Hydroxyzine Hcl 50 Mg Tablet) 100 mg PO BID PRN PRN Reason: Anxiety Last Admin: 04/14/21 18:36 Dose: 100 mg Documented by: Hydroxyzine HCl (Hydroxyzine Hcl 50 Mg Tablet) 100 mg PO BEDTIME PRN PRN Reason: insomnia Last Admin: 04/13/21 20:40 Dose: 100 mg Documented by: Hydroxyzine HCl (Hydroxyzine Hcl 50 Mg Tablet) 100 mg PO DAILY [facility] Last Admin: 04/20/21 10:01 Dose: 100 mg Documented by: [place] Carbonate ([place] Carbonate Er 300 Mg Tablet.Er) 300 mg PO BID [facility] Last Admin: 04/20/21 10:01 Dose: 300 mg Documented by: [place] Carbonate ([place] Carbonate Er 450 Mg Tablet.Er) 450 mg PO BID [facility] Last Admin: 04/20/21 10:02 Dose: 450 mg Documented by: Multivitamins/Vitamin C (Multivitamin Tablet) 1 tab PO DAILY [facility] Last Admin: 04/20/21 10:01 Dose: 1 tab Documented by: Olanzapine (Olanzapine Odt 10 Mg Tab.Rapdis) 5 mg TRANSLINGU BID PRN PRN Reason: agitation Olanzapine (Olanzapine Odt 10 Mg Tab.Rapdis) 20 mg TRANSLINGU BEDTIME [facility] Last Admin: 04/19/21 21:41 Dose: 20 mg Documented by: Allergies Allergies Allergy/AdvReac Type Severity Reaction Status Date / Time No Known Allergies Allergy Verified 03/24/21 17:28 Assessment & Plan Assessment & Plan (1) Schizoaffective disorder, bipolar type: Status: Acute Code(s): F25.0 - Schizoaffective disorder, bipolar type Assessment and Plan: started abilify 10 mg daily for mood, anxiety; increased to 20 mg daily as of 03/31, 30 mg daily as of 04/01. DCed 04/02 in favor of zyprexa as pt has r apidly become quite disorganized and insomniac. zyprexa increased to 30 mg at bedtime by 04/05. added ativan 2 mg at bedtime 04/02 as well to encourage sleep. zyprexa increased to 40 mg daily as of 04/06 per pt request. zyprexa decreased to 30 mg QHS 04/17 due to oversedation, and again to 20 mg QHS for oversedation as of 04/19. started adderall 5 BID 03/30/21 for ADHD Sx; dosing increased to 10 BID starting 03/31. DCed 04/01 due to worsened psychotic Sx since the addition of stimulant. lithium 600 BID started 04/08 in the event this pt is experiencing a gildardo. much improvement since lithium start, dosing increased to 750 BID 04/13 as level on 600 BID was 0.42. lithium level 0.68 on 750 BID. dispo - pending resolution of gildardo. I spent minutes with the patient and/or on the patient floor today, greater than?50% of which was spent counseling/coordinating care. Reason for contiued inpatient stay Substantial Risk for: inability to function and rapid decompensation
[2021-04-20 21:00] VITALS: BP 139/89; PULSE 106; TEMP 37.1; O2SAT 97
[2021-04-20] MEDS: OLANZapine ODT 10 MG TAB.RAPDIS 20 MG TRANSLINGU (22:03)
[2021-04-21 06:00] VITALS: BP 135/78; PULSE 81; RESP 20; TEMP 36.4; O2SAT 96
[2021-04-21] MEDS: Multivitamin TABLET 1 TAB PO (09:55)
[2021-04-21] MEDS: hydrOXYzine HCL 50 MG TABLET 100 MG PO ×2 (09:55→20:21)
[2021-04-21] MEDS: Lithium Carbonate ER 300 MG TABLET.ER PO ×2 (09:55→21:57)
[2021-04-21] MEDS: Gabapentin 300 MG CAPSULE PO ×2 (09:56→20:21)
[2021-04-21] MEDS: Lithium Carbonate ER 450 MG TABLET.ER PO ×2 (09:56→21:57)
--- NOTE | 2021-04-21 14:08 | HO.PSYCHPN ---
Subjective Subjective Date of Service: 04/21/21 Reason For Visit: Major depression Interim History: pt found lying in bed, easily rousable, more awake and engaging than in recent days. denies any mood problems, does acknowledge sometimes feeling depressed but doesn't like to talk about it. states he is feeling less sedated today and is comfortable with the zyprexa dose decreases of recent days. per staff, depressed; didn't want to talk about it with staff. attended art group. isolative, delayed responses. no SI/HI. [place]. Mental Status Exam Mental Status Exam Narrative: obese, in bed. no PMA/PMR. cooperative with interview. thoughts continue to trend more organized and topical. affect constricted, hypo-intense, non-labile. mood euthymic. no SI/HI/AVH expressed. Diagnostics Vital Signs (24Hr): Vital Signs - 24 hr 04/20/21 21:00 04/21/21 06:00 Temperature 98.8 F 97.5 F Pulse Rate 106 H 81 Respiratory Rate 20 Blood Pressure 139/89 135/78 Pulse Oximetry 97 96 Body Mass Index 60.8 Labs Results: 04/19/21 07:09 04/19/21 07:09 Medications Medications Current Medications Acetaminophen (Acetaminophen 325 Mg Tablet) 975 mg PO Q6H PRN PRN Reason: pain/fever Last Admin: 04/14/21 08:17 Dose: 975 mg Documented by: Al Hydroxide/Mg Hydroxide (Magnesium Hydrox/Alum Hydrox 30 Ml Oral.Susp) 30 ml PO Q6H PRN PRN Reason: reflux Last Admin: 04/12/21 18:34 Dose: 30 ml Documented by: Benzocaine (Throat Lozenge, Medicated Lozenge) 1 lozenge MUCOUS MEM Q1H PRN PRN Reason: Sore Throat Last Admin: 04/14/21 18:36 Dose: 1 lozenge Documented by: Bismuth Subsalicylate (Bismuth Subsalicylate 262 Mg Tablet) 524 mg PO QID PRN PRN Reason: Dyspepsia Last Admin: 04/08/21 09:23 Dose: 524 mg Documented by: Calcium Carbonate (Calcium Carbonate 500 Mg Tablet) 500 mg PO TID PRN PRN Reason: indigestion Last Admin: 04/06/21 05:45 Dose: 500 mg Documented by: Gabapentin (Gabapentin 300 Mg Capsule) 300 mg PO QID PRN PRN Reason: anxiety Last Admin: 04/14/21 18:36 Dose: 300 mg Documented by: Gabapentin (Gabapentin 300 Mg Capsule) 300 mg PO DAILY [facility] Last Admin: 04/21/21 09:56 Dose: 300 mg Documented by: Hydroxyzine HCl (Hydroxyzine Hcl 50 Mg Tablet) 100 mg PO BID PRN PRN Reason: Anxiety Last Admin: 04/14/21 18:36 Dose: 100 mg Documented by: Hydroxyzine HCl (Hydroxyzine Hcl 50 Mg Tablet) 100 mg PO BEDTIME PRN PRN Reason: insomnia Last Admin: 04/13/21 20:40 Dose: 100 mg Documented by: Hydroxyzine HCl (Hydroxyzine Hcl 50 Mg Tablet) 100 mg PO DAILY [facility] Last Admin: 04/21/21 09:55 Dose: 100 mg Documented by: [place] Carbonate ([place] Carbonate Er 300 Mg Tablet.Er) 300 mg PO BID [facility] Last Admin: 04/21/21 09:55 Dose: 300 mg Documented by: [place] Carbonate ([place] Carbonate Er 450 Mg Tablet.Er) 450 mg PO BID [facility] Last Admin: 04/21/21 09:56 Dose: 450 mg Documented by: Multivitamins/Vitamin C (Multivitamin Tablet) 1 tab PO DAILY [facility] Last Admin: 04/21/21 09:55 Dose: 1 tab Documented by: Olanzapine (Olanzapine Odt 10 Mg Tab.Rapdis) 5 mg TRANSLINGU BID PRN PRN Reason: agitation Olanzapine (Olanzapine Odt 10 Mg Tab.Rapdis) 20 mg TRANSLINGU BEDTIME [facility] Last Admin: 04/20/21 22:03 Dose: 20 mg Documented by: Allergies Allergies Allergy/AdvReac Type Severity Reaction Status Date / Time No Known Allergies Allergy Verified 03/24/21 17:28 Assessment & Plan Assessment & Plan (1) Schizoaffective disorder, bipolar type: Status: Acute Code(s): F25.0 - Schizoaffective disorder, bipolar type Assessment and Plan: started abilify 10 mg daily for mood, anxiety; increased to 20 mg daily as of 03/31, 30 mg daily as of 04/01. DCed 04/02 in favor of zyprexa as pt has rapidly become quite disorganized and insomniac. zyprexa increased to 30 mg at bedtime by 04/05. added ativan 2 mg at bedtime 04/02 as well to encourage sleep. zyprexa increased to 40 mg daily as of 04/06 per pt request. zyprexa decreased to 30 mg QHS 04/17 due to oversedation, and again to 20 mg QHS for oversedation as of 04/19. started adderall 5 BID 03/30/21 for ADHD Sx; dosing increased to 10 BID starting 03/31. DCed 04/01 due to worsened psychotic Sx since the addition of stimulant. lithium 600 BID started 04/08 in the event this pt is experiencing a gildardo. much improvement since lithium start, dosing increased to 750 BID 04/13 as level on 600 BID was 0.42. lithium level 0.68 on 750 BID. dispo - gildardo subsiding, now pt has been overmedicated. gradually tapering zyprexa at bedtime to try to return pt to functional energy balance and activity level. then pt will be appropriate for discharge (currently wants to discharge to a hotel). I spent minutes with the patient and/or on the patient floor today, greater than?50% of which was spent counseling/coordinating care. Reason for contiued inpatient stay Substantial Risk for: inability to function and rapid decompensation
[2021-04-21 21:48] VITALS: BP 181/93; PULSE 95; TEMP 36.4; O2SAT 95
[2021-04-21] MEDS: OLANZapine ODT 10 MG TAB.RAPDIS 20 MG TRANSLINGU (21:57)
[2021-04-21] MEDS: Magnesium Hydrox/Alum Hydrox 30 ML ORAL.SUSP PO (22:02)
[2021-04-21] MEDS: Throat Lozenge, Medicated LOZENGE 1 LOZENGE MUCOUS MEM (22:02)
[2021-04-22] MEDS: hydrOXYzine HCL 50 MG TABLET 100 MG PO ×4 (05:51→19:42)
[2021-04-22] MEDS: Gabapentin 300 MG CAPSULE PO ×4 (05:52→19:42)
[2021-04-22] MEDS: Acetaminophen 325 MG TABLET 975 MG PO (05:52)
[2021-04-22] MEDS: Throat Lozenge, Medicated LOZENGE 1 LOZENGE MUCOUS MEM ×2 (05:52→13:06)
--- NOTE | 2021-04-22 06:00 | PC.NURSE ---
PRN use-patient making multiple requests for prn medication including tylenol for h/a, throat lozenge, os kj for dyspepsia. reports anxiety and also given hydroxyzine and gabapentin. thought blocking but able to focus on a game of [employer].
[2021-04-22] MEDS: Lithium Carbonate ER 300 MG TABLET.ER PO (08:10)
[2021-04-22] MEDS: Lithium Carbonate ER 450 MG TABLET.ER PO (08:10)
[2021-04-22] MEDS: Multivitamin TABLET 1 TAB PO (08:10)
[2021-04-22 08:21] VITALS: BP 173/105; PULSE 105; RESP 16; TEMP 36.8; O2SAT 97
[2021-04-22 08:25] VITALS: BMI 61.1
--- NOTE | 2021-04-22 11:41 | HO.PSYCHPN ---
Subjective Subjective Date of Service: 04/22/21 Reason For Visit: Major depression Interim History: pt up and awake this morning, which is new behavior since the past week. showered. seen in his room after the ablutions. hyperverbal, talking of his plans, what he is reading. asking MD for advice for his friend who is an overworked psych MD. states he is not sure if he slept at all last night. agreeable to increase zyprexa back to 30 mg tonight and to increase lithium from 750 BID to 900 BID. per staff, still saying he is depressed, but that it has improved somewhat. slept from [place] --> 0515. experiencing some nausea today. no notable events or behaviors overnight. Mental Status Exam Mental Status Exam Narrative: obese, OOB this morning. no PMA/PMR. cooperative with interview. thoughts continue to trend more organized and topical. affect constricted, hypo-intense, non-labile. mood anxious. no SI/HI/AVH expressed. Diagnostics Vital Signs (24Hr): Vital Signs - 24 hr 04/21/21 21:48 04/22/21 08:21 Temperature 97.5 F 98.2 F Pulse Rate 95 105 H Respiratory Rate 16 Blood Pressure 181/93 H 173/105 H Pulse Oximetry 95 97 Body Mass Index 61.1 Labs Results: 04/19/21 07:09 04/19/21 07:09 Medications Medications Current Medications Acetaminophen (Acetaminophen 325 Mg Tablet) 975 mg PO Q6H PRN PRN Reason: pain/fever Last Admin: 04/22/21 05:52 Dose: 975 mg Documented by: Al Hydroxide/Mg Hydroxide (Magnesium Hydrox/Alum Hydrox 30 Ml Oral.Susp) 30 ml PO Q6H PRN PRN Reason: reflux Last Admin: 04/21/21 22:02 Dose: 30 ml Documented by: Benzocaine (Throat Lozenge, Medicated Lozenge) 1 lozenge MUCOUS MEM Q1H PRN PRN Reason: Sore Throat Last Admin: 04/22/21 05:52 Dose: 1 lozenge Documented by: Bismuth Subsalicylate (Bismuth Subsalicylate 262 Mg Tablet) 524 mg PO QID PRN PRN Reason: Dyspepsia Last Admin: 04/08/21 09:23 Dose: 524 mg Documented by: Calcium Carbonate (Calcium Carbonate 500 Mg Tablet) 500 mg PO TID PRN PRN Reason: indigestion Last Admin: 04/22/21 05:52 Dose: 500 mg Documented by: Gabapentin (Gabapentin 300 Mg Capsule) 300 mg PO QID PRN PRN Reason: anxiety Last Admin: 04/22/21 05:52 Dose: 300 mg Documented by: Gabapentin (Gabapentin 300 Mg Capsule) 300 mg PO DAILY [facility] Last Admin: 04/22/21 08:10 Dose: 300 mg Documented by: Hydroxyzine HCl (Hydroxyzine Hcl 50 Mg Tablet) 100 mg PO BID PRN PRN Reason: Anxiety Last Admin: 04/22/21 05:51 Dose: 100 mg Documented by: Hydroxyzine HCl (Hydroxyzine Hcl 50 Mg Tablet) 100 mg PO BEDTIME PRN PRN Reason: insomnia Last Admin: 04/13/21 20:40 Dose: 100 mg Documented by: Hydroxyzine HCl (Hydroxyzine Hcl 50 Mg Tablet) 100 mg PO DAILY [facility] Last Admin: 04/22/21 08:10 Dose: 100 mg Documented by: [place] Carbonate ([place] Carbonate Er 450 Mg Tablet.Er) 900 mg PO BID [facility] Multivitamins/Vitamin C (Multivitamin Tablet) 1 tab PO DAILY [facility] Last Admin: 04/22/21 08:10 Dose: 1 tab Documented by: Olanzapine (Olanzapine Odt 10 Mg Tab.Rapdis) 5 mg TRANSLINGU BID PRN PRN Reason: agitation Allergies Allergies Allergy/AdvReac Type Severity Reaction Status Date / Time No Known Allergies Allergy Verified 03/24/21 17:28 Assessment & Plan Assessment & Plan (1) Schizoaffective disorder, bipolar type: Status: Acute Code(s): F25.0 - Schizoaffective disorder, bipolar type Assessment and Plan: started abilify 10 mg daily for mood, anxiety; increased to 20 mg daily as of 03/31, 30 mg daily as of 04/01. DCed 04/02 in favor of zyprexa as pt has rapidly become quite disorganized and insomniac. zyprexa increased to 30 mg at bedtime by 04/05. added ativan 2 mg at bedtime 04/02 as well to encourage sleep. zyprexa increased to 40 mg daily as of 04/06 per pt request. zyprexa decreased to 30 mg QHS 04/17 due to oversedation, and again to 20 mg QHS for oversedation as of 04/19. 04/21 overnight slept very poorly, lithium increased to 900 BID and zyprexa returned to 30 QHS. started adderall 5 BID 03/30/21 for ADHD Sx; dosing increased to 10 BID starting 03/31. DCed 04/01 due to worsened psychotic Sx since the addition of stimulant. lithium 600 BID started 04/08 in the event this pt is experiencing a gildardo. much improvement since lithium start, dosing increased to 750 BID 04/13 as level on 600 BID was 0.42. lithium level 0.68 on 750 BID. dispo - gildardo subsiding, now pt has been overmedicated. gradually tapering zyprexa at bedtime to try to return pt to functional energy balance and activity level. then pt will be appropriate for discharge (currently wants to discharge to a hotel). I spent minutes with the patient and/or on the patient floor today, greater than?50% of which was spent counseling/coordinating care. Reason for contiued inpatient stay Substantial Risk for: harm to self, inability to function and rapid decompensation
[2021-04-22 18:00] VITALS: BP 165/86; PULSE 107; RESP 18; TEMP 36.4; O2SAT 97
[2021-04-22] MEDS: OLANZapine ODT 10 MG TAB.RAPDIS 5 MG TRANSLINGU (19:42)
[2021-04-22] MEDS: Lithium Carbonate ER 450 MG TABLET.ER 900 MG PO (20:17)
[2021-04-22] MEDS: OLANZapine ODT 10 MG TAB.RAPDIS 30 MG TRANSLINGU (20:17)
[2021-04-23] MEDS: Throat Lozenge, Medicated LOZENGE 1 LOZENGE MUCOUS MEM ×3 (01:46→14:16)
[2021-04-23] MEDS: Gabapentin 300 MG CAPSULE PO ×5 (01:46→22:39)
[2021-04-23] MEDS: hydrOXYzine HCL 50 MG TABLET 100 MG PO ×3 (01:46→14:16)
[2021-04-23 02:17] VITALS: BP 141/90; PULSE 95
[2021-04-23 08:13] VITALS: BP 157/95; PULSE 103; RESP 16; TEMP 36.8; O2SAT 96
[2021-04-23] MEDS: Lithium Carbonate ER 450 MG TABLET.ER 900 MG PO ×2 (08:26→22:38)
[2021-04-23] MEDS: Multivitamin TABLET 1 TAB PO (08:27)
[2021-04-23] MEDS: Magnesium Hydrox/Alum Hydrox 30 ML ORAL.SUSP PO (14:15)
[2021-04-23] MEDS: Acetaminophen 325 MG TABLET 975 MG PO ×2 (16:11→22:39)
[2021-04-23] MEDS: Nicotine Polacrilex 2 MG GUM BUCCAL ×2 (18:21→21:10)
--- NOTE | 2021-04-23 18:32 | HO.PSYCHPN ---
Subjective Subjective Date of Service: 04/23/21 Reason For Visit: Major depression Interim History: Patient seen and discussed with team. Patient evaluated this morning and upon interview he reports he is doing well, im doing okay. Says the last few days [place]ango been very emotional. Continues to report hyposomnia and says he has only slept 2.5 hours in the past few nights. Feels this is adequate sleep for him, as Yoandy [place] only slept two and a half hours a day. He attributes his poor sleep to stress, stating Im a very sensitive person to any type of negativity, feels he has experienced judgment from staff here. He appears paranoid, says he feels staff are used to getting her way with people supplicating or something of the sort. Says besides that, things have been as good. Denies issues with medication, I suppose theyre good. As long as im progressing im happy, however later asks for medication for ADHD. Denies SI/SIB/HI upon inquiry. Denies irritability or assaultive ideation. Says he feels safe. Medication Compliance: Yes Side effects from medications: No Attending Groups: Yes Review of Systems Acute medical concerns: No Medical Review of Systems: unchanged Mental Status Exam Mental Status Exam Narrative: obese, OOB this morning.? no PMA/PMR.? cooperative with interview.? thoughts continue to trend more organized and topical. ? affect constricted, hypo-intense, non-labile.? mood anxious.? no SI/HI/AVH expressed. Poor eye contact. Diagnostics Vital Signs (24Hr): Vital Signs - 24 hr 04/23/21 02:17 04/23/21 08:13 Temperature 98.2 F Pulse Rate 95 103 H Respiratory Rate 16 Blood Pressure 141/90 H 157/95 H Pulse Oximetry 96 Body Mass Index 61.1 Labs Results: 04/19/21 07:09 04/19/21 07:09 Medications Medications Current Medications Acetaminophen (Acetaminophen 325 Mg Tablet) 975 mg PO Q6H PRN PRN Reason: pain/fever Last Admin: 04/23/21 16:11 Dose: 975 mg Documented by: Al Hydroxide/Mg Hydroxide (Magnesium Hydrox/Alum Hydrox 30 Ml Oral.Susp) 30 ml PO Q6H PRN PRN Reason: reflux Last Admin: 04/23/21 14:15 Dose: 30 ml Documented by: Benzocaine (Throat Lozenge, Medicated Lozenge) 1 lozenge MUCOUS MEM Q1H PRN PRN Reason: Sore Throat Last Admin: 04/23/21 14:16 Dose: 1 lozenge Documented by: Bismuth Subsalicylate (Bismuth Subsalicylate 262 Mg Tablet) 524 mg PO QID PRN PRN Reason: Dyspepsia Last Admin: 04/08/21 09:23 Dose: 524 mg Documented by: Calcium Carbonate (Calcium Carbonate 500 Mg Tablet) 500 mg PO TID PRN PRN Reason: indigestion Last Admin: 04/23/21 01:46 Dose: 500 mg Documented by: Gabapentin (Gabapentin 300 Mg Capsule) 300 mg PO QID PRN PRN Reason: anxiety Last Admin: 04/23/21 14:15 Dose: 300 mg Documented by: Gabapentin (Gabapentin 300 Mg Capsule) 300 mg PO DAILY [facility] Last Admin: 04/23/21 14:15 Dose: 300 mg Documented by: Hydroxyzine HCl (Hydroxyzine Hcl 50 Mg Tablet) 100 mg PO BID PRN PRN Reason: Anxiety Last Admin: 04/23/21 14:16 Dose: 100 mg Documented by: Hydroxyzine HCl (Hydroxyzine Hcl 50 Mg Tablet) 100 mg PO BEDTIME PRN PRN Reason: insomnia Last Admin: 04/23/21 01:46 Dose: 100 mg Documented by: Hydroxyzine HCl (Hydroxyzine Hcl 50 Mg Tablet) 100 mg PO DAILY [facility] Last Admin: 04/23/21 08:26 Dose: 100 mg Documented by: [place] Carbonate ([place] Carbonate Er 450 Mg Tablet.Er) 900 mg PO BID [facility] Last Admin: 04/23/21 08:26 Dose: 900 mg Documented by: Multivitamins/Vitamin C (Multivitamin Tablet) 1 tab PO DAILY [facility] Last Admin: 04/23/21 08:27 Dose: 1 tab Documented by: Nicotine Polacrilex (Nicotine Polacrilex 2 Mg Gum) 2 mg [place] Q2H PRN PRN Reason: Nicotine Cravings Last Admin: 04/23/21 18:21 Dose: 2 mg Documented by: Olanzapine (Olanzapine Odt 10 Mg Tab.Rapdis) 5 mg TRANSLINGU BID PRN PRN Reason: agitation Last Admin: 04/22/21 19:42 Dose: 5 mg Documented by: Olanzapine (Olanzapine Odt 10 Mg Tab.Rapdis) 30 mg TRANSLINGU BEDTIME [facility] Last Admin: 04/22/21 20:17 Dose: 30 mg Documented by: Allergies Allergies Allergy/AdvReac Type Severity Reaction Status Date / Time No Known Allergies Allergy Verified 03/24/21 17:28 Assessment & Plan Assessment & Plan (1) Schizoaffective disorder, bipolar type: Status: Acute Code(s): F25.0 - Schizoaffective disorder, bipolar type Assessment and Plan: started abilify 10 mg daily for mood, anxiety; increased to 20 mg daily as of 03/31, 30 mg daily as of 04/01. DCed 04/02 in favor of zyprexa as pt has rapidly become quite disorganized and insomniac. zyprexa increased to 30 mg at bedtime by 04/05. added ativan 2 mg at bedtime 04/02 as well to encourage sleep. zyprexa increased to 40 mg daily as of 04/06 per pt request. zyprexa decreased to 30 mg QHS 04/17 due to oversedation, and again to 20 mg QHS for oversedation as of 04/19. 04/21 overnight slept very poorly, lithium increased to 900 BID and zyprexa returned to 30 QHS. started adderall 5 BID 03/30/21 for ADHD Sx; dosing increased to 10 BID starting 03/31. DCed 04/01 due to worsened psychotic Sx since the addition of stimulant. lithium 600 BID started 04/08 in the event this pt is experiencing a gildardo. much improvement since lithium start, dosing increased to 750 BID 04/13 as level on 600 BID was 0.42. lithium level 0.68 on 750 BID. dispo - gildardo subsiding, now pt has been overmedicated. gradually tapering zyprexa at bedtime to try to return pt to functional energy balance and activity level. then pt will be appropriate for discharge (currently wants to discharge to a hotel). Coverage 04/24: No medication changes. Pt presents at baseline. I spent minutes with the patient and/or on the patient floor today, greater than?50% of which was spent counseling/coordinating care. Reason for contiued inpatient stay Substantial Risk for: inability to function, rapid decompensation and med/psych decompensation
[2021-04-23 20:22] VITALS: BP 136/92; PULSE 113; RESP 20; TEMP 36.7
[2021-04-23] MEDS: OLANZapine ODT 10 MG TAB.RAPDIS 30 MG TRANSLINGU (22:39)
[2021-04-24 08:30] VITALS: BP 148/67; PULSE 89; RESP 20; TEMP 36.3; O2SAT 97
[2021-04-24] MEDS: Multivitamin TABLET 1 TAB PO (08:36)
[2021-04-24] MEDS: Lithium Carbonate ER 450 MG TABLET.ER 900 MG PO ×2 (08:36→21:38)
[2021-04-24] MEDS: Gabapentin 300 MG CAPSULE PO ×2 (08:36→16:15)
[2021-04-24] MEDS: hydrOXYzine HCL 50 MG TABLET 100 MG PO ×3 (08:37→21:39)
[2021-04-24] MEDS: Acetaminophen 325 MG TABLET 975 MG PO ×2 (08:53→16:14)
[2021-04-24] MEDS: Nicotine Polacrilex 2 MG GUM BUCCAL (08:53)
--- NOTE | 2021-04-24 13:30 | P.PNPSI_ITS ---
Subjective Subjective Date of Service: 04/24/21 Reason For Visit: Major depression Interim History: The nursing staff reported that he is cooperative and pleasant, tearful at times but easily redirectable. Yesterday, he played cards with staff and he was compliant with medications. On interview, he denied new symptoms, requested an increase of [place] Mental Status Exam Mental Status Exam Patient Appearance: Well Grooomed Patient Orientation: Person, Place and Situation Level of Consciousness: Awake and Appropriate Patient Behavior: Cooperative Mood Description: Calm Affect Description: Constricted Ability to Follow Directions: Good Speech Pattern: Appropriate Hallucinations: None Delusions: Not Present Thought Process: Linear Thought Content: positive for Poverty of Content and positive for Preoccupation Judgement: Fair Diagnostics Vital Signs (24Hr): Vital Signs - 24 hr 04/23/21 20:22 04/24/21 08:30 Temperature 98.1 F 97.4 F Pulse Rate 113 H 89 Respiratory Rate 20 20 Blood Pressure 136/92 H 148/67 H Pulse Oximetry 97 Body Mass Index 61.1 Labs Results: 04/19/21 07:09 04/19/21 07:09 Medications Medications Current Medications Acetaminophen (Acetaminophen 325 Mg Tablet) 975 mg PO Q6H PRN PRN Reason: pain/fever Last Admin: 04/24/21 08:53 Dose: 975 mg Documented by: Al Hydroxide/Mg Hydroxide (Magnesium Hydrox/Alum Hydrox 30 Ml Oral.Susp) 30 ml PO Q6H PRN PRN Reason: reflux Last Admin: 04/23/21 14:15 Dose: 30 ml Documented by: Benzocaine (Throat Lozenge, Medicated Lozenge) 1 lozenge MUCOUS MEM Q1H PRN PRN Reason: Sore Throat Last Admin: 04/23/21 14:16 Dose: 1 lozenge Documented by: Bismuth Subsalicylate (Bismuth Subsalicylate 262 Mg Tablet) 524 mg PO QID PRN PRN Reason: Dyspepsia Last Admin: 04/08/21 09:23 Dose: 524 mg Documented by: Calcium Carbonate (Calcium Carbonate 500 Mg Tablet) 500 mg PO TID PRN PRN Reason: indigestion Last Admin: 04/23/21 01:46 Dose: 500 mg Documented by: Gabapentin (Gabapentin 300 Mg Capsule) 300 mg PO QID PRN PRN Reason: anxiety Last Admin: 04/23/21 22:39 Dose: 300 mg Documented by: Gabapentin (Gabapentin 300 Mg Capsule) 300 mg PO DAILY [facility] Last Admin: 04/24/21 08:36 Dose: 300 mg Documented by: Hydroxyzine HCl (Hydroxyzine Hcl 50 Mg Tablet) 100 mg PO BID PRN PRN Reason: Anxiety Last Admin: 04/23/21 14:16 Dose: 100 mg Documented by: Hydroxyzine HCl (Hydroxyzine Hcl 50 Mg Tablet) 100 mg PO BEDTIME PRN PRN Reason: insomnia Last Admin: 04/23/21 01:46 Dose: 100 mg Documented by: Hydroxyzine HCl (Hydroxyzine Hcl 50 Mg Tablet) 100 mg PO DAILY [facility] Last Admin: 04/24/21 08:37 Dose: 100 mg Documented by: [place] Carbonate ([place] Carbonate Er 450 Mg Tablet.Er) 900 mg PO BID [facility] Last Admin: 04/24/21 08:36 Dose: 900 mg Documented by: Multivitamins/Vitamin C (Multivitamin Tablet) 1 tab PO DAILY [facility] Last Admin: 04/24/21 08:36 Dose: 1 tab Documented by: Nicotine Polacrilex (Nicotine Polacrilex 2 Mg Gum) 2 mg BUCCAL Q2H PRN PRN Reason: Nicotine Cravings Last Admin: 04/24/21 08:53 Dose: 2 mg Documented by: Olanzapine (Olanzapine Odt 10 Mg Tab.Rapdis) 5 mg TRANSLINGU BID PRN PRN Reason: agitation Last Admin: 04/22/21 19:42 Dose: 5 mg Documented by: Olanzapine (Olanzapine Odt 10 Mg Tab.Rapdis) 30 mg TRANSLINGU BEDTIME [facility] Last Admin: 04/23/21 22:39 Dose: 30 mg Documented by: Allergies Allergies Allergy/AdvReac Type Severity Reaction Status Date / Time No Known Allergies Allergy Verified 03/24/21 17:28 Assessment & Plan Assessment & Plan (1) Schizoaffective disorder, bipolar type: Status: Acute Code(s): F25.0 - Schizoaffective disorder, bipolar type Assessment and Plan: started abilify 10 mg daily for mood, anxiety; increased to 20 mg daily as of 03/31, 30 mg daily as of 04/01. DCed 04/02 in favor of zyprexa as pt has rapidly become quite disorganized and insomniac. zyprexa increased to 30 mg at bedtime by 04/05. added ativan 2 mg at bedtime 04/02 as well to encourage sleep. zyprexa increased to 40 mg daily as of 04/06 per pt request. zyprexa decreased to 30 mg QHS 04/17 due to oversedation, and again to 20 mg QHS for oversedation as of 04/19. 04/21 overnight slept very poorly, lithium increased to 900 BID and zyprexa returned to 30 QHS. started adderall 5 BID 03/30/21 for ADHD Sx; dosing increased to 10 BID starting 03/31. DCed 04/01 due to worsened psychotic Sx since the addition of stimulant. lithium 600 BID started 04/08 in the event this pt is experiencing a gildardo. much improvement since lithium start, dosing increased to 750 BID 04/13 as level on 600 BID was 0.42. lithium level 0.68 on 750 BID. dispo - gildardo subsiding, now pt has been overmedicated. gradually tapering zyprexa at bedtime to try to return pt to functional energy balance and activity level. then pt will be appropriate for discharge (currently wants to discharge to a hotel). Coverage 04/24: No medication changes. Pt presents at baseline. I spent minutes with the patient and/or on the patient floor today, greater than?50% of which was spent counseling/coordinating care. Reason for contiued inpatient stay Substantial Risk for: inability to function, rapid decompensation and med/psych decompensation
[2021-04-24] MEDS: Nicotine Polacrilex 2 MG GUM 4 MG BUCCAL ×4 (14:15→21:42)
[2021-04-24] MEDS: Throat Lozenge, Medicated LOZENGE 1 LOZENGE MUCOUS MEM (16:15)
[2021-04-24 18:00] VITALS: BP 133/77; PULSE 80; RESP 18; TEMP 36.8; O2SAT 99
--- NOTE | 2021-04-24 19:01 | PC.NURSE ---
Patient retracted 3 day note.
[2021-04-24] MEDS: OLANZapine ODT 10 MG TAB.RAPDIS 30 MG TRANSLINGU (21:39)
[2021-04-25] MEDS: Nicotine Polacrilex 2 MG GUM 4 MG BUCCAL ×6 (00:48→22:59)
[2021-04-25] MEDS: hydrOXYzine HCL 50 MG TABLET 100 MG PO ×5 (02:16→23:56)
[2021-04-25] MEDS: OLANZapine ODT 10 MG TAB.RAPDIS 5 MG TRANSLINGU ×2 (02:16→23:56)
[2021-04-25] MEDS: Throat Lozenge, Medicated LOZENGE 1 LOZENGE MUCOUS MEM ×2 (02:17→23:52)
[2021-04-25] MEDS: Magnesium Hydrox/Alum Hydrox 30 ML ORAL.SUSP PO (02:17)
[2021-04-25 04:40] VITALS: BP 122/86; PULSE 72; RESP 20; TEMP 36.7; O2SAT 95
[2021-04-25] MEDS: Acetaminophen 325 MG TABLET 975 MG PO (08:09)
[2021-04-25] MEDS: Multivitamin TABLET 1 TAB PO (08:10)
[2021-04-25] MEDS: Gabapentin 300 MG CAPSULE PO (08:10)
[2021-04-25] MEDS: Lithium Carbonate ER 450 MG TABLET.ER 900 MG PO ×2 (08:10→20:33)
--- NOTE | 2021-04-25 15:53 | HO.PSYCHPN ---
Subjective Subjective Date of Service: 04/25/21 Reason For Visit: Major depression Subjective Notes: 3 Day Interim History: The nursing staff reported that he signed a 3 day notice letter yesterday, later he retracted and later in the day, he asked for a 3 day notice letter... Today, he reported that he is doing well and he is eager to leave, that he has learned a lot in this admission . Mental Status Exam Mental Status Exam Patient Appearance: Well Grooomed Patient Orientation: Person Level of Consciousness: Awake Patient Behavior: Cooperative Mood Description: Labile Affect Description: Constricted Ability to Follow Directions: Good Speech Pattern: Clear Memory Description: Intact Hallucinations: None Delusions: Not Present Thought Process: Distracted and Evasive Thought Content: positive for Circumstantial, positive for Poverty of Content and positive for Loose Associations Judgement: Fair Diagnostics Vital Signs (24Hr): Vital Signs - 24 hr 04/24/21 18:00 04/25/21 04:40 Temperature 98.2 F 98.1 F Pulse Rate 80 72 Respiratory Rate 18 20 Blood Pressure 133/77 122/86 Pulse Oximetry 99 95 Body Mass Index 61.1 Labs Results: 04/19/21 07:09 04/19/21 07:09 Medications Medications Current Medications Acetaminophen (Acetaminophen 325 Mg Tablet) 975 mg PO Q6H PRN PRN Reason: pain/fever Last Admin: 04/25/21 08:09 Dose: 975 mg Documented by: Al Hydroxide/Mg Hydroxide (Magnesium Hydrox/Alum Hydrox 30 Ml Oral.Susp) 30 ml PO Q6H PRN PRN Reason: reflux Last Admin: 04/25/21 02:17 Dose: 30 ml Documented by: Benzocaine (Throat Lozenge, Medicated Lozenge) 1 lozenge MUCOUS MEM Q1H PRN PRN Reason: Sore Throat Last Admin: 04/25/21 02:17 Dose: 1 lozenge Documented by: Bismuth Subsalicylate (Bismuth Subsalicylate 262 Mg Tablet) 524 mg PO QID PRN PRN Reason: Dyspepsia Last Admin: 04/08/21 09:23 Dose: 524 mg Documented by: Calcium Carbonate (Calcium Carbonate 500 Mg Tablet) 500 mg PO TID PRN PRN Reason: indigestion Last Admin: 04/23/21 01:46 Dose: 500 mg Documented by: Gabapentin (Gabapentin 300 Mg Capsule) 300 mg PO QID PRN PRN Reason: anxiety Last Admin: 04/24/21 16:15 Dose: 300 mg Documented by: Gabapentin (Gabapentin 300 Mg Capsule) 300 mg PO DAILY [facility] Last Admin: 04/25/21 08:10 Dose: 300 mg Documented by: Hydroxyzine HCl (Hydroxyzine Hcl 50 Mg Tablet) 100 mg PO BID PRN PRN Reason: Anxiety Last Admin: 04/25/21 10:49 Dose: 100 mg Documented by: Hydroxyzine HCl (Hydroxyzine Hcl 50 Mg Tablet) 100 mg PO BEDTIME PRN PRN Reason: insomnia Last Admin: 04/24/21 21:39 Dose: 100 mg Documented by: Hydroxyzine HCl (Hydroxyzine Hcl 50 Mg Tablet) 100 mg PO DAILY [facility] Last Admin: 04/25/21 08:10 Dose: 100 mg Documented by: [place] Carbonate ([place] Carbonate Er 450 Mg Tablet.Er) 900 mg PO BID [facility] Last Admin: 04/25/21 08:10 Dose: 900 mg Documented by: Multivitamins/Vitamin C (Multivitamin Tablet) 1 tab PO DAILY [facility] Last Admin: 04/25/21 08:10 Dose: 1 tab Documented by: Nicotine Polacrilex (Nicotine Polacrilex 2 Mg Gum) 4 mg BUCCAL Q2H PRN PRN Reason: Nicotine Cravings Last Admin: 04/25/21 10:49 Dose: 4 mg Documented by: Olanzapine (Olanzapine Odt 10 Mg Tab.Rapdis) 5 mg TRANSLINGU BID PRN PRN Reason: agitation Last Admin: 04/25/21 02:16 Dose: 5 mg Documented by: Olanzapine (Olanzapine Odt 10 Mg Tab.Rapdis) 30 mg TRANSLINGU BEDTIME [facility] Last Admin: 04/24/21 21:39 Dose: 30 mg Documented by: Allergies Allergies Allergy/AdvReac Type Severity Reaction Status Date / Time No Known Allergies Allergy Verified 03/24/21 17:28 Assessment & Plan Assessment & Plan (1) Schizoaffective disorder, bipolar type: Status: Acute Code(s): F25.0 - Schizoaffective disorder, bipolar type Assessment and Plan: started abilify 10 mg daily for mood, anxiety; increased to 20 mg daily as of 03/31, 30 mg daily as of 04/01. DCed 04/02 in favor of zyprexa as pt has rapidly become quite disorganized and insomniac. zyprexa increased to 30 mg at bedtime by 04/05. added ativan 2 mg at bedtime 04/02 as well to encourage sleep. zyprexa increased to 40 mg daily as of 04/06 per pt request. zyprexa decreased to 30 mg QHS 04/17 due to oversedation, and again to 20 mg QHS for oversedation as of 04/19. 04/21 overnight slept very poorly, lithium increased to 900 BID and zyprexa returned to 30 QHS. started adderall 5 BID 03/30/21 for ADHD Sx; dosing increased to 10 BID starting 03/31. DCed 04/01 due to worsened psychotic Sx since the addition of stimulant. lithium 600 BID started 04/08 in the event this pt is experiencing a gildardo. much improvement since lithium start, dosing increased to 750 BID 04/13 as level on 600 BID was 0.42. lithium level 0.68 on 750 BID. dispo - gildardo subsiding, now pt has been overmedicated. gradually tapering zyprexa at bedtime to try to return pt to functional energy balance and activity level. then pt will be appropriate for discharge (currently wants to discharge to a hotel). Coverage over the weekend: No medication changes. Pt presents at baseline. I spent minutes with the patient and/or on the patient floor today, greater than?50% of which was spent counseling/coordinating care. Reason for contiued inpatient stay Substantial Risk for: inability to function, rapid decompensation and med/psych decompensation
[2021-04-25 20:30] VITALS: BP 149/89; PULSE 89; TEMP 36.6; O2SAT 96
[2021-04-25] MEDS: OLANZapine ODT 10 MG TAB.RAPDIS 30 MG TRANSLINGU (20:34)
[2021-04-26 08:48] VITALS: BP 137/78; PULSE 92; RESP 16; TEMP 36.9; O2SAT 94
[2021-04-26] MEDS: Lithium Carbonate ER 450 MG TABLET.ER 900 MG PO ×2 (08:50→21:46)
[2021-04-26] MEDS: Multivitamin TABLET 1 TAB PO (08:50)
[2021-04-26] MEDS: hydrOXYzine HCL 50 MG TABLET 100 MG PO ×3 (08:50→21:01)
[2021-04-26] MEDS: Gabapentin 300 MG CAPSULE PO ×2 (08:50→16:37)
--- NOTE | 2021-04-26 14:07 | P.PNPSI_ITS ---
Subjective Subjective Date of Service: 04/26/21 Reason For Visit: Major depression Interim History: pt found sleeping in his bedroom, asks MD to come back in half an hour. MD returns well more than 30 minutes later and pt is sleeping, easily rousable. he does not rise from the bed but has a brief discussion with MD at bedside. he denies any problematic symptoms, states he is feeling reasonably well. willing to have labs drawn for lithium level. no other complaints or requests. per staff, 3-day matures . easily engaged: gained clarity here. heppy in general. periodic anxiety. talking about going to college. had PRNs of hydroxyzine and zyprexa yesterday. Mental Status Exam Mental Status Exam Narrative: obese, in bed this morning. no PMA/PMR. cooperative with interview. thoughts continue to trend more organized and topical. affect constricted, hypo-intense, non-labile. mood euthymic. no SI/HI/AVH expressed. Diagnostics Vital Signs (24Hr): Vital Signs - 24 hr 04/25/21 20:30 04/26/21 08:48 Temperature 97.8 F 98.4 F Pulse Rate 89 92 Respiratory Rate 16 Blood Pressure 149/89 H 137/78 Pulse Oximetry 96 94 Body Mass Index 61.1 Labs Results: 04/19/21 07:09 04/19/21 07:09 Medications Medications Current Medications Acetaminophen (Acetaminophen 325 Mg Tablet) 975 mg PO Q6H PRN PRN Reason: pain/fever Last Admin: 04/25/21 08:09 Dose: 975 mg Documented by: Al Hydroxide/Mg Hydroxide (Magnesium Hydrox/Alum Hydrox 30 Ml Oral.Susp) 30 ml PO Q6H PRN PRN Reason: reflux Last Admin: 04/25/21 02:17 Dose: 30 ml Documented by: Benzocaine (Throat Lozenge, Medicated Lozenge) 1 lozenge MUCOUS MEM Q1H PRN PRN Reason: Sore Throat Last Admin: 04/25/21 23:52 Dose: 1 lozenge Documented by: Bismuth Subsalicylate (Bismuth Subsalicylate 262 Mg Tablet) 524 mg PO QID PRN PRN Reason: Dyspepsia Last Admin: 04/08/21 09:23 Dose: 524 mg Documented by: Calcium Carbonate (Calcium Carbonate 500 Mg Tablet) 500 mg PO TID PRN PRN Reason: indigestion Last Admin: 04/23/21 01:46 Dose: 500 mg Documented by: Gabapentin (Gabapentin 300 Mg Capsule) 300 mg PO QID PRN PRN Reason: anxiety Last Admin: 04/24/21 16:15 Dose: 300 mg Documented by: Gabapentin (Gabapentin 300 Mg Capsule) 300 mg PO DAILY [facility] Last Admin: 04/26/21 08:50 Dose: 300 mg Documented by: Hydroxyzine HCl (Hydroxyzine Hcl 50 Mg Tablet) 100 mg PO BID PRN PRN Reason: Anxiety Last Admin: 04/25/21 20:34 Dose: 100 mg Documented by: Hydroxyzine HCl (Hydroxyzine Hcl 50 Mg Tablet) 100 mg PO BEDTIME PRN PRN Reason: insomnia Last Admin: 04/25/21 23:56 Dose: 100 mg Documented by: Hydroxyzine HCl (Hydroxyzine Hcl 50 Mg Tablet) 100 mg PO DAILY [facility] Last Admin: 04/26/21 08:50 Dose: 100 mg Documented by: [place] Carbonate ([place] Carbonate Er 450 Mg Tablet.Er) 900 mg PO BID [facility] Last Admin: 04/26/21 08:50 Dose: 900 mg Documented by: Multivitamins/Vitamin C (Multivitamin Tablet) 1 tab PO DAILY [facility] Last Admin: 04/26/21 08:50 Dose: 1 tab Documented by: Nicotine Polacrilex (Nicotine Polacrilex 2 Mg Gum) 4 mg BUCCAL Q2H PRN PRN Reason: Nicotine Cravings Last Admin: 04/25/21 22:59 Dose: 4 mg Documented by: Olanzapine (Olanzapine Odt 10 Mg Tab.Rapdis) 5 mg TRANSLINGU BID PRN PRN Reason: agitation Last Admin: 04/25/21 23:56 Dose: 5 mg Documented by: Olanzapine (Olanzapine Odt 10 Mg Tab.Rapdis) 30 mg TRANSLINGU BEDTIME [facility] Last Admin: 04/25/21 20:34 Dose: 30 mg Documented by: Allergies Allergies Allergy/AdvReac Type Severity Reaction Status Date / Time No Known Allergies Allergy Verified 03/24/21 17:28 Assessment & Plan Assessment & Plan (1) Schizoaffective disorder, bipolar type: Status: Acute Code(s): F25.0 - Schizoaffective disorder, bipolar type Assessment and Plan: started abilify 10 mg daily for mood, anxiety; increased to 20 mg daily as of 03/31, 30 mg daily as of 04/01. DCed 04/02 in favor of zyprexa as pt has rapidly become quite disorganized and insomniac. zyprexa increased to 30 mg at bedtime by 04/05. added ativan 2 mg at bedtime 04/02 as well to encourage sleep. zyprexa increased to 40 mg daily as of 04/06 per pt request. zyprexa decreased to 30 mg QHS 04/17 due to oversedation, and again to 20 mg QHS for oversedation as of 04/19. 04/21 overnight slept very poorly, lithium increased to 900 BID and zyprexa returned to 30 QHS. started adderall 5 BID 03/30/21 for ADHD Sx; dosing increased to 10 BID starting 03/31. DCed 04/01 due to worsened psychotic Sx since the addition of stimulant. lithium 600 BID started 04/08 in the event this pt is experiencing a gildardo. much improvement since lithium start, dosing increased to 750 BID 04/13 as level on 600 BID was 0.42. lithium level 0.68 on 750 BID. dispo - gildardo subsiding, now pt has been overmedicated. gradually tapering zyprexa at bedtime to try to return pt to functional energy balance and activity level. then pt will be appropriate for discharge (currently wants to discharge to a hotel). I spent minutes with the patient and/or on the patient floor today, greater than?50% of which was spent counseling/coordinating care. Reason for contiued inpatient stay Substantial Risk for: inability to function and rapid decompensation
[2021-04-26] MEDS: Throat Lozenge, Medicated LOZENGE 1 LOZENGE MUCOUS MEM ×2 (14:58→21:00)
[2021-04-26] MEDS: Nicotine Polacrilex 2 MG GUM 4 MG BUCCAL ×2 (15:03→21:01)
[2021-04-26 18:00] VITALS: BP 144/93; PULSE 93; RESP 16; TEMP 36.6; O2SAT 97
[2021-04-26] MEDS: OLANZapine ODT 10 MG TAB.RAPDIS 25 MG TRANSLINGU (21:46)
[2021-04-27 06:00] VITALS: BP 148/90; PULSE 90; RESP 16; TEMP 36.7; O2SAT 97
[2021-04-27] MEDS: Gabapentin 300 MG CAPSULE PO (08:50)
[2021-04-27] MEDS: Throat Lozenge, Medicated LOZENGE 1 LOZENGE MUCOUS MEM ×2 (08:50→19:23)
[2021-04-27] MEDS: Multivitamin TABLET 1 TAB PO (08:50)
[2021-04-27] MEDS: Lithium Carbonate ER 450 MG TABLET.ER 900 MG PO ×2 (08:50→20:08)
[2021-04-27] MEDS: hydrOXYzine HCL 50 MG TABLET 100 MG PO ×2 (08:50→19:22)
[2021-04-27 09:18] LABS: Lithium 0.73 mmol/L (0.60-1.20)
[2021-04-27 09:23] LABS: Anion Gap 12 (12-20); Blood Urea Nitrogen 16 mg/dL (9-16); Carbon Dioxide 28 mmol/L (22-29); Chloride 105 mmol/L (96-108); Creatinine Clr Calc Pharmacy 225.3; Estimated Glomerular Filt Rate > 60; Glucose Random 101 mg/dL (60-115); Potassium 4.7 mmol/L (3.3-5.1); Sodium 140 mmol/L (135-145)
[2021-04-27] MEDS: Nicotine Polacrilex 2 MG GUM 4 MG BUCCAL ×4 (09:59→19:23)
--- NOTE | 2021-04-27 13:23 | P.PNPSI_ITS ---
Subjective Subjective Date of Service: 04/27/21 Reason For Visit: Major depression Interim History: up this morning - RN had awakened him for labs. lithium level 0.73 this morning, otherwise unremarkable. pt made aware, no changes made to lithium dosing. pt has been sleeping too much and is agreeable to decrease HS zyprexa from 25 mg QHS to 20 mg QHS as of tonight. talking about his plans for college and looking for housing. every day is less stressful than the last. per staff, asking for discharge, but retracted his 3-day notice last night. slept through the night with one break for snack. Mental Status Exam Mental Status Exam Narrative: obese, OOB this morning. no PMA/PMR. cooperative with interview. thoughts continue to trend more organized and topical. affect constricted, hypo-intense, non-labile. mood euthymic. no SI/HI/AVH expressed. Diagnostics Vital Signs (24Hr): Vital Signs - 24 hr 04/26/21 18:00 04/27/21 06:00 Temperature 97.9 F 98.1 F Pulse Rate 93 90 Respiratory Rate 16 16 Blood Pressure 144/93 H 148/90 H Pulse Oximetry 97 97 Body Mass Index 61.1 Labs Results: 04/19/21 07:09 04/27/21 08:30 Labs: Laboratory Results - last 48 hr 04/27/21 04/27/21 08:30 08:30 Sodium 140 Potassium 4.7 Chloride 105 Carbon Dioxide 28 Anion Gap 12 BUN 16 Creatinine 0.84 Estim Creat Clear Calc 225.3 Estimated GFR > 60 Random Glucose 101 Calcium 9.0 [place] 0.73 Medications Medications Current Medications Acetaminophen (Acetaminophen 325 Mg Tablet) 975 mg PO Q6H PRN PRN Reason: pain/fever Last Admin: 04/25/21 08:09 Dose: 975 mg Documented by: Al Hydroxide/Mg Hydroxide (Magnesium Hydrox/Alum Hydrox 30 Ml Oral.Susp) 30 ml PO Q6H PRN PRN Reason: reflux Last Admin: 04/25/21 02:17 Dose: 30 ml Documented by: Benzocaine (Throat Lozenge, Medicated Lozenge) 1 lozenge MUCOUS MEM Q1H PRN PRN Reason: Sore Throat Last Admin: 04/27/21 08:50 Dose: 1 lozenge Documented by: Bismuth Subsalicylate ([place]ism[place] Subsalicylate 262 Mg Tablet) 524 mg PO QID PRN PRN Reason: Dyspepsia Last Admin: 04/08/21 09:23 Dose: 524 mg Documented by: Calcium Carbonate (Calcium Carbonate 500 Mg Tablet) 500 mg PO TID PRN PRN Reason: indigestion Last Admin: 04/23/21 01:46 Dose: 500 mg Documented by: Gabapentin (Gabapentin 300 Mg Capsule) 300 mg PO QID PRN PRN Reason: anxiety Last Admin: 04/26/21 16:37 Dose: 300 mg Documented by: Gabapentin (Gabapentin 300 Mg Capsule) 300 mg PO DAILY [facility] Last Admin: 04/27/21 08:50 Dose: 300 mg Documented by: Hydroxyzine HCl (Hydroxyzine Hcl 50 Mg Tablet) 100 mg PO BID PRN PRN Reason: Anxiety Last Admin: 04/26/21 21:01 Dose: 100 mg Documented by: Hydroxyzine HCl (Hydroxyzine Hcl 50 Mg Tablet) 100 mg PO BEDTIME PRN PRN Reason: insomnia Last Admin: 04/25/21 23:56 Dose: 100 mg Documented by: Hydroxyzine HCl (Hydroxyzine Hcl 50 Mg Tablet) 100 mg PO DAILY [facility] Last Admin: 04/27/21 08:50 Dose: 100 mg Documented by: [place] Carbonate ([place] Carbonate Er 450 Mg Tablet.Er) 900 mg PO BID [facility] Last Admin: 04/27/21 08:50 Dose: 900 mg Documented by: Multivitamins/Vitamin C (Multivitamin Tablet) 1 tab PO DAILY [facility] Last Admin: 04/27/21 08:50 Dose: 1 tab Documented by: Nicotine Polacrilex (Nicotine Polacrilex 2 Mg Gum) 4 mg BUCCAL Q2H PRN PRN Reason: Nicotine Cravings Last Admin: 04/27/21 13:21 Dose: 4 mg Documented by: Olanzapine (Olanzapine Odt 10 Mg Tab.Rapdis) 5 mg TRANSLINGU BID PRN PRN Reason: agitation Last Admin: 04/25/21 23:56 Dose: 5 mg Documented by: Olanzapine (Olanzapine Odt 10 Mg Tab.Rapdis) 20 mg TRANSLINGU BEDTIME [facility] Allergies Allergies Allergy/AdvReac Type Severity Reaction Status Date / Time No Known Allergies Allergy Verified 03/24/21 17:28 Assessment & Plan Assessment & Plan (1) Schizoaffective disorder, bipolar type: Status: Acute Code(s): F25.0 - Schizoaffective disorder, bipolar type Assessment and Plan: started abilify 10 mg daily for mood, anxiety; increased to 20 mg daily as of 03/31, 30 mg daily as of 04/01. DCed 04/02 in favor of zyprexa as pt has rapidly become quite disorganized and insomniac. zyprexa increased to 30 mg at bedtime by 04/05. added ativan 2 mg at bedtime 04/02 as well to encourage sleep. zyprexa increased to 40 mg daily as of 04/06 per pt request. zyprexa decreased to 30 mg QHS 04/17 due to oversedation, and again to 20 mg QHS for oversedation as of 04/19. 04/21 overnight slept very poorly, lithium increased to 900 BID and zyprexa returned to 30 QHS. started adderall 5 BID 03/30/21 for ADHD Sx; dosing increased to 10 BID starting 03/31. DCed 04/01 due to worsened psychotic Sx since the addition of stimulant. lithium 600 BID started 04/08 in the event this pt is experiencing a gildardo. much improvement since lithium start, dosing increased to 750 BID 04/13 as level on 600 BID was 0.42. lithium level 0.68 on 750 BID. dispo - gildardo subsiding, now pt has been overmedicated. gradually tapering zyprexa at bedtime to try to return pt to functional energy balance and activity level. then pt will be appropriate for discharge (currently seeking help from family re dispo options). I spent minutes with the patient and/or on the patient floor today, gre ater than?50% of which was spent counseling/coordinating care. Reason for contiued inpatient stay Substantial Risk for: inability to function and rapid decompensation
[2021-04-27] MEDS: OLANZapine ODT 10 MG TAB.RAPDIS 20 MG TRANSLINGU (20:08)
[2021-04-27 20:13] VITALS: BP 135/88; PULSE 97; RESP 18; TEMP 36.8; O2SAT 96
[2021-04-28 06:00] VITALS: BP 127/60; PULSE 75; RESP 18; TEMP 36.7; O2SAT 95
[2021-04-28] MEDS: Nicotine Polacrilex 2 MG GUM 4 MG BUCCAL ×4 (09:52→18:44)
[2021-04-28] MEDS: Lithium Carbonate ER 450 MG TABLET.ER 900 MG PO ×2 (09:52→20:13)
[2021-04-28] MEDS: Throat Lozenge, Medicated LOZENGE 1 LOZENGE MUCOUS MEM ×3 (09:52→20:16)
[2021-04-28] MEDS: Gabapentin 300 MG CAPSULE PO ×2 (09:52→14:59)
[2021-04-28] MEDS: hydrOXYzine HCL 50 MG TABLET 100 MG PO ×3 (09:52→18:44)
[2021-04-28] MEDS: Multivitamin TABLET 1 TAB PO (09:52)
[2021-04-28] MEDS: OLANZapine ODT 10 MG TAB.RAPDIS 5 MG TRANSLINGU (09:56)
--- NOTE | 2021-04-28 12:21 | P.PNPSI_ITS ---
Subjective Subjective Date of Service: 04/28/21 Reason For Visit: Major depression Interim History: pt found up and about in the milieu this morning. he reports he was not awakened by staff but rather got up on his own. he states he slept reasonably well last night, waking up several times, however, but falling back asleep. states his anxiety continues to improve daily and does not endorse depression. he discusses his plans to obtain housing and take college classes. he declines to change from zyprexa to another neuroleptic which might be less likely to cause weight gain. discuss discharge early-mid next week if he continues to trend well. per staff, c/o depression. isolative. napping a lot. weight increasing, eating a lot. med-compliant. slept well. no SI. believes he should be sleeping with tape over his mouth for health benefits. Mental Status Exam Mental Status Exam Narrative: obese, OOB this morning. no PMA/PMR. poor eye contact. cooperative with interview. thoughts continue to trend more organized and topical. affect constricted, hypo-intense, non-labile. mood euthymic. no SI/HI/AVH expressed. Diagnostics Vital Signs (24Hr): Vital Signs - 24 hr 04/27/21 20:13 04/28/21 06:00 Temperature 98.2 F 98.1 F Pulse Rate 97 75 Respiratory Rate 18 18 Blood Pressure 135/88 127/60 Pulse Oximetry 96 95 Body Mass Index 61.1 Labs Results: 04/19/21 07:09 04/27/21 08:30 Labs: Laboratory Results - last 48 hr 04/27/21 04/27/21 08:30 08:30 Sodium 140 Potassium 4.7 Chloride 105 Carbon Dioxide 28 Anion Gap 12 BUN 16 Creatinine 0.84 Estim Creat Clear Calc 225.3 Estimated GFR > 60 Random Glucose 101 Calcium 9.0 [place] 0.73 Medications Medications Current Medications Acetaminophen (Acetaminophen 325 Mg Tablet) 975 mg PO Q6H PRN PRN Reason: pain/fever Last Admin: 04/25/21 08:09 Dose: 975 mg Documented by: Al Hydroxide/Mg Hydroxide (Magnesium Hydrox/Alum Hydrox 30 Ml Oral.Susp) 30 ml PO Q6H PRN PRN Reason: reflux Last Admin: 04/25/21 02:17 Dose: 30 ml Documented by: Benzocaine (Throat Lozenge, Medicated Lozenge) 1 lozenge MUCOUS MEM Q1H PRN PRN Reason: Sore Throat Last Admin: 04/28/21 09:52 Dose: 1 lozenge Documented by: Bismuth Subsalicylate (Bismuth Subsalicylate 262 Mg Tablet) 524 mg PO QID PRN PRN Reason: Dyspepsia Last Admin: 04/08/21 09:23 Dose: 524 mg Documented by: Calcium Carbonate (Calcium Carbonate 500 Mg Tablet) 500 mg PO TID PRN PRN Reason: indigestion Last Admin: 04/23/21 01:46 Dose: 500 mg Documented by: Gabapentin (Gabapentin 300 Mg Capsule) 300 mg PO QID PRN PRN Reason: anxiety Last Admin: 04/26/21 16:37 Dose: 300 mg Documented by: Gabapentin (Gabapentin 300 Mg Capsule) 300 mg PO DAILY [facility] Last Admin: 04/28/21 09:52 Dose: 300 mg Documented by: Hydroxyzine HCl (Hydroxyzine Hcl 50 Mg Tablet) 100 mg PO BID PRN PRN Reason: Anxiety Last Admin: 04/28/21 12:09 Dose: 100 mg Documented by: Hydroxyzine HCl (Hydroxyzine Hcl 50 Mg Tablet) 100 mg PO BEDTIME PRN PRN Reason: insomnia Last Admin: 04/25/21 23:56 Dose: 100 mg Documented by: Hydroxyzine HCl (Hydroxyzine Hcl 50 Mg Tablet) 100 mg PO DAILY [facility] Last Admin: 04/28/21 09:52 Dose: 100 mg Documented by: [place] Carbonate ([place] Carbonate Er 450 Mg Tablet.Er) 900 mg PO BID [facility] Last Admin: 04/28/21 09:52 Dose: 900 mg Documented by: Multivitamins/Vitamin C (Multivitamin Tablet) 1 tab PO DAILY [facility] Last Admin: 04/28/21 09:52 Dose: 1 tab Documented by: Nicotine Polacrilex (Nicotine Polacrilex 2 Mg Gum) 4 mg BUCCAL Q2H PRN PRN Reason: Nicotine Cravings Last Admin: 04/28/21 12:10 Dose: 4 mg Documented by: Olanzapine (Olanzapine Odt 10 Mg Tab.Rapdis) 5 mg TRANSLINGU BID PRN PRN Reason: agitation Last Admin: 04/28/21 09:56 Dose: 5 mg Documented by: Olanzapine (Olanzapine Odt 10 Mg Tab.Rapdis) 20 mg TRANSLINGU BEDTIME [facility] Last Admin: 04/27/21 20:08 Dose: 20 mg Documented by: Allergies Allergies Allergy/AdvReac Type Severity Reaction Status Date / Time No Known Allergies Allergy Verified 03/24/21 17:28 Assessment & Plan Assessment & Plan (1) Schizoaffective disorder, bipolar type: Status: Acute Code(s): F25.0 - Schizoaffective disorder, bipolar type Assessment and Plan: started abilify 10 mg daily for mood, anxiety; increased to 20 mg daily as of 03/31, 30 mg daily as of 04/01. DCed 04/02 in favor of zyprexa as pt has rapidly become quite disorganized and insomniac. zyprexa increased to 30 mg at bedtime by 04/05. added ativan 2 mg at bedtime 04/02 as well to encourage sleep. zyprexa increased to 40 mg daily as of 04/06 per pt request. zyprexa decreased to 30 mg QHS 04/17 due to oversedation, and again to 20 mg QHS for oversedation as of 04/19. 04/21 overnight slept very poorly, lithium increased to 900 BID and zyprexa returned to 30 QHS. 04/27 zyprexa returned to 20 mg QHS. some sleep disturbance. started adderall 5 BID 03/30/21 for ADHD Sx; dosing increased to 10 BID starting 03/31. DCed 04/01 due to worsened psychotic Sx since the addition of stimulant. lithium 600 BID started 04/08 in the event this pt is experiencing a gildardo. much improvement since lithium start, dosing increased to 750 BID 04/13 as level on 600 BID was 0.42. lithium level 0.68 on 750 BID. dispo - gildardo subsiding, now pt has been overmedicated. gradually tapering zyprexa at bedtime to try to return pt to functional energy balance and activity level. then pt will be appropriate for discharge (currently seeking help from family re dispo options). I spent minutes with the patient and/or on the patient floor today, greater than?50% of which was spent counseling/coordinating care. Reason for contiued inpatient stay Substantial Risk for: inability to function and rapid decompensation
[2021-04-28] MEDS: Magnesium Hydrox/Alum Hydrox 30 ML ORAL.SUSP PO (14:59)
[2021-04-28 18:00] VITALS: BP 118/89; PULSE 106; RESP 20; TEMP 36.8; O2SAT 96
[2021-04-28] MEDS: OLANZapine ODT 10 MG TAB.RAPDIS 20 MG TRANSLINGU (20:13)
[2021-04-29 08:41] VITALS: BP 137/77; PULSE 77; TEMP 36.1
[2021-04-29] MEDS: Multivitamin TABLET 1 TAB PO (09:15)
[2021-04-29] MEDS: Lithium Carbonate ER 450 MG TABLET.ER 900 MG PO ×2 (09:15→20:50)
[2021-04-29] MEDS: hydrOXYzine HCL 50 MG TABLET 100 MG PO ×3 (09:15→19:44)
[2021-04-29] MEDS: Gabapentin 300 MG CAPSULE PO ×2 (09:15→15:39)
[2021-04-29] MEDS: Nicotine Polacrilex 2 MG GUM 4 MG BUCCAL ×3 (10:03→19:44)
--- NOTE | 2021-04-29 15:32 | HO.PSYCHPN ---
Subjective Subjective Date of Service: 04/29/21 Reason For Visit: Major depression Subjective Notes: Conditional Voluntary Healthcare Proxy: No Guardianship: No Medical Problems Affecting Mental Status: No Interim History: Patient seen and discussed with team. Per RN, he has been showering, tolerating roommate, going out for fresh air. Some concerns with overeating, as pt woke up in night requesting snacks and eats 100% of meals. Patient evaluated this evening and upon interview he reports he is doing okay, looking forward to getting an apartment. Says Zyprexa is pretty helpful, asks for an increase of 5 mg but acknowledges the dose was decreased due to wt gain. Discussed possible augmentation with metformin. Sleep is good. No questions or concerns. Some somatic complaints, per baseline, says he wants to see an eye doctor due to pain in R eye, almost like dull throbbing, this is not new pain and pt says he usually wears glasses or contacts. No ocular discharge reported. In the milieu, patient is safe and appropriate in behavior. Denies SI/SIB/HI upon inquiry. Denies irritability or assaultive ideation. Says he feels safe. Mental Status Exam Mental Status Exam Narrative: obese, OOB this morning.? no PMA/PMR.? poor eye contact.? cooperative with interview.? thoughts continue to trend more organized and topical. ? affect constricted, hypo-intense, non-labile.? mood euthymic.? no SI/HI/AVH expressed. Diagnostics Vital Signs (24Hr): Vital Signs - 24 hr 04/28/21 18:00 04/29/21 08:41 Temperature 98.2 F 96.9 F Pulse Rate 106 H 77 Respiratory Rate 20 Blood Pressure 118/89 137/77 Pulse Oximetry 96 Body Mass Index 61.1 Labs Results: 04/19/21 07:09 04/27/21 08:30 Medications Medications Current Medications Acetaminophen (Acetaminophen 325 Mg Tablet) 975 mg PO Q6H PRN PRN Reason: pain/fever Last Admin: 04/25/21 08:09 Dose: 975 mg Documented by: Al Hydroxide/Mg Hydroxide (Magnesium Hydrox/Alum Hydrox 30 Ml Oral.Susp) 30 ml PO Q6H PRN PRN Reason: reflux Last Admin: 04/28/21 14:59 Dose: 30 ml Documented by: Benzocaine (Throat Lozenge, Medicated Lozenge) 1 lozenge MUCOUS MEM Q1H PRN PRN Reason: Sore Throat Last Admin: 04/28/21 20:16 Dose: 1 lozenge Documented by: Bismuth Subsalicylate (Bismuth Subsalicylate 262 Mg Tablet) 524 mg PO QID PRN PRN Reason: Dyspepsia Last Admin: 04/08/21 09:23 Dose: 524 mg Documented by: Calcium Carbonate (Calcium Carbonate 500 Mg Tablet) 500 mg PO TID PRN PRN Reason: indigestion Last Admin: 04/23/21 01:46 Dose: 500 mg Documented by: Gabapentin (Gabapentin 300 Mg Capsule) 300 mg PO QID PRN PRN Reason: anxiety Last Admin: 04/28/21 14:59 Dose: 300 mg Documented by: Gabapentin (Gabapentin 300 Mg Capsule) 300 mg PO DAILY [facility] Last Admin: 04/29/21 09:15 Dose: 300 mg Documented by: Hydroxyzine HCl (Hydroxyzine Hcl 50 Mg Tablet) 100 mg PO BID PRN PRN Reason: Anxiety Last Admin: 04/29/21 11:37 Dose: 100 mg Documented by: Hydroxyzine HCl (Hydroxyzine Hcl 50 Mg Tablet) 100 mg PO BEDTIME PRN PRN Reason: insomnia Last Admin: 04/25/21 23:56 Dose: 100 mg Documented by: Hydroxyzine HCl (Hydroxyzine Hcl 50 Mg Tablet) 100 mg PO DAILY [facility] Last Admin: 04/29/21 09:15 Dose: 100 mg Documented by: [place] Carbonate ([place] Carbonate Er 450 Mg Tablet.Er) 900 mg PO BID [facility] Last Admin: 04/29/21 09:15 Dose: 900 mg Documented by: Multivitamins/Vitamin C (Multivitamin Tablet) 1 tab PO DAILY [facility] Last Admin: 04/29/21 09:15 Dose: 1 tab Documented by: Nicotine Polacrilex (Nicotine Polacrilex 2 Mg Gum) 4 mg BUCCAL Q2H PRN PRN Reason: Nicotine Cravings Last Admin: 04/29/21 10:03 Dose: 4 mg Documented by: Olanzapine (Olanzapine Odt 10 Mg Tab.Rapdis) 5 mg TRANSLINGU BID PRN PRN Reason: agitation Last Admin: 04/28/21 09:56 Dose: 5 mg Documented by: Olanzapine (Olanzapine Odt 10 Mg Tab.Rapdis) 20 mg TRANSLINGU BEDTIME [facility] Last Admin: 04/28/21 20:13 Dose: 20 mg Documented by: Allergies Allergies Allergy/AdvReac Type Severity Reaction Status Date / Time No Known Allergies Allergy Verified 03/24/21 17:28 Assessment & Plan Assessment & Plan (1) Schizoaffective disorder, bipolar type: Status: Acute Code(s): F25.0 - Schizoaffective disorder, bipolar type Assessment and Plan: started abilify 10 mg daily for mood, anxiety; increased to 20 mg daily as of 03/31, 30 mg daily as of 04/01. DCed 04/02 in favor of zyprexa as pt has rapidly become quite disorganized and insomniac. zyprexa increased to 30 mg at bedtime by 04/05. added ativan 2 mg at bedtime 04/02 as well to encourage sleep. zyprexa increased to 40 mg daily as of 04/06 per pt request. zyprexa decreased to 30 mg QHS 04/17 due to oversedation, and again to 20 mg QHS for oversedation as of 04/19. 04/21 overnight slept very poorly, lithium increased to 900 BID and zyprexa returned to 30 QHS. 04/27 zyprexa returned to 20 mg QHS. some sleep disturbance. started adderall 5 BID 03/30/21 for ADHD Sx; dosing increased to 10 BID starting 03/31. DCed 04/01 due to worsened psychotic Sx since the addition of stimulant. lithium 600 BID started 04/08 in the event this pt is experiencing a gildardo. much improvement since lithium start, dosing increased to 750 BID 04/13 as level on 600 BID was 0.42. lithium level 0.68 on 750 BID. No med changes made for coverage 04/29. dispo - gildardo subsiding, now pt has been overmedicated. gradually tapering zyprexa at bedtime to try to return pt to functional energy balance and activity level. then pt will be appropriate for discharge (currently seeking help from family re dispo options). I spent minutes with the patient and/or on the patient floor today, greater than?50% of which was spent counseling/coordinating care. Reason for contiued inpatient stay Substantial Risk for: rapid decompensation and med/psych decompensation
[2021-04-29] MEDS: Throat Lozenge, Medicated LOZENGE 1 LOZENGE MUCOUS MEM ×2 (15:39→19:44)
[2021-04-29] MEDS: OLANZapine ODT 10 MG TAB.RAPDIS 5 MG TRANSLINGU (15:40)
[2021-04-29] MEDS: OLANZapine ODT 10 MG TAB.RAPDIS 20 MG TRANSLINGU (20:50)
[2021-04-29 20:54] VITALS: BP 127/93; PULSE 109; TEMP 36.8; O2SAT 96
[2021-04-29] MEDS: Acetaminophen 325 MG TABLET 975 MG PO (23:19)
[2021-04-30 09:40] VITALS: BP 123/96; PULSE 118; RESP 18; TEMP 36.4; O2SAT 97
[2021-04-30] MEDS: Gabapentin 300 MG CAPSULE PO (09:43)
[2021-04-30] MEDS: Multivitamin TABLET 1 TAB PO (09:43)
[2021-04-30] MEDS: Lithium Carbonate ER 450 MG TABLET.ER 900 MG PO ×2 (09:43→20:54)
[2021-04-30] MEDS: hydrOXYzine HCL 50 MG TABLET 100 MG PO ×4 (09:44→20:54)
[2021-04-30] MEDS: Nicotine Polacrilex 2 MG GUM 4 MG BUCCAL ×4 (10:24→18:12)
[2021-04-30] MEDS: OLANZapine ODT 10 MG TAB.RAPDIS 5 MG TRANSLINGU (11:32)
--- NOTE | 2021-04-30 14:01 | P.PNPSI_ITS ---
Subjective Subjective Date of Service: 04/30/21 Reason For Visit: Major depression Interim History: pt found up and about the milieu. reports he was up of his own accord. remains more linear and logical in thoughts, more topical. would prefer to stay here until he can find housing, but aware he may need to leave sooner. planning to discharge to a hotel next week. had disrupted sleep last night but was able to return to sleep each time and feels he got an adequate amount. per staff, feeling better. getting fresh air, attending groups. mood better. having some social anxiety. sometimes cries to himself. Mental Status Exam Mental Status Exam Narrative: obese, OOB this morning. no PMA/PMR. fair eye contact. cooperative with interview. thoughts continue to trend more organized and topical. affect more flexible, normo-intense, non-labile. mood euthymic. no SI/HI/AVH expressed. Diagnostics Vital Signs (24Hr): Vital Signs - 24 hr 04/29/21 20:54 04/30/21 09:40 Temperature 98.3 F 97.6 F Pulse Rate 109 H 118 H Respiratory Rate 18 Blood Pressure 127/93 H 123/96 H Pulse Oximetry 96 97 Body Mass Index 61.1 Labs Results: 04/19/21 07:09 04/27/21 08:30 Medications Medications Current Medications Acetaminophen (Acetaminophen 325 Mg Tablet) 975 mg PO Q6H PRN PRN Reason: pain/fever Last Admin: 04/29/21 23:19 Dose: 975 mg Documented by: Al Hydroxide/Mg Hydroxide (Magnesium Hydrox/Alum Hydrox 30 Ml Oral.Susp) 30 ml PO Q6H PRN PRN Reason: reflux Last Admin: 04/28/21 14:59 Dose: 30 ml Documented by: Benzocaine (Throat Lozenge, Medicated Lozenge) 1 lozenge MUCOUS MEM Q1H PRN PRN Reason: Sore Throat Last Admin: 04/29/21 19:44 Dose: 1 lozenge Documented by: Bismuth Subsalicylate (Bismuth Subsalicylate 262 Mg Tablet) 524 mg PO QID PRN PRN Reason: Dyspepsia Last Admin: 04/08/21 09:23 Dose: 524 mg Documented by: Calcium Carbonate (Calcium Carbonate 500 Mg Tablet) 500 mg PO TID PRN PRN Reason: indigestion Last Admin: 04/23/21 01:46 Dose: 500 mg Documented by: Hydroxyzine HCl (Hydroxyzine Hcl 50 Mg Tablet) 100 mg PO BID PRN PRN Reason: Anxiety Last Admin: 04/30/21 13:44 Dose: 100 mg Documented by: Hydroxyzine HCl (Hydroxyzine Hcl 50 Mg Tablet) 100 mg PO BEDTIME PRN PRN Reason: insomnia Last Admin: 04/25/21 23:56 Dose: 100 mg Documented by: Hydroxyzine HCl (Hydroxyzine Hcl 50 Mg Tablet) 100 mg PO DAILY [facility] Last Admin: 04/30/21 09:44 Dose: 100 mg Documented by: [place] Carbonate ([place] Carbonate Er 450 Mg Tablet.Er) 900 mg PO BID [facility] Last Admin: 04/30/21 09:43 Dose: 900 mg Documented by: Multivitamins/Vitamin C (Multivitamin Tablet) 1 tab PO DAILY [facility] Last Admin: 04/30/21 09:43 Dose: 1 tab Documented by: Nicotine Polacrilex (Nicotine Polacrilex 2 Mg Gum) 4 mg BUCCAL Q2H PRN PRN Reason: Nicotine Cravings Last Admin: 04/30/21 13:45 Dose: 4 mg Documented by: Olanzapine (Olanzapine Odt 10 Mg Tab.Rapdis) 5 mg TRANSLINGU BID PRN PRN Reason: agitation Last Admin: 04/30/21 11:32 Dose: 5 mg Documented by: Olanzapine (Olanzapine Odt 10 Mg Tab.Rapdis) 20 mg TRANSLINGU BEDTIME [facility] Last Admin: 04/29/21 20:50 Dose: 20 mg Documented by: Allergies Allergies Allergy/AdvReac Type Severity Reaction Status Date / Time No Known Allergies Allergy Verified 03/24/21 17:28 Assessment & Plan Assessment & Plan (1) Schizoaffective disorder, bipolar type: Status: Acute Code(s): F25.0 - Schizoaffective disorder, bipolar type Assessment and Plan: started abilify 10 mg daily for mood, anxiety; increased to 20 mg daily as of 03/31, 30 mg daily as of 04/01. DCed 04/02 in favor of zyprexa as pt has rapidly become quite disorganized and insomniac. zyprexa increased to 30 mg at bedtime by 04/05. added ativan 2 mg at bedtime 04/02 as well to encourage sleep. zyprexa increased to 40 mg daily as of 04/06 per pt request. zyprexa decreased to 30 mg QHS 04/17 due to oversedation, and again to 20 mg QHS for oversedation as of 04/19. 04/21 overnight slept very poorly, lithium increased to 900 BID and zyprexa returned to 30 QHS. 04/27 zyprexa returned to 20 mg QHS. some sleep disturbance. started adderall 5 BID 03/30/21 for ADHD Sx; dosing increased to 10 BID starting 03/31. DCed 04/01 due to worsened psychotic Sx since the addition of stimulant. lithium 600 BID started 04/08 in the event this pt is experiencing a gildardo. much improvement since lithium start, dosing increased to 750 BID 04/13 as level on 600 BID was 0.42. lithium level 0.68 on 750 BID. increased to 900 BID. dispo - gildardo subsiding. planning for discharge next week. I spent minutes with the patient and/or on the patient floor today, greater than?50% of which was spent counseling/coordinating care. Reason for contiued inpatient stay Substantial Risk for: inability to function and rapid decompensation
[2021-04-30] MEDS: Throat Lozenge, Medicated LOZENGE 1 LOZENGE MUCOUS MEM (19:24)
[2021-04-30] MEDS: OLANZapine ODT 10 MG TAB.RAPDIS 20 MG TRANSLINGU (20:54)
--- NOTE | 2021-04-30 22:14 | PC.NURSE ---
Pt c/o right eye pain/discomfort that he has been experiencing for a few days . Denies double vision, states that, for example, when he looks at a wall he sees many different colors in the wall. No redness or swelling noted, bilateral eyes equal, round, and reactive to light and accomodation. No abnormalities noted. Pt reports that he can see something abnormal with his eye when he looks in the mirror. Warm compress given.
--- NOTE | 2021-05-01 08:17 | P.PNPSI_ITS ---
Subjective Subjective Date of Service: 05/01/21 Reason For Visit: Major depression Subjective Notes: Conditional Voluntary Interim History: Pt has been mostly in bed. He reports being depressed but denies suicidal or homicidal ideation. He denies VH/AH. He reports sleeping and eating well. He is taking medications as prescribed. No side effects reported or noted. encouraged to attend groups. Per nursing, no behavioral concerns. mostly in bed. Medication Compliance: Yes Side effects from medications: No Review of Systems Reports behavioral changes Psychiatric: Reports abnormal sleep pattern, Reports anxiety, Reports behavioral changes, Reports change in appetite, Reports depression, Reports difficulty concentrating, Reports hopelessness, Reports irritability, Reports anhedonia, Reports paranoia and Reports suicidal ideation Mental Status Exam Mental Status Exam Narrative: obese, OOB this morning. no PMA/PMR. fair eye contact. cooperative with interview. thoughts continue to trend more organized and topical. affect more flexible, normo-intense, non-labile. mood euthymic. no SI/HI/AVH expressed. Diagnostics Vital Signs (24Hr): Vital Signs - 24 hr 05/01/21 09:36 Temperature 97.4 F Pulse Rate 81 Respiratory Rate 16 Blood Pressure 139/94 H Pulse Oximetry 98 Body Mass Index 61.1 Labs Results: 04/19/21 07:09 04/27/21 08:30 Medications Medications Current Medications Acetaminophen (Acetaminophen 325 Mg Tablet) 975 mg PO Q6H PRN PRN Reason: pain/fever Last Admin: 04/29/21 23:19 Dose: 975 mg Documented by: Al Hydroxide/Mg Hydroxide (Magnesium Hydrox/Alum Hydrox 30 Ml Oral.Susp) 30 ml PO Q6H PRN PRN Reason: reflux Last Admin: 04/28/21 14:59 Dose: 30 ml Documented by: Benzocaine (Throat Lozenge, Medicated Lozenge) 1 lozenge MUCOUS MEM Q1H PRN PRN Reason: Sore Throat Last Admin: 05/01/21 17:36 Dose: 1 lozenge Documented by: Bismuth Subsalicylate ([place]ism[place] Subsalicylate 262 Mg Tablet) 524 mg PO QID PRN PRN Reason: Dyspepsia Last Admin: 04/08/21 09:23 Dose: 524 mg Documented by: Calcium Carbonate (Calcium Carbonate 500 Mg Tablet) 500 mg PO TID PRN PRN Reason: indigestion Last Admin: 04/23/21 01:46 Dose: 500 mg Documented by: Hydroxyzine HCl (Hydroxyzine Hcl 50 Mg Tablet) 100 mg PO BID PRN PRN Reason: Anxiety Last Admin: 05/01/21 16:26 Dose: 100 mg Documented by: Hydroxyzine HCl (Hydroxyzine Hcl 50 Mg Tablet) 100 mg PO BEDTIME PRN PRN Reason: insomnia Last Admin: 05/01/21 21:45 Dose: 100 mg Documented by: Hydroxyzine HCl (Hydroxyzine Hcl 50 Mg Tablet) 100 mg PO DAILY [facility] Last Admin: 05/01/21 09:12 Dose: 100 mg Documented by: [place] Carbonate ([place] Carbonate Er 450 Mg Tablet.Er) 900 mg PO BID [facility] Last Admin: 05/01/21 21:44 Dose: 900 mg Documented by: Multivitamins/Vitamin C (Multivitamin Tablet) 1 tab PO DAILY [facility] Last Admin: 05/01/21 09:12 Dose: 1 tab Documented by: Nicotine Polacrilex (Nicotine Polacrilex 2 Mg Gum) 4 mg BUCCAL Q2H PRN PRN Reason: Nicotine Cravings Last Admin: 05/01/21 16:26 Dose: 4 mg Documented by: Olanzapine (Olanzapine Odt 10 Mg Tab.Rapdis) 5 mg TRANSLINGU BID PRN PRN Reason: agitation Last Admin: 05/01/21 09:27 Dose: 5 mg Documented by: Olanzapine (Olanzapine Odt 10 Mg Tab.Rapdis) 20 mg TRANSLINGU BEDTIME [facility] Last Admin: 05/01/21 21:44 Dose: 20 mg Documented by: Allergies Allergies Allergy/AdvReac Type Severity Reaction Status Date / Time No Known Allergies Allergy Verified 03/24/21 17:28 Assessment & Plan Assessment & Plan (1) Schizoaffective disorder, bipolar type: Status: Acute Code(s): F25.0 - Schizoaffective disorder, bipolar type Assessment and Plan: started abilify 10 mg daily for mood, anxiety; increased to 20 mg daily as of 03/31, 30 mg daily as of 04/01. DCed 04/02 in favor of zyprexa as pt has rapidly become quite disorganized and insomniac. zyprexa increased to 30 mg at bedtime by 04/05. added ativan 2 mg at bedtime 04/02 as well to encourage sleep. zyprexa increased to 40 mg daily as of 04/06 per pt request. zyprexa decreased to 30 mg QHS 04/17 due to oversedation, and again to 20 mg QHS for oversedation as of 04/19. 04/21 overnight slept very poorly, lithium increased to 900 BID and zyprexa returned to 30 QHS. 04/27 zyprexa returned to 20 mg QHS. some sleep disturbance. started adderall 5 BID 03/30/21 for ADHD Sx; dosing increased to 10 BID starting 03/31. DCed 04/01 due to worsened psychotic Sx since the addition of stimulant. lithium 600 BID started 04/08 in the event this pt is experiencing a gildardo. much improvement since lithium start, dosing increased to 750 BID 04/13 as level on 600 BID was 0.42. lithium level 0.68 on 750 BID. increased to 900 BID. dispo - gildardo subsiding. planning for discharge next week. 05/01- continue per primary treatment team I spent minutes with the patient and/or on the patient floor today, greater than?50% of which was spent counseling/coordinating care. Reason for contiued inpatient stay Substantial Risk for: inability to function
[2021-05-01] MEDS: hydrOXYzine HCL 50 MG TABLET 100 MG PO ×3 (09:12→21:45)
[2021-05-01] MEDS: Lithium Carbonate ER 450 MG TABLET.ER 900 MG PO ×2 (09:12→21:44)
[2021-05-01] MEDS: Multivitamin TABLET 1 TAB PO (09:12)
[2021-05-01] MEDS: OLANZapine ODT 10 MG TAB.RAPDIS 5 MG TRANSLINGU (09:27)
[2021-05-01] MEDS: Throat Lozenge, Medicated LOZENGE 1 LOZENGE MUCOUS MEM ×2 (09:27→17:36)
[2021-05-01] MEDS: Nicotine Polacrilex 2 MG GUM 4 MG BUCCAL ×2 (09:35→16:26)
[2021-05-01 09:36] VITALS: BP 139/94; PULSE 81; RESP 16; TEMP 36.3; O2SAT 98
[2021-05-01] MEDS: OLANZapine ODT 10 MG TAB.RAPDIS 20 MG TRANSLINGU (21:44)
[2021-05-02 09:21] VITALS: BP 137/87; PULSE 110; RESP 16; TEMP 36.6; O2SAT 97
[2021-05-02] MEDS: Lithium Carbonate ER 450 MG TABLET.ER 900 MG PO ×2 (09:31→21:46)
[2021-05-02] MEDS: Multivitamin TABLET 1 TAB PO (09:31)
[2021-05-02] MEDS: hydrOXYzine HCL 50 MG TABLET 100 MG PO ×3 (09:31→21:46)
[2021-05-02] MEDS: Nicotine Polacrilex 2 MG GUM 4 MG BUCCAL ×4 (12:12→22:34)
[2021-05-02] MEDS: Bismuth Subsalicylate 262 MG TABLET 524 MG PO (18:33)
--- NOTE | 2021-05-02 19:12 | P.PNPSI_ITS ---
Subjective Subjective Date of Service: 05/02/21 Reason For Visit: Major depression Interim History: pt was observed to be sleeping soundly, snoring audibly.? he did not respond to voice greetings and it was felt allowing him to sleep was more therapeutic than awakening him today.?per staff, slept from 7 pm largely until 0800. has been getting up on his own for the last several days. says he is feeling well. Mental Status Exam Mental Status Exam Narrative: obese, lying in bed under sheet. no PMA/PMR. not roused for interview. Diagnostics Vital Signs (24Hr): Vital Signs - 24 hr 05/02/21 09:21 Temperature 97.9 F Pulse Rate 110 H Respiratory Rate 16 Blood Pressure 137/87 Pulse Oximetry 97 Body Mass Index 61.1 Labs Results: 04/19/21 07:09 04/27/21 08:30 Medications Medications Current Medications Acetaminophen (Acetaminophen 325 Mg Tablet) 975 mg PO Q6H PRN PRN Reason: pain/fever Last Admin: 04/29/21 23:19 Dose: 975 mg Documented by: Al Hydroxide/Mg Hydroxide (Magnesium Hydrox/Alum Hydrox 30 Ml Oral.Susp) 30 ml PO Q6H PRN PRN Reason: reflux Last Admin: 04/28/21 14:59 Dose: 30 ml Documented by: Benzocaine (Throat Lozenge, Medicated Lozenge) 1 lozenge MUCOUS MEM Q1H PRN PRN Reason: Sore Throat Last Admin: 05/01/21 17:36 Dose: 1 lozenge Documented by: Bismuth Subsalicylate (Bismuth Subsalicylate 262 Mg Tablet) 524 mg PO QID PRN PRN Reason: Dyspepsia Last Admin: 05/02/21 18:33 Dose: 524 mg Documented by: Calcium Carbonate (Calcium Carbonate 500 Mg Tablet) 500 mg PO TID PRN PRN Reason: indigestion Last Admin: 04/23/21 01:46 Dose: 500 mg Documented by: Hydroxyzine HCl (Hydroxyzine Hcl 50 Mg Tablet) 100 mg PO BID PRN PRN Reason: Anxiety Last Admin: 05/02/21 12:12 Dose: 100 mg Documented by: Hydroxyzine HCl (Hydroxyzine Hcl 50 Mg Tablet) 100 mg PO BEDTIME PRN PRN Reason: insomnia Last Admin: 05/01/21 21:45 Dose: 100 mg Documented by: Hydroxyzine HCl (Hydroxyzine Hcl 50 Mg Tablet) 100 mg PO DAILY [facility] Last Admin: 05/02/21 09:31 Dose: 100 mg Documented by: [place] Carbonate ([place] Carbonate Er 450 Mg Tablet.Er) 900 mg PO BID [facility] Last Admin: 05/02/21 09:31 Dose: 900 mg Documented by: Multivitamins/Vitamin C (Multivitamin Tablet) 1 tab PO DAILY [facility] Last Admin: 05/02/21 09:31 Dose: 1 tab Documented by: Nicotine Polacrilex (Nicotine Polacrilex 2 Mg Gum) 4 mg BUCCAL Q2H PRN PRN Reason: Nicotine Cravings Last Admin: 05/02/21 18:12 Dose: 4 mg Documented by: Olanzapine (Olanzapine Odt 10 Mg Tab.Rapdis) 5 mg TRANSLINGU BID PRN PRN Reason: agitation Last Admin: 05/01/21 09:27 Dose: 5 mg Documented by: Olanzapine (Olanzapine Odt 10 Mg Tab.Rapdis) 20 mg TRANSLINGU BEDTIME [facility] Last Admin: 05/01/21 21:44 Dose: 20 mg Documented by: Allergies Allergies Allergy/AdvReac Type Severity Reaction Status Date / Time No Known Allergies Allergy Verified 03/24/21 17:28 Assessment & Plan Assessment & Plan (1) Schizoaffective disorder, bipolar type: Status: Acute Code(s): F25.0 - Schizoaffective disorder, bipolar type Assessment and Plan: started abilify 10 mg daily for mood, anxiety; increased to 20 mg daily as of 03/31, 30 mg daily as of 04/01. DCed 04/02 in favor of zyprexa as pt has rapidly become quite disorganized and insomniac. zyprexa increased to 30 mg at bedtime by 04/05. added ativan 2 mg at bedtime 04/02 as well to encourage sleep. zyprexa increased to 40 mg daily as of 04/06 per pt request. zyprexa de creased to 30 mg QHS 04/17 due to oversedation, and again to 20 mg QHS for oversedation as of 04/19. 04/21 overnight slept very poorly, lithium increased to 900 BID and zyprexa returned to 30 QHS. 04/27 zyprexa returned to 20 mg QHS. some sleep disturbance. started adderall 5 BID 03/30/21 for ADHD Sx; dosing increased to 10 BID starting 03/31. DCed 04/01 due to worsened psychotic Sx since the addition of stimulant. lithium 600 BID started 04/08 in the event this pt is experiencing a gildardo. muc h improvement since lithium start, dosing increased to 750 BID 04/13 as level on 600 BID was 0.42. lithium level 0.68 on 750 BID. increased to 900 BID. dispo - gildardo subsiding. planning for discharge next week. I spent minutes with the patient and/or on the patient floor today, greater than?50% of which was spent counseling/coordinating care. Reason for contiued inpatient stay Substantial Risk for: inability to function and rapid decompensation
[2021-05-02 20:28] VITALS: BP 109/56; PULSE 87; RESP 16; TEMP 36.9; O2SAT 95
[2021-05-02] MEDS: OLANZapine ODT 10 MG TAB.RAPDIS 20 MG TRANSLINGU (21:46)
[2021-05-03 10:00] VITALS: BP 135/61; PULSE 83; RESP 18; TEMP 36.9; O2SAT 96
[2021-05-03] MEDS: Lithium Carbonate ER 450 MG TABLET.ER 900 MG PO ×2 (10:02→20:14)
[2021-05-03] MEDS: hydrOXYzine HCL 50 MG TABLET 100 MG PO ×3 (10:02→20:14)
[2021-05-03] MEDS: Multivitamin TABLET 1 TAB PO (10:02)
--- NOTE | 2021-05-03 10:59 | HO.PSYCHPN ---
Subjective Subjective Date of Service: 05/03/21 Reason For Visit: Major depression Interim History: erasmo found sleeping in his room. easily rousable. in a good humor. interested in returning to program he had been in before. states he is sleeping well and his mod is pretty good. states that his right eye is experiencing a throbbing 3/10 constant pain, with no modifying factors or associated symptoms. he reports he believes there is something in his eye which he can see when he looks at it in the mirror. MD evaluates his eye with phone flashlight and sees nothing unusual. pt agrees to try wetting drops. per staff, no SI/HI. sad. had fresh air break yesterday. not attending groups. brighter, and hopeful around discharge. slept about 7 hours. eating well. Mental Status Exam Mental Status Exam Narrative: obese, found in bed this morning. no PMA/PMR. fair eye contact. cooperative with interview. thoughts linear and logical in brief interview. affect more flexible, normo-intense, non-labile. mood pretty good. no SI/HI/AVH expressed. Diagnostics Vital Signs (24Hr): Vital Signs - 24 hr 05/02/21 20:28 05/03/21 10:00 Temperature 98.4 F 98.4 F Pulse Rate 87 83 Respiratory Rate 16 18 Blood Pressure 109/56 L 135/61 Pulse Oximetry 95 96 Body Mass Index 61.1 Labs Results: 04/19/21 07:09 04/27/21 08:30 Medications Medications Current Medications Acetaminophen (Acetaminophen 325 Mg Tablet) 975 mg PO Q6H PRN PRN Reason: pain/fever Last Admin: 04/29/21 23:19 Dose: 975 mg Documented by: Al Hydroxide/Mg Hydroxide (Magnesium Hydrox/Alum Hydrox 30 Ml Oral.Susp) 30 ml PO Q6H PRN PRN Reason: reflux Last Admin: 04/28/21 14:59 Dose: 30 ml Documented by: Benzocaine (Throat Lozenge, Medicated Lozenge) 1 lozenge MUCOUS MEM Q1H PRN PRN Reason: Sore Throat Last Admin: 05/01/21 17:36 Dose: 1 lozenge Documented by: Bismuth Subsalicylate (Bismuth Subsalicylate 262 Mg Tablet) 524 mg PO QID PRN PRN Reason: Dyspepsia Last Admin: 05/02/21 18:33 Dose: 524 mg Documented by: Calcium Carbonate (Calcium Carbonate 500 Mg Tablet) 500 mg PO TID PRN PRN Reason: indigestion Last Admin: 04/23/21 01:46 Dose: 500 mg Documented by: Hydroxyzine HCl (Hydroxyzine Hcl 50 Mg Tablet) 100 mg PO BID PRN PRN Reason: Anxiety Last Admin: 05/02/21 12:12 Dose: 100 mg Documented by: Hydroxyzine HCl (Hydroxyzine Hcl 50 Mg Tablet) 100 mg PO BEDTIME PRN PRN Reason: insomnia Last Admin: 05/02/21 21:46 Dose: 100 mg Documented by: Hydroxyzine HCl (Hydroxyzine Hcl 50 Mg Tablet) 100 mg PO DAILY [facility] Last Admin: 05/03/21 10:02 Dose: 100 mg Documented by: [place] Carbonate ([place] Carbonate Er 450 Mg Tablet.Er) 900 mg PO BID [facility] Last Admin: 05/03/21 10:02 Dose: 900 mg Documented by: Multivitamins/Vitamin C (Multivitamin Tablet) 1 tab PO DAILY [facility] Last Admin: 05/03/21 10:02 Dose: 1 tab Documented by: Nicotine Polacrilex (Nicotine Polacrilex 2 Mg Gum) 4 mg BUCCAL Q2H PRN PRN Reason: Nicotine Cravings Last Admin: 05/02/21 22:34 Dose: 4 mg Documented by: Olanzapine (Olanzapine Odt 10 Mg Tab.Rapdis) 5 mg TRANSLINGU BID PRN PRN Reason: agitation Last Admin: 05/01/21 09:27 Dose: 5 mg Documented by: Olanzapine (Olanzapine Odt 10 Mg Tab.Rapdis) 20 mg TRANSLINGU BEDTIME [facility] Last Admin: 05/02/21 21:46 Dose: 20 mg Documented by: Allergies Allergies Allergy/AdvReac Type Severity Reaction Status Date / Time No Known Allergies Allergy Verified 03/24/21 17:28 Assessment & Plan Assessment & Plan (1) Schizoaffective disorder, bipolar type: Status: Acute Code(s): F25.0 - Schizoaffective disorder, bipolar type Assessment and Plan: started abilify 10 mg daily for mood, anxiety; increased to 20 mg daily as of 03/31, 30 mg daily as of 04/01. DCed 04/02 in favor of zyprexa as pt has rapidly become quite disorganized and insomniac. zyprexa increased to 30 mg at bedtime by 04/05. added ativan 2 mg at bedtime 04/02 as well to encourage sleep. zyprexa increased to 40 mg daily as of 04/06 per pt request. zyprexa decreased to 30 mg QHS 04/17 due to oversedation, and again to 20 mg QHS for oversedation as of 04/19. 04/21 overnight slept very poorly, lithium increased to 900 BID and zyprexa returned to 30 QHS. 04/27 zyprexa returned to 20 mg QHS. some sleep disturbance. started adderall 5 BID 03/30/21 for ADHD Sx; dosing increased to 10 BID starting 03/31. DCed 04/01 due to worsened psychotic Sx since the addition of stimulant. lithium 600 BID started 04/08 in the event this pt is experiencing a gildardo. much improvement since lithium start, dosing increased to 750 BID 04/13 as level on 600 BID was 0.42. lithium level 0.68 on 750 BID. increased to 900 BID. level 0.73 after several days on 900 BID. checking level again after 2 weeks on 900 BID. dispo - gildardo resolved. planning for discharge this week. may return to program where he was [employer]. I spent minutes with the patient and/or on the patient floor today, greater than?50% of which was spent counseling/coordinating care. Reason for contiued inpatient stay Substantial Risk for: inability to function and rapid decompensation
[2021-05-03] MEDS: Nicotine Polacrilex 2 MG GUM 4 MG BUCCAL ×2 (14:31→20:14)
[2021-05-03] MEDS: OLANZapine ODT 10 MG TAB.RAPDIS 20 MG TRANSLINGU (20:14)
[2021-05-03 20:31] VITALS: PULSE 108; RESP 18; TEMP 36.8; O2SAT 95
[2021-05-04 07:22] LABS: MANUAL DIFF FLAG NO
[2021-05-04 07:24] LABS: Basophils Absolute Auto 0.1 X10*3/uL (0.0-0.2); Basophils Percent Auto 0.9 % (0-2); Eosinophils Absolute Auto 0.7 X10*3/uL (0.0-0.4); Eosinophils Percent Auto 4.7 % (0-4); Hematocrit 44.7 % (42.0-52.0); Hemoglobin 14.9 g/dl (14.0-18.0); Imm Gran Abs Auto 0.68 X10*3/uL (0.00-0.03); Imm Gran Pct Auto 4.6 % (0.0-0.4); Lymphocytes Absolute Auto 3.4 X10*3/uL (1.2-4.9); Lymphocytes Percent Auto 22.8 % (20-40); Mean Corpuscular HGB Conc 33.3 g/dl (31.0-36.0); Mean Corpuscular Hemoglobin 28.3 pg (27.0-33.0); Mean Platelet Volume 8.9 fL (9.4-12.4); Monocytes Absolute Auto 1.4 X10*3/uL (0.1-1.2); Monocytes Percent Auto 9.2 % (2-11); Neutrophils Absolute Auto 8.6 x10*3/uL (2.0-8.3); Neutrophils Percent Auto 57.8 % (45-73); Platelet Count 277 X10*3/uL (160-400); Red Blood Count 5.26 X10*6/uL (4.60-5.80); Red Cell Distribution Width 12.5 % (11.0-16.0); White Blood Count 14.8 X10*3/uL (4.8-10.8)
[2021-05-04 07:40] LABS: Anion Gap 10 (12-20); Blood Urea Nitrogen 17 mg/dL (9-16); Carbon Dioxide 31 mmol/L (22-29); Chloride 103 mmol/L (96-108); Creatinine Clr Calc Pharmacy 197.1; Estimated Glomerular Filt Rate > 60; Glucose Random 110 mg/dL (60-115); Potassium 4.5 mmol/L (3.3-5.1); Sodium 139 mmol/L (135-145); Total Protein 6.4 g/dL (6.5-8.0)
[2021-05-04] MEDS: Lithium Carbonate ER 450 MG TABLET.ER 900 MG PO ×2 (08:39→22:39)
[2021-05-04] MEDS: hydrOXYzine HCL 50 MG TABLET 100 MG PO ×4 (08:39→21:13)
[2021-05-04] MEDS: Multivitamin TABLET 1 TAB PO (08:39)
[2021-05-04 09:00] VITALS: BP 126/91; PULSE 111; RESP 20; TEMP 36.6; O2SAT 97
[2021-05-04] MEDS: Nicotine Polacrilex 2 MG GUM 4 MG BUCCAL ×3 (10:46→21:15)
--- NOTE | 2021-05-04 11:51 | P.PNPSI_ITS ---
Subjective Subjective Date of Service: 05/04/21 Reason For Visit: Major depression Interim History: pt found lying in bed reading a book mid-morning. calm, cooperative, pleasant. states he would like to discharge tomorrow to his family's home and then 05/17 engage in the program in which he had previously been engaged. states he will need to verify the plan with his family but he is hopeful of it. no complaints or requests otherwise. per staff, sad, lonely, med-compliant. isolative. Mental Status Exam Mental Status Exam Narrative: obese, found reading in bed this morning. no PMA/PMR. fair eye contact. cooperative with interview. thoughts linear and logical in brief interview. affect more flexible, normo-intense, non-labile. mood euthymic no SI/HI/AVH expressed. Diagnostics Vital Signs (24Hr): Vital Signs - 24 hr 05/03/21 20:31 Temperature 98.2 F Pulse Rate 108 H Respiratory Rate 18 Pulse Oximetry 95 Body Mass Index 61.1 Labs Results: 05/04/21 07:16 05/04/21 07:16 Labs: Laboratory Results - last 48 hr 05/04/21 05/04/21 05/04/21 07:16 07:16 07:16 WBC 14.8 H RBC 5.26 Hgb 14.9 Hct 44.7 MCV 85.0 MCH 28.3 MCHC 33.3 RDW 12.5 Plt Count 277 MPV 8.9 L Immature Gran % (Auto) 4.6 H Neut % (Auto) 57.8 Lymph % (Auto) 22.8 [place] % (Auto) 9.2 Eos % (Auto) 4.7 H Baso % (Auto) 0.9 Lymph # (Auto) 3.4 [place] # (Auto) 1.4 H Eos # (Auto) 0.7 H Baso # (Auto) 0.1 Abs Immat Gran (auto) 0.68 H Absolute Neuts (auto) 8.6 H Absolute Nucleated RBC 0.000 Nucleated RBC % (auto) 0.0 Sodium 139 Potassium 4.5 Chloride 103 Carbon Dioxide 31 H Anion Gap 10 L BUN 17 H Creatinine 0.96 Estim Creat Clear Calc 197.1 Estimated GFR > 60 Random Glucose 110 Calcium 9.0 Total Protein 6.4 L [place] 0.80 Medications Medications Current Medications Acetaminophen (Acetaminophen 325 Mg Tablet) 975 mg PO Q6H PRN PRN Reason: pain/fever Last Admin: 04/29/21 23:19 Dose: 975 mg Documented by: Al Hydroxide/Mg Hydroxide (Magnesium Hydrox/Alum Hydrox 30 Ml Oral.Susp) 30 ml PO Q6H PRN PRN Reason: reflux Last Admin: 04/28/21 14:59 Dose: 30 ml Documented by: Artificial Tears (Artificial Tears 15 Ml Drops) 2 drop EYE-RIGHT Q4H PRN PRN Reason: irritation Benzocaine (Throat Lozenge, Medicated Lozenge) 1 lozenge MUCOUS MEM Q1H PRN PRN Reason: Sore Throat Last Admin: 05/01/21 17:36 Dose: 1 lozenge Documented by: Bismuth Subsalicylate (Bismuth Subsalicylate 262 Mg Tablet) 524 mg PO QID PRN PRN Reason: Dyspepsia Last Admin: 05/02/21 18:33 Dose: 524 mg Documented by: Calcium Carbonate (Calcium Carbonate 500 Mg Tablet) 500 mg PO TID PRN PRN Reason: indigestion Last Admin: 04/23/21 01:46 Dose: 500 mg Documented by: Hydroxyzine HCl (Hydroxyzine Hcl 50 Mg Tablet) 100 mg PO BID PRN PRN Reason: Anxiety Last Admin: 05/04/21 10:46 Dose: 100 mg Documented by: Hydroxyzine HCl (Hydroxyzine Hcl 50 Mg Tablet) 100 mg PO BEDTIME PRN PRN Reason: insomnia Last Admin: 05/03/21 20:14 Dose: 100 mg Documented by: Hydroxyzine HCl (Hydroxyzine Hcl 50 Mg Tablet) 100 mg PO DAILY [facility] Last Admin: 05/04/21 08:39 Dose: 100 mg Documented by: [place] Carbonate ([place] Carbonate Er 450 Mg Tablet.Er) 900 mg PO BID [facility] Last Admin: 05/04/21 08:39 Dose: 900 mg Documented by: Multivitamins/Vitamin C (Multivitamin Tablet) 1 tab PO DAILY [facility] Last Admin: 05/04/21 08:39 Dose: 1 tab Documented by: Nicotine Polacrilex (Nicotine Polacrilex 2 Mg Gum) 4 mg BUCCAL Q2H PRN PRN Reason: Nicotine Cravings Last Admin: 05/04/21 10:46 Dose: 4 mg Documented by: Olanzapine (Olanzapine Odt 10 Mg Tab.Rapdis) 5 mg TRANSLINGU BID PRN PRN Reason: agitation Last Admin: 05/01/21 09:27 Dose: 5 mg Documented by: Olanzapine (Olanzapine Odt 10 Mg Tab.Rapdis) 20 mg TRANSLINGU BEDTIME [facility] Last Admin: 05/03/21 20:14 Dose: 20 mg Documented by: Allergies Allergies Allergy/AdvReac Type Severity Reaction Status Date / Time No Known Allergies Allergy Verified 03/24/21 17:28 Assessment & Plan Assessment & Plan (1) Schizoaffective disorder, bipolar type: Status: Acute Code(s): F25.0 - Schizoaffective disorder, bipolar type Assessment and Plan: started abilify 10 mg daily for mood, anxiety; increased to 20 mg daily as of 03/31, 30 mg daily as of 04/01. DCed 04/02 in favor of zyprexa as pt has rapidly become quite disorganized and insomniac. zyprexa increased to 30 mg at bedtime by 04/05. added ativan 2 mg at bedtime 04/02 as well to encourage sleep. zyprexa increased to 40 mg daily as of 04/06 per pt request. zyprexa decreased to 30 mg QHS 04/17 due to oversedation, and again to 20 mg QHS for oversedation as of 04/19. 04/21 overnight slept very poorly, lithium increased to 900 BID and zyprexa returned to 30 QHS. 04/27 zyprexa returned to 20 mg QHS. some sleep disturbance. started adderall 5 BID 03/30/21 for ADHD Sx; dosing increased to 10 BID starting 03/31. DCed 04/01 due to worsened psychotic Sx since the addition of stimulant. lithium 600 BID started 04/08 in the event this pt is experiencing a gildardo. much improvement since lithium start, dosing increased to 750 BID 04/13 as level on 600 BID was 0.42. lithium level 0.68 on 750 BID. increased to 900 BID. level 0.73 after several days on 900 BID, 0.80 after about 2 weeks at 900 BID. renal function adequate. dispo - gildardo resolved. planning for discharge this week. 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 I spent minutes with the patient and/or on the patient floor today, greater than?50% of which was spent counseling/coordinating care. Reason for contiued inpatient stay Substantial Risk for: inability to function and rapid decompensation
[2021-05-04] MEDS: Magnesium Hydrox/Alum Hydrox 30 ML ORAL.SUSP PO (17:47)
--- NOTE | 2021-05-04 18:34 | PC.NURSE ---
Patient reports periods of increased anxiety. Relates this to need to call his brother and ask if he can come home . States he has tried to call. Requested and rcvd PRN Atarax with + effects.
[2021-05-04] MEDS: Throat Lozenge, Medicated LOZENGE 1 LOZENGE MUCOUS MEM (21:14)
[2021-05-04 22:31] VITALS: BP 152/93; PULSE 94; TEMP 37.1; O2SAT 96
[2021-05-04] MEDS: OLANZapine ODT 10 MG TAB.RAPDIS 20 MG TRANSLINGU (22:40)
[2021-05-05 06:00] VITALS: BP 119/77; PULSE 74; RESP 20; TEMP 36.3; O2SAT 97
[2021-05-05] MEDS: hydrOXYzine HCL 50 MG TABLET 100 MG PO ×3 (10:10→20:55)
[2021-05-05] MEDS: Multivitamin TABLET 1 TAB PO (10:10)
[2021-05-05] MEDS: Lithium Carbonate ER 450 MG TABLET.ER 900 MG PO ×2 (10:10→20:57)
--- NOTE | 2021-05-05 12:26 | P.PNPSI_ITS ---
Subjective Subjective Date of Service: 05/05/21 Reason For Visit: Major depression Interim History: pt found in his bed, awake. states he is feeling fine and that he would like to discharge tomorrow or monday, as he has not had time to contact his brother about staying there for the next week or two. reports he slept well and has no questions, concerns, or complaints. per staff, sleeping and eating well. walking laps in the byrd with staff last night. variable reports regarding his anxiety and depression. napped yesterday afternoon. planning for DC today or tomorrow. Mental Status Exam Mental Status Exam Narrative: obese, found lying in bed awake this morning. no PMA/PMR. poor eye contact. cooperative with interview. thoughts linear and logical in brief interview. affect more flexible, normo-intense, non-labile. mood good. no SI/HI/AVH expressed. Diagnostics Vital Signs (24Hr): Vital Signs - 24 hr 05/04/21 22:31 05/05/21 06:00 Temperature 98.7 F 97.4 F Pulse Rate 94 74 Respiratory Rate 20 Blood Pressure 152/93 H 119/77 Pulse Oximetry 96 97 Body Mass Index 61.1 Labs Results: 05/04/21 07:16 05/04/21 07:16 Labs: Laboratory Results - last 48 hr 05/04/21 05/04/21 05/04/21 07:16 07:16 07:16 WBC 14.8 H RBC 5.26 Hgb 14.9 Hct 44.7 MCV 85.0 MCH 28.3 MCHC 33.3 RDW 12.5 Plt Count 277 MPV 8.9 L Immature Gran % (Auto) 4.6 H Neut % (Auto) 57.8 Lymph % (Auto) 22.8 Lane % (Auto) 9.2 Eos % (Auto) 4.7 H Baso % (Auto) 0.9 Lymph # (Auto) 3.4 Lane # (Auto) 1.4 H Eos # (Auto) 0.7 H Baso # (Auto) 0.1 Abs Immat Gran (auto) 0.68 H Absolute Neuts (auto) 8.6 H Absolute Nucleated RBC 0.000 Nucleated RBC % (auto) 0.0 Sodium 139 Potassium 4.5 Chloride 103 Carbon Dioxide 31 H Anion Gap 10 L BUN 17 H Creatinine 0.96 Estim Creat Clear Calc 197.1 Estimated GFR > 60 Random Glucose 110 Calcium 9.0 Total Protein 6.4 L [place] 0.80 Medications Medications Current Medications Acetaminophen (Acetaminophen 325 Mg Tablet) 975 mg PO Q6H PRN PRN Reason: pain/fever Last Admin: 04/29/21 23:19 Dose: 975 mg Documented by: Al Hydroxide/Mg Hydroxide (Magnesium Hydrox/Alum Hydrox 30 Ml Oral.Susp) 30 ml PO Q6H PRN PRN Reason: reflux Last Admin: 05/04/21 17:47 Dose: 30 ml Documented by: Artificial Tears (Artificial Tears 15 Ml Drops) 2 drop EYE-RIGHT Q4H PRN PRN Reason: irritation Benzocaine (Throat Lozenge, Medicated Lozenge) 1 lozenge MUCOUS MEM Q1H PRN PRN Reason: Sore Throat Last Admin: 05/04/21 21:14 Dose: 1 lozenge Documented by: Bismuth Subsalicylate (Bismuth Subsalicylate 262 Mg Tablet) 524 mg PO QID PRN PRN Reason: Dyspepsia Last Admin: 05/02/21 18:33 Dose: 524 mg Documented by: Calcium Carbonate (Calcium Carbonate 500 Mg Tablet) 500 mg PO TID PRN PRN Reason: indigestion Last Admin: 04/23/21 01:46 Dose: 500 mg Documented by: Hydroxyzine HCl (Hydroxyzine Hcl 50 Mg Tablet) 100 mg PO BID PRN PRN Reason: Anxiety Last Admin: 05/04/21 17:47 Dose: 100 mg Documented by: Hydroxyzine HCl (Hydroxyzine Hcl 50 Mg Tablet) 100 mg PO BEDTIME PRN PRN Reason: insomnia Last Admin: 05/04/21 21:13 Dose: 100 mg Documented by: Hydroxyzine HCl (Hydroxyzine Hcl 50 Mg Tablet) 100 mg PO DAILY [facility] Last Admin: 05/05/21 10:10 Dose: 100 mg Documented by: [place] Carbonate ([place] Carbonate Er 450 Mg Tablet.Er) 900 mg PO BID [facility] Last Admin: 05/05/21 10:10 Dose: 900 mg Documented by: Multivitamins/Vitamin C (Multivitamin Tablet) 1 tab PO DAILY [facility] Last Admin: 05/05/21 10:10 Dose: 1 tab Documented by: Nicotine Polacrilex (Nicotine Polacrilex 2 Mg Gum) 4 mg BUCCAL Q2H PRN PRN Reason: Nicotine Cravings Last Admin: 05/04/21 21:15 Dose: 4 mg Documented by: Olanzapine (Olanzapine Odt 10 Mg Tab.Rapdis) 5 mg TRANSLINGU BID PRN PRN Reason: agitation Last Admin: 05/01/21 09:27 Dose: 5 mg Documented by: Olanzapine (Olanzapine Odt 10 Mg Tab.Rapdis) 20 mg TRANSLINGU BEDTIME [facility] Last Admin: 05/04/21 22:40 Dose: 20 mg Documented by: Allergies Allergies Allergy/AdvReac Type Severity Reaction Status Date / Time No Known Allergies Allergy Verified 03/24/21 17:28 Assessment & Plan Assessment & Plan (1) Schizoaffective disorder, bipolar type: Status: Acute Code(s): F25.0 - Schizoaffective disorder, bipolar type Assessment and Plan: started abilify 10 mg daily for mood, anxiety; increased to 20 mg daily as of 03/31, 30 mg daily as of 04/01. DCed 04/02 in favor of zyprexa as pt has rapidly become quite disorganized and insomniac. zyprexa increased to 30 mg at bedtime by 04/05. added ativan 2 mg at bedtime 04/02 as well to encourage sleep. zyprexa increased to 40 mg daily as of 04/06 per pt request. zyprexa decreased to 30 mg QHS 04/17 due to oversedation, and again to 20 mg QHS for oversedation as of 04/19. 04/21 overnight slept very poorly, lithium increased to 900 BID and zyprexa returned to 30 QHS. 04/27 zyprexa returned to 20 mg QHS. some sleep disturbance. started adderall 5 BID 03/30/21 for ADHD Sx; dosing increased to 10 BID starting 03/31. DCed 04/01 due to worsened psychotic Sx since the addition of stimulant. lithium 600 BID started 04/08 in the event this pt is experiencing a gildardo. much improvement since lithium start, dosing increased to 750 BID 04/13 as level on 600 BID was 0.42. lithium level 0.68 on 750 BID. increased to 900 BID. level 0.73 after several days on 900 BID, 0.80 after about 2 weeks at 900 BID. renal function adequate. dispo - gildardo resolved. planning for discharge this week. 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 I spent minutes with the patient and/or on the patient floor today, greater than?50% of which was spent counseling/coordinating care. Reason for contiued inpatient stay Substantial Risk for: inability to function and rapid decompensation
[2021-05-05] MEDS: Nicotine Polacrilex 2 MG GUM 4 MG BUCCAL ×3 (15:46→20:55)
[2021-05-05] MEDS: OLANZapine ODT 10 MG TAB.RAPDIS 5 MG TRANSLINGU (15:47)
[2021-05-05 18:00] VITALS: BP 187/87; PULSE 110; TEMP 36.8; O2SAT 96
[2021-05-05] MEDS: OLANZapine ODT 10 MG TAB.RAPDIS 20 MG TRANSLINGU (20:57)
[2021-05-06] MEDS: hydrOXYzine HCL 50 MG TABLET 100 MG PO ×2 (00:29→08:16)
[2021-05-06] MEDS: OLANZapine ODT 10 MG TAB.RAPDIS 5 MG TRANSLINGU (05:23)
[2021-05-06 08:15] VITALS: BP 131/92; PULSE 78; RESP 18; TEMP 36.8; O2SAT 97
[2021-05-06] MEDS: Multivitamin TABLET 1 TAB PO (08:16)
[2021-05-06] MEDS: Lithium Carbonate ER 450 MG TABLET.ER 900 MG PO (08:16)
[2021-05-06] MEDS: Nicotine Polacrilex 2 MG GUM 4 MG BUCCAL (08:16)
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
--- NOTE | 2021-05-06 10:29 | PC.NURSE ---
Flavio is discharged at this time in care of mother with plan to go to the [facility] program on 05/17/21. I went over discharge paperwork with patient and mother. Following this both deny questions related to medications or discharge plan. Patient denies ideation, plan or intent to harm self or others. Patient denies perceptual disturbance. Patient reports sleep and appetite are good and he feels much better than on admission. Patient denies physical complaint.
== END 2021-05-06 10:30 | disposition home or self-care (01) | DRG 750 ==
PROVIDERS: Clinical Nurse Specialist Psychiatric/Mental Health, Adult; Admitting Provider Psychiatry & Neurology Psychiatry; Visit Provider Psychiatry & Neurology Psychiatry
DX: F25.0 Schizoaffective disorder, bipolar type (principal); R45.851 Suicidal ideations; Z68.44 Body mass index [BMI] 60.0-69.9, adult; R03.0 Elevated blood-pressure reading, without diagnosis of hypertension; E66.9 Obesity, unspecified; F41.9 Anxiety disorder, unspecified; K21.9 Gastro-esophageal reflux disease without esophagitis; Z87.891 Personal history of nicotine dependence; Z79.899 Other long term (current) drug therapy
CPT/HCPCS: 36415; 80048; 80053; 80061; 80076; 80178; 82306; 82607; 82746; 83036; 84155; 84443; 85025; 93005; 97161

== ENCOUNTER 2022-09-12 18:44 | Inpatient (IN) | payer OTHER, SELFPAY ==
[2022-09-12 18:51] VITALS: BP 154/93; PULSE 84; RESP 16; TEMP 36.6; O2SAT 96; BMI 44.6
[2022-09-12 19:35] LABS: Appearance Urine Clear; Color Urine Yellow; Glucose Urine UA Negative (Negative); Leukocyte Esterase Urine Trace (Negative); Nitrite Urine Negative (Negative); PH 5.5 (5.0-9.0); UMIC TRIGGER UA YES; Urine Blood Negative (Negative); Urine Ketones Trace mg/dL (Negative); Urine Protein Negative (Neg-Trace)
[2022-09-12 19:40] LABS: Bacteria Urine None Seen (None Seen); RBC Urine 0-2 /HPF (0-2); Squamous Epithelial Cell Urine 0-2 /HPF (0-2); WBC Urine 0-5 /HPF (0-5)
[2022-09-12 19:45] LABS: Amphetamine Screen Urine Not Detected (Not Detect); Barbiturates, Urine Not Detected (Not Detect); Benzodiazepines Screen Urine Not Detected (Not Detect); Cannabinoid Screen Urine Not Detected (Not Detect); Cocaine Screen Urine Not Detected (Not Detect); Fentanyl, urine Not Detected (Not Detect); Opiate Screen Urine Not Detected (Not Detect); Phencyclidine Screen Urine Not Detected (Not Detect)
[2022-09-12 19:49] LABS: COVID-19 Test Negative (Negative); IDNOW Serial# 9DB6401D
--- OUTSIDE RECORDS SUMMARY | 2022-09-12 19:57 | XMS_ITS | Continuity of Care Document ---
Author Name Unknown Organization [facility] Address [address] [place] [address]- Care Team Providers Care Home Theater Specialist Name Role Phone Alejandro MONTEJO, Natasha Torres Primary Care Physician [place] [facility] [place]28/[place] [facility] [address] [place] [address]- [facility] Discharge Disposition: A-D/C Home Attending Physician: Dori Palmer MD Admitting Physician: Dori Palmer MD Referring Physician: Not on Staff, Referring MD Allergies, Adverse Reactions, Alerts Substance Reaction Severity Status No known allergies Active Immunizations Given and Recorded Vaccine Date Status Refusal Reason Meningococcal Conjugate Vaccine 02/14/14 Recorded Meningococcal Conjugate Vaccine 06/30/09 Recorded Varicella Virus Vaccine 06/30/09 Recorded Varicella Virus Vaccine 1 06/29/09 Recorded Varicella Virus Vaccine 06/02/99 Recorded Varicella Virus Vaccine 2 06/01/99 Recorded Menactra (oldterm) 3 06/29/09 Recorded tetanus/diphtheria/pertussis, acel(Tdap) 04/20/07 Recorded influenza virus vaccine, inactivated 04/20/07 Jasbir rded Measles/Mumps/Rubella Virus Vaccine 06/04/01 Recor ded Measles/Mumps/Rubella Virus Vaccine 4 06/03/01 Rec orded Measles/Mumps/Rubella Virus Vaccine 09/04/97 Recor ded Measles/Mumps/Rubella Virus Vaccine 5 09/03/97 Rec orded Poliovirus Vaccine, Inactivated 06/29/00 Recorded Poliovirus Vaccine, Inactivated 96 Recorded Poliovirus Vaccine, Inactivated 96 Recorded Poliovirus Vaccine, Inactivated 96 Recorded diphtheria/tetanus/pertussis, acel(DTaP) 06/29/00 Recorded diphtheria/tetanus/pertussis, acel(DTaP) 12/24/97 Recorded diphtheria/tetanus/pertussis, acel(DTaP) 96 Recorded diphtheria/tetanus/pertussis, acel(DTaP) 96 Recorded diphtheria/tetanus/pertussis, acel(DTaP) 96 Recorded Diphth/Tet/Pertussis, Acel (oldterm) 6 06/28/00 Re corded Diphth/Tet/Pertussis, Acel (oldterm) 7 12/23/97 Re corded Diphth/Tet/Pertussis, Acel (oldterm) 8 96 Re corded Diphth/Tet/Pertussis, Acel (oldterm) 9 96 Re corded Diphth/Tet/Pertussis, Acel (oldterm) 10 96 R ecorded Diphth/pertussis,acel/tetanus/polio 11 06/28/00 Re corded Haemophilus B conjugate (HbOC) vaccine 09/04/97 Re corded Haemophilus B conjugate (HbOC) vaccine 96 Re corded Haemophilus B conjugate (HbOC) vaccine 96 Re corded Haemophilus B conjugate (HbOC) vaccine 96 Re corded hepatitis B pediatric vaccine 03/06/97 Recorded hepatitis B pediatric vaccine 96 Recorded hepatitis B pediatric vaccine 96 Recorded hepatitis B adult vaccine 12 03/05/97 Recorded hepatitis B adult vaccine 13 96 Recorded haemophilus b conjugate (PRP-OMP)vaccine 14 96 Recorded haemophilus b conjugate (PRP-OMP)vaccine 15 96 Recorded haemophilus b conjugate (PRP-OMP)vaccine 16 96 Recorded 1Result Comment: [11/26/2015 Uncharted] error 2Result Comment: [11/26/2015 Uncharted] error 3Result Comment: [11/26/2015 Uncharted] error 4Result Comment: [11/26/2015 Uncharted] error 5Result Comment: [11/26/2015 Uncharted] error 6Result Comment: [11/26/2015 Uncharted] error 7Result Comment: [11/26/2015 Uncharted] error 8Result Comment: [11/26/2015 Uncharted] error 9Result Comment: [11/26/2015 Uncharted] error 10Result Comment: [11/26/2015 Uncharted] error 11Result Comment: [11/26/2015 Uncharted] error 12Result Comment: [11/26/2015 Uncharted] error 13Result Comment: [11/26/2015 Uncharted] error 14Result Comment: [11/26/2015 Uncharted] error 15Result Comment: [11/26/2015 Uncharted] error 16Result Comment: [11/26/2015 Uncharted] error Medications gabapentin 400 mg oral capsule 400 mg, 1, capsule, By Mouth, 3 times a day, # 90 capsule, Refills 1, Tot. Refills 1, Maintenance, 11/27/19 20:16:00 EDT, Route to Pharmacy Electronically, [facility]/pharmacy #[id number], 178, cm, 11/27/19 14:38:00 EDT, Height, 134, kg, 10/22/19 14:23:00 EDT, Dry... Start Date: 11/27/19 Status: Ordered hydrOXYzine pamoate 50 mg oral capsule 1 capsule = 50 mg, By Mouth, 3 times a day, PRN as needed for anxiety, # 90 capsule, 1 Refills, Maintenance, 11/27/19 20:16:00 EDT, Capsule, [facility]/pharmacy #[id number], 178, cm, 11/27/19 14:38:00 EDT, Height, 134, kg, 10/22/19 14:23:00 EDT, Dry Weight Start Date: 11/27/19 Status: Ordered ibuprofen 400 mg oral tablet 400 mg, 1, tablet, By Mouth, Every 6 hours, PRN, Minor headache, up to 3x/24 hours., Refills 0, Maintenance, Pain , Mild, 11/27/19 20:17:00 EDT Start Date: 11/27/19 Status: Ordered Multivitamin Tablet 1 tablet, By Mouth, Daily, 0 Refills, Maintenance, 11/27/19 20:17:00 EDT, Tablet Start Date: 11/27/19 Status: Ordered risperiDONE 1 mg oral tablet 1 mg, 1, tablet, By Mouth, 2 times a day, PRN, # 60 tablet, Refills 1, Tot. Refills 1, Maintenance,Agitation, 11/27/19 20:19:00 EDT, Route to Pharmacy Electronically, [facility]/pharmacy #[id number], 178, cm, 11/27/19 14:38:00 EDT, Height, 134, kg, 10/22/19 14:23... Start Date: 11/27/19 Status: Ordered risperiDONE 3 mg oral tablet 3 mg, 1, tablet, By Mouth, 2 times a day, # 60 tablet, Refills 1, Tot. Refills 1, Maintenance, 11/27/19 20:17:00 EDT, Route to Pharmacy Electronically, [facility]/pharmacy #[id number], 178, cm, 11/27/19 14:38:00 EDT, Height, 134, kg, 10/22/19 14:23:00 EDT, Dry Weight Start Date: 11/27/19 Status: Ordered traZODone 50 mg oral tablet 50 mg, 1, tablet, By Mouth, Daily at bedtime, PRN, # 30 tablet, Refills 1, Tot. Refills 1, Maintenance, Sleep, 11/27/19 20:15:00 EDT, Route to Pharmacy Electronically, [facility]/pharmacy #[id number], 178, cm, 11/27/19 14:38:00 EDT, Height, 134, kg, 10/22/19 14:23... Start Date: 11/27/19 Stop Date: 01/26/20 Status: Ordered Zoloft 100 mg oral tablet 1.5 tablet = 150 mg, By Mouth, Daily in AM, # 45 tablet, 1 Refills, Maintenance, 11/27/19 20:15:00 EDT, Tablet, [facility]/pharmacy #[id number], 178, cm, 11/27/19 14:38:00 EDT, Height, 134, kg, 10/22/19 14:23:00 EDT, Dry Weight Start Date: 11/27/19 Stop Date: 01/26/20 Status: Ordered Problem List Condition Effective Dates Status Health Status Inform ant Acne(Confirmed) Active Obesity(Confirmed) Active Encounter for preventive [facility]a [facility] examination(Confirmed) Active Major depressive disorder, s wild episode, severe with anxious distress(Confirmed) Active Shoulder sprain(Confirmed) Active visit for: well child visit(Confirmed) Active Vital Signs Most recent to oldest [Reference Range]: 1 2 3 4 Height 178 cm (11/28/19 8:37 AM) 178 cm (11/27/19 9:20 PM) 178 cm (11/27/19 2:38 PM) Weight 136 kg (11/19/19 11:19 AM) 134.5 kg (11/12/19 7:59 AM) 131 kg (11/06/19 8:03 PM) Oxygen Saturation [94-100 %] 99 % (11/27/19 9:20 PM) 98 % (11/27/19 9:19 AM) 98 % (11/26/19 9:20 PM) Pulse Rate [55-90 bpm] 74 bpm (11/28/19 8:37 AM) 77 bpm (11/27/19 9:20 PM) 69 bpm (11/27/19 2:38 PM) Body Mass Index [18.5-24.99] 42.29 *>HHI* (10/22/19 2:15 PM) Blood Pressure [90-138/55-84 mm Hg] 120/57mm Hg (11/28/19 8:37 AM) 124/65mm Hg (11/27/19 9:20 PM) 127/69mm Hg (11/27/19 2:38 PM) Respiratory Rate [16-30 br/min] 16 br/min (11/28/19 8:37 AM) 16 br/min (11/28/19 8:29 AM) 16 br/min (11/27/19 10:06 PM) 16 br/min (11/27/19 10:06 PM) Temperature [96.8-100.4 DegF] 97.3 DegF (11/28/19 8:37 AM) 97.3 DegF (11/27/19 9:20 PM) 97.7 DegF (11/27/19 9:19 AM) Mode of Delivery (Oxygen) Room air (11/27/19 9:20 PM) Room air (11/26/19 9:20 PM) Room air (11/26/19 10:57 AM) Blood pressure sites Arm, left (11/28/19 8:37 AM) Arm, left (11/27/19 9:20 PM) Arm, right (11/26/19 9:20 PM) Temperature Route Oral (11/28/19 8:37 AM) Oral (11/27/19 9:20 PM) Oral (11/27/19 9:19 AM) Dry Weight 134 kg (10/22/19 2:15 PM) Sensory deficits None (10/22/19 2:15 PM) Mobility assistance Independent (10/22/19 2:15 PM) Social History Social History Type Response Smoking Status Never smoker entered on: 07/09/15 Sex
--- OUTSIDE RECORDS SUMMARY | 2022-09-12 19:57 | XMS_ITS | Continuity of Care Document ---
Author Name Unknown Organization [facility] ter Address [address] [place] [id number]- Care Team Providers Care Remotely Operated Vehicle Name Role Phone Not on Staff, PCP Primary Care Physician Unavail able Encounter [facility] Date(s): 04/27/20 - 04/28/[address] [id number] Discharge Disposition: A-D/C Home Attending Physician: Kiana Edwards MD Admitting Physician: Kiana Edwards MD Referring Physician: Not on Staff, Referring [...] 11/27/19 20:16:00 EDT, Route to Pharmacy Electronically, [facility]/pharmacy #[id number], 178, cm, 11/27/19 14:38:00 EDT, Height, 134, kg, 10/22/19 14:23:00 EDT, Dry... Start Date: 11/27/19 Status: Ordered hydrOXYzine pamoate 50 mg oral capsule 1 capsule = 50 mg, By Mouth, 3 times a day, PRN as needed for anxiety, # 90 capsule, 1 Refills, Maintenance, 11/27/19 20:16:00 EDT, Capsule, [facility]/pharmacy #[id number], 178, cm, 11/27/19 14:38:00 EDT, Height, [...] 11/27/19 20:19:00 EDT, Route to Pharmacy Electronically, [facility]/pharmacy #[id number], 178, cm, 11/27/19 14:38:00 EDT, Height, 134, kg, 10/22/19 14:23... Start Date: 11/27/19 Status: Ordered risperiDONE 3 mg oral tablet 3 mg, 1, tablet, By Mouth, 2 times a day, # 60 tablet, Refills 1, Tot. Refills 1, Maintenance, 11/27/19 20:17:00 EDT, Route to Pharmacy Electronically, [facility]/pharmacy #[id number], 178, cm, 11/27/19 14:38:00 EDT, Height, 134, kg, 10/22/19 14:23:00 EDT, Dry Weight Start Date: 11/27/19 Status: Ordered traZODone 50 mg oral tablet 50 mg, 1, tablet, By Mouth, Daily at bedtime, PRN, # 30 tablet, Refills 1, Tot. Refills 1, Maintenance, Sleep, 11/27/19 20:15:00 EDT, Route to Pharmacy Electronically, [facility]/pharmacy #[id number], 178, cm, 11/27/19 14:38:00 EDT, Height, 134, kg, 10/22/19 14:23... Start Date: 11/27/19 Stop Date: 01/26/20 Status: Ordered Zoloft 100 mg oral tablet 1.5 tablet = 150 mg, By Mouth, Daily in AM, # 45 tablet, 1 Refills, Maintenance, 11/27/19 20:15:00 EDT, Tablet, [facility]/pharmacy #[id number], 178, cm, 11/27/19 14:38:00 EDT, Height, 134, kg, 10/22/19 14:23:00 EDT, Dry Weight Start Date: 11/27/19 Stop Date: 01/26/20 Status: Ordered Problem List Condition Effective Dates Status Health Status Inform ant Acne(Confirmed) Active Obesity(Confirmed) Active Encounter for preventive [facility]a [facility] examination(Confirmed) Active Major depressive disorder, s wild episode, severe with anxious distress(Confirmed) Active Shoulder sprain(Confirmed) Active visit for: well child visit(Confirmed) Active Vital Signs Most recent to oldest [Reference Range]: 1 2 3 Oxygen Saturation [94-100 %] 100 % (04/28/20 3:33 AM) 100 % (04/27/20 6:36 PM) 98 % (04/27/20 3:39 PM) Pulse Rate [55-90 bpm] 68 bpm (04/28/20 3:33 AM) 75 bpm (04/27/20 6:36 PM) 80 bpm (04/27/20 3:39 PM) Blood Pressure [90-138/55-84 mm Hg] 138/62mm Hg (04/28/20 3:33 AM) 141/51mm Hg *H* (04/27/20 6:36 PM) 120/66mm Hg (04/27/20 3:39 PM) Respiratory Rate [16-30 br/min] 18 br/min (04/28/20 3:33 AM) 20 br/min (04/28/20 1:49 AM) 18 br/min (04/27/20 6:36 PM) Temperature [96.8-100.4 DegF] 97.6 DegF (04/27/20 6:36 PM) 97.5 DegF (04/27/20 3:39 PM) Mode of Delivery (Oxygen) Room air (04/28/20 3:33 AM) Room air (04/27/20 6:36 PM) Room air (04/27/20 3:39 PM) Blood pressure sites Arm, right (04/28/20 3:33 AM) Arm, left (04/27/20 3:39 PM) Arm, right (04/27/20 5:48 AM) Temperature Route Oral (04/27/20 6:36 PM) Oral (04/27/20 3:39 PM) Social History Social History Type Response Smoking Status Never smoker entered on: 07/09/15 Sex
--- OUTSIDE RECORDS SUMMARY | 2022-09-12 19:57 | XMS_ITS | Continuity of Care Document ---
Author Name Unknown Organization [facility] ter Address [address] [place] [id number]- Care Team Providers Care Manager Investment Name Role Phone Not on Staff, PCP Primary Care Physician Unavail able Encounter [facility] Date(s): 07/31/22 - 08/02/[address] [id number]- [facility] Attending Physician: Jose Roberto Goodman MD Admitting Physician: Jose Roberto Goodman MD Referring Physician: Not on Staff, Referring MD Allergies, Adverse Reactions, Alerts No Known Allergies Immunizations Given and Recorded Vaccine Date Status [...] 11/27/19 20:16:00 EDT, Route to Pharmacy Electronically, [facility]/pharmacy #[id number], 178, cm, 11/27/19 14:38:00 EDT, Height, 134, kg, 10/22/19 14:23:00 EDT, Dry... Start Date: 11/27/19 Status: Ordered gabapentin 400 mg oral capsule 400 mg, 1, capsule, By Mouth, 3 times a day, # 90 capsule, Refills 0, Tot. Refills 0, Maintenance, 05/06/20 9:29:00 EST, Route to Pharmacy Electronically, [facility]/pharmacy #[id number], Partial fill upon patient request, 178, cm, 11/28/19 8:37:00 EDT, Height, 13... Start Date: 05/06/20 Stop Date: 06/05/20 Status: Ordered hydrOXYzine pamoate 50 mg oral capsule 1 capsule = 50 mg, By Mouth, 3 times a day, PRN as needed for anxiety, # 90 capsule, 1 Refills, Maintenance, 11/27/19 20:16:00 EDT, Capsule, [facility]/pharmacy #[id number], 178, cm, 11/27/19 14:38:00 EDT, Height, [...] 11/27/19 20:19:00 EDT, Route to Pharmacy Electronically, [facility]/pharmacy #[id number], 178, cm, 11/27/19 14:38:00 EDT, Height, 134, kg, 10/22/19 14:23... Start Date: 11/27/19 Status: Ordered risperiDONE 3 mg oral tablet 3 mg, 1, tablet, By Mouth, 2 times a day, # 60 tablet, Refills 1, Tot. Refills 1, Maintenance, 11/27/19 20:17:00 EDT, [id number] 178, cm, 11/27/19 14:38:00 EDT, Height, 134, kg, 10/22/19 14:23:00 EDT, Dry Weight Start Date: 11/27/19 Status: Ordered risperiDONE 3 mg oral tablet, disintegrating 1 tablet = 3 mg, By Mouth, 2 times a day, # 60 tablet, 0 Refills, Maintenance, 05/06/20 9:29:00 EST, DIS Tablet, [facility]/pharmacy #[id number], Partial fill upon patient request, 178, cm, 11/28/19 8:37:00 EDT, Height, 134, kg, 10/22/19 14:23:00 EDT, Dry Weight Start Date: 05/06/20 Status: Ordered traZODone 50 mg oral tablet 50 mg, 1, tablet, By Mouth, Daily at bedtime, PRN, # 30 tablet, Refills 1, Tot. Refills 1, Maintenance, Sleep, 11/27/19 20:15:00 EDT, Route to Pharmacy Electronically, [facility]/pharmacy #[id number], 178, cm, 11/27/19 14:38:00 EDT, Height, 134, kg, 10/22/19 14:23... Start Date: 11/27/19 Stop Date: 01/26/20 Status: Ordered Zoloft 100 mg oral tablet 1.5 tablet = 150 mg, By Mouth, Daily in AM, # 45 tablet, 1 Refills, Maintenance, 11/27/19 20:15:00 EDT, Tablet, [facility]/pharmacy #[id number], 178, cm, 11/27/19 14:38:00 EDT, Height, 134, kg, 10/22/19 14:23:00 EDT, Dry Weight Start Date: 11/27/19 Stop Date: 01/26/20 Status: Ordered Zoloft 100 mg oral tablet 1.5 tablet = 150 mg, By Mouth, Daily, # 45 tablet, 0 Refills, Maintenance, 05/06/20 9:29:00 EST, Tablet, [facility]/pharmacy #[id number], Partial fill upon patient request, 178, cm, 11/28/19 8:37:00 EDT, Height, 134, kg, 10/22/19 14:23:00 EDT, Dry Weight Start Date: 05/06/20 Stop Date: 06/05/20 Status: Ordered Problem List Condition Confirmation Course Effective Dates Status Health St atus Informant Acne Confirmed Active Obesity Confirmed Active Encounter for preventive health examination Confirmed Active Major depressive disorder, single episode, severe with anxious distress Confirmed Active Shoulder sprain Confirmed Active visit for: well child visit Confirmed Active Vital Signs Most recent to oldest [Reference Range]: 1 2 3 Oxygen Saturation [94-100 %] 100 % (08/02/22 5:58 AM) 97 % (08/02/22 12:14 AM) 95 % (08/01/22 1:00 PM) Pulse Rate [55-90 bpm] 73 bpm (08/02/22 5:58 AM) 78 bpm (08/02/22 12:14 AM) 79 bpm (08/01/22 1:00 PM) Blood Pressure [90-138/55-84 mm Hg] 132/55mm Hg (08/02/22 5:58 AM) 137/58mm Hg (08/02/22 12:14 AM) 144/71mm Hg *H* (08/01/22 1:00 PM) Respiratory Rate [16-30 br/min] 18 br/min (08/02/22 5:58 AM) 15 br/min *L* (08/02/22 12:14 AM) 18 br/min (08/01/22 1:00 PM) Temperature [96.8-100.4 DegF] 98.2 DegF (08/02/22 5:58 AM) 98.4 DegF (08/02/22 12:14 AM) 98.4 DegF (08/01/22 1:00 PM) Mode of Delivery (Oxygen) Room air (08/02/22 5:58 AM) Room air (08/02/22 12:14 AM) Room air (08/01/22 1:00 PM) Blood pressure sites Arm, left (08/02/22 5:58 AM) Arm, right (08/01/22 6:52 AM) Arm, right (07/31/22 3:21 PM) Temperature Route Oral (08/02/22 5:58 AM) Oral (08/02/22 12:14 AM) Oral (08/01/22 1:00 PM) Social History Social History Type Response Smoking Status Never smoker entered on: 07/09/15 Sex Patient Care team information Care Team Personnel Name: Thaddeus Mchugh RN Position: [facility] SN RN Member Role: Primary Care Nurse Name: Jeny Mccallum RN Position: [facility] RN Member Role: Primary Care Nurse Name: Not on Staff, PCP Position: [facility] Physician (General Medicine) Member Role: PCP Name: Caryl Guzmán RN Position: [facility] RN Member Role: Primary Care Nurse Name: *[facility], ED Attending Position: [facility] ED Attendings Patient Name: Jose Roberto Goodman MD Position: [facility] ED Medicine MD Member Role: Admitting Physician Address: Address: [address] [place] [address] [place] [address] Name: Dominique Germain RN Position: [facility] ED RN W/OE and Tasks Member Role: Patient Care Provider Care Team Related Persons Name: MITALI SMALLS Address: [address] [address]
--- NOTE | 2022-09-12 20:14 | MHC.EDTECH ---
PT refused lab draw. Stated another time. He had just been attempts x2 by another tech.
--- NOTE | 2022-09-12 21:09 | ED_ITS ---
HPI - Psych General Chief Complaint: Psychiatric Symptoms Stated Complaint: section 12 SI Time Seen by Provider: 09/12/22 18:57 Source: patient and EMS Mode of arrival: EMS Limitations: other (Vague historian) History of Present Illness HPI Narrative: 27-year-old male presents from residential with suicidal ideation with plan to stab himself her EMS. When patient arrives he arrives on a section 12. When I evaluated patient he tells me does not know why he is here. He tells me he feels depressed and misses his family. Denies drugs, alcohol tobacco. Denies visual, auditory and tactile hallucinations. No medical complaints. Vague historian. Related Data Home Medications Medication Instructions Recorded Confirmed atomoxetine 40 mg capsule 40 mg PO QAM attention deficit 09/12/22 09/12/22 hyperactivity disorder fluoxetine 20 mg capsule 20 mg PO DAILY 09/12/22 09/12/22 olanzapine 20 mg tablet 20 mg PO BEDTIME 09/12/22 09/12/22 propranolol 10 mg tablet 10 mg PO BID 09/12/22 09/12/22 Previous Rx's Medication Instructions Recorded multivitamin (Daily-Jennifer tablet) 1 tab PO DAILY 30 days #30 tabs 05/06/21 nicotine (polacrilex) 2 mg gum 4 mg buccal Q2H PRN Nicotine 05/06/21 Cravings 30 days #180 ea Allergies Allergy/AdvReac Type Severity Reaction Status Date / Time No Known Allergies Allergy Verified 03/24/21 17:28 Review of Systems Review of Systems: Was Constitutional : No Weight loss, No Fever, No Chills, No Fatigue, No Malaise ENT/Mouth : No sore throat, No Rhinorrhea Eyes: No Eye Pain, No Swelling, No Redness Cardiovascular : No Chest Pain, No SOB, No Dyspnea on Exertion, No Orthopnea, No Edema, No Palpitations Respiratory : No Cough, No Sputum, No Wheezing Gastrointestinal : No Nausea, No Vomiting, No Diarrhea, No Constipation, No abdominal Pain, No Hematochezia, No Melena Genitourinary : No Dysuria, No Urinary Frequency, No Hematuria, Musculoskeletal : No joint pain, No Myalgias, No Joint Swelling Skin : No Skin Lesions, No rash Neuro : No Weakness, No Numbness, No Dizziness, No Headache Psych : No Anxiety/Panic, + Depression, + SI and HI All other systems reviewed and are negative Yes all other systems are reviewed and are negative [facility] Past Medical History Medical History (Updated 09/12/22 @ 21:13 by LINDA Vann) Anxiety disorder Depressive disorder GERD (gastroesophageal reflux disease) Surgical History (Updated 03/29/21 @ 17:10 by Zuleika Pendleton NP) H/O heart surgery H/O wrist surgery Social History Social History Household Members: Other Household Members Other:: residential Housing: Other Housing Other:: residential Do you presently have visiting nurse or other home services: No Patient Tobacco Use Status: Former Tobacco user Quit Date: 1 year ago Tobacco use type: Cigarette Advance Directives: No Advance Directives Information Provided: No service: No Sexual orientation: Don't Know Physical Exam Vital Signs: Vital Signs: Last Vital Signs Temp 98 F 09/12/22 18:51 Pulse 84 09/12/22 18:51 Resp 16 09/12/22 18:51 BP 154/93 H 09/12/22 18:51 Pulse Ox 96 09/12/22 18:51 O2 Del Method Room Air 09/12/22 18:51 BMI result Body Mass Index 44.6 Vital signs Appearance: Alert.? Oriented X3.? No acute distress.? Head: Normocephalic, atraumatic, no step-offs or deformities Eyes: Pupils equal, round and reactive to light.? CVS: Normal heart rate and rhythm.? Pulses normal.? Respiratory: No respiratory distress.? Breath sounds normal.? Abdomen: Soft and nontender.? Skin: Skin warm and dry.? Normal skin color.? Normal skin turgor.? Extremities: No lower extremity edema.? No calf ttp. 5/5 strength to bilateral upper and lower extremities Neuro: Oriented X 3.? No motor deficit.? No sensory deficit. CN 2-12 intact Course Reevaluation(s) Reevaluation #1: CBC with chronically elevated white blood cell count, no signs of infection, no medical complaints unlikely bacterial in nature. Chemistry unremarkable . Toxicology negative. COVID negative. Patient patient bed search per [facility]. Will place in observation to allow more time for placement. Patient common cooperative no acute distress will continue to monitor. Time: 21:13 Medical Decision Making Medical Decision Making MDM Narrative: 2030 27-year-old male presents depression, made suicidal comments that residential with plan to stab himself. Denying this to this PA at this time arrives on a section 12. Physical exam benign. Flat affect. Concerns for anxiety, depression. Other differentials include bipolar disorder versus schizophrenia. Unlikely metabolic disturbances Plan medical clearance evaluation by behavioral health team Differential Diagnosis Differential Diagnoses: The differential diagnosis associated with the presentation includes Concerns for anxiety, depression. Other differentials include bipolar disorder versus schizophrenia. Unlikely metabolic disturbances Admission/Observation Consideration of admission/observation: Escalation of care including admission/observation considered Likely Lab Data MDM Lab Attestation statement: I reviewed the patient's lab results. Labs: Lab Results 09/12/22 09/12/22 09/12/22 Range/Units 19:21 19:21 19:21 Urine Color Yellow Urine Appearance Clear Urine pH 5.5 (5.0-9.0) Ur Specific [place] 1.020 (1.005-1.025) Urine Protein Negative (Neg-Trace) mg/dL Urine Glucose (UA) Negative (Negative) mg/dL Urine Ketones Trace (Negative) mg/dL Urine Blood Negative (Negative) Urine Nitrite Negative (Negative) Ur Leukocyte Esterase Trace H (Negative) Urine RBC 0-2 (0-2) /HPF Urine WBC 0-5 (0-5) /HPF Ur Squamous Epith Cells 0-2 (0-2) /HPF Urine Bacteria None Seen (None Seen) Hyaline Casts 3-5 (0-2) /LPF Urine Opiates Screen Not Detected (Not Detect) Urine Fentanyl Screen Not Detected (Not Detect) Ur Barbiturates Screen Not Detected (Not Detect) Ur Phencyclidine Scrn Not Detected (Not Detect) Ur Amphetamines Screen Not Detected (Not Detect) U Benzodiazepines Scrn Not Detected (Not Detect) Urine Cocaine Screen Not Detected (Not Detect) U Marijuana (THC) Screen Not Detected (Not Detect) COVID-19 (RONI) Negative (Negative) COVID-19 Clin Com See Note Core Measures AMI core measures followed: Yes Measure exclusions: not indicated Critical Care Time Critical Care Time Critical Care Time: No Discharge Plan Discharge Clinical Impression: Suicidal ideation, Depression Patient Disposition: Still a Patient Prescriptions: No Action multivitamin [Daily-Jennifer] Tablet 1 tab PO DAILY 30 Days Qty: 30 0RF nicotine (polacrilex) 2 mg Gum 4 mg buccal Q2H PRN (Reason: Nicotine Cravings) 30 Days Qty: 180 0RF propranolol 10 mg tablet 10 mg PO BID fluoxetine 20 mg capsule 20 mg PO DAILY olanzapine 20 mg tablet 20 mg PO BEDTIME atomoxetine 40 mg capsule 40 mg PO QAM
--- NOTE | 2022-09-12 22:57 | PC.NURSE ---
Patient blood draw failed one and refused twice, patient's disposition is section 12 inpatient bed search per [facility], patient is pre-accepted to [facility] pending medical clearance, med rec completed/pending provider's approval, VSS, behavior non concerning, will continue to monitor.
[2022-09-13 01:17] LABS: MANUAL DIFF FLAG NO
[2022-09-13 01:18] LABS: Basophils Absolute Auto 0.1 X10*3/uL (0.0-0.2); Basophils Percent Auto 0.7 % (0-2); Eosinophils Absolute Auto 0.2 X10*3/uL (0.0-0.4); Eosinophils Percent Auto 2.1 % (0-4); Hematocrit 48.8 % (42.0-52.0); Hemoglobin 16.2 g/dl (14.0-18.0); Imm Gran Abs Auto 0.06 X10*3/uL (0.00-0.03); Imm Gran Pct Auto 0.6 % (0.0-0.4); Lymphocytes Absolute Auto 3.8 X10*3/uL (1.2-4.9); Lymphocytes Percent Auto 38.7 % (20-40); Mean Corpuscular HGB Conc 33.2 g/dl (31.0-36.0); Mean Corpuscular Hemoglobin 28.1 pg (27.0-33.0); Mean Corpuscular Volume 84.6 fL (80.0-98.0); Mean Platelet Volume 9.9 fL (9.4-12.4); Monocytes Absolute Auto 0.9 X10*3/uL (0.1-1.2); Monocytes Percent Auto 8.7 % (2-11); Neutrophils Absolute Auto 4.8 x10*3/uL (2.0-8.3); Neutrophils Percent Auto 49.2 % (45-73); Platelet Count 227 X10*3/uL (160-400); Red Blood Count 5.77 X10*6/uL (4.60-5.80); Red Cell Distribution Width 12.7 % (11.0-16.0); White Blood Count 9.8 X10*3/uL (4.8-10.8)
[2022-09-13 02:43] LABS: Lithium < 0.10 mmol/L (0.60-1.20)
[2022-09-13 02:47] LABS: Ethanol < 10 mg/dL
[2022-09-13 02:59] LABS: Alanine Aminotransferase 100 U/L (0-40); Albumin Level 4.2 g/dL (3.5-5.0); Alkaline Phosphatase 64 U/L (39-117); Anion Gap 15 (12-20); Aspartate Amino Transferase 37 U/L (5-37); Bilirubin Total 0.8 mg/dL (0.0-1.0); Blood Urea Nitrogen 8 mg/dL (9-16); Calcium 9.4 mg/dL (8.4-10.2); Carbon Dioxide 26 mmol/L (22-29); Chloride 105 mmol/L (96-108); Creatinine Clr Calc Pharmacy 179.6; Estimated Glomerular Filt Rate > 60; Glucose Random 83 mg/dL (60-115); Potassium 4.5 mmol/L (3.3-5.1); Sodium 141 mmol/L (135-145); Total Protein 6.5 g/dL (6.5-8.0)
[2022-09-13 05:45] VITALS: BP 147/83; PULSE 74; RESP 16; TEMP 36.6; O2SAT 97
--- NOTE | 2022-09-13 07:16 | PC.NURSE ---
patient appears to remain asleep at present respirations are even and unlabored patient appears in no distress
[2022-09-13 19:30] VITALS: BP 149/95; PULSE 101; TEMP 36.2; O2SAT 95
[2022-09-13 19:40] VITALS: BP 149/95; PULSE 101; TEMP 36.2; O2SAT 95
[2022-09-13 21:07] VITALS: BP 174/105; PULSE 80
[2022-09-13] MEDS: traZODone HCL 50 MG TABLET PO (21:17)
[2022-09-13] MEDS: Propranolol HCL 10 MG TABLET PO (21:17)
[2022-09-13] MEDS: OLANZapine 10 MG TABLET 20 MG PO (21:17)
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
[2022-09-14] MEDS: Multivitamin TABLET 1 TAB PO (08:35)
[2022-09-14] MEDS: Propranolol HCL 10 MG TABLET PO ×2 (08:35→21:04)
[2022-09-14] MEDS: FLUoxetine HCl 20 MG CAPSULE PO (08:35)
[2022-09-14 08:41] VITALS: BP 138/71; PULSE 74; RESP 18; TEMP 36.1; O2SAT 97
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
[2022-09-14 18:00] VITALS: BP 136/82; PULSE 77; RESP 20
[2022-09-14] MEDS: OLANZapine 10 MG TABLET 20 MG PO (21:03)
[2022-09-14] MEDS: traZODone HCL 50 MG TABLET PO (21:10)
[2022-09-15] MEDS: Propranolol HCL 10 MG TABLET PO ×2 (08:28→19:36)
[2022-09-15] MEDS: FLUoxetine HCl 20 MG CAPSULE PO (08:28)
[2022-09-15] MEDS: Multivitamin TABLET 1 TAB PO (08:29)
[2022-09-15 08:32] VITALS: BP 117/70; PULSE 51; RESP 16; TEMP 36.9; O2SAT 96
[2022-09-15 19:35] VITALS: BP 140/77; PULSE 81
[2022-09-15] MEDS: traZODone HCL 50 MG TABLET PO (19:36)
[2022-09-15] MEDS: OLANZapine 10 MG TABLET 20 MG PO (19:36)
[2022-09-16] MEDS: FLUoxetine HCl 20 MG CAPSULE PO (08:35)
[2022-09-16] MEDS: Multivitamin TABLET 1 TAB PO (08:47)
[2022-09-16 08:51] VITALS: BP 103/63; PULSE 53; RESP 16; TEMP 36.2; O2SAT 96
[2022-09-16 15:58] VITALS: BP 152/76; PULSE 84
[2022-09-16 19:40] VITALS: BP 132/95; PULSE 90
[2022-09-16] MEDS: OLANZapine 10 MG TABLET 20 MG PO (19:41)
[2022-09-16] MEDS: Propranolol HCL 10 MG TABLET PO (19:41)
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
[2022-09-17 08:09] VITALS: BP 135/71; PULSE 58; RESP 16; TEMP 36.8; O2SAT 95
[2022-09-17] MEDS: Multivitamin TABLET 1 TAB PO (08:15)
[2022-09-17] MEDS: FLUoxetine HCl 20 MG CAPSULE PO (08:15)
[2022-09-17 16:22] VITALS: BP 135/71; PULSE 75
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
[2022-09-17] MEDS: traZODone HCL 50 MG TABLET PO (19:51)
[2022-09-17] MEDS: Propranolol HCL 10 MG TABLET PO (19:51)
[2022-09-17] MEDS: OLANZapine 10 MG TABLET 20 MG PO (19:51)
[2022-09-18 08:06] VITALS: BP 127/76; PULSE 50; RESP 16; TEMP 36.7; O2SAT 95
[2022-09-18] MEDS: Multivitamin TABLET 1 TAB PO (08:39)
[2022-09-18] MEDS: FLUoxetine HCl 20 MG CAPSULE PO (08:39)
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
[2022-09-18 20:12] VITALS: RESP 16; TEMP 36.2
[2022-09-19 10:20] VITALS: BP 139/68; PULSE 97; RESP 16; TEMP 36.1; O2SAT 98
[2022-09-19] MEDS: Propranolol HCL 10 MG TABLET PO (10:39)
[2022-09-19] MEDS: Multivitamin TABLET 1 TAB PO (10:39)
[2022-09-19] MEDS: FLUoxetine HCl 20 MG CAPSULE PO (10:39)
[2022-09-19 18:00] VITALS: RESP 16
--- NOTE | 2022-09-19 19:15 | HO.PSYCHPN ---
Subjective Subjective Date of Service: 09/19/22 Reason For Visit: SI Subjective Notes: Conditional Voluntary Healthcare Proxy: No Guardianship: No Medical Problems Affecting Mental Status: No Interim History: Pt lying horizontally over his bed with hand gestures and some soft singing. Denies current report of sx. I suppose I should talk more with others. Encouraged group work, encouraged milieu involvement. Some med refusal. Pt has no specific rationale for this Medication Compliance: Intermittent Side effects from medications: No Attending Groups: No Review of Systems Acute medical concerns: No Medical Review of Systems: unchanged Mental Status Exam Mental Status Exam Patient Appearance: Fatigued Patient Orientation: Person, Place, Time and Situation Level of Consciousness: Alert Patient Behavior: Cooperative, Fatigued, Distractible and Good Eye Contact Mood Description: Withdrawn Affect Description: Withdrawn Patient Cognition Impaired: No Ability to Follow Directions: Fair Speech Pattern: Spontaneous Speech Memory Description: Episodic Impaired Hallucinations: Auditory Delusions: Paranoid Ideation and Present Perceptual Disturbances: Derealization Thought Process: Distracted Thought Content: positive for Suicidal Ideation (denies) Depressive Symptoms: Increased Fatigue, Loss of Energy and Difficulty Concentrating Judgement: Fair Diagnostics Vital Signs (24Hr): Vital Signs - 24 hr 09/18/22 20:12 09/19/22 10:20 Temperature 97.2 F 97.0 F Pulse Rate 97 Respiratory Rate 16 16 Blood Pressure 139/68 Pulse Oximetry 98 Oxygen Delivery Method Room Air BMI result Body Mass Index 44.6 Labs 09/13/22 01:12 09/13/22 01:12 Medications Medications Current Medications Acetaminophen (Acetaminophen 325 Mg Tablet) 650 mg PO Q6H PRN PRN Reason: Headache/Pain Mild Scale (1-3) Al Hydroxide/Mg Hydroxide (Magnesium Hydrox/Alum Hydrox 30 Ml Oral.Susp) 30 ml PO Q6H PRN PRN Reason: Heartburn/Nausea Fluoxetine HCl (Fluoxetine Hcl 20 Mg Capsule) 20 mg PO DAILY [facility] Last Admin: 09/19/22 10:39 Dose: 20 mg Hydroxyzine HCl (Hydroxyzine Hcl 25 Mg Tablet) 25 mg PO Q6H PRN PRN Reason: Anxiety Magnesium Hydroxide (Milk Of Magnesia 30 Ml Oral.Susp) 30 ml PO DAILY PRN PRN Reason: Constipation Multivitamins/Vitamin C (Multivitamin Tablet) 1 tab PO DAILY [facility] Last Admin: 09/19/22 10:39 Dose: 1 tab Nicotine Polacrilex (Nicotine Polacrilex 2 Mg Gum) 4 mg BUCCAL Q2H PRN PRN Reason: Nicotine Cravings Olanzapine (Olanzapine 10 Mg Tablet) 20 mg PO BEDTIME [facility] Last Admin: 09/18/22 20:30 Dose: Not Given Propranolol HCl (Propranolol Hcl 10 Mg Tablet) 10 mg PO BID [facility]; Protocol Last Admin: 09/19/22 10:39 Dose: 10 mg Trazodone HCl (Trazodone Hcl 50 Mg Tablet) 50 mg PO BEDTIME MRX1 PRN PRN Reason: Insomnia Last Admin: 09/17/22 19:51 Dose: 50 mg Allergies Allergies Allergy/AdvReac Type Severity Reaction Status Date / Time No Known Allergies Allergy Verified 03/24/21 17:28 Assessment & Plan Assessment & Plan (1) Schizoaffective disorder, bipolar type: Status: Acute Code(s): F25.0 - Schizoaffective disorder, bipolar type Plan Mr. Bauer is a 27 year-old male with hx of schizoaffective disorder who self presented to [facility] ED reporting suicidal ideation with plan to stab himself on the heart, which he has done in the past back in 2016. Per [facility] crisis report, pt minimally engaged and most collateral information provided by his mother and [facility] worker who expressed concern about pt's ability to care for himself and suicidal reports. This life underwriter attempted several times to speak with pt,however, pt in bed, declined to speak with this life underwriter. PLAN 1. Admit to M5, cv 15 minutes checks 2. continue current medications 3. aftercare planning. 09/19/22- Continue current plan. Encourage milieu involvement Patient educated on: therapeutic strategies Informed Consent: further education needed Reason for contiued inpatient stay Substantial Risk for: rapid decompensation Time Spent With Patient Time: Total time managing care of this patient today ____ minutes.
[2022-09-20 06:00] VITALS: BP 120/73; PULSE 60; TEMP 36; O2SAT 98
[2022-09-20] MEDS: Propranolol HCL 10 MG TABLET PO ×2 (09:09→21:05)
[2022-09-20] MEDS: FLUoxetine HCl 20 MG CAPSULE PO (09:10)
[2022-09-20] MEDS: Multivitamin TABLET 1 TAB PO (09:10)
--- NOTE | 2022-09-20 15:41 | HO.PSYCHPN ---
Subjective Subjective Date of Service: 09/20/22 Reason For Visit: SI Subjective Notes: Conditional Voluntary Healthcare Proxy: No Guardianship: No Medical Problems Affecting Mental Status: No Interim History: More visable in milieu today, however presents as shy, avoidant, not really wanting to interact with others much of the time. Denies sx, spontaneous smiles-possibly responding to internal stimuli. Denies current concerns Medication Compliance: Yes Side effects from medications: No Attending Groups: No Review of Systems Acute medical concerns: No Medical Review of Systems: unchanged Mental Status Exam Mental Status Exam Patient Appearance: Fatigued Patient Orientation: Person, Place, Time and Situation Level of Consciousness: Alert Patient Behavior: Cooperative, Fatigued, Distractible and Good Eye Contact Mood Description: Withdrawn Affect Description: Withdrawn Patient Cognition Impaired: No Ability to Follow Directions: Fair Speech Pattern: Spontaneous Speech Memory Description: Episodic Impaired Hallucinations: Auditory Delusions: Paranoid Ideation and Present Perceptual Disturbances: Derealization Thought Process: Distracted Thought Content: positive for Suicidal Ideation (denies) Depressive Symptoms: Increased Fatigue, Loss of Energy and Difficulty Concentrating Judgement: Fair Diagnostics Vital Signs (24Hr): Vital Signs - 24 hr 09/19/22 18:00 09/20/22 06:00 Temperature 96.8 F Pulse Rate 60 Respiratory Rate 16 Blood Pressure 120/73 Pulse Oximetry 98 Oxygen Delivery Method Room Air BMI result Body Mass Index 44.6 Labs 09/13/22 01:12 09/13/22 01:12 Medications Medications Current Medications Acetaminophen (Acetaminophen 325 Mg Tablet) 650 mg PO Q6H PRN PRN Reason: Headache/Pain Mild Scale (1-3) Al Hydroxide/Mg Hydroxide (Magnesium Hydrox/Alum Hydrox 30 Ml Oral.Susp) 30 ml PO Q6H PRN PRN Reason: Heartburn/Nausea Fluoxetine HCl (Fluoxetine Hcl 20 Mg Capsule) 20 mg PO DAILY [facility] Last Admin: 09/20/22 09:10 Dose: 20 mg Hydroxyzine HCl (Hydroxyzine Hcl 25 Mg Tablet) 25 mg PO Q6H PRN PRN Reason: Anxiety Magnesium Hydroxide (Milk Of Magnesia 30 Ml Oral.Susp) 30 ml PO DAILY PRN PRN Reason: Constipation Multivitamins/Vitamin C (Multivitamin Tablet) 1 tab PO DAILY [facility] Last Admin: 09/20/22 09:10 Dose: 1 tab Nicotine Polacrilex (Nicotine Polacrilex 2 Mg Gum) 4 mg BUCCAL Q2H PRN PRN Reason: Nicotine Cravings Olanzapine (Olanzapine 10 Mg Tablet) 20 mg PO BEDTIME [facility] Last Admin: 09/19/22 21:46 Dose: Not Given Propranolol HCl (Propranolol Hcl 10 Mg Tablet) 10 mg PO BID [facility]; Protocol Last Admin: 09/20/22 09:09 Dose: 10 mg Trazodone HCl (Trazodone Hcl 50 Mg Tablet) 50 mg PO BEDTIME [facility]X1 PRN PRN Reason: Insomnia Last Admin: 09/17/22 19:51 Dose: 50 mg Allergies Allergies Allergy/AdvReac Type Severity Reaction Status Date / Time No Known Allergies Allergy Verified 03/24/21 17:28 Assessment & Plan Assessment & Plan (1) Schizoaffective disorder, bipolar type: Status: Acute Code(s): F25.0 - Schizoaffective disorder, bipolar type Plan Mr. Bauer is a 27 year-old male with hx of schizoaffective disorder who self presented to [facility] reporting suicidal ideation with plan to stab himself on the heart, which he has done in the past back in 2016. Per [facility] crisis report, pt minimally engaged and most collateral information provided by his mother and [facility] worker who expressed concern about pt's ability to care for himself and suicidal reports. This singer songwriter attempted several times to speak with pt,however, pt in bed, declined to speak with this singer songwriter. PLAN 1. Admit to M5, cv 15 minutes checks 2. continue current medications 3. aftercare planning. 09/19/22- Continue current plan. Encourage milieu involvement 09/20/22- Attempt alliance Patient educated on: therapeutic strategies Informed Consent: further education needed Reason for contiued inpatient stay Substantial Risk for: rapid decompensation Time Spent With Patient Time: Total time managing care of this patient today ____ minutes.
[2022-09-20 17:14] VITALS: BP 152/84; PULSE 96; TEMP 35.6; O2SAT 93
[2022-09-20 21:02] VITALS: BP 139/61; PULSE 77
[2022-09-20] MEDS: OLANZapine 10 MG TABLET 20 MG PO (21:05)
[2022-09-20] MEDS: traZODone HCL 50 MG TABLET PO (21:05)
[2022-09-21 09:55] VITALS: BP 127/76; PULSE 113; TEMP 36.3; O2SAT 97
[2022-09-21] MEDS: FLUoxetine HCl 20 MG CAPSULE PO (10:00)
[2022-09-21] MEDS: Multivitamin TABLET 1 TAB PO (10:00)
[2022-09-21] MEDS: Propranolol HCL 10 MG TABLET PO (10:00)
--- NOTE | 2022-09-21 11:37 | P.PNPSI_ITS ---
Subjective Subjective Date of Service: 09/21/22 Reason For Visit: SI Subjective Notes: Conditional Voluntary Healthcare Proxy: No Guardianship: No Medical Problems Affecting Mental Status: No Interim History: Minimal communication-doing word search puzzles in his room. Does not make eye contact or interrupt his activity to talk. Denies sx, asks increase Trazodone to 275 mg told pt we would not be doing this and rationale. Meaasge left for pt's mother to receive her input. Medication Compliance: Yes Side effects from medications: No Attending Groups: No Review of Systems Acute medical concerns: No Medical Review of Systems: unchanged Mental Status Exam Mental Status Exam Patient Appearance: Fatigued Patient Orientation: Person, Place, Time and Situation Level of Consciousness: Alert Patient Behavior: Cooperative, Fatigued, Distractible and Good Eye Contact Mood Description: Withdrawn Affect Description: Withdrawn Patient Cognition Impaired: No Ability to Follow Directions: Fair Speech Pattern: Spontaneous Speech Memory Description: Episodic Impaired Hallucinations: Auditory Delusions: Paranoid Ideation and Present Perceptual Disturbances: Derealization Thought Process: Distracted Thought Content: positive for Suicidal Ideation (denies) Depressive Symptoms: Increased Fatigue, Loss of Energy and Difficulty Concentrating Judgement: Fair Diagnostics Vital Signs (24Hr): Vital Signs - 24 hr 09/20/22 17:14 09/20/22 21:02 09/21/22 09:55 Temperature 96.0 F L 97.4 F Pulse Rate 96 77 113 H Blood Pressure 152/84 H 139/61 127/76 Pulse Oximetry 93 97 Oxygen Delivery Method Room Air Room Air BMI result Body Mass Index 44.6 Labs 09/13/22 01:12 09/13/22 01:12 Medications Medications Current Medications Acetaminophen (Acetaminophen 325 Mg Tablet) 650 mg PO Q6H PRN PRN Reason: Headache/Pain Mild Scale (1-3) Al Hydroxide/Mg Hydroxide (Magnesium Hydrox/Alum Hydrox 30 Ml Oral.Susp) 30 ml PO Q6H PRN PRN Reason: Heartburn/Nausea Fluoxetine HCl (Fluoxetine Hcl 20 Mg Capsule) 20 mg PO DAILY [facility] Last Admin: 09/21/22 10:00 Dose: 20 mg Hydroxyzine HCl (Hydroxyzine Hcl 25 Mg Tablet) 25 mg PO Q6H PRN PRN Reason: Anxiety Magnesium Hydroxide (Milk Of Magnesia 30 Ml Oral.Susp) 30 ml PO DAILY PRN PRN Reason: Constipation Multivitamins/Vitamin C (Multivitamin Tablet) 1 tab PO DAILY [facility] Last Admin: 09/21/22 10:00 Dose: 1 tab Nicotine Polacrilex (Nicotine Polacrilex 2 Mg Gum) 4 mg BUCCAL Q2H PRN PRN Reason: Nicotine Cravings Olanzapine (Olanzapine 10 Mg Tablet) 20 mg PO BEDTIME [facility] Last Admin: 09/20/22 21:05 Dose: 20 mg Propranolol HCl (Propranolol Hcl 10 Mg Tablet) 10 mg PO BID [facility]; Protocol Last Admin: 09/21/22 10:00 Dose: 10 mg Trazodone HCl (Trazodone Hcl 50 Mg Tablet) 50 mg PO BEDTIME MRX1 PRN PRN Reason: Insomnia Last Admin: 09/20/22 21:05 Dose: 50 mg Allergies Allergies Allergy/AdvReac Type Severity Reaction Status Date / Time No Known Allergies Allergy Verified 03/24/21 17:28 Assessment & Plan Assessment & Plan (1) Schizoaffective disorder, bipolar type: Status: Acute Code(s): F25.0 - Schizoaffective disorder, bipolar type Plan Mr. Bauer is a 27 year-old male with hx of schizoaffective disorder who self presented to [facility] reporting suicidal ideation with plan to stab himself on the heart, which he has done in the past back in 2016. Per [facility] crisis report, pt minimally engaged and most collateral information provided by his mother and [facility] worker who expressed concern about pt's ability to care for himself and suicidal reports. This specification writer attempted several times to speak with pt,however, pt in bed, declined to speak with this specification writer. PLAN 1. Admit to M5, cv 15 minutes checks 2. continue current medications 3. aftercare planning. 09/19/22- Continue current plan. Encourage milieu involvement 09/20/22- Attempt alliance 09/21/22- Message left for pt's mother No med changes today. Informed Consent: further education needed Reason for contiued inpatient stay Substantial Risk for: rapid decompensation Time Spent With Patient Time: Total time managing care of this patient today ____ minutes.
[2022-09-21] MEDS: OLANZapine 10 MG TABLET 20 MG PO (21:52)
[2022-09-21] MEDS: traZODone HCL 50 MG TABLET PO (21:52)
--- NOTE | 2022-09-21 23:56 | PC.NURSE ---
Patient refused to let this sign writer letterer or painter obtain his vital signs and stated It's just really too painful.
[2022-09-22] MEDS: Multivitamin TABLET 1 TAB PO (10:06)
[2022-09-22] MEDS: FLUoxetine HCl 20 MG CAPSULE PO (10:06)
--- NOTE | 2022-09-22 14:53 | HO.PSYCHPN ---
Subjective Subjective Date of Service: 09/22/22 Reason For Visit: SI Subjective Notes: Conditional Voluntary Healthcare Proxy: No Guardianship: No Medical Problems Affecting Mental Status: No Interim History: Avoidant, anxious. Denies any symptoms, medicine side effects, I am really good. I don't know why I am here, I guess everyone thought is was my plan. Some activity in milieu, but mostly isolative. Anxious with his social skills-appears to calm with structured activity. Medication Compliance: Yes Side effects from medications: No Attending Groups: Intermittent Review of Systems Acute medical concerns: No Medical Review of Systems: unchanged Mental Status Exam Mental Status Exam Patient Appearance: Fatigued Patient Orientation: Person, Place, Time and Situation Level of Consciousness: Alert Patient Behavior: Cooperative, Fatigued, Distractible and Good Eye Contact Mood Description: Withdrawn Affect Description: Withdrawn Patient Cognition Impaired: No Ability to Follow Directions: Fair Speech Pattern: Spontaneous Speech Memory Description: Episodic Impaired Hallucinations: Auditory Delusions: Paranoid Ideation and Present Perceptual Disturbances: Derealization Thought Process: Distracted Thought Content: positive for Suicidal Ideation (denies) Depressive Symptoms: Increased Fatigue, Loss of Energy and Difficulty Concentrating Judgement: Fair Diagnostics Vital Signs (24Hr): BMI result Body Mass Index 44.6 Labs 09/13/22 01:12 09/13/22 01:12 Medications Medications Current Medications Acetaminophen (Acetaminophen 325 Mg Tablet) 650 mg PO Q6H PRN PRN Reason: Headache/Pain Mild Scale (1-3) Al Hydroxide/Mg Hydroxide (Magnesium Hydrox/Alum Hydrox 30 Ml Oral.Susp) 30 ml PO Q6H PRN PRN Reason: Heartburn/Nausea Fluoxetine HCl (Fluoxetine Hcl 20 Mg Capsule) 20 mg PO DAILY [facility] Last Admin: 09/22/22 10:06 Dose: 20 mg Hydroxyzine HCl (Hydroxyzine Hcl 25 Mg Tablet) 25 mg PO Q6H PRN PRN Reason: Anxiety Magnesium Hydroxide (Milk Of Magnesia 30 Ml Oral.Susp) 30 ml PO DAILY PRN PRN Reason: Constipation Multivitamins/Vitamin C (Multivitamin Tablet) 1 tab PO DAILY [facility] Last Admin: 09/22/22 10:06 Dose: 1 tab Nicotine Polacrilex (Nicotine Polacrilex 2 Mg Gum) 4 mg BUCCAL Q2H PRN PRN Reason: Nicotine Cravings Olanzapine (Olanzapine 10 Mg Tablet) 20 mg PO BEDTIME [facility] Last Admin: 09/21/22 21:52 Dose: 20 mg Propranolol HCl (Propranolol Hcl 10 Mg Tablet) 10 mg PO BID [facility]; Protocol Last Admin: 09/22/22 10:08 Dose: Not Given Trazodone HCl (Trazodone Hcl 50 Mg Tablet) 50 mg PO BEDTIME MRX1 PRN PRN Reason: Insomnia Last Admin: 09/21/22 21:52 Dose: 50 mg Allergies Allergies Allergy/AdvReac Type Severity Reaction Status Date / Time No Known Allergies Allergy Verified 03/24/21 17:28 Assessment & Plan Assessment & Plan (1) Schizoaffective disorder, bipolar type: Status: Acute Code(s): F25.0 - Schizoaffective disorder, bipolar type Plan Mr. Bauer is a 27 year-old male with hx of schizoaffective disorder who self presented to [facility] reporting suicidal ideation with plan to stab himself on the heart, which he has done in the past back in 2016. Per [facility] crisis report, pt minimally engaged and most collateral information provided by his mother and [facility] worker who expressed concern about pt's ability to care for himself and suicidal reports. This underwriter solicitation director attempted several times to speak with pt,however, pt in bed, declined to speak with this underwriter solicitation director. PLAN 1. Admit to M5, cv 15 minutes checks 2. continue current medications 3. aftercare planning. 09/19/22- Continue current plan. Encourage milieu involvement 09/20/22- Attempt alliance 09/21/22- Message left for pt's mother No med changes today. 09/22/22- Continue current regime Team assisting pt is correction application, however he is ambivalent Family meeting 09/23. Patient educated on: therapeutic strategies Informed Consent: further education needed Reason for contiued inpatient stay Substantial Risk for: rapid decompensation Time Spent With Patient Time: Total time managing care of this patient today ____ minutes.
[2022-09-22] MEDS: OLANZapine 10 MG TABLET 20 MG PO (20:49)
[2022-09-22 20:55] VITALS: RESP 14
[2022-09-23 06:00] VITALS: BP 98/58; PULSE 80; RESP 14; TEMP 36.5; O2SAT 98
[2022-09-23] MEDS: FLUoxetine HCl 20 MG CAPSULE PO (08:14)
[2022-09-23] MEDS: Multivitamin TABLET 1 TAB PO (08:14)
--- NOTE | 2022-09-23 15:58 | HO.PSYCHPN ---
Subjective Subjective Date of Service: 09/23/22 Reason For Visit: SI Subjective Notes: Conditional Voluntary Interim History: Pt standing in his room, minimally interacting with peers or staff. Pt reports feeling amazing. Pt presents with constricted affect. He denies SI/HI. He states he was not suicidal when he came here, unable to report why he was here. Pt denies VH/AH but appears to present as internally preoccupied. No aggression to self or others, but appears unable to care for himself. Medication Compliance: Yes Side effects from medications: No Review of Systems Review of Systems Was Constitutional : No Weight loss, No Fever, No Chills, No Fatigue, No Malaise ENT/Mouth : No sore throat, No Rhinorrhea Eyes: No Eye Pain, No Swelling, No Redness Cardiovascular : No Chest Pain, No SOB, No Dyspnea on Exertion, No Orthopnea, No Edema, No Palpitations Respiratory : No Cough, No Sputum, No Wheezing Gastrointestinal : No Nausea, No Vomiting, No Diarrhea, No Constipation, No abdominal Pain, No Hematochezia, No Melena Genitourinary : No Dysuria, No Urinary Frequency, No Hematuria, Musculoskeletal : No joint pain, No Myalgias, No Joint Swelling Skin : No Skin Lesions, No rash Neuro : No Weakness, No Numbness, No Dizziness, No Headache Psych : No Anxiety/Panic, + Depression, + SI and HI All other systems reviewed and are negative Yes all other systems are reviewed and are negative Mental Status Exam Mental Status Exam Patient Appearance: Fatigued Patient Orientation: Person, Place, Time and Situation Level of Consciousness: Alert Patient Behavior: Cooperative, Fatigued, Distractible and Good Eye Contact Mood Description: Withdrawn Affect Description: Withdrawn Patient Cognition Impaired: No Ability to Follow Directions: Fair Speech Pattern: Spontaneous Speech Memory Description: Episodic Impaired Diagnostics Vital Signs (24Hr): Vital Signs - 24 hr 09/22/22 20:55 09/23/22 06:00 Temperature 97.7 F Pulse Rate 80 Respiratory Rate 14 14 Blood Pressure 98/58 L Pulse Oximetry 98 Oxygen Delivery Method Room Air BMI result Body Mass Index 44.6 Labs 09/13/22 01:12 09/13/22 01:12 Medications Medications Current Medications Acetaminophen (Acetaminophen 325 Mg Tablet) 650 mg PO Q6H PRN PRN Reason: Headache/Pain Mild Scale (1-3) Al Hydroxide/Mg Hydroxide (Magnesium Hydrox/Alum Hydrox 30 Ml Oral.Susp) 30 ml PO Q6H PRN PRN Reason: Heartburn/Nausea Fluoxetine HCl (Fluoxetine Hcl 20 Mg Capsule) 20 mg PO DAILY [facility] Last Admin: 09/23/22 08:14 Dose: 20 mg Hydroxyzine HCl (Hydroxyzine Hcl 25 Mg Tablet) 25 mg PO Q6H PRN PRN Reason: Anxiety Magnesium Hydroxide (Milk Of Magnesia 30 Ml Oral.Susp) 30 ml PO DAILY PRN PRN Reason: Constipation Multivitamins/Vitamin C (Multivitamin Tablet) 1 tab PO DAILY [facility] Last Admin: 09/23/22 08:14 Dose: 1 tab Nicotine Polacrilex (Nicotine Polacrilex 2 Mg Gum) 4 mg BUCCAL Q2H PRN PRN Reason: Nicotine Cravings Olanzapine (Olanzapine 10 Mg Tablet) 20 mg PO BEDTIME [facility] Last Admin: 09/22/22 20:49 Dose: 20 mg Propranolol HCl (Propranolol Hcl 10 Mg Tablet) 10 mg PO BID [facility]; Protocol Last Admin: 09/23/22 08:28 Dose: Not Given Trazodone HCl (Trazodone Hcl 50 Mg Tablet) 50 mg PO BEDTIME MRX1 PRN PRN Reason: Insomnia Last Admin: 09/21/22 21:52 Dose: 50 mg Allergies Allergies Allergy/AdvReac Type Severity Reaction Status Date / Time No Known Allergies Allergy Verified 03/24/21 17:28 Assessment & Plan Assessment & Plan (1) Schizoaffective disorder, bipolar type: Status: Acute Code(s): F25.0 - Schizoaffective disorder, bipolar type Plan Mr. Bauer is a 27 year-old male with hx of schizoaffective disorder who self presented to [facility] reporting suicidal ideation with plan to stab himself on the heart, which he has done in the past back in 2016. Per [facility] crisis report, pt minimally engaged and most collateral information provided by his mother and [facility] worker who expressed concern about pt's ability to care for himself and suicidal reports. This commercial real estate underwriter attempted several times to speak with pt,however, pt in bed, declined to speak with this commercial real estate underwriter. PLAN 1. Admit to M5, cv 15 minutes checks 2. continue current medications 3. aftercare planning. 09/19/22- Continue current plan. Encourage milieu involvement 09/20/22- Attempt alliance 09/21/22- Message left for pt's mother No med changes today. 09/22/22- Continue current regime Team assisting pt is senior care application, however he is ambivalent Family meeting 09/23. 09/23 continue tx. Reason for contiued inpatient stay Substantial Risk for: inability to function Time Spent With Patient Time: Total time managing care of this patient today ____ minutes.
[2022-09-23] MEDS: Propranolol HCL 10 MG TABLET PO (22:28)
[2022-09-23] MEDS: traZODone HCL 50 MG TABLET PO (22:29)
[2022-09-23] MEDS: OLANZapine 10 MG TABLET 20 MG PO (22:30)
[2022-09-24 08:06] VITALS: RESP 18
[2022-09-24] MEDS: FLUoxetine HCl 20 MG CAPSULE PO (08:07)
[2022-09-24] MEDS: Multivitamin TABLET 1 TAB PO (08:07)
[2022-09-24 10:00] VITALS: RESP 18
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
[2022-09-24 18:00] VITALS: RESP 16
[2022-09-24] MEDS: traZODone HCL 50 MG TABLET PO (20:33)
[2022-09-24] MEDS: OLANZapine 10 MG TABLET 20 MG PO (20:33)
[2022-09-25] MEDS: FLUoxetine HCl 20 MG CAPSULE PO (08:41)
[2022-09-25] MEDS: Multivitamin TABLET 1 TAB PO (08:42)
--- NOTE | 2022-09-25 10:51 | HO.PSYCHPN ---
Subjective Subjective Date of Service: 09/25/22 Reason For Visit: SI Interim History: Met with patient; discussed with team Patient lying in bed, remains mostly isolative and difficult with which to engage. On approach he says that he is pretty fantastic however he remains with blunted affect and can not explain any reasons why he is doing well. He reiterates however that he is doing pretty good; specifications writer asked about discharge and that case; patient said he is not quite ready yet; he wants to stay and work on a few more things. Roll Changer inquired but he says he just does not want to name them. Patient has been refusing propranolol; specifications writer asked and he agreed to have a discontinued Mental Status Exam Mental Status Exam Narrative: Pt is alert and oriented; behavior is superficially cooperative, calm; patient is not in distress; dressed in casual attire with unkempt, marginal adequate hygiene; mood is described as pretty fantastic however affect blunted; eye contact limited; patient has speech latency; when he talks speech is normal rate, volume and prosody; some psychomotor agitation/retardation present; thought process goal directed but slowed by thought blocking; Thought content is difficult to gauge as patient is vague; does not express any delusional thoughts; denies any SI/HI. Patient internally preoccupied; says auditory hallucinations remain but are less Patients insight and judgment impaired, but improved Diagnostics Vital Signs (24Hr): Vital Signs - 24 hr 09/24/22 18:00 Respiratory Rate 16 BMI result Body Mass Index 44.6 Labs 09/13/22 01:12 09/13/22 01:12 Medications Medications Current Medications Acetaminophen (Acetaminophen 325 Mg Tablet) 650 mg PO Q6H PRN PRN Reason: Headache/Pain Mild Scale (1-3) Al Hydroxide/Mg Hydroxide (Magnesium Hydrox/Alum Hydrox 30 Ml Oral.Susp) 30 ml PO Q6H PRN PRN Reason: Heartburn/Nausea Fluoxetine HCl (Fluoxetine Hcl 20 Mg Capsule) 20 mg PO DAILY [facility] Last Admin: 09/25/22 08:41 Dose: 20 mg Hydroxyzine HCl (Hydroxyzine Hcl 25 Mg Tablet) 25 mg PO Q6H PRN PRN Reason: Anxiety Magnesium Hydroxide (Milk Of Magnesia 30 Ml Oral.Susp) 30 ml PO DAILY PRN PRN Reason: Constipation Multivitamins/Vitamin C (Multivitamin Tablet) 1 tab PO DAILY [facility] Last Admin: 09/25/22 08:42 Dose: 1 tab Nicotine Polacrilex (Nicotine Polacrilex 2 Mg Gum) 4 mg BUCCAL Q2H PRN PRN Reason: Nicotine Cravings Olanzapine (Olanzapine 10 Mg Tablet) 20 mg PO BEDTIME [facility] Last Admin: 09/24/22 20:33 Dose: 20 mg Propranolol HCl (Propranolol Hcl 10 Mg Tablet) 10 mg PO BID [facility]; Protocol Last Admin: 09/25/22 09:06 Dose: Not Given Trazodone HCl (Trazodone Hcl 50 Mg Tablet) 50 mg PO BEDTIME MRX1 PRN PRN Reason: Insomnia Last Admin: 09/24/22 20:33 Dose: 50 mg Allergies Allergies Allergy/AdvReac Type Severity Reaction Status Date / Time No Known Allergies Allergy Verified 03/24/21 17:28 Assessment & Plan Assessment & Plan (1) Schizoaffective disorder, bipolar type: Status: Acute Code(s): F25.0 - Schizoaffective disorder, bipolar type Plan Mr. Bauer is a 27 year-old male with hx of schizoaffective disorder who self [place] [facility] reporting suicidal ideation with plan to stab himself on the heart, which he has done in the past back in 2016. Per [facility] crisis report, pt minimally engaged and most collateral information provided by his mother and [facility] worker who expressed concern about pt's ability to care for himself and suicidal reports. This specifications writer attempted several times to speak with pt,however, pt in bed, declined to speak with this specifications writer. PLAN 1. Admit to M5, cv 15 minutes checks 2. continue current medications 3. aftercare planning. 09/19/22- Continue current plan. Encourage milieu involvement 09/20/22- Attempt alliance 09/21/22- Message left for pt's mother No med changes today. 09/22/22- Continue current regime Team assisting pt is jail application, however he is ambivalent Family meeting 09/23. 09/23 continue tx. 09/24 continue treatment plan 09/25 continue current treatment plan; however will discontinue propranolol since patient refuses and agrees to DC Patient educated on: diagnosis and medication risk/benefits Informed Consent: understands Reason for contiued inpatient stay Substantial Risk for: stable for discharge Time Spent With Patient Time: Total time managing care of this patient today ____ minutes.
[2022-09-25 18:00] VITALS: RESP 16
[2022-09-26] MEDS: FLUoxetine HCl 20 MG CAPSULE PO (09:23)
[2022-09-26] MEDS: Multivitamin TABLET 1 TAB PO (09:23)
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
[2022-09-26 17:07] VITALS: BP 136/77; PULSE 75; TEMP 36.3
[2022-09-26] MEDS: traZODone HCL 50 MG TABLET PO (20:02)
[2022-09-26] MEDS: OLANZapine 10 MG TABLET 20 MG PO (20:02)
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
[2022-09-27 11:20] VITALS: BP 134/84; PULSE 82; RESP 16; TEMP 36.7; O2SAT 96
[2022-09-27] MEDS: Propranolol HCL 10 MG TABLET PO (11:21)
[2022-09-27] MEDS: FLUoxetine HCl 20 MG CAPSULE PO (11:21)
[2022-09-27] MEDS: Multivitamin TABLET 1 TAB PO (11:21)
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
[2022-09-27] MEDS: OLANZapine 10 MG TABLET 20 MG PO (20:26)
[2022-09-27] MEDS: traZODone HCL 50 MG TABLET PO (20:27)
[2022-09-28] MEDS: Multivitamin TABLET 1 TAB PO (08:26)
[2022-09-28] MEDS: Propranolol HCL 10 MG TABLET PO (08:26)
[2022-09-28] MEDS: FLUoxetine HCl 20 MG CAPSULE PO (08:26)
--- NOTE | 2022-09-28 15:10 | HO.PSYCHPN ---
Subjective Subjective Date of Service: 09/28/22 Reason For Visit: SI Subjective Notes: Conditional Voluntary Healthcare Proxy: No Guardianship: No Medical Problems Affecting Mental Status: No Interim History: Flavio reports feeling OK. He denies medication SE. Review of regime. No current questions or concerns. Awaiting transition to detention. Acknowledges some apprehension Overall remains flat, isolative, vague in dialogue. Medication Compliance: Yes Side effects from medications: No Attending Groups: Yes Review of Systems Acute medical concerns: No Medical Review of Systems: unchanged Mental Status Exam Mental Status Exam Patient Appearance: Fatigued Patient Orientation: Person, Place, Time and Situation Level of Consciousness: Alert Patient Behavior: Cooperative, Fatigued, Distractible and Good Eye Contact Mood Description: Withdrawn Affect Description: Withdrawn Patient Cognition Impaired: No Ability to Follow Directions: Fair Speech Pattern: Spontaneous Speech Memory Description: Episodic Impaired Hallucinations: Auditory Delusions: Present Perceptual Disturbances: Derealization Thought Process: Distracted Thought Content: positive for Suicidal Ideation (denies) Depressive Symptoms: Increased Fatigue, Loss of Energy and Difficulty Concentrating Judgement: Fair Diagnostics Vital Signs (24Hr): BMI result Body Mass Index 44.6 Labs 09/13/22 01:12 09/13/22 01:12 Medications Medications Current Medications Acetaminophen (Acetaminophen 325 Mg Tablet) 650 mg PO Q6H PRN PRN Reason: Headache/Pain Mild Scale (1-3) Al Hydroxide/Mg Hydroxide (Magnesium Hydrox/Alum Hydrox 30 Ml Oral.Susp) 30 ml PO Q6H PRN PRN Reason: Heartburn/Nausea Fluoxetine HCl (Fluoxetine Hcl 20 Mg Capsule) 20 mg PO DAILY [facility] Last Admin: 09/28/22 08:26 Dose: 20 mg Hydroxyzine HCl (Hydroxyzine Hcl 25 Mg Tablet) 25 mg PO Q6H PRN PRN Reason: Anxiety Magnesium Hydroxide (Milk Of Magnesia 30 Ml Oral.Susp) 30 ml PO DAILY PRN PRN Reason: Constipation Multivitamins/Vitamin C (Multivitamin Tablet) 1 tab PO DAILY [facility] Last Admin: 09/28/22 08:26 Dose: 1 tab Nicotine Polacrilex (Nicotine Polacrilex 2 Mg Gum) 4 mg BUCCAL Q2H PRN PRN Reason: Nicotine Cravings Olanzapine (Olanzapine 10 Mg Tablet) 20 mg PO BEDTIME [facility] Last Admin: 09/27/22 20:26 Dose: 20 mg Propranolol HCl (Propranolol Hcl 10 Mg Tablet) 10 mg PO BID [facility]; Protocol Last Admin: 09/28/22 08:26 Dose: 10 mg Trazodone HCl (Trazodone Hcl 50 Mg Tablet) 50 mg PO BEDTIME MRX1 PRN PRN Reason: Insomnia Last Admin: 09/27/22 20:27 Dose: 50 mg Allergies Allergies Allergy/AdvReac Type Severity Reaction Status Date / Time No Known Allergies Allergy Verified 03/24/21 17:28 Assessment & Plan Assessment & Plan (1) Schizoaffective disorder, bipolar type: Status: Acute Code(s): F25.0 - Schizoaffective disorder, bipolar type Plan Mr. Bauer is a 27 year-old male with hx of schizoaffective disorder who self presented to [facility] ED reporting suicidal ideation with plan to stab himself on the heart, which he has done in the past back in 2016. Per [facility] crisis report, pt minimally engaged and most collateral information provided by his mother and [facility] worker who expressed concern about pt's ability to care for himself and suicidal reports. This video game script writer attempted several times to speak with pt,however, pt in bed, declined to speak with this video game script writer. PLAN 1. Admit to M5, cv 15 minutes checks 2. continue current medications 3. aftercare planning. 09/19/22- Continue current plan. Encourage milieu involvement 09/20/22- Attempt alliance 09/21/22- Message left for pt's mother No med changes today. 09/22/22- Continue current regime Team assisting pt is detention application, however he is ambivalent Family meeting 09/23. 09/23 continue tx. 09/24 continue treatment plan 09/25 continue current treatment plan; however will discontinue propranolol since patient refuses and agrees to DC 09/26/22 continue current plan. 09/27/22- continue current regime/plan 09/28/22- Continue current plan/regime Patient educated on: medication risk/benefits Informed Consent: further education needed Reason for contiued inpatient stay Substantial Risk for: rapid decompensation Time Spent With Patient Time: Total time managing care of this patient today ____ minutes.
[2022-09-28] MEDS: traZODone HCL 50 MG TABLET PO (20:08)
[2022-09-28] MEDS: OLANZapine 10 MG TABLET 20 MG PO (20:08)
[2022-09-29] MEDS: Multivitamin TABLET 1 TAB PO (08:32)
[2022-09-29] MEDS: FLUoxetine HCl 20 MG CAPSULE PO (08:33)
--- NOTE | 2022-09-29 11:11 | PC.NURSE ---
propanolol held due to pt refusing am vitals
--- NOTE | 2022-09-29 18:02 | HO.PSYCHPN ---
Subjective Subjective Date of Service: 09/29/22 Reason For Visit: SI Subjective Notes: Conditional Voluntary Healthcare Proxy: No Guardianship: No Medical Problems Affecting Mental Status: No Interim History: Pt remains isolative, avoidant, not very talkative with tw today. Working on ADL's. He reports he has a great deal on his mind-worried about shelter transition and if it will be the right thing for him. Team reports pt had refused his a.m. vital signs so propranolol was held. He responds I did not feel like having it done. Medication Compliance: Intermittent Side effects from medications: No Attending Groups: Intermittent Review of Systems Acute medical concerns: No Medical Review of Systems: unchanged Mental Status Exam Mental Status Exam Patient Appearance: Fatigued Patient Orientation: Person, Place, Time and Situation Level of Consciousness: Alert Patient Behavior: Cooperative, Fatigued, Distractible and Good Eye Contact Mood Description: Withdrawn Affect Description: Withdrawn Patient Cognition Impaired: No Ability to Follow Directions: Fair Speech Pattern: Spontaneous Speech Memory Description: Episodic Impaired Hallucinations: Auditory Delusions: Present Perceptual Disturbances: Derealization Thought Process: Distracted Thought Content: positive for Suicidal Ideation (denies) Depressive Symptoms: Increased Fatigue, Loss of Energy and Difficulty Concentrating Judgement: Fair Diagnostics Vital Signs (24Hr): BMI result Body Mass Index 44.6 Labs 09/13/22 01:12 09/13/22 01:12 Medications Medications Current Medications Acetaminophen (Acetaminophen 325 Mg Tablet) 650 mg PO Q6H PRN PRN Reason: Headache/Pain Mild Scale (1-3) Al Hydroxide/Mg Hydroxide (Magnesium Hydrox/Alum Hydrox 30 Ml Oral.Susp) 30 ml PO Q6H PRN PRN Reason: Heartburn/Nausea Fluoxetine HCl (Fluoxetine Hcl 20 Mg Capsule) 20 mg PO DAILY [facility] Last Admin: 09/29/22 08:33 Dose: 20 mg Hydroxyzine HCl (Hydroxyzine Hcl 25 Mg Tablet) 25 mg PO Q6H PRN PRN Reason: Anxiety Magnesium Hydroxide (Milk Of Magnesia 30 Ml Oral.Susp) 30 ml PO DAILY PRN PRN Reason: Constipation Multivitamins/Vitamin C (Multivitamin Tablet) 1 tab PO DAILY [facility] Last Admin: 09/29/22 08:32 Dose: 1 tab Nicotine Polacrilex (Nicotine Polacrilex 2 Mg Gum) 4 mg BUCCAL Q2H PRN PRN Reason: Nicotine Cravings Olanzapine (Olanzapine 10 Mg Tablet) 20 mg PO BEDTIME [facility] Last Admin: 09/28/22 20:08 Dose: 20 mg Propranolol HCl (Propranolol Hcl 10 Mg Tablet) 10 mg PO BID [facility]; Protocol Last Admin: 09/29/22 08:33 Dose: Not Given Trazodone HCl (Trazodone Hcl 50 Mg Tablet) 50 mg PO BEDTIME MRX1 PRN PRN Reason: Insomnia Last Admin: 09/28/22 20:08 Dose: 50 mg Allergies Allergies Allergy/AdvReac Type Severity Reaction Status Date / Time No Known Allergies Allergy Verified 03/24/21 17:28 Assessment & Plan Assessment & Plan (1) Schizoaffective disorder, bipolar type: Status: Acute Code(s): F25.0 - Schizoaffective disorder, bipolar type Plan Mr. Bauer is a 27 year-old male with hx of schizoaffective disorder who self presented to [facility] reporting suicidal ideation with plan to stab himself on the heart, which he has done in the past back in 2016. Per [facility] crisis report, pt minimally engaged and most collateral information provided by his mother and [facility] worker who expressed concern about pt's ability to care for himself and suicidal reports. This check writer attempted several times to speak with pt,however, pt in bed, declined to speak with this check writer. PLAN 1. Admit to M5, cv 15 minutes checks 2. continue current medications 3. aftercare planning. 09/19/22- Continue current plan. Encourage milieu involvement 09/20/22- Attempt alliance 09/21/22- Message left for pt's mother No med changes today. 09/22/22- Continue current regime Team assisting pt is shelter application, however he is ambivalent Family meeting 09/23. 09/23 continue tx. 09/24 continue treatment plan 09/25 continue current treatment plan; however will discontinue propranolol since patient refuses and agrees to DC 09/26/22 continue current plan. 09/27/22- continue current regime/plan 09/28/22- Continue current plan/regime 09/29/22- Encourage discussion/processing his concerns in transition to [facility] program. Informed Consent: understands Reason for contiued inpatient stay Substantial Risk for: rapid decompensation Time Spent With Patient Time: Total time managing care of this patient today ____ minutes.
[2022-09-29] MEDS: OLANZapine 10 MG TABLET 20 MG PO (20:23)
[2022-09-29] MEDS: traZODone HCL 50 MG TABLET PO (20:23)
[2022-09-30 06:00] VITALS: RESP 16
[2022-09-30] MEDS: Multivitamin TABLET 1 TAB PO (08:37)
[2022-09-30] MEDS: FLUoxetine HCl 20 MG CAPSULE PO (08:37)
--- NOTE | 2022-09-30 16:45 | P.PNPSI_ITS ---
Subjective Subjective Date of Service: 09/30/22 Reason For Visit: SI Subjective Notes: Conditional Voluntary Healthcare Proxy: No Guardianship: No Medical Problems Affecting Mental Status: No Interim History: Pt remains withdrawn, flat, guarded. Discussed upcoming long-term opportunity and interventions to help himself to make the transition smooth. Discussed interaction-encouraged pt to utilize milieu and groups to practice social skills and become more familiar with his conversational skill set to strengthen communication. Discussed decrease in activity in milieu-pt reports that ADHD hx contributes to this-difficulty paying attention, focus, concentration. By hx he reports Strattera, Ritalin, unsure if he has had an Adderall trial-will trial low dose Ritalin to assess ability to become more engaged in milieu prior to residential transfer. Pt agrees, stating he will try. Discussed increase in antidepressant-pt believes this will help as well. Medication Compliance: Yes Side effects from medications: No Attending Groups: Intermittent Review of Systems Acute medical concerns: No Medical Review of Systems: unchanged Mental Status Exam Mental Status Exam Patient Appearance: Fatigued Patient Orientation: Person, Place, Time and Situation Level of Consciousness: Alert Patient Behavior: Cooperative, Fatigued, Distractible and Good Eye Contact Mood Description: Withdrawn Affect Description: Withdrawn Patient Cognition Impaired: No Ability to Follow Directions: Fair Speech Pattern: Spontaneous Speech Memory Description: Episodic Impaired Hallucinations: Auditory Delusions: Present Perceptual Disturbances: Derealization Thought Process: Distracted Thought Content: positive for Suicidal Ideation (denies) Depressive Symptoms: Increased Fatigue, Loss of Energy and Difficulty Concen trating Judgement: Fair Diagnostics Vital Signs (24Hr): Vital Signs - 24 hr 09/30/22 06:00 Respiratory Rate 16 BMI result Body Mass Index 44.6 Labs 09/13/22 01:12 09/13/22 01:12 Medications Medications Current Medications Acetaminophen (Acetaminophen 325 Mg Tablet) 650 mg PO Q6H PRN PRN Reason: Headache/Pain Mild Scale (1-3) Al Hydroxide/Mg Hydroxide (Magnesium Hydrox/Alum Hydrox 30 Ml Oral.Susp) 30 ml PO Q6H PRN PRN Reason: Heartburn/Nausea Fluoxetine HCl (Fluoxetine Hcl 20 Mg Capsule) 20 mg PO DAILY [facility] Last Admin: 09/30/22 08:37 Dose: 20 mg Hydroxyzine HCl (Hydroxyzine Hcl 25 Mg Tablet) 25 mg PO Q6H PRN PRN Reason: Anxiety Magnesium Hydroxide (Milk Of Magnesia 30 Ml Oral.Susp) 30 ml PO DAILY PRN PRN Reason: Constipation Multivitamins/Vitamin C (Multivitamin Tablet) 1 tab PO DAILY [facility] Last Admin: 09/30/22 08:37 Dose: 1 tab Nicotine Polacrilex (Nicotine Polacrilex 2 Mg Gum) 4 mg BUCCAL Q2H PRN PRN Reason: Nicotine Cravings Olanzapine (Olanzapine 10 Mg Tablet) 20 mg PO BEDTIME [facility] Last Admin: 09/29/22 20:23 Dose: 20 mg Propranolol HCl (Propranolol Hcl 10 Mg Tablet) 10 mg PO BID [facility]; Protocol Last Admin: 09/30/22 08:37 Dose: Not Given Trazodone HCl (Trazodone Hcl 50 Mg Tablet) 50 mg PO BEDTIME MRX1 PRN PRN Reason: Insomnia Last Admin: 09/29/22 20:23 Dose: 50 mg Allergies Allergies Allergy/AdvReac Type Severity Reaction Status Date / Time No Known Allergies Allergy Verified 03/24/21 17:28 Assessment & Plan Assessment & Plan (1) Schizoaffective disorder, bipolar type: Status: Acute Code(s): F25.0 - Schizoaffective disorder, bipolar type Plan Mr. Bauer is a 27 year-old male with hx of schizoaffective disorder who self presented to [facility] ED reporting suicidal ideation with plan to stab himself on the heart, which he has done in the past back in 2016. Per [facility] crisis report, pt minimally engaged and most collateral information provided by his mother and [facility] worker who expressed concern about pt's ability to care for himself and suicidal reports. This senior medical writer attempted several times to speak with pt,however, pt in bed, declined to speak with this senior medical writer. PLAN 1. Admit to M5, cv 15 minutes checks 2. continue current medications 3. aftercare planning. 09/19/22- Continue current plan. Encourage milieu involvement 09/20/22- Attempt alliance 09/21/22- Message left for pt's mother No med changes today. 09/22/22- Continue current regime Team assisting pt is long-term application, however he is ambiva lent Family meeting 09/23. 09/23 continue tx. 09/24 continue treatment plan 09/25 continue current treatment plan; however will discontinue propranolol since patient refuses and agrees to DC 09/26/22 continue current plan. 09/27/22- continue current regime/plan 09/28/22- Continue current plan/regime 09/29/22- Encourage discussion/processing his concerns in transition to [facility] program. 09/30/22- Ritalin 5 mg daily Increase Prozac to 30 mg daily Patient educated on: medication risk/benefits and therapeutic strategies Informed Consent: understands Reason for continued inpatient stay Substantial Risk for: rapid decompensation Time Spent With Patient Time: Total time managing care of this patient today ____ minutes.
[2022-09-30 16:56] VITALS: RESP 16
[2022-09-30] MEDS: Methylphenidate HCl 5 MG TABLET PO (17:13)
[2022-09-30] MEDS: traZODone HCL 50 MG TABLET PO (20:53)
[2022-09-30] MEDS: OLANZapine 10 MG TABLET 20 MG PO (20:53)
[2022-10-01] MEDS: FLUoxetine HCl 10 MG CAPSULE 30 MG PO (08:30)
[2022-10-01] MEDS: Multivitamin TABLET 1 TAB PO (08:30)
[2022-10-01] MEDS: Propranolol HCL 10 MG TABLET PO (08:30)
[2022-10-01] MEDS: Methylphenidate HCl 5 MG TABLET PO (08:30)
--- NOTE | 2022-10-01 17:09 | P.PNPSI_ITS ---
Subjective Subjective Date of Service: 10/01/22 Reason For Visit: SI Interim History: Patient seen Chart reviewed. Case discussed with RN. Negrete in his room reading. Medication Compliance: Yes Side effects from medications: No Attending Groups: No Review of Systems Acute medical concerns: No Mental Status Exam Mental Status Exam Patient Appearance: Unkempt Patient Orientation: Situation Level of Consciousness: Alert Patient Behavior: Isolative and Poor Eye Contact Mood Description: Withdrawn Affect Description: Constricted Patient Cognition Impaired: No Speech Pattern: Clear and Impoverished Memory Description: Intact Hallucinations: None Delusions: Not Present Thought Process: Linear Thought Content: positive for Evasive Judgement: Fair Diagnostics Vital Signs (24Hr): BMI result Body Mass Index 44.6 Labs 09/13/22 01:12 09/13/22 01:12 Medications Medications Current Medications Acetaminophen (Acetaminophen 325 Mg Tablet) 650 mg PO Q6H PRN PRN Reason: Headache/Pain Mild Scale (1-3) Al Hydroxide/Mg Hydroxide (Magnesium Hydrox/Alum Hydrox 30 Ml Oral.Susp) 30 ml PO Q6H PRN PRN Reason: Heartburn/Nausea Fluoxetine HCl (Fluoxetine Hcl 10 Mg Capsule) 30 mg PO DAILY [facility] Last Admin: 10/01/22 08:30 Dose: 30 mg Hydroxyzine HCl (Hydroxyzine Hcl 25 Mg Tablet) 25 mg PO Q6H PRN PRN Reason: Anxiety Magnesium Hydroxide (Milk Of Magnesia 30 Ml Oral.Susp) 30 ml PO DAILY PRN PRN Reason: Constipation Methylphenidate HCl (Methylphenidate Hcl 5 Mg Tablet) 5 mg PO DAILY [facility] Last Admin: 10/01/22 08:30 Dose: 5 mg Multivitamins/Vitamin C (Multivitamin Tablet) 1 tab PO DAILY [facility] Last Admin: 10/01/22 08:30 Dose: 1 tab Nicotine Polacrilex (Nicotine Polacrilex 2 Mg Gum) 4 mg BUCCAL Q2H PRN PRN Reason: Nicotine Cravings Olanzapine (Olanzapine 10 Mg Tablet) 20 mg PO BEDTIME [facility] Last Admin: 09/30/22 20:53 Dose: 20 mg Propranolol HCl (Propranolol Hcl 10 Mg Tablet) 10 mg PO BID [facility]; Protocol Last Admin: 10/01/22 08:30 Dose: 10 mg Trazodone HCl (Trazodone Hcl 50 Mg Tablet) 50 mg PO BEDTIME MRX1 PRN PRN Reason: Insomnia Last Admin: 09/30/22 20:53 Dose: 50 mg Allergies Allergies Allergy/AdvReac Type Severity Reaction Status Date / Time No Known Allergies Allergy Verified 03/24/21 17:28 Assessment & Plan Assessment & Plan (1) Schizoaffective disorder, bipolar type: Status: Acute Code(s): F25.0 - Schizoaffective disorder, bipolar type Assessment and Plan: 10/01: no changes in meds Plan Mr. Bauer is a 27 year-old male with hx of schizoaffective disorder who self presented to [facility] ED reporting suicidal ideation with plan to stab himself on the heart, which he has done in the past back in 2016. Per [facility] crisis report, pt minimally engaged and most collateral information provided by his mother and [facility] worker who expressed concern about pt's ability to care for himself and suicidal reports. This card writer hand attempted several times to speak with pt,however, pt in bed, declined to speak with this card writer hand. PLAN 1. Admit to M5, cv 15 minutes checks 2. continue current medications 3. aftercare planning. 09/19/22- Continue current plan. Encourage milieu involvement 09/20/22- Attempt alliance 09/21/22- Message left for pt's mother No med changes today. 09/22/22- Continue current regime Team assisting pt is intermediate application, however he is ambivalent Family meeting 09/23. 09/23 continue tx. 09/24 continue treatment plan 09/25 continue current treatment plan; however will discontinue propranolol since patient refuses and agrees to DC 09/26/22 continue current plan. 09/27/22- continue current regime/plan 09/28/22- Continue current plan/regime 09/29/22- Encourage discussion/processing his concerns in transition to [facility] program. 09/30/22- Ritalin 5 mg daily Increase Prozac to 30 mg daily Reason for continued inpatient stay Substantial Risk for: harm to self Time Spent With Patient Time: Total time managing care of this patient today ____ minutes.
[2022-10-01] MEDS: OLANZapine 10 MG TABLET 20 MG PO (20:06)
[2022-10-01] MEDS: traZODone HCL 50 MG TABLET PO (20:06)
[2022-10-02] MEDS: Multivitamin TABLET 1 TAB PO (08:45)
[2022-10-02] MEDS: Methylphenidate HCl 5 MG TABLET PO (08:45)
[2022-10-02] MEDS: FLUoxetine HCl 10 MG CAPSULE 30 MG PO (08:45)
--- NOTE | 2022-10-02 16:08 | HO.PSYCHPN ---
Subjective Subjective Date of Service: 10/02/22 Reason For Visit: SI Subjective Notes: Conditional Voluntary Interim History: Patient seen. Chart reviewed. Case discussed with RN. Remains isolatrive in his room, sits at his desk reading. Medication Compliance: Yes Side effects from medications: No Attending Groups: No Mental Status Exam Mental Status Exam Patient Appearance: Unkempt Level of Consciousness: Alert Patient Behavior: Passive and Timid Affect Description: Withdrawn and Constricted Speech Pattern: Impoverished Delusions: Not Present Thought Process: Linear Thought Content: positive for Slowed Thinking Diagnostics Vital Signs (24Hr): BMI result Body Mass Index 44.6 Labs 09/13/22 01:12 09/13/22 01:12 Medications Medications Current Medications Acetaminophen (Acetaminophen 325 Mg Tablet) 650 mg PO Q6H PRN PRN Reason: Headache/Pain Mild Scale (1-3) Al Hydroxide/Mg Hydroxide (Magnesium Hydrox/Alum Hydrox 30 Ml Oral.Susp) 30 ml PO Q6H PRN PRN Reason: Heartburn/Nausea Fluoxetine HCl (Fluoxetine Hcl 10 Mg Capsule) 30 mg PO DAILY [facility] Last Admin: 10/02/22 08:45 Dose: 30 mg Hydroxyzine HCl (Hydroxyzine Hcl 25 Mg Tablet) 25 mg PO Q6H PRN PRN Reason: Anxiety Magnesium Hydroxide (Milk Of Magnesia 30 Ml Oral.Susp) 30 ml PO DAILY PRN PRN Reason: Constipation Methylphenidate HCl (Methylphenidate Hcl 5 Mg Tablet) 5 mg PO DAILY [facility] Last Admin: 10/02/22 08:45 Dose: 5 mg Multivitamins/Vitamin C (Multivitamin Tablet) 1 tab PO DAILY [facility] Last Admin: 10/02/22 08:45 Dose: 1 tab Nicotine Polacrilex (Nicotine Polacrilex 2 Mg Gum) 4 mg BUCCAL Q2H PRN PRN Reason: Nicotine Cravings Olanzapine (Olanzapine 10 Mg Tablet) 20 mg PO BEDTIME [facility] Last Admin: 10/01/22 20:06 Dose: 20 mg Propranolol HCl (Propranolol Hcl 10 Mg Tablet) 10 mg PO BID [facility]; Protocol Last Admin: 10/02/22 08:48 Dose: Not Given Trazodone HCl (Trazodone Hcl 50 Mg Tablet) 50 mg PO BEDTIME MRX1 PRN PRN Reason: Insomnia Last Admin: 10/01/22 20:06 Dose: 50 mg Allergies Allergies Allergy/AdvReac Type Severity Reaction Status Date / Time No Known Allergies Allergy Verified 03/24/21 17:28 Assessment & Plan Assessment & Plan (1) Schizoaffective disorder, bipolar type: Status: Acute Code(s): F25.0 - Schizoaffective disorder, bipolar type Plan Mr. Bauer is a 27 year-old male with hx of schizoaffective disorder who self presented [place] [facility] reporting suicidal ideation with plan to stab himself on the heart, which he has done in the past back in 2016. Per [facility] crisis report, pt minimally engaged and most collateral information provided by his mother and [facility] worker who expressed concern about pt's ability to care for himself and suicidal reports. This sql report writer attempted several times to speak with pt,however, pt in bed, declined to speak with this sql report writer. PLAN 1. Admit to M5, cv 15 minutes checks 2. continue current medications 3. aftercare planning. 09/19/22- Continue current plan. Encourage milieu involvement 09/20/22- Attempt alliance 09/21/22- Message left for pt's mother No med changes today. 09/22/22- Continue current regime Team assisting pt is skilled nursing application, however he is ambivalent Family meeting 09/23. 09/23 continue tx. 09/24 continue treatment plan 09/25 continue current treatment plan; however will discontinue propranolol since patient refuses and agrees to DC 09/26/22 continue current plan. 09/27/22- continue current regime/plan 09/28/22- Continue current plan/regime 09/29/22- Encourage discussion/processing his concerns in transition to [facility] program. 09/30/22- Ritalin 5 mg daily Increase Prozac to 30 mg daily 10/01/22- no changes in meds Reason for continued inpatient stay Substantial Risk for: inability to function Time Spent With Patient Time: Total time managing care of this patient today ____ minutes.
[2022-10-02] MEDS: traZODone HCL 50 MG TABLET PO (20:49)
[2022-10-02] MEDS: OLANZapine 10 MG TABLET 20 MG PO (20:49)
[2022-10-03] MEDS: Methylphenidate HCl 5 MG TABLET PO (08:39)
[2022-10-03] MEDS: Multivitamin TABLET 1 TAB PO (08:39)
[2022-10-03] MEDS: FLUoxetine HCl 10 MG CAPSULE 30 MG PO (08:39)
--- NOTE | 2022-10-03 13:20 | HO.PSYCHPN ---
Subjective Subjective Date of Service: 10/03/22 Reason For Visit: SI Subjective Notes: Conditional Voluntary Interim History: Reports that he is having a good day but unable to say why. Continues to spend a lot of time isolating and reading a book at his desk. Eating and sleeping OK. Taking trazodone PRN nightly Medication Compliance: Yes Side effects from medications: No Attending Groups: No Review of Systems Acute medical concerns: No Mental Status Exam Mental Status Exam Patient Appearance: Well Grooomed Level of Consciousness: Alert Patient Behavior: Avoidant and Poor Eye Contact Affect Description: Constricted Speech Pattern: Clear Delusions: Not Present Thought Process: Linear Thought Content: positive for Poverty of Content Judgement: Fair Diagnostics Vital Signs (24Hr): BMI result Body Mass Index 44.6 Labs 09/13/22 01:12 09/13/22 01:12 Medications Medications Current Medications Acetaminophen (Acetaminophen 325 Mg Tablet) 650 mg PO Q6H PRN PRN Reason: Headache/Pain Mild Scale (1-3) Al Hydroxide/Mg Hydroxide (Magnesium Hydrox/Alum Hydrox 30 Ml Oral.Susp) 30 ml PO Q6H PRN PRN Reason: Heartburn/Nausea Fluoxetine HCl (Fluoxetine Hcl 10 Mg Capsule) 30 mg PO DAILY [facility] Last Admin: 10/03/22 08:39 Dose: 30 mg Hydroxyzine HCl (Hydroxyzine Hcl 25 Mg Tablet) 25 mg PO Q6H PRN PRN Reason: Anxiety Magnesium Hydroxide (Milk Of Magnesia 30 Ml Oral.Susp) 30 ml PO DAILY PRN PRN Reason: Constipation Methylphenidate HCl (Methylphenidate Hcl 5 Mg Tablet) 5 mg PO DAILY [facility] Last Admin: 10/03/22 08:39 Dose: 5 mg Multivitamins/Vitamin C (Multivitamin Tablet) 1 tab PO DAILY [facility] Last Admin: 10/03/22 08:39 Dose: 1 tab Nicotine Polacrilex (Nicotine Polacrilex 2 Mg Gum) 4 mg BUCCAL Q2H PRN PRN Reason: Nicotine Cravings Olanzapine (Olanzapine 10 Mg Tablet) 20 mg PO BEDTIME [facility] Last Admin: 10/02/22 20:49 Dose: 20 mg Propranolol HCl (Propranolol Hcl 10 Mg Tablet) 10 mg PO BID [facility]; Protocol Last Admin: 10/03/22 08:44 Dose: Not Given Trazodone HCl (Trazodone Hcl 50 Mg Tablet) 50 mg PO BEDTIME MRX1 PRN PRN Reason: Insomnia Last Admin: 10/02/22 20:49 Dose: 50 mg Allergies Allergies Allergy/AdvReac Type Severity Reaction Status Date / Time No Known Allergies Allergy Verified 03/24/21 17:28 Assessment & Plan Assessment & Plan (1) Schizoaffective disorder, bipolar type: Status: Acute Code(s): F25.0 - Schizoaffective disorder, bipolar type Plan Mr. Bauer is a 27 year-old male with hx of schizoaffective disorder who self presented to [facility] reporting suicidal ideation with plan to stab himself on the heart, which he has done in the past back in 2016. Per [facility] crisis report, pt minimally engaged and most collateral information provided by his mother and [facility] worker who expressed concern about pt's ability to care for himself and suicidal reports. This scenario writer attempted several times to speak with pt,however, pt in bed, declined to speak with this scenario writer. PLAN 1. Admit to M5, cv 15 minutes checks 2. continue current medications 3. aftercare planning. 09/19/22- Continue current plan. Encourage milieu involvement 09/20/22- Attempt alliance 09/21/22- Message left for pt's mother No med changes today. 09/22/22- Continue current regime Team assisting pt is care home application, however he is ambivalent Family meeting 09/23. 09/23 continue tx. 09/24 continue treatment plan 09/25 continue current treatment plan; however will discontinue propranolol since patient refuses and agrees to DC 09/26/22 continue current plan. 09/27/22- continue current regime/plan 09/28/22- Continue current plan/regime 09/29/22- Encourage discussion/processing his concerns in transition to [facility] program. 09/30/22- Ritalin 5 mg daily Increase Prozac to 30 mg daily 10/01/22- no changes in meds 10/02/22-no med changes 10/03/22-no med changes Reason for continued inpatient stay Substantial Risk for: inability to function Time Spent With Patient Time: Total time managing care of this patient today ____ minutes.
[2022-10-03] MEDS: traZODone HCL 50 MG TABLET PO (20:27)
[2022-10-03] MEDS: OLANZapine 10 MG TABLET 20 MG PO (20:27)
[2022-10-04 06:00] VITALS: RESP 14
[2022-10-04] MEDS: FLUoxetine HCl 10 MG CAPSULE 30 MG PO (08:18)
[2022-10-04] MEDS: Multivitamin TABLET 1 TAB PO (08:18)
[2022-10-04] MEDS: Methylphenidate HCl 5 MG TABLET PO (08:18)
--- NOTE | 2022-10-04 12:20 | HO.PSYCHPN ---
Subjective Subjective Date of Service: 10/04/22 Reason For Visit: SI Subjective Notes: Conditional Voluntary Healthcare Proxy: No Guardianship: No Medical Problems Affecting Mental Status: No Interim History: Team reports pt remains somewhat difficult to engage. Discussion of behavioral plan in team meeting this a.m. Reviewed with pt and he concurs this is a helpful idea. He will work with the staff to attempt to re-establish his schedule. Discussed with pt and Tarun RICHARD a transition to respite prior to residential placement with [facility]. Pt is not feeling safe to transition to respite. He reports previous difficulty at respite and requests to transition to residential from hospital and work with a behavioral plan of care. Reports medication regime to be helpful and without adverse effects. Medication Compliance: Yes Side effects from medications: No Attending Groups: Intermittent Review of Systems Acute medical concerns: No Medical Review of Systems: unchanged Mental Status Exam Mental Status Exam Patient Appearance: Disheveled Patient Orientation: Person, Place, Time and Situation Level of Consciousness: Alert Patient Behavior: Guarded, Suspicious, Anxious, Avoidant, Distractible, Isolative and Poor Eye Contact Mood Description: Suspicious and Withdrawn Affect Description: Suspicious and Withdrawn Patient Cognition Impaired: No Ability to Follow Directions: Good Speech Pattern: Spontaneous Speech Memory Description: Episodic Impaired Hallucinations: None Delusions: Present Perceptual Disturbances: Derealization Thought Process: Distracted Thought Content: positive for Perseveration and positive for Suicidal Ideation (denies) Depressive Symptoms: Increased Anxiety, Diff. Making Decisions and Thoughts of /Suicide (denies) Judgement: Fair Diagnostics Vital Signs (24Hr): Vital Signs - 24 hr 10/04/22 06:00 Respiratory Rate 14 BMI result Body Mass Index 44.6 Labs 09/13/22 01:12 09/13/22 01:12 Medications Medications Current Medications Acetaminophen (Acetaminophen 325 Mg Tablet) 650 mg PO Q6H PRN PRN Reason: Headache/Pain Mild Scale (1-3) Al Hydroxide/Mg Hydroxide (Magnesium Hydrox/Alum Hydrox 30 Ml Oral.Susp) 30 ml PO Q6H PRN PRN Reason: Heartburn/Nausea Fluoxetine HCl (Fluoxetine Hcl 10 Mg Capsule) 30 mg PO DAILY [facility] Last Admin: 10/04/22 08:18 Dose: 30 mg Hydroxyzine HCl (Hydroxyzine Hcl 25 Mg Tablet) 25 mg PO Q6H PRN PRN Reason: Anxiety Magnesium Hydroxide (Milk Of Magnesia 30 Ml Oral.Susp) 30 ml PO DAILY PRN PRN Reason: Constipation Methylphenidate HCl (Methylphenidate Hcl 5 Mg Tablet) 5 mg PO DAILY [facility] Last Admin: 10/04/22 08:18 Dose: 5 mg Multivitamins/Vitamin C (Multivitamin Tablet) 1 tab PO DAILY [facility] Last Admin: 10/04/22 08:18 Dose: 1 tab Nicotine Polacrilex (Nicotine Polacrilex 2 Mg Gum) 4 mg BUCCAL Q2H PRN PRN Reason: Nicotine Cravings Olanzapine (Olanzapine 10 Mg Tablet) 20 mg PO BEDTIME [facility] Last Admin: 10/03/22 20:27 Dose: 20 mg Propranolol HCl (Propranolol Hcl 10 Mg Tablet) 10 mg PO BID [facility]; Protocol Last Admin: 10/04/22 08:18 Dose: Not Given Trazodone HCl (Trazodone Hcl 50 Mg Tablet) 50 mg PO BEDTIME MRX1 PRN PRN Reason: Insomnia Last Admin: 10/03/22 20:27 Dose: 50 mg Allergies Allergies Allergy/AdvReac Type Severity Reaction Status Date / Time No Known Allergies Allergy Verified 03/24/21 17:28 Assessment & Plan Assessment & Plan (1) Schizoaffective disorder, bipolar type: Status: Acute Code(s): F25.0 - Schizoaffective disorder, bipolar type Plan Mr. Bauer is a 27 year-old male with hx of schizoaffective disorder who self presented [place] [facility] reporting suicidal ideation with plan to stab himself on the heart, which he has done in the past back in 2016. Per [facility] crisis report, pt minimally engaged and most collateral information provided by his mother and [facility] worker who expressed concern about pt's ability to care for himself and suicidal reports. This song writer attempted several times to speak with pt,however, pt in bed, declined to speak with this song writer. PLAN 1. Admit to M5, cv 15 minutes checks 2. continue current medications 3. aftercare planning. 09/19/22- Continue current plan. Encourage milieu involvement 09/20/22- Attempt alliance 09/21/22- Message left for pt's mother No med changes today. 09/22/22- Continue current regime Team assisting pt is long term application, however he is ambivalent Family meeting 09/23. 09/23 continue tx. 09/24 continue treatment plan 09/25 continue current treatment plan; however will discontinue propranolol since patient refuses and agrees to DC 09/26/22 continue current plan. 09/27/22- continue current regime/plan 09/28/22- Continue current plan/regime 09/29/22- Encourage discussion/processing his concerns in transition to [facility] program. 09/30/22- Ritalin 5 mg daily Increase Prozac to 30 mg daily 10/01/22- no changes in meds 10/02/22-no med changes 10/03/22-no med changes 10/04/22- behavioral plan per team transition to respite prior to residential care Patient educated on: therapeutic strategies Informed Consent: understands Reason for continued inpatient stay Substantial Risk for: harm to self and rapid decompensation Time Spent With Patient Time: Total time managing care of this patient today ____ minutes.
[2022-10-04] MEDS: OLANZapine 10 MG TABLET 20 MG PO (20:22)
[2022-10-04] MEDS: traZODone HCL 50 MG TABLET PO (20:22)
--- NOTE | 2022-10-04 22:58 | PC.NURSE ---
Patient described today as stupendous . He was encouraged by several staff to attend group and be visible.
[2022-10-05] MEDS: FLUoxetine HCl 10 MG CAPSULE 30 MG PO (08:07)
[2022-10-05] MEDS: Methylphenidate HCl 5 MG TABLET PO (08:07)
[2022-10-05] MEDS: Multivitamin TABLET 1 TAB PO (08:07)
--- NOTE | 2022-10-05 15:11 | P.PNPSI_ITS ---
Subjective Subjective Date of Service: 10/05/22 Reason For Visit: SI Subjective Notes: Conditional Voluntary Healthcare Proxy: No Guardianship: No Medical Problems Affecting Mental Status: No Interim History: Presents with some improvement. OOB, reading, attending group, attempting to follow behavior planning. Reports the longer I am here the better . I don't feel safe to leave and I want to get a good start in the residence . Reports he feels more comfortable in the milieu and may have his evening meal with others tonight. Discussed respite possiblities, insurance constraints-hesitant to return to [facility] respite, open to [facility] respite if available with [facility]. Working on increasing structure to prepare for residential. Medication Compliance: Yes Side effects from medications: No Attending Groups: Yes Review of Systems Acute medical concerns: No Medical Review of Systems: unchanged Mental Status Exam Mental Status Exam Patient Appearance: Appropriate Patient Orientation: Person, Place, Time and Situation Level of Consciousness: Alert Patient Behavior: Anxious, Distractible, Isolative and Good Eye Contact Mood Description: Appropriate, Anxious and Apprehensive Affect Description: Appropriate, Anxious and Apprehensive Patient Cognition Impaired: No Ability to Follow Directions: Good Speech Pattern: Spontaneous Speech Memory Description: Episodic Impaired Hallucinations: None Perceptual Disturbances: Derealization Thought Process: Distracted Thought Content: positive for Perseveration and positive for Suicidal Ideation (denies) Depressive Symptoms: Increased Anxiety, Diff. Making Decisions and Thoughts of D eath/Suicide (denies) Judgement: Fair Diagnostics Vital Signs (24Hr): BMI result Body Mass Index 44.6 Labs 09/13/22 01:12 09/13/22 01:12 Medications Medications Current Medications Acetaminophen (Acetaminophen 325 Mg Tablet) 650 mg PO Q6H PRN PRN Reason: Headache/Pain Mild Scale (1-3) Al Hydroxide/Mg Hydroxide (Magnesium Hydrox/Alum Hydrox 30 Ml Oral.Susp) 30 ml PO Q6H PRN PRN Reason: Heartburn/Nausea Fluoxetine HCl (Fluoxetine Hcl 10 Mg Capsule) 30 mg PO DAILY [facility] Last Admin: 10/05/22 08:07 Dose: 30 mg Hydroxyzine HCl (Hydroxyzine Hcl 25 Mg Tablet) 25 mg PO Q6H PRN PRN Reason: Anxiety Magnesium Hydroxide (Milk Of Magnesia 30 Ml Oral.Susp) 30 ml PO DAILY PRN PRN Reason: Constipation Methylphenidate HCl (Methylphenidate Hcl 5 Mg Tablet) 5 mg PO DAILY [facility] Last Admin: 10/05/22 08:07 Dose: 5 mg Multivitamins/Vitamin C (Multivitamin Tablet) 1 tab PO DAILY [facility] Last Admin: 10/05/22 08:07 Dose: 1 tab Nicotine Polacrilex (Nicotine Polacrilex 2 Mg Gum) 4 mg BUCCAL Q2H PRN PRN Reason: Nicotine Cravings Olanzapine (Olanzapine 10 Mg Tablet) 20 mg PO BEDTIME [facility] Last Admin: 10/04/22 20:22 Dose: 20 mg Propranolol HCl (Propranolol Hcl 10 Mg Tablet) 10 mg PO BID [facility]; Protocol Last Admin: 10/05/22 08:07 Dose: Not Given Trazodone HCl (Trazodone Hcl 50 Mg Tablet) 50 mg PO BEDTIME MRX1 PRN PRN Reason: Insomnia Last Admin: 10/04/22 20:22 Dose: 50 mg Allergies Allergies Allergy/AdvReac Type Severity Reaction Status Date / Time No Known Allergies Allergy Verified 03/24/21 17:28 Assessment & Plan Assessment & Plan (1) Schizoaffective disorder, bipolar type: Status: Acute Code(s): F25.0 - Schizoaffective disorder, bipolar type Plan Mr. Bauer is a 27 year-old male with hx of schizoaffective disorder who self [place] [facility] reporting suicidal ideation with plan to stab himself on the heart, which he has done in the past back in 2016. Per [facility] crisis report, pt minimally engaged and most collateral information provided by his mother and [facility] worker who expressed concern about pt's ability to care for himself and suicidal reports. This commercial loan underwriter attempted several times to speak with pt,however, pt in bed, declined to speak with this commercial loan underwriter. PLAN 1. Admit to M5, cv 15 minutes checks 2. continue current medications 3. aftercare planning. 09/19/22- Continue current plan. Encourage milieu involvement 09/20/22- Attempt alliance 09/21/22- Message left for pt's mother No med changes today. 09/22/22- Continue current regime Team assisting pt is [facility] application, however he is ambivalent Family meeting 09/23. 09/23 continue tx. 09/24 continue treatment plan 09/25 continue current treatment plan; however will discontinue propranolol since patient refuses and agrees to DC 09/26/22 continue current plan. 09/27/22- continue current regime/plan 09/28/22- Continue current plan/regime 09/29/22- Encourage discussion/processing his concerns in transition to [facility] program. 09/30/22- Ritalin 5 mg daily Increase Prozac to 30 mg daily 10/01/22- no changes in meds 10/02/22-no med changes 10/03/22-no med changes 10/05/22- continue to encourage respite in transition plan to residential care. Patient educated on: therapeutic strategies Informed Consent: understands Reason for continued inpatient stay Substantial Risk for: rapid decompensation Time Spent With Patient Time: Total time managing care of this patient today ____ minutes.
[2022-10-05] MEDS: OLANZapine 10 MG TABLET 20 MG PO (20:19)
[2022-10-05] MEDS: traZODone HCL 50 MG TABLET PO (20:26)
[2022-10-05] MEDS: hydrOXYzine HCL 25 MG TABLET PO (20:26)
[2022-10-06] MEDS: Multivitamin TABLET 1 TAB PO (08:49)
[2022-10-06] MEDS: FLUoxetine HCl 10 MG CAPSULE 30 MG PO (08:49)
[2022-10-06] MEDS: Methylphenidate HCl 5 MG TABLET PO (08:49)
[2022-10-06 09:07] VITALS: RESP 18
--- NOTE | 2022-10-06 17:06 | HO.PSYCHPN ---
Subjective Subjective Date of Service: 10/06/22 Reason For Visit: SI Subjective Notes: Conditional Voluntary Healthcare Proxy: No Guardianship: No Medical Problems Affecting Mental Status: No Interim History: Flavio is attempting to integrate in the milieu. Attending groups and making an effort to be involved. He is visable and interactive. He reports he is preparing for his move and wants to give it a fair trial and put effort into his new living situation working for him. Positive discussion today about his hopes for the future. Medication Compliance: Yes Side effects from medications: No Attending Groups: Yes Review of Systems Acute medical concerns: No Medical Review of Systems: unchanged Mental Status Exam Mental Status Exam Patient Appearance: Appropriate Patient Orientation: Person, Place, Time and Situation Level of Consciousness: Alert Patient Behavior: Anxious, Distractible, Isolative and Good Eye Contact Mood Description: Appropriate, Anxious and Apprehensive Affect Description: Appropriate, Anxious and Apprehensive Patient Cognition Impaired: No Ability to Follow Directions: Good Speech Pattern: Spontaneous Speech Memory Description: Episodic Impaired Hallucinations: None Perceptual Disturbances: Derealization Thought Process: Distracted Thought Content: positive for Perseveration and positive for Suicidal Ideation (denies) Depressive Symptoms: Increased Anxiety, Diff. Making Decisions and Thoughts of /Suicide (denies) Judgement: Fair Diagnostics Vital Signs (24Hr): Vital Signs - 24 hr 10/06/22 09:07 Respiratory Rate 18 BMI result Body Mass Index 44.6 Labs 09/13/22 01:12 09/13/22 01:12 Medications Medications Current Medications Acetaminophen (Acetaminophen 325 Mg Tablet) 650 mg PO Q6H PRN PRN Reason: Headache/Pain Mild Scale (1-3) Al Hydroxide/Mg Hydroxide (Magnesium Hydrox/Alum Hydrox 30 Ml Oral.Susp) 30 ml PO Q6H PRN PRN Reason: Heartburn/Nausea Fluoxetine HCl (Fluoxetine Hcl 10 Mg Capsule) 30 mg PO DAILY [facility] Last Admin: 10/06/22 08:49 Dose: 30 mg Hydroxyzine HCl (Hydroxyzine Hcl 25 Mg Tablet) 25 mg PO Q6H PRN PRN Reason: Anxiety Last Admin: 10/05/22 20:26 Dose: 25 mg Magnesium Hydroxide (Milk Of Magnesia 30 Ml Oral.Susp) 30 ml PO DAILY PRN PRN Reason: Constipation Methylphenidate HCl (Methylphenidate Hcl 5 Mg Tablet) 5 mg PO DAILY [facility] Last Admin: 10/06/22 08:49 Dose: 5 mg Multivitamins/Vitamin C (Multivitamin Tablet) 1 tab PO DAILY [facility] Last Admin: 10/06/22 08:49 Dose: 1 tab Nicotine Polacrilex (Nicotine Polacrilex 2 Mg Gum) 4 mg BUCCAL Q2H PRN PRN Reason: Nicotine Cravings Olanzapine (Olanzapine 10 Mg Tablet) 20 mg PO BEDTIME [facility] Last Admin: 10/05/22 20:19 Dose: 20 mg Propranolol HCl (Propranolol Hcl 10 Mg Tablet) 10 mg PO BID [facility]; Protocol Last Admin: 10/06/22 08:51 Dose: Not Given Trazodone HCl (Trazodone Hcl 50 Mg Tablet) 50 mg PO BEDTIME MRX1 PRN PRN Reason: Insomnia Last Admin: 10/05/22 20:26 Dose: 50 mg Allergies Allergies Allergy/AdvReac Type Severity Reaction Status Date / Time No Known Allergies Allergy Verified 03/24/21 17:28 Assessment & Plan Assessment & Plan (1) Schizoaffective disorder, bipolar type: Status: Acute Code(s): F25.0 - Schizoaffective disorder, bipolar type Plan Mr. Bauer is a 27 year-old male with hx of schizoaffective disorder who self presented to [facility] reporting suicidal ideation with plan to stab himself on the heart, which he has done in the past back in 2016. Per [facility] crisis report, pt minimally engaged and most collateral information provided by his mother and [facility] worker who expressed concern about pt's ability to care for himself and suicidal reports. This mortgage loan underwriter attempted several times to speak with pt,however, pt in bed, declined to speak with this mortgage loan underwriter. PLAN 1. Admit to M5, cv 15 minutes checks 2. continue current medications 3. aftercare planning. 09/19/22- Continue current plan. Encourage milieu involvement 09/20/22- Attempt alliance 09/21/22- Message left for pt's mother No med changes today. 09/22/22- Continue current regime Team assisting pt is assisted application, however he is ambivalent Family meeting 09/23. 09/23 continue tx. 09/24 continue treatment plan 09/25 continue current treatment plan; however will discontinue propranolol since patient refuses and agrees to DC 09/26/22 continue current plan. 09/27/22- continue current regime/plan 09/28/22- Continue current plan/regime 09/29/22- Encourage discussion/processing his concerns in transition to [facility] program. 09/30/22- Ritalin 5 mg daily Increase Prozac to 30 mg daily 10/01/22- no changes in meds 10/02/22-no med changes 10/03/22-no med changes 10/06/22- continue current regime and plan. Patient educated on: therapeutic strategies Informed Consent: understands Reason for continued inpatient stay Substantial Risk for: rapid decompensation Time Spent With Patient Time: Total time managing care of this patient today ____ minutes.
[2022-10-06 18:00] VITALS: BP 128/74; PULSE 76; RESP 16; TEMP 36; O2SAT 99
[2022-10-06] MEDS: OLANZapine 10 MG TABLET 20 MG PO (20:21)
[2022-10-06] MEDS: traZODone HCL 50 MG TABLET PO (20:27)
[2022-10-07] MEDS: FLUoxetine HCl 10 MG CAPSULE 30 MG PO (08:23)
[2022-10-07] MEDS: Multivitamin TABLET 1 TAB PO (08:24)
--- NOTE | 2022-10-07 17:16 | HO.PSYCHPN ---
Subjective Subjective Date of Service: 10/07/22 Reason For Visit: SI Subjective Notes: Conditional Voluntary Healthcare Proxy: No Guardianship: No Medical Problems Affecting Mental Status: No Interim History: Mother visited, pt continues to read. Today, less engaged in the a.m. Increase in participation in the afternoon with staff, peers, groups. Denies questions or concerns today. Medication Compliance: Yes Side effects from medications: No Attending Groups: No Review of Systems Acute medical concerns: No Medical Review of Systems: unchanged Mental Status Exam Mental Status Exam Patient Appearance: Appropriate Patient Orientation: Person, Place, Time and Situation Level of Consciousness: Alert Patient Behavior: Anxious, Distractible, Isolative and Good Eye Contact Mood Description: Appropriate, Anxious and Apprehensive Affect Description: Appropriate, Anxious and Apprehensive Patient Cognition Impaired: No Ability to Follow Directions: Good Speech Pattern: Spontaneous Speech Memory Description: Episodic Impaired Hallucinations: None Perceptual Disturbances: Derealization Thought Process: Distracted Thought Content: positive for Perseveration and positive for Suicidal Ideation (denies) Depressive Symptoms: Increased Anxiety, Diff. Making Decisions and Thoughts of /Suicide (denies) Judgement: Fair Diagnostics Vital Signs (24Hr): Vital Signs - 24 hr 10/06/22 18:00 Temperature 96.8 F Pulse Rate 76 Respiratory Rate 16 Blood Pressure 128/74 Pulse Oximetry 99 Oxygen Delivery Method Room Air BMI result Body Mass Index 44.6 Labs 09/13/22 01:12 09/13/22 01:12 Medications Medications Current Medications Acetaminophen (Acetaminophen 325 Mg Tablet) 650 mg PO Q6H PRN PRN Reason: Headache/Pain Mild Scale (1-3) Al Hydroxide/Mg Hydroxide (Magnesium Hydrox/Alum Hydrox 30 Ml Oral.Susp) 30 ml PO Q6H PRN PRN Reason: Heartburn/Nausea Fluoxetine HCl (Fluoxetine Hcl 10 Mg Capsule) 30 mg PO DAILY [facility] Last Admin: 10/07/22 08:23 Dose: 30 mg Hydroxyzine HCl (Hydroxyzine Hcl 25 Mg Tablet) 25 mg PO Q6H PRN PRN Reason: Anxiety Last Admin: 10/05/22 20:26 Dose: 25 mg Magnesium Hydroxide (Milk Of Magnesia 30 Ml Oral.Susp) 30 ml PO DAILY PRN PRN Reason: Constipation Methylphenidate HCl (Methylphenidate Hcl 5 Mg Tablet) 5 mg PO DAILY [facility] Last Admin: 10/07/22 09:02 Dose: Not Given Multivitamins/Vitamin C (Multivitamin Tablet) 1 tab PO DAILY [facility] Last Admin: 10/07/22 08:24 Dose: 1 tab Nicotine Polacrilex (Nicotine Polacrilex 2 Mg Gum) 4 mg BUCCAL Q2H PRN PRN Reason: Nicotine Cravings Olanzapine (Olanzapine 10 Mg Tablet) 20 mg PO BEDTIME [facility] Last Admin: 10/06/22 20:21 Dose: 20 mg Propranolol HCl (Propranolol Hcl 10 Mg Tablet) 10 mg PO BID [facility]; Protocol Last Admin: 10/07/22 09:02 Dose: Not Given Trazodone HCl (Trazodone Hcl 50 Mg Tablet) 50 mg PO BEDTIME MRX1 PRN PRN Reason: Insomnia Last Admin: 10/06/22 20:27 Dose: 50 mg Allergies Allergies Allergy/AdvReac Type Severity Reaction Status Date / Time No Known Allergies Allergy Verified 03/24/21 17:28 Assessment & Plan Assessment & Plan (1) Schizoaffective disorder, bipolar type: Status: Acute Code(s): F25.0 - Schizoaffective disorder, bipolar type Plan Mr. Bauer is a 27 year-old male with hx of schizoaffective disorder who self presented [place] [facility] reporting suicidal ideation with plan to stab himself on the heart, which he has done in the past back in 2016. Per [facility] crisis report, pt minimally engaged and most collateral information provided by his mother and [facility] worker who expressed concern about pt's ability to care for himself and suicidal reports. This check writer salesperson attempted several times to speak with pt,however, pt in bed, declined to speak with this check writer salesperson. PLAN 1. Admit to M5, cv 15 minutes checks 2. continue current medications 3. aftercare planning. 09/19/22- Continue current plan. Encourage milieu involvement 09/20/22- Attempt alliance 09/21/22- Message left for pt's mother No med changes today. 09/22/22- Continue current regime Team assisting pt is [facility] application, however he is ambivalent Family meeting 09/23. 09/23 continue tx. 09/24 continue treatment plan 09/25 continue current treatment plan; however will discontinue propranolol since patient refuses and agrees to DC 09/26/22 continue current plan. 09/27/22- continue current regime/plan 09/28/22- Continue current plan/regime 09/29/22- Encourage discussion/processing his concerns in transition to [facility] program. 09/30/22- Ritalin 5 mg daily Increase Prozac to 30 mg daily 10/01/22- no changes in meds 10/02/22-no med changes 10/03/22-no med changes 10/05/22- continue to encourage respite in transition plan to residential care. 10/07/22- discharge planning. Informed Consent: understands Reason for continued inpatient stay Substantial Risk for: rapid decompensation Time Spent With Patient Time: Total time managing care of this patient today ____ minutes.
[2022-10-07] MEDS: OLANZapine 10 MG TABLET 20 MG PO (20:02)
[2022-10-07] MEDS: traZODone HCL 50 MG TABLET PO (20:02)
[2022-10-08] MEDS: Multivitamin TABLET 1 TAB PO (08:53)
[2022-10-08] MEDS: FLUoxetine HCl 10 MG CAPSULE 30 MG PO (08:53)
[2022-10-08] MEDS: Methylphenidate HCl 5 MG TABLET PO (08:53)
[2022-10-08 08:56] VITALS: RESP 18
--- NOTE | 2022-10-08 10:49 | P.PNPSI_ITS ---
Subjective Subjective Date of Service: 10/08/22 Reason For Visit: SI Subjective Notes: Conditional Voluntary Healthcare Proxy: No Guardianship: No Interim History: Patient was seen and discussed in rounds today. Records and plans were reviewed. He continues to be isolative, not engaged. He had a visit with his mother yesterday. He is medication compliant. Eating and sleeping adequately. No changes were made today Medication Compliance: Yes Side effects from medications: No Review of Systems Review of Systems Yes all other systems are reviewed and are negative Mental Status Exam Mental Status Exam Patient Appearance: Appropriate Patient Orientation: Person, Place, Time and Situation Level of Consciousness: Alert Patient Behavior: Anxious, Distractible, Isolative and Good Eye Contact Mood Description: Appropriate, Anxious and Apprehensive Affect Description: Appropriate, Anxious and Apprehensive Patient Cognition Impaired: No Ability to Follow Directions: Good Speech Pattern: Spontaneous Speech Memory Description: Episodic Impaired Hallucinations: None Perceptual Disturbances: Derealization Thought Process: Distracted Thought Content: positive for Perseveration and positive for Suicidal Ideation (denies) Depressive Symptoms: Increased Anxiety, Diff. Making Decisions and Thoughts of /Suicide (denies) Judgement: Fair Diagnostics Vital Signs (24Hr): Vital Signs - 24 hr 10/08/22 08:56 Respiratory Rate 18 BMI result Body Mass Index 44.6 Labs 09/13/22 01:12 09/13/22 01:12 Medications Medications Current Medications Acetaminophen (Acetaminophen 325 Mg Tablet) 650 mg PO Q6H PRN PRN Reason: Headache/Pain Mild Scale (1-3) Al Hydroxide/Mg Hydroxide (Magnesium Hydrox/Alum Hydrox 30 Ml Oral.Susp) 30 ml PO Q6H PRN PRN Reason: Heartburn/Nausea Fluoxetine HCl (Fluoxetine Hcl 10 Mg Capsule) 30 mg PO DAILY [facility] Last Admin: 10/08/22 08:53 Dose: 30 mg Hydroxyzine HCl (Hydroxyzine Hcl 25 Mg Tablet) 25 mg PO Q6H PRN PRN Reason: Anxiety Last Admin: 10/05/22 20:26 Dose: 25 mg Magnesium Hydroxide (Milk Of Magnesia 30 Ml Oral.Susp) 30 ml PO DAILY PRN PRN Reason: Constipation Methylphenidate HCl (Methylphenidate Hcl 5 Mg Tablet) 5 mg PO DAILY [facility] Last Admin: 10/08/22 08:53 Dose: 5 mg Multivitamins/Vitamin C (Multivitamin Tablet) 1 tab PO DAILY [facility] Last Admin: 10/08/22 08:53 Dose: 1 tab Nicotine Polacrilex (Nicotine Polacrilex 2 Mg Gum) 4 mg BUCCAL Q2H PRN PRN Reason: Nicotine Cravings Olanzapine (Olanzapine 10 Mg Tablet) 20 mg PO BEDTIME [facility] Last Admin: 10/07/22 20:02 Dose: 20 mg Propranolol HCl (Propranolol Hcl 10 Mg Tablet) 10 mg PO BID [facility]; Protocol Last Admin: 10/08/22 08:58 Dose: Not Given Trazodone HCl (Trazodone Hcl 50 Mg Tablet) 50 mg PO BEDTIME MRX1 PRN PRN Reason: Insomnia Last Admin: 10/07/22 20:02 Dose: 50 mg Allergies Allergies Allergy/AdvReac Type Severity Reaction Status Date / Time No Known Allergies Allergy Verified 03/24/21 17:28 Assessment & Plan Assessment & Plan (1) Schizoaffective disorder, bipolar type: Status: Acute Code(s): F25.0 - Schizoaffective disorder, bipolar type Plan Mr. Bauer is a 27 year-old male with hx of schizoaffective disorder who self presented to [facility] reporting suicidal ideation with plan to stab himself on the heart, which he has done in the past back in 2016. Per [facility] crisis report, pt minimally engaged and most collateral information provided by his mother and [facility] worker who expressed concern about pt's ability to care for himself and suicidal reports. This scientific writer attempted several times to speak with pt,however, pt in bed, declined to speak with this scientific writer. PLAN 1. Admit to M5, cv 15 minutes checks 2. continue current medications 3. aftercare planning. 09/19/22- Continue current plan. Encourage milieu involvement 09/20/22- Attempt alliance 09/21/22- Message left for pt's mother No med changes today. 09/22/22- Continue current regime Team assisting pt is [facility] application, however he is ambivalent Family meeting 09/23. 09/23 continue tx. 09/24 continue treatment plan 09/25 continue current treatment plan; however will discontinue propranolol since patient refuses and agrees to DC 09/26/22 continue current plan. 09/27/22- continue current regime/plan 09/28/22- Continue current plan/regime 09/29/22- Encourage discussion/processing his concerns in transition to [facility] program. 09/30/22- Ritalin 5 mg daily Increase Prozac to 30 mg daily 10/01/22- no changes in meds 10/02/22-no med changes 10/03/22-no med changes 10/05/22- continue to encourage respite in transition plan to residential care. 10/07/22- discharge planning. 10/08: Continue current regimen and plans Reason for continued inpatient stay Substantial Risk for: med/psych decompensation Time Spent With Patient Time: Total time managing care of this patient today ____ minutes.
[2022-10-08] MEDS: OLANZapine 10 MG TABLET 20 MG PO (19:48)
[2022-10-08] MEDS: hydrOXYzine HCL 25 MG TABLET PO (19:49)
[2022-10-08] MEDS: traZODone HCL 50 MG TABLET PO (19:49)
[2022-10-09] MEDS: Methylphenidate HCl 5 MG TABLET PO (09:13)
[2022-10-09] MEDS: FLUoxetine HCl 10 MG CAPSULE 30 MG PO (09:13)
[2022-10-09] MEDS: Multivitamin TABLET 1 TAB PO (09:13)
--- NOTE | 2022-10-09 11:02 | P.PNPSI_ITS ---
Subjective Subjective Date of Service: 10/09/22 Reason For Visit: SI Subjective Notes: Conditional Voluntary Healthcare Proxy: No Guardianship: No Interim History: Patient was seen and discussed in rounds today. Records and plans were reviewed. He has been mostly in bed and is doing a little better with more varied affect. He has been medication compliant. Eating and sleeping adequately. He is attending some groups but feels extremely anxious when he attends and does not participate much. No SI. No changes were made. He is awaiting a respite bed Medication Compliance: Yes Side effects from medications: No Review of Systems Review of Systems Yes all other systems are reviewed and are negative Mental Status Exam Mental Status Exam Patient Appearance: Appropriate Patient Orientation: Person, Place, Time and Situation Level of Consciousness: Alert Patient Behavior: Anxious, Distractible, Isolative and Good Eye Contact Mood Description: Appropriate, Anxious and Apprehensive Affect Description: Appropriate, Anxious and Apprehensive Patient Cognition Impaired: No Ability to Follow Directions: Good Speech Pattern: Spontaneous Speech Memory Description: Episodic Impaired Hallucinations: None Perceptual Disturbances: Derealization Thought Process: Distracted Thought Content: positive for Perseveration and positive for Suicidal Ideation (denies) Depressive Symptoms: Increased Anxiety, Diff. Making Decisions and Thoughts of /Suicide (denies) Judgement: Fair Diagnostics Vital Signs (24Hr): BMI result Body Mass Index 44.6 Labs 09/13/22 01:12 09/13/22 01:12 Medications Medications Current Medications Acetaminophen (Acetaminophen 325 Mg Tablet) 650 mg PO Q6H PRN PRN Reason: Headache/Pain Mild Scale (1-3) Al Hydroxide/Mg Hydroxide (Magnesium Hydrox/Alum Hydrox 30 Ml Oral.Susp) 30 ml PO Q6H PRN PRN Reason: Heartburn/Nausea Fluoxetine HCl (Fluoxetine Hcl 10 Mg Capsule) 30 mg PO DAILY [facility] Last Admin: 10/09/22 09:13 Dose: 30 mg Hydroxyzine HCl (Hydroxyzine Hcl 25 Mg Tablet) 25 mg PO Q6H PRN PRN Reason: Anxiety Last Admin: 10/08/22 19:49 Dose: 25 mg Magnesium Hydroxide (Milk Of Magnesia 30 Ml Oral.Susp) 30 ml PO DAILY PRN PRN Reason: Constipation Methylphenidate HCl (Methylphenidate Hcl 5 Mg Tablet) 5 mg PO DAILY [facility] Last Admin: 10/09/22 09:13 Dose: 5 mg Multivitamins/Vitamin C (Multivitamin Tablet) 1 tab PO DAILY [facility] Last Admin: 10/09/22 09:13 Dose: 1 tab Nicotine Polacrilex (Nicotine Polacrilex 2 Mg Gum) 4 mg BUCCAL Q2H PRN PRN Reason: Nicotine Cravings Olanzapine (Olanzapine 10 Mg Tablet) 20 mg PO BEDTIME [facility] Last Admin: 10/08/22 19:48 Dose: 20 mg Propranolol HCl (Propranolol Hcl 10 Mg Tablet) 10 mg PO BID [facility]; Protocol Last Admin: 10/09/22 09:13 Dose: Not Given Trazodone HCl (Trazodone Hcl 50 Mg Tablet) 50 mg PO BEDTIME MRX1 PRN PRN Reason: Insomnia Last Admin: 10/08/22 19:49 Dose: 50 mg Allergies Allergies Allergy/AdvReac Type Severity Reaction Status Date / Time No Known Allergies Allergy Verified 03/24/21 17:28 Assessment & Plan Assessment & Plan (1) Schizoaffective disorder, bipolar type: Status: Acute Code(s): F25.0 - Schizoaffective disorder, bipolar type Plan Mr. Bauer is a 27 year-old male with hx of schizoaffective disorder who self presented to [facility] reporting suicidal ideation with plan to stab himself on the heart, which he has done in the past back in 2016. Per [facility] crisis report, pt minimally engaged and most collateral information provided by his mother and [facility] worker who expressed concern about pt's ability to care for himself and suicidal reports. This account underwriter attempted several times to speak with pt,however, pt in bed, declined to speak with this account underwriter. PLAN 1. Admit to M5, cv 15 minutes checks 2. continue current medications 3. aftercare planning. 09/19/22- Continue current plan. Encourage milieu involvement 09/20/22- Attempt alliance 09/21/22- Message left for pt's mother No med changes today. 09/22/22- Continue current regime Team assisting pt is penitentiary application, however he is ambivalent Family meeting 09/23. 09/23 continue tx. 09/24 continue treatment plan 09/25 continue current treatment plan; however will discontinue propranolol since patient refuses and agrees to DC 09/26/22 continue current plan. 09/27/22- continue current regime/plan 09/28/22- Continue current plan/regime 09/29/22- Encourage discussion/processing his concerns in transition to [facility] program. 09/30/22- Ritalin 5 mg daily Increase Prozac to 30 mg daily 10/01/22- no changes in meds 10/02/22-no med changes 10/03/22-no med changes 10/05/22- continue to encourage respite in transition plan to residential care. 10/07/22- discharge planning. 10/08: Continue current regimen and plans 10/09: Continue current plans and regimen Reason for continued inpatient stay Substantial Risk for: med/psych decompensation Time Spent With Patient Time: Total time managing care of this patient today ____ minutes.
[2022-10-09] MEDS: OLANZapine 10 MG TABLET 20 MG PO (19:43)
[2022-10-09] MEDS: hydrOXYzine HCL 25 MG TABLET PO (19:50)
[2022-10-09] MEDS: traZODone HCL 50 MG TABLET PO (19:50)
[2022-10-10] MEDS: Multivitamin TABLET 1 TAB PO (08:25)
[2022-10-10] MEDS: FLUoxetine HCl 10 MG CAPSULE 30 MG PO (08:26)
--- NOTE | 2022-10-10 15:43 | HO.PSYCHPN ---
Subjective Subjective Date of Service: 10/10/22 Reason For Visit: SI Interim History: in bed, rousable to loud voice. no questions or complaints. Mental Status Exam Mental Status Exam Patient Appearance: Appropriate Patient Orientation: Person, Place, Time and Situation Level of Consciousness: Alert Patient Behavior: Anxious, Distractible, Isolative and Good Eye Contact Mood Description: Appropriate, Anxious and Apprehensive Affect Description: Appropriate, Anxious and Apprehensive Patient Cognition Impaired: No Ability to Follow Directions: Good Speech Pattern: Spontaneous Speech Memory Description: Episodic Impaired Hallucinations: None Perceptual Disturbances: Derealization Thought Process: Distracted Thought Content: positive for Perseveration and positive for Suicidal Ideation (denies) Depressive Symptoms: Increased Anxiety, Diff. Making Decisions and Thoughts of /Suicide (denies) Judgement: Fair Diagnostics Vital Signs (24Hr): BMI result Body Mass Index 44.6 Labs 09/13/22 01:12 09/13/22 01:12 Medications Medications Current Medications Acetaminophen (Acetaminophen 325 Mg Tablet) 650 mg PO Q6H PRN PRN Reason: Headache/Pain Mild Scale (1-3) Al Hydroxide/Mg Hydroxide (Magnesium Hydrox/Alum Hydrox 30 Ml Oral.Susp) 30 ml PO Q6H PRN PRN Reason: Heartburn/Nausea Fluoxetine HCl (Fluoxetine Hcl 10 Mg Capsule) 30 mg PO DAILY [facility] Last Admin: 10/10/22 08:26 Dose: 30 mg Hydroxyzine HCl (Hydroxyzine Hcl 25 Mg Tablet) 25 mg PO Q6H PRN PRN Reason: Anxiety Last Admin: 10/09/22 19:50 Dose: 25 mg Magnesium Hydroxide (Milk Of Magnesia 30 Ml Oral.Susp) 30 ml PO DAILY PRN PRN Reason: Constipation Methylphenidate HCl (Methylphenidate Hcl 5 Mg Tablet) 5 mg PO DAILY [facility] Last Admin: 10/10/22 08:30 Dose: Not Given Multivitamins/Vitamin C (Multivitamin Tablet) 1 tab PO DAILY [facility] Last Admin: 10/10/22 08:25 Dose: 1 tab Nicotine Polacrilex (Nicotine Polacrilex 2 Mg Gum) 4 mg BUCCAL Q2H PRN PRN Reason: Nicotine Cravings Olanzapine (Olanzapine 10 Mg Tablet) 20 mg PO BEDTIME [facility] Last Admin: 10/09/22 19:43 Dose: 20 mg Propranolol HCl (Propranolol Hcl 10 Mg Tablet) 10 mg PO BID [facility]; Protocol Last Admin: 10/10/22 08:30 Dose: Not Given Trazodone HCl (Trazodone Hcl 50 Mg Tablet) 50 mg PO BEDTIME MRX1 PRN PRN Reason: Insomnia Last Admin: 10/09/22 19:50 Dose: 50 mg Allergies Allergies Allergy/AdvReac Type Severity Reaction Status Date / Time No Known Allergies Allergy Verified 03/24/21 17:28 Assessment & Plan Assessment & Plan (1) Schizoaffective disorder, bipolar type: Status: Acute Code(s): F25.0 - Schizoaffective disorder, bipolar type Plan Mr. Bauer is a 27 year-old male with hx of schizoaffective disorder who self presented to [facility] reporting suicidal ideation with plan to stab himself on the heart, which he has done in the past back in 2016. Per [facility] crisis report, pt minimally engaged and most collateral information provided by his mother and [facility] worker who expressed concern about pt's ability to care for himself and suicidal reports. This selling underwriter attempted several times to speak with pt,however, pt in bed, declined to speak with this selling underwriter. PLAN 1. Admit to M5, cv 15 minutes checks 2. continue current medications 3. aftercare planning. 09/19/22- Continue current plan. Encourage milieu involvement 09/20/22- Attempt alliance 09/21/22- Message left for pt's mother No med changes today. 09/22/22- Continue current regime Team assisting pt is retirement application, however he is ambivalent Family meeting 09/23. 09/23 continue tx. 09/24 continue treatment plan 09/25 continue current treatment plan; however will discontinue propranolol since patient refuses and agrees to DC 09/26/22 continue current plan. 09/27/22- continue current regime/plan 09/28/22- Continue current plan/regime 09/29/22- Encourage discussion/processing his concerns in transition to [facility] program. 09/30/22- Ritalin 5 mg daily Increase Prozac to 30 mg daily 10/01/22- no changes in meds 10/02/22-no med changes 10/03/22-no med changes 10/05/22- continue to encourage respite in transition plan to residential care. 10/07/22- discharge planning. 10/08: Continue current regimen and plans 10/09: Continue current plans and regimen 10/10: no change to mgmt. Reason for continued inpatient stay Substantial Risk for: inability to function and rapid decompensation Time Spent With Patient Time: Total time managing care of this patient today ____ minutes.
[2022-10-10] MEDS: OLANZapine 10 MG TABLET 20 MG PO (20:24)
[2022-10-10] MEDS: traZODone HCL 50 MG TABLET PO (20:24)
[2022-10-11 06:00] VITALS: RESP 14
[2022-10-11] MEDS: Multivitamin TABLET 1 TAB PO (09:35)
[2022-10-11] MEDS: FLUoxetine HCl 10 MG CAPSULE 30 MG PO (09:35)
--- NOTE | 2022-10-11 16:28 | P.PNPSI_ITS ---
Subjective Subjective Date of Service: 10/11/22 Reason For Visit: SI Subjective Notes: Conditional Voluntary Healthcare Proxy: No Guardianship: No Medical Problems Affecting Mental Status: No Interim History: Flavio reports he is prepared to transition to respite on 10/12 as a step to his move to residential next week. We discussed his progress here, increasing his milieu involvement, attending and participating in group and increasing focused reading which he enjoys. Discussed Ritalin dosage, he would like an increase or return to [facility] (taken [facility] [employer]). Will remain with his regime for discharge. Medication Compliance: Yes Side effects from medications: No Attending Groups: Yes Review of Systems Acute medical concerns: No Medical Review of Systems: unchanged Mental Status Exam Mental Status Exam Patient Appearance: Appropriate Patient Orientation: Person, Place, Time and Situation Level of Consciousness: Alert Patient Behavior: Appropriate, Talkative, Cooperative and Good Eye Contact Mood Description: Apprehensive Affect Description: Apprehensive Patient Cognition Impaired: No Ability to Follow Directions: Good Hallucinations: None Delusions: Not Present Thought Process: Intact and Goal Oriented Thought Content: positive for Intact and positive for Goal Oriented Judgement: Good Diagnostics Vital Signs (24Hr): Vital Signs - 24 hr 10/11/22 06:00 Respiratory Rate 14 BMI result Body Mass Index 44.6 Labs 09/13/22 01:12 09/13/22 01:12 Medications Medications Current Medications Acetaminophen (Acetaminophen 325 Mg Tablet) 650 mg PO Q6H PRN PRN Reason: Headache/Pain Mild Scale (1-3) Al Hydroxide/Mg Hydroxide (Magnesium Hydrox/Alum Hydrox 30 Ml Oral.Susp) 30 ml PO Q6H PRN PRN Reason: Heartburn/Nausea Fluoxetine HCl (Fluoxetine Hcl 10 Mg Capsule) 30 mg PO DAILY [facility] Last Admin: 10/11/22 09:35 Dose: 30 mg Hydroxyzine HCl (Hydroxyzine Hcl 25 Mg Tablet) 25 mg PO Q6H PRN PRN Reason: Anxiety Last Admin: 10/09/22 19:50 Dose: 25 mg Magnesium Hydroxide (Milk Of Magnesia 30 Ml Oral.Susp) 30 ml PO DAILY PRN PRN Reason: Constipation Methylphenidate HCl (Methylphenidate Hcl 5 Mg Tablet) 5 mg PO DAILY [facility] Last Admin: 10/11/22 09:37 Dose: Not Given Multivitamins/Vitamin C (Multivitamin Tablet) 1 tab PO DAILY [facility] Last Admin: 10/11/22 09:35 Dose: 1 tab Nicotine Polacrilex (Nicotine Polacrilex 2 Mg Gum) 4 mg BUCCAL Q2H PRN PRN Reason: Nicotine Cravings Olanzapine (Olanzapine 10 Mg Tablet) 20 mg PO BEDTIME [facility] Last Admin: 10/10/22 20:24 Dose: 20 mg Propranolol HCl (Propranolol Hcl 10 Mg Tablet) 10 mg PO BID [facility]; Protocol Last Admin: 10/11/22 09:38 Dose: Not Given Trazodone HCl (Trazodone Hcl 50 Mg Tablet) 50 mg PO BEDTIME MRX1 PRN PRN Reason: Insomnia Last Admin: 10/10/22 20:24 Dose: 50 mg Allergies Allergies Allergy/AdvReac Type Severity Reaction Status Date / Time No Known Allergies Allergy Verified 03/24/21 17:28 Assessment & Plan Assessment & Plan (1) Schizoaffective disorder, bipolar type: Status: Acute Code(s): F25.0 - Schizoaffective disorder, bipolar type Plan Mr. Bauer is a 27 year-old male with hx of schizoaffective disorder who self presented to [facility] ED reporting suicidal ideation with plan to stab himself on the heart, which he has done in the past back in 2016. Per [facility] crisis report, pt minimally engaged and most collateral information provided by his mother and [facility] worker who expressed concern about pt's ability to care for himself and suicidal reports. This editorial writer attempted several times to speak with pt,however, pt in bed, declined to speak with this editorial writer. PLAN 1. Admit to M5, cv 15 minutes checks 2. continue current medications 3. aftercare planning. 09/19/22- Continue current plan. Encourage milieu involvement 09/20/22- Attempt alliance 09/21/22- Message left for pt's mother No med changes today. 09/22/22- Continue current regime Team assisting pt is usp application, however he is ambivalent Family meeting 09/23. 09/23 continue tx. 09/24 continue treatment plan 09/25 continue current treatment plan; however will discontinue propranolol since patient refuses and agrees to DC 09/26/22 continue current plan. 09/27/22- continue current regime/plan 09/28/22- Continue current plan/regime 09/29/22- Encourage discussion/processing his concerns in transition to [facility] program. 09/30/22- Ritalin 5 mg daily Increase Prozac to 30 mg daily 10/01/22- no changes in meds 10/02/22-no med changes 10/03/22-no med changes 10/05/22- continue to encourage respite in transition plan to residential care. 10/07/22- discharge planning. 10/08: Continue current regimen and plans 10/09: Continue current plans and regimen 10/10: no change to mgmt. 10/11: Discharge to respite 10/12. Patient educated on: therapeutic strategies Informed Consent: understands Reason for continued inpatient stay Substantial Risk for: stable for discharge Time Spent With Patient Time: Total time managing care of this patient today ____ minutes.
[2022-10-11] MEDS: OLANZapine 10 MG TABLET 20 MG PO (19:52)
[2022-10-11] MEDS: traZODone HCL 50 MG TABLET PO (19:52)
[2022-10-12] MEDS: Multivitamin TABLET 1 TAB PO (08:22)
[2022-10-12] MEDS: FLUoxetine HCl 10 MG CAPSULE 30 MG PO (08:22)
[2022-10-12] MEDS: Methylphenidate HCl 5 MG TABLET PO (08:23)
[2022-10-12 08:31] LABS: MANUAL DIFF FLAG NO
[2022-10-12 08:39] LABS: Basophils Absolute Auto 0.1 X10*3/uL (0.0-0.2); Basophils Percent Auto 0.9 % (0-2); Eosinophils Absolute Auto 0.2 X10*3/uL (0.0-0.4); Eosinophils Percent Auto 2.5 % (0-4); Hemoglobin 15.5 g/dl (14.0-18.0); Imm Gran Abs Auto 0.03 X10*3/uL (0.00-0.03); Imm Gran Pct Auto 0.5 % (0.0-0.4); Lymphocytes Absolute Auto 2.9 X10*3/uL (1.2-4.9); Mean Corpuscular HGB Conc 33.7 g/dl (31.0-36.0); Mean Corpuscular Hemoglobin 29.1 pg (27.0-33.0); Mean Corpuscular Volume 86.5 fL (80.0-98.0); Mean Platelet Volume 10.4 fL (9.4-12.4); Monocytes Absolute Auto 0.7 X10*3/uL (0.1-1.2); Monocytes Percent Auto 10.9 % (2-11); Neutrophils Absolute Auto 2.6 x10*3/uL (2.0-8.3); Neutrophils Percent Auto 40.2 % (45-73); Platelet Count 208 X10*3/uL (160-400); Red Blood Count 5.32 X10*6/uL (4.60-5.80); Red Cell Distribution Width 13.6 % (11.0-16.0); White Blood Count 6.5 X10*3/uL (4.8-10.8)
[2022-10-12 09:04] LABS: Alanine Aminotransferase 84 U/L (0-40); Albumin Level 3.8 g/dL (3.5-5.0); Alkaline Phosphatase 55 U/L (39-117); Anion Gap 12 (12-20); Aspartate Amino Transferase 28 U/L (5-37); Bilirubin Total 0.7 mg/dL (0.0-1.0); Blood Urea Nitrogen 9 mg/dL (9-16); Calcium 9.1 mg/dL (8.4-10.2); Carbon Dioxide 28 mmol/L (22-29); Chloride 106 mmol/L (96-108); Cholesterol 163 mg/dL; Creatinine Clr Calc Pharmacy 199.3; Estimated Glomerular Filt Rate > 60; Glucose Random 85 mg/dL (60-115); HDL Cholesterol 23 mg/dL; LDL Cholesterol Calculated 93 mg/dl; Potassium 4.3 mmol/L (3.3-5.1); Sodium 142 mmol/L (135-145); Total Protein 5.7 g/dL (6.5-8.0); Triglycerides 239 mg/dL
[2022-10-12 09:19] LABS: Estimated Average Glucose 100 mg/dL; Hemoglobin A1c % 5.1 %
[2022-10-12 09:24] LABS: Thyroid Stimulating Hormone 0.71 uIU/mL (0.32-4.0)
[2022-10-12 10:50] LABS: COVID-19 Test Negative (Negative); IDNOW Serial# 08D9AD1C
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
== END 2022-10-12 11:49 | disposition other institution (70) | DRG 750 ==
LOC: HO.ED 21:59 → HO.PM5 09-13 17:43
PROVIDERS: Physician Assistant; Admitting Provider Clinical Nurse Specialist Psychiatric/Mental Health, Adult; Emergency Provider Emergency Medicine Emergency Medical Services; Visit Provider Clinical Nurse Specialist Psychiatric/Mental Health, Adult
DX: F25.0 Schizoaffective disorder, bipolar type (principal); R45.851 Suicidal ideations; F41.9 Anxiety disorder, unspecified; K21.9 Gastro-esophageal reflux disease without esophagitis; Z20.822 Contact with and (suspected) exposure to COVID-19; Z91.51 Personal history of suicidal behavior; Z87.891 Personal history of nicotine dependence; Z79.899 Other long term (current) drug therapy
CPT/HCPCS: 36415; 80053; 80061; 80178; 80307; 81001; 82077; 83036; 84443; 85025; 87635; 99285

== ENCOUNTER 2024-01-18 10:45 | Outpatient (REF) | payer MEDICAID, SELFPAY ==
[2024-01-18 14:47] LABS: MANUAL DIFF FLAG NO
[2024-01-18 15:11] LABS: Basophils Absolute Auto 0.1 X10*3/uL (0.0-0.2); Basophils Percent Auto 0.9 % (0-2); Eosinophils Absolute Auto 0.4 X10*3/uL (0.0-0.4); Eosinophils Percent Auto 2.8 % (0-4); Hematocrit 51.7 % (42.0-52.0); Hemoglobin 17.7 g/dl (14.0-18.0); Imm Gran Abs Auto 0.22 X10*3/uL (0.00-0.03); Imm Gran Pct Auto 1.7 % (0.0-0.4); Lymphocytes Absolute Auto 4.2 X10*3/uL (1.2-4.9); Lymphocytes Percent Auto 32.7 % (20-40); Mean Corpuscular HGB Conc 34.2 g/dl (31.0-36.0); Mean Corpuscular Volume 90.5 fL (80.0-98.0); Mean Platelet Volume 9.7 fL (9.4-12.4); Monocytes Absolute Auto 1.3 X10*3/uL (0.1-1.2); Monocytes Percent Auto 10.1 % (2-11); Neutrophils Absolute Auto 6.7 x10*3/uL (2.0-8.3); Neutrophils Percent Auto 51.8 % (45-73); Platelet Count 331 X10*3/uL (160-400); Red Blood Count 5.71 X10*6/uL (4.60-5.80); Red Cell Distribution Width 12.5 % (11.0-16.0); White Blood Count 12.9 X10*3/uL (4.8-10.8)
[2024-01-18 15:50] LABS: Alanine Aminotransferase 43 U/L (0-40); Albumin Level 4.6 g/dL (3.5-5.0); Alkaline Phosphatase 66 U/L (39-117); Anion Gap 17 (12-20); Aspartate Amino Transferase 24 U/L (5-37); Bilirubin Total 0.5 mg/dL (0.0-1.0); Blood Urea Nitrogen 12 mg/dL (9-16); Calcium 10.1 mg/dL (8.4-10.2); Carbon Dioxide 25 mmol/L (22-29); Chloride 103 mmol/L (96-108); Cholesterol 231 mg/dL (<200); Estimated Glomerular Filt Rate > 60; Glucose Fasting 80 mg/dL (60-99); HDL Cholesterol 36 mg/dL (>40); LDL Cholesterol Calculated 144 mg/dL (<100); Lipase 11 U/L (8-78); Potassium 4.5 mmol/L (3.3-5.1); Sodium 140 mmol/L (135-145); Triglycerides 259 mg/dL (<150)
[2024-01-18 15:53] LABS: TSH reflex Free T4 1.62 uIU/mL (0.32-4.0)
[2024-01-19 04:18] LABS: HIV AB/AG Nonreactive (Nonreactive); HIV Num 1 0.07 S/CO (0.00-0.99); ~HepC Num1 0.15 S/CO (0.00-0.79); ~Hepatitis C Antibody Nonreactive (Nonreactive)
[2024-01-22 21:44] LABS: VITAMIN D (1,25 OH) D3 46 pg/mL; Vit D (1,25-Dihydroxy) Total 46 pg/mL (18-72); Vitamin D (1,25 OH) D2 <8 pg/mL
== END 2024-01-18 10:46 | disposition home or self-care (01) ==
LOC: HO.CHCLDS 10:45
PROVIDERS: Visit Provider Family Medicine
DX: E66.01 Morbid (severe) obesity due to excess calories (principal); R10.9 Unspecified abdominal pain; Z13.9 Encounter for screening, unspecified; R03.0 Elevated blood-pressure reading, without diagnosis of hypertension
CPT/HCPCS: 36415; 80053; 80061; 82652; 83690; 84443; 85025; 86803; 87389

== ENCOUNTER 2024-11-05 01:02 | Emergency (ER) | payer MEDICAID, SELFPAY ==
[2024-11-05 01:08] VITALS: BP 150/100; PULSE 100
--- NOTE | 2024-11-05 01:13 | ED_ITS ---
HPI - General Adult General Chief complaint: ETOH/Substance Use Stated complaint: ETOH Time Seen by Provider: 11/05/24 01:13 History of Present Illness ED Provider: Radha CHRISTIANSEN narrative: The patient is a 29-year-old male who was brought in by ambulance under circumstances which are not very well defined. Apparently police had been called for unclear reasons. Police felt the patient was making possible suicidal statements and police called EMS and the patient was then brought here. When he was triaged the patient apparently told the triage nurse that he had taken alcohol and some kind of other drugs but he would not say want. When I spoke to the patient he told me that he had had 6 nips to drink but would not give me any other information. He then asked if he could be admitted ?inpatient. ? However he would not really divulge any additional information. According to old hospital records the patient has been hospitalized psychiatrically at this hospital once. He was hospitalized in early 2022. He was hospitalized for almost a month. At the time of discharge his discharge summary said that he was admitted for an exacerbation of schizoaffective disorder, bipolar type with depression, and suicidal ideation. At the time of his discharge from [facility]'s inpatient psychiatric unit on 10/12/2022 his medications included olanzapine 20 mg, atomoxetine 40 mg, propranolol 10 mg b.i.d., fluoxetine 10 mg daily, hydroxyzine, trazodone at bedtime. Related Data Home Medications ?Medication ?Instructions ?Recorded ?Confirmed amlodipine 5 mg tablet 5 mg PO DAILY 11/05/24 11/05/24 buspirone 5 mg tablet 5 mg PO TID 11/05/24 11/05/24 fluoxetine 10 mg capsule 80 mg PO DAILY 11/05/24 11/05/24 hydroxyzine HCl 25 mg tablet 50 mg PO BID anxiety 11/05/24 11/05/24 hydroxyzine HCl 50 mg tablet 50 mg PO DAILY PRN Anxiety 11/05/24 11/05/24 trazodone 50 mg tablet 50 mg PO BEDTIME Insomnia 11/05/24 11/05/24 trazodone 50 mg tablet 50 mg PO DAILY PRN Anxiety 11/05/24 11/05/24 Previous Rx's ?Medication ?Instructions ?Recorded atomoxetine 40 mg capsule 40 mg PO QAM attention deficit 10/11/22 hyperactivity disorder #30 caps multivitamin (Daily-Jennifer tablet) 1 tab PO DAILY 30 days #30 tabs 10/11/22 olanzapine 20 mg tablet 20 mg PO BEDTIME #30 tabs 10/11/22 propranolol 10 mg tablet 10 mg PO BID #60 tabs 10/11/22 Allergies Allergy/AdvReac Type Severity Reaction Status Date / Time No Known Allergies Allergy Verified 11/05/24 01:28 Review of Systems 2 Review of Systems: Yes all other systems are reviewed and are negative PMFSH Past Medical History Medical History (Updated 11/05/24 @ 07:05 by Bernardo Garcia MD) GERD (gastroesophageal reflux disease) Anxiety disorder Depressive disorder Surgical History (Updated 03/29/21 @ 17:10 by Zuleika Pendleton NP) H/O heart surgery H/O wrist surgery Social History Social History Household Members: None Household Members Other:: penitentiary Housing: Other Housing Other:: penitentiary Do you presently have visiting nurse or other home services: No Patient Tobacco Use Status: Former Tobacco user Tobacco use type: Cigarette Second Hand Smoke Exposure: No Substance Use Type: Caffiene Advance Directives: No Advance Directives Information Provided: Yes Do you have a plan to hurt others: No Plan service: No Sexual orientation: Did not discuss Physical Exam ED Vital Signs: Vital Signs - 24 hr 11/05/24 01:26 11/05/24 11:07 11/05/24 18:10 Temperature 98.2 F 98.1 F 98.1 F Pulse Rate 87 72 72 Respiratory Rate 18 16 16 Blood Pressure 147/78 H 148/83 H 143/83 H Pulse Oximetry 99 97 97 Oxygen Delivery Method Room Air Room Air Room Air BMI result Body Mass Index 36.4 Const Other: The patient is a 29-year-old male who was awake and alert. He has a very jovial demeanor that seems inappropriate. He was often laughing inappropriately. He did not seem in acute distress. HENMT Other: The cheeks were mildly flushed. Mucous membranes moist. Face is symmetrical. Eyes Other: Pupils were large. They constrict slightly with light but were still quite large. Extraocular movements are intact. Conjunctivae are clear. Neck Neck: Yes normal visual inspection and Yes full ROM Resp Effort & Inspection: normal respiratory effort Auscultation: clear to auscultation bilaterally Cardio Rate: regular rate Rhythm: regular rhythm Heart sounds: S1 normal heart sound present and S2 normal heart sound present GI Other: The patient has a large abdomen. The abdomen is soft and nontender. Skin Other: The cheeks were slightly flushed. Otherwise the skin was normal. Neuro Other: The patient is awake and alert. He has a somewhat abnormal demeanor suggesting intoxication. He seems inappropriately jovial, laughing inappropriately at times. Pupils were large. Cranial nerves 2-12 are otherwise normal. He moves his extremities normally. He seems steady on his feet. He has no motor or sensory deficits. No discoordination. Extrem Other: No peripheral edema. Psych Other: The patient seems intoxicated and has an inappropriately jovial demeanor. He was not very forthcoming about the history leading him to come to the emergency room. Course Reevaluation(s) Reevaluation #1: 11/05/2024 DR. Kelley's Progress note: Continue with physician observation, care team input is appreciated, VSS, +SI, bed search is underway. Time: 13:10 Medications Administered Discontinued Medications Generic Name Dose Route Start Last Admin Trade Name Jed PRN Reason Stop Dose Admin Acetaminophen 975 mg 11/05/24 08:12 11/05/24 08:35 Acetaminophen 325 Mg Tablet PO 11/05/24 08:13 975 mg ONCE ONE Administration Amlodipine Besylate 5 mg 11/05/24 12:00 11/05/24 12:33 Amlodipine Besylate 5 Mg Tablet PO Not Given DAILY NGUYEN Protocol Buspirone HCl 5 mg 11/05/24 10:15 11/05/24 17:51 Buspirone Hcl 5 Mg Tablet PO Not Given TID NGUYEN Diazepam 20 mg 11/05/24 02:10 11/05/24 02:16 Diazepam 5 Mg Tablet PO 11/05/24 02:11 20 mg ONCE ONE Administration Fluoxetine HCl 80 mg 11/05/24 10:15 11/05/24 11:09 Fluoxetine Hcl 20 Mg Capsule PO 80 mg DAILY NGUYEN Administration Hydroxyzine HCl 50 mg 11/05/24 10:12 11/05/24 11:09 Hydroxyzine Hcl 25 Mg Tablet PO 50 mg BID NGUYEN Administration Multivitamins/Vitamin C 1 tab 11/05/24 10:15 11/05/24 11:09 Multivitamin Tablet PO 1 tab DAILY NGUYEN Administration Olanzapine 20 mg 11/05/24 03:26 11/05/24 03:41 Olanzapine 10 Mg Tablet PO 11/05/24 03:27 Not Given ONCE ONE Propranolol HCl 10 mg 11/05/24 10:15 11/05/24 11:09 Propranolol Hcl 10 Mg Tablet PO 10 mg BID NGUYEN Administration Protocol Medical Decision Making Medical Decision Making [facility] Narrative: The patient is a 29-year-old male who was brought here under unclear circumstances. It was my impression that he seemed intoxicated. He seemed inappropriately jovial and he had large pupils. This seems to have a history of mental illness and has been on antipsychotics in the past. The patient was not very forthcoming about what prompted him being brought here. However he did ask ?am I going to be going inpatient? The patient's medical workup showed a urine tox screen positive for marijuana and fentanyl. His alcohol level was only slightly elevated at 46. Acetaminophen and salicylates are negative. The patient seemed to have a somewhat labile demeanor. He accepted 10 mg of oral diazepam. After that he fell asleep. My overall impression is that he is medically stable. At this point I think he is medically stable for evaluation by the care team and that his ultimate disposition can be determined by the care team. The patient will therefore be placed in physician observation. Lab Data 11/05/24 01:57 11/05/24 01:52 Labs: Lab Results 11/05/24 11/05/24 11/05/24 Range/Units 01:52 01:57 02:44 WBC 13.7 H (4.8-10.8) X10*3/uL RBC 5.34 (4.60-5.80) X10*6/uL Hgb 16.4 (14.0-18.0) g/dl Hct 45.8 (42.0-52.0) % MCV 85.8 (80.0-98.0) fL MCH 30.7 (27.0-33.0) pg MCHC 35.8 (31.0-36.0) g/dl RDW 12.7 (11.0-16.0) % Plt Count 272 (160-400) X10*3/uL MPV 9.3 L (9.4-12.4) fL Immature Gran % (Auto) 0.5 H (0.0-0.4) % Neut % (Auto) 52.4 (45-73) % Lymph % (Auto) 35.3 (20-40) % [place] % (Auto) 8.4 (2-11) % Eos % (Auto) 2.7 (0-4) % Baso % (Auto) 0.7 (0-2) % Lymph # (Auto) 4.8 (1.2-4.9) X10*3/uL [place] # (Auto) 1.2 (0.1-1.2) X10*3/uL Eos # (Auto) 0.4 (0.0-0.4) X10*3/uL Baso # (Auto) 0.1 (0.0-0.2) X10*3/uL Abs Immat Gran (auto) 0.07 H (0.00-0.03) X10*3/uL Absolute Neuts (auto) 7.2 (2.0-8.3) x10*3/uL Absolute Nucleated RBC 0.000 (0.0-0.012) X10*3/uL Nucleated RBC % (auto) 0.0 (0.0-0.2) /100WBC Sodium 143 (135-145) mmol/L Potassium 3.6 (3.3-5.1) mmol/L Chloride 107 (96-108) mmol/L Carbon Dioxide 22 (22-29) mmol/L Anion Gap 18 (12-20) BUN 13 (9-16) mg/dL Creatinine 0.85 (0.5-1.4) mg/dL Estim Creat Clear Calc 164.4 Estimated GFR > 60 Random Glucose 92 (60-115) mg/dL Calcium 9.7 (8.4-10.2) mg/dL Magnesium 2.2 (1.6-2.6) mg/dL Total Bilirubin 0.5 (0.0-1.0) mg/dL Direct Bilirubin 0.2 (0.0-0.5) mg/dL AST 27 (5-37) U/L ALT 35 (0-40) U/L Alkaline Phosphatase 77 (39-117) U/L Total Protein 7.5 (6.5-8.0) g/dL Albumin 4.6 (3.5-5.0) g/dL Salicylates < 5.0 L (15-30) mg/dL Urine Opiates Screen Not Detected (Not Detect) Ur Buprenorphine Scrn Not Detected (Not Detect) ng/mL Ur Oxycodone Screen Not Detected (Not Detect) ng/mL Urine Methadone Screen Not Detected (Not Detect) ng/mL Urine Fentanyl Screen POSITIVE H (Not Detect) Acetaminophen < 3 (<30) mcg/mL Ur Barbiturates Screen Not Detected (Not Detect) Ur Phencyclidine Scrn Not Detected (Not Detect) Ur Amphetamines Screen Not Detected (Not Detect) U Benzodiazepines Scrn Not Detected (Not Detect) Urine Cocaine Screen Not Detected (Not Detect) U Marijuana (THC) Screen POSITIVE H (Not Detect) Ethyl Alcohol 46 mg/dL Discharge Plan Discharge Clinical Impression: Schizoaffective disorder Patient Disposition: Xfer Psychiatric Hosp Transfer Details: TO: [facility], [address] [place] [address],[place] Prescriptions: No Action buspirone [BuSpar] 5 mg Tablet 5 mg PO TID trazodone 50 mg Tablet 50 mg PO DAILY PRN (Reason: Anxiety) trazodone 50 mg tablet 50 mg PO BEDTIME fluoxetine 10 mg capsule 80 mg PO DAILY hydroxyzine HCl 25 mg tablet 50 mg PO BID hydroxyzine HCl 50 mg tablet 50 mg PO DAILY PRN (Reason: Anxiety) amlodipine 5 mg tablet 5 mg PO DAILY multivitamin [Daily-Jennifer] Tablet 1 tab PO DAILY 30 Days Qty: 30 0RF propranolol 10 mg tablet 10 mg PO BID Qty: 60 0RF olanzapine 20 mg tablet 20 mg PO BEDTIME Qty: 30 0RF atomoxetine 40 mg capsule 40 mg PO QAM Qty: 30 0RF Referrals: Femi Alcaraz NP [Nurse Practitioner] - Islea Shelton MD [Primary Care Provider] - Interventions: Acute Care Transfer Worksheet (ED) Last Done: 11/05/24 18:10 Discharge Date/Time: 11/05/24 18:17 Print Language: Danish
[2024-11-05 01:26] VITALS: BP 147/78; PULSE 87; RESP 18; TEMP 36.8; O2SAT 99; BMI 36.4
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
[2024-11-05 02:01] LABS: MANUAL DIFF FLAG NO
[2024-11-05 02:02] LABS: Basophils Absolute Auto 0.1 X10*3/uL (0.0-0.2); Basophils Percent Auto 0.7 % (0-2); Eosinophils Absolute Auto 0.4 X10*3/uL (0.0-0.4); Eosinophils Percent Auto 2.7 % (0-4); Hematocrit 45.8 % (42.0-52.0); Hemoglobin 16.4 g/dl (14.0-18.0); Imm Gran Abs Auto 0.07 X10*3/uL (0.00-0.03); Imm Gran Pct Auto 0.5 % (0.0-0.4); Lymphocytes Absolute Auto 4.8 X10*3/uL (1.2-4.9); Lymphocytes Percent Auto 35.3 % (20-40); Mean Corpuscular HGB Conc 35.8 g/dl (31.0-36.0); Mean Corpuscular Hemoglobin 30.7 pg (27.0-33.0); Mean Corpuscular Volume 85.8 fL (80.0-98.0); Mean Platelet Volume 9.3 fL (9.4-12.4); Monocytes Absolute Auto 1.2 X10*3/uL (0.1-1.2); Monocytes Percent Auto 8.4 % (2-11); Neutrophils Absolute Auto 7.2 x10*3/uL (2.0-8.3); Neutrophils Percent Auto 52.4 % (45-73); Platelet Count 272 X10*3/uL (160-400); Red Blood Count 5.34 X10*6/uL (4.60-5.80); Red Cell Distribution Width 12.7 % (11.0-16.0); White Blood Count 13.7 X10*3/uL (4.8-10.8)
[2024-11-05] MEDS: diazePAM 5 MG TABLET 20 MG PO (02:16)
[2024-11-05 02:32] LABS: Alanine Aminotransferase 35 U/L (0-40); Albumin Level 4.6 g/dL (3.5-5.0); Anion Gap 18 (12-20); Aspartate Amino Transferase 27 U/L (5-37); Bilirubin Direct 0.2 mg/dL (0.0-0.5); Bilirubin Total 0.5 mg/dL (0.0-1.0); Blood Urea Nitrogen 13 mg/dL (9-16); Calcium 9.7 mg/dL (8.4-10.2); Carbon Dioxide 22 mmol/L (22-29); Chloride 107 mmol/L (96-108); Creatinine Clr Calc Pharmacy 164.4; Estimated Glomerular Filt Rate > 60; Ethanol 46 mg/dL; Glucose Random 92 mg/dL (60-115); Magnesium 2.2 mg/dL (1.6-2.6); Potassium 3.6 mmol/L (3.3-5.1); Sodium 143 mmol/L (135-145); Total Protein 7.5 g/dL (6.5-8.0)
[2024-11-05 03:00] LABS: Alkaline Phosphatase 77 U/L (39-117)
[2024-11-05 03:03] LABS: Acetaminophen LAB < 3 mcg/mL (<30); Salicylate < 5.0 mg/dL (15-30)
[2024-11-05 03:03] LABS: Amphetamine Screen Urine Not Detected (Not Detect); Barbiturates, Urine Not Detected (Not Detect); Benzodiazepines Screen Urine Not Detected (Not Detect); Buprenorphine Scr Not Detected (Not Detect); Cannabinoid Screen Urine POSITIVE (Not Detect); Cocaine Screen Urine Not Detected (Not Detect); Fentanyl, urine POSITIVE (Not Detect); Methadone Screen, Urine Not Detected (Not Detect); Opiate Screen Urine Not Detected (Not Detect); Oxycodone Screen Urine Not Detected (Not Detect); Phencyclidine Screen Urine Not Detected (Not Detect)
--- NOTE | 2024-11-05 07:52 | MHC.EDTECH ---
pt refusing ekg
[2024-11-05] MEDS: Acetaminophen 325 MG TABLET 975 MG PO (08:35)
--- NOTE | 2024-11-05 08:37 | PC.NURSE ---
patient awake, ate breakfast. requesting medication for pain - states he has been working out and is feeling sore from this. provided with tylenol. awaiting care team consult. patient observer at bedside for patient safety.
--- NOTE | 2024-11-05 09:00 | PC.NURSE ---
patient wandering about the ED, requiring multiple attempts to bring patient back to bed. patient able to be redirected back to bed, stating he just wanted to walk around a bit .
--- NOTE | 2024-11-05 09:24 | MHC.CARE ---
Addendum entered by Dany Malone, MS 11/05/24 09:24: DISREGARD NOTE ISSUED IN ERROR Original Note: Pt will be an inpatient bedsearch
--- NOTE | 2024-11-05 09:35 | PC.NURSE ---
[facility] staff member called fro update on pt and will fax over any information on him. Yesica Gupta [phone]
--- NOTE | 2024-11-05 10:02 | PC.NURSE ---
Recieved fax w/ pt home meds from care home
[2024-11-05 11:07] VITALS: BP 148/83; PULSE 72; RESP 16; TEMP 36.7; O2SAT 97
[2024-11-05] MEDS: FLUoxetine HCl 20 MG CAPSULE 80 MG PO (11:09)
[2024-11-05] MEDS: hydrOXYzine HCL 25 MG TABLET 50 MG PO (11:09)
[2024-11-05] MEDS: Propranolol HCL 10 MG TABLET PO (11:09)
[2024-11-05] MEDS: Multivitamin TABLET 1 TAB PO (11:09)
[2024-11-05] MEDS: busPIRone HCl 5 MG TABLET PO (11:37)
--- NOTE | 2024-11-05 12:10 | PHA.MEDREC ---
Pharmacy Consult ? Medication Reconciliation Pharmacy has completed the medication reconciliation. Utilized med list from [facility] [phone].
--- NOTE | 2024-11-05 13:28 | PC.NURSE ---
pts own med Atomoxetine sent to pharmacy
--- NOTE | 2024-11-05 14:25 | MHC.CARE ---
Pt was accepted to [facility] for today 11/05/24. ETA is LUC[facility]. The accepting provider is Dr. Carrasco. No nurse to nurse is required by the accepting facility. The address is [address] [place] [id number]. ED RN Joy and the CARE team have been notified of placement.
--- NOTE | 2024-11-05 17:51 | PC.NURSE ---
Pt transferred from 8h in main ED to 2. Pt calm/cooperative during transfer to pod, ambulatory/independent at baseline. Resting in bed quietly, respirations even and unlabored, no increased wob/sob noted. This RN attempted to medicate pt per MAR- pt not responding to this RN, pt educated on the medication/need, still not responding to this RN. Will reattempt at later time. Unable to assess pt thoroughly d/t not responding to this RNs questions.
[2024-11-05 18:10] VITALS: BP 143/83; PULSE 72; RESP 16; TEMP 36.7; O2SAT 97
== END 2024-11-05 18:17 ==
PROVIDERS: Emergency Provider Emergency Medicine; PCP Family Medicine
DX: F25.0 Schizoaffective disorder, bipolar type (principal); R45.851 Suicidal ideations; Z51.81 Encounter for therapeutic drug level monitoring; Z79.899 Other long term (current) drug therapy; Z87.891 Personal history of nicotine dependence
CPT/HCPCS: 36415; 80048; 80076; 80143; 80179; 80307; 83735; 85025; 99285; S9485